=== PATIENT | female | born 1975 | race African-American/Black ===

== ENCOUNTER 2018-05-07 20:39 | Observation (INO) | payer OTHER, SELFPAY ==
[2018-05-07 20:41] VITALS: BP 179/100; PULSE 94; RESP 18; TEMP 36.7; O2SAT 94; BMI 39.0
--- NOTE | 2018-05-07 21:10 | RAD_ITS ---
STUDY: X-RAY CHEST REASON FOR EXAM: Female, 42 years old. Chest pain TECHNIQUE: PA and lateral views of the chest. COMPARISON: 01/28/2016 FINDINGS: The lungs are clear and expanded. There is no demonstrated pleural abnormality. Normal size heart. Normal mediastinum and amirah. Normal visualized pulmonary arteries. Normal visualized aortic arch and descending thoracic aorta. Normal visualized thoracic spine. Normal visualized ribs, clavicles, and shoulders. There is no demonstrated abnormality of the visualized soft tissue structures of the upper abdomen. RAD/Chest PA and Lateral IMPRESSION: Normal x-ray examination of the chest. Electronically Signed: Bruce Little DO at 21:48 EDT Tel , Service support ,
[2018-05-07 21:33] LABS: Absolute Neutrophil Count 2.2 X10^3/uL (2.0-7.7); Basophil# 0.02 X10^3/uL; Basophil% 0.4 % (0-1); Eosinophil# 0.13 X10^3/uL; Eosinophils% 2.7 % (0-5); Hematocrit 40.4 % (37-47); Hemoglobin 12.9 g/dl (12.0-15.0); Lymphocyte % 43.4 % (19-41); Mean Corp Hgb Conc 31.9 g/gl (32-36); Mean Corpuscular Volume 90.8 fL (81-99); Monocyte# 0.38 X10^3/uL; Monocyte% 7.9 % (0-10); Neutrophil # 2.21 X10^3/uL (2.7-7.7); Neutrophil % 45.6 % (47-70); POSITIVE COUNT NO; POSITIVE DIFFERENTIAL NO; POSITIVE MORPHOLOGY NO; Platelet Count 221 K/mm3 (150-450); Red Blood Count 4.45 M/mm3 (4.2-5.4); White Blood Count 4.8 K/mm3 (4.4-11.0)
[2018-05-07 21:51] LABS: Anion Gap 8 (5-15); BUN 17 mg/dL (7-18); BUN/Creat Ratio 18.1 RATIO (10-20); Calcium,Total 8.4 mg/dL (8.5-10.1); Chloride 110 mmol/L (98-107); Creatinine, Serum 0.94 mg/dL (0.55-1.02); EST Glomerular Filtration Rate 69 mL/min (>60); Est Glom Filt Rate - Afr Amer 83 mL/min (>60); Estimated Creatinine Clearance 66.64 ml/min; Glucose 164 mg/dL (74-106); Potassium 3.8 mmol/L (3.5-5.1); Sodium Level 142 mmol/L (136-145)
[2018-05-07 22:18] VITALS: BP 190/113; PULSE 76; RESP 17; O2SAT 98
--- NOTE | 2018-05-07 22:37 | ED.DCSUM_ITS ---
- ER Visit Summary Date of Service: 05/07/18 Chief Complaint: [Chest pain] History of Present Illness: The patient is a 42 F [who presents the emergency department with chest pain. It started this morning. It has been off and on all day. It is currently a 7 out of 10 pressure pain. Occasionally it is a sharp pain. She is not sure what brings it on. No shortness of breath nausea vomiting or dizziness. She has been taking her medications well. She has had a headache for the past 2 days. No fevers or chills. No lower extremity swelling. No DVT or PE risk factors. She does have a history of hypertension diabetes untreated hyperlipidemia and [place] at the age of 20 from cocaine use. She denies smoking alcohol or any current drug use] Physical Examination: [] Blood pressure 190/113 other vitals within acceptable limits WN WD NAD obese PERRL EOMI MMM NECK supple and nontender, no masses RRR out of 6 systolic murmur rub or gallop, no peripheral edema, symmetric radial pulses CTAB no respiratory distress mild tenderness to left chest ABDOMEN is soft and nontender, normal bowel sounds, no distension, no rebound or guarding SKIN is warm and dry no rashes Alert and Oriented x3, CN II-XII in tact, no motor or sensory deficits, gait normal No lymphadenopathy Test Results: [EKG is sinus at a rate of 72 with LVH and subsequent repolarization abnormality that includes T-wave inversions V3 V4 V5 V6 1 and AV well as well as the inferior leads there is no ST elevation she is a borderline prolonged QTC] not significantly changed from prior on January 29 2016 Emergency Department Course and Treatment: [Screening labs including troponin were unremarkable. Patient was given aspirin and nitroglycerin on arrival. Given the patient's history continued chest pain and uncontrolled hypertension I do think she requires admission for observation. Patient given 20 of labetalol and Nitropaste. She continued to have intermittent squeezing chest discomfort and occasional shock pain. At this time given her malignant high blood pressure chest pain and medical history she will be admitted to the hospital.] Treatment Plan: [] Disposition: Admit Impression: [[1. Malignant hypertension 2. Chest pain] ] This note was generated with [employer] dictation software. It may contain incorrect words, spelling, and punctuation that were not noted in review of the chart prior to signing ED Disposition - Plan for ED Patient: Chief Complaint: Chest Pain Referrals: Bebeto Charlton DO [Primary Care Provider] -
[2018-05-07] MEDS: Aspirin 81 MG TAB.CHEW 324 MG PO (23:24)
[2018-05-07 23:25] VITALS: BP 170/120; PULSE 84; RESP 20; O2SAT 98
[2018-05-08] VITALS (12 sets, daily range): BP systolic 110–223; BP diastolic 63–190; PULSE 68–94; RESP 16; TEMP 36.7–37.1; O2SAT 96–98; BMI 39.9
--- NOTE | 2018-05-08 00:14 | PCM.HP.STD ---
Problem List (1) History of [place] (myocardial infarction) Status: Chronic (2) Type II diabetes mellitus Status: Chronic (3) Obesity Status: Chronic (4) Chest pain Status: Acute Qualifiers: Chest pain type: unspecified Qualified Code(s): R07.9 - Chest pain, unspecified (5) Uncontrolled hypertension Status: Acute History of Present Illness Date of Admission: 05/08/18 Chief Complaint: chest pain The patient is a 42 year old female patient with a history of LA at age 19 due to cocaine abuse presents to the ER with chest pain and uncontrolled hypertension. She states she the pain began this am at 8:00. The pain was significant and was not provoked by activity. It does not radiate from the chest. She says she may have had a stress test two years ago. No nausea or vomiting. She will be admitted for further cardiac workup. She denies illicit drug abuse. Past Medical History Past Medical History (Chronic Problems): Chronic Problems History of [place] (myocardial infarction) (Chronic) Type II diabetes mellitus (Chronic) History of gestational diabetes mellitus (Chronic) Obesity (Chronic) Benign essential hypertension (Chronic) Asthma (Chronic) Allergies Penicillins Allergy (Verified 05/07/18 20:43) Hives Home Medications: Ambulatory Orders Medication Instructions Recorded Amlodipine [Norvasc] 10 mg PO DAILY #60 tablet 01/30/16 Carvedilol [Coreg (Beta Cathi)] 25 mg PO BID #120 tablet 01/30/16 Hydrochlorothiazide [Hctz] 25 mg PO DAILY #60 tablet 01/30/16 Lisinopril [Zestril] 40 mg PO DAILY #60 tablet 01/30/16 Glimepiride [Amaryl] 2 mg PO DAILY 05/07/18 Hydrocodone/Acetaminophen 1 tab PO Q6H PRN PRN 05/07/18 [Hydrocodone-Acetamin 7.5-325] Insulin Glargine,Hum.rec.anlog 26 unit SQ QHS 05/07/18 [Basaglar Kwikpen U-100] Tizanidine HCl [Zanaflex] 4 mg PO BID 05/07/18 Surgical History: - Smoking Status: Never smoker - *Family History Maternal History Items: Diabetes, Heart Disease, Hypertension, - Paternal History Items: - - unkown father side history Review of Systems Constitutional: Denies: Chills, Fever, Weight Change HEENT: Denies: Head Aches, Sinus Congestion, Sinus Drainage Cardiovascular: Reports: Chest Pain. Denies: Palpitations Respiratory: Denies: Cough, Shortness of breath at rest, Sputum production Gastrointestinal: Denies: Abdominal Pain, Nausea, Vomiting Genitourinary: Denies: Dysuria Musculoskeletal: Denies: Joint Pain, Joint Tenderness Skin: Denies: Rash, Wounds Neurological: Denies: Numbness, Tingling, Focal weakness Psychiatric: Denies: Anxiety, Depression, Homicidal Ideations, Suicidal Ideations Hematologic/ Lymphatic: Denies: Easy Bruising, Easy Bleeding VTE Information - Inpt Only VTE Present on Admission: No VTE Mechan Device Prophylaxis: None VTE Pharm Prophylaxis ordered?: Yes - Physical Exam General: Alert, Oriented x3, Cooperative HEENT: Atraumatic, Normocephalic Neck: Supple Lungs: Clear to auscultation, Normal air movement Cardiovascular: Regular rate, Normal S1, Normal S2, No murmurs Abdomen: Bowel Sounds Present, Soft, Non Tender, Obese Extremities: No edema, Capillary Refill Less than 3 Seconds Skin: No rashes Musculoskeletal: No Tenderness to Palpation of Joints or Extremities Neurological: Neuro grossly intact Psych/Mental Status: Normal Affect, Appropriate Vital Signs Temp Pulse Resp BP Pulse Ox 98.0 F 84 20 H 170/120 H 98 05/07/18 20:41 05/07/18 23:25 05/07/18 23:25 05/07/18 23:25 05/07/18 23:25 Oxygen Delivery Method Room Air Weight: 227 lb 11.8 oz Body Mass Index (BMI) 39.0 Finger Stick Blood Glucose 89 Laboratory Tests Past 24 Hrs 05/07/18 05/07/18 21:20 21:20 WBC 4.8 RBC 4.45 Hgb 12.9 Hct 40.4 MCV 90.8 MCH 29.0 MCHC 31.9 L RDW 15.0 H RDW Differential 50.0 H Plt Count 221 MPV 10.0 Immature Gran % (Auto) 0.000 Neut % (Auto) 45.6 L Lymph % (Auto) 43.4 H [place] % (Auto) 7.9 Eos % (Auto) 2.7 Baso % (Auto) 0.4 Absolute Neuts (auto) 2.2 Absolute Lymphs (auto) 2.10 Total Counted Not Reportable Sodium 142 Potassium 3.8 Chloride 110 H Carbon Dioxide 24.0 Anion Gap 8 BUN 17 Creatinine 0.94 Estim Creat Clear Calc 66.64 Est GFR (MDRD) Af Amer 83 Est GFR (MDRD) Non-Af 69 BUN/Creatinine Ratio 18.1 Glucose 164 H Calcium 8.4 L Troponin I < 0.015 Assessment/Plan All Active Problems Chest pain (Acute) Uncontrolled hypertension (Acute) Chronic Problems History of gestational diabetes mellitus (Chronic) Obesity (Chronic) Benign essential hypertension (Chronic) Asthma (Chronic) Plan - admit for observation to PCU - cycle cardiac markers - morphine, oxygen, nitro and aspirin per routine - nuclear exercise stress test in am - hydralzine 20mg iv q 6 hrs prn HTN - LMWH for DVT prophylaxis - continue routine home medications Code Visit OBSV E&M: 12026 Initial observation care L2
--- NOTE | 2018-05-08 00:20 | HP.PCM_ITS ---
Problem List (1) History of [place] (myocardial infarction) Status: Chronic (2) Type II diabetes mellitus Status: Chronic (3) Obesity Status: Chronic (4) Chest pain Status: Acute Qualifiers: Chest pain type: unspecified Qualified Code(s): R07.9 - Chest pain, unspecified (5) Uncontrolled hypertension Status: Acute History of Present Illness Date of Admission: 05/08/18 Chief Complaint: chest pain The patient is a 42 year old female patient with a history of TN at age 19 due to cocaine abuse presents to the ER with chest pain and uncontrolled hypertension. She states she the pain began this am at 8:00. The pain was significant and was not provoked by activity. It does not radiate from the chest. She says she may have had a stress test two years ago. No nausea or vomiting. She will be admitted for further cardiac workup. She denies illicit drug abuse. Past Medical History Past Medical History (Chronic Problems): Chronic Problems History of [place] (myocardial infarction) (Chronic) Type II diabetes mellitus (Chronic) History of gestational diabetes mellitus (Chronic) Obesity (Chronic) Benign essential hypertension (Chronic) Asthma (Chronic) Allergies Penicillins Allergy (Verified 05/07/18 20:43) Hives Home Medications: Ambulatory Orders Medication Instructions Recorded Amlodipine [Norvasc] 10 mg PO DAILY #60 tablet 01/30/16 Carvedilol [Coreg (Beta Cathi)] 25 mg PO BID #120 tablet 01/30/16 Hydrochlorothiazide [Hctz] 25 mg PO DAILY #60 tablet 01/30/16 Lisinopril [Zestril] 40 mg PO DAILY #60 tablet 01/30/16 Glimepiride [Amaryl] 2 mg PO DAILY 05/07/18 Hydrocodone/Acetaminophen 1 tab PO Q6H PRN PRN 05/07/18 [Hydrocodone-Acetamin 7.5-325] Insulin Glargine,Hum.rec.anlog 26 unit SQ QHS 05/07/18 [Basaglar Kwikpen U-100] Tizanidine HCl [Zanaflex] 4 mg PO BID 05/07/18 Surgical History: - Smoking Status: Never smoker - *Family History Maternal History Items: Diabetes, Heart Disease, Hypertension, - Paternal History Items: - - unkown father side history Review of Systems Constitutional: Denies: Chills, Fever, Weight Change HEENT: Denies: Head Aches, Sinus Congestion, Sinus Drainage Cardiovascular: Reports: Chest Pain. Denies: Palpitations Respiratory: Denies: Cough, Shortness of breath at rest, Sputum production Gastrointestinal: Denies: Abdominal Pain, Nausea, Vomiting Genitourinary: Denies: Dysuria Musculoskeletal: Denies: Joint Pain, Joint Tenderness Skin: Denies: Rash, Wounds Neurological: Denies: Numbness, Tingling, Focal weakness Psychiatric: Denies: Anxiety, Depression, Homicidal Ideations, Suicidal Ideations Hematologic/ Lymphatic: Denies: Easy Bruising, Easy Bleeding VTE Information - Inpt Only VTE Present on Admission: No VTE Mechan Device Prophylaxis: None VTE Pharm Prophylaxis ordered?: Yes - Physical Exam General: Alert, Oriented x3, Cooperative HEENT: Atraumatic, Normocephalic Neck: Supple Lungs: Clear to auscultation, Normal air movement Cardiovascular: Regular rate, Normal S1, Normal S2, No murmurs Abdomen: Bowel Sounds Present, Soft, Non Tender, Obese Extremities: No edema, Capillary Refill Less than 3 Seconds Skin: No rashes Musculoskeletal: No Tenderness to Palpation of Joints or Extremities Neurological: Neuro grossly intact Psych/Mental Status: Normal Affect, Appropriate Vital Signs Temp Pulse Resp BP Pulse Ox 98.0 F 84 20 H 170/120 H 98 05/07/18 20:41 05/07/18 23:25 05/07/18 23:25 05/07/18 23:25 05/07/18 23:25 Oxygen Delivery Method Room Air Weight: 227 lb 11.8 oz Body Mass Index (BMI) 39.0 Finger Stick Blood Glucose 89 Laboratory Tests Past 24 Hrs 05/07/18 05/07/18 21:20 21:20 WBC 4.8 RBC 4.45 Hgb 12.9 Hct 40.4 MCV 90.8 MCH 29.0 MCHC 31.9 L RDW 15.0 H RDW Differential 50.0 H Plt Count 221 MPV 10.0 Immature Gran % (Auto) 0.000 Neut % (Auto) 45.6 L Lymph % (Auto) 43.4 H [place] % (Auto) 7.9 Eos % (Auto) 2.7 Baso % (Auto) 0.4 Absolute Neuts (auto) 2.2 Absolute Lymphs (auto) 2.10 Total Counted Not Reportable Sodium 142 Potassium 3.8 Chloride 110 H Carbon Dioxide 24.0 Anion Gap 8 BUN 17 Creatinine 0.94 Estim Creat Clear Calc 66.64 Est GFR (MDRD) Af Amer 83 Est GFR (MDRD) Non-Af 69 BUN/Creatinine Ratio 18.1 Glucose 164 H Calcium 8.4 L Troponin I < 0.015 Assessment/Plan All Active Problems Chest pain (Acute) Uncontrolled hypertension (Acute) Chronic Problems History of gestational diabetes mellitus (Chronic) Obesity (Chronic) Benign essential hypertension (Chronic) Asthma (Chronic) Plan - admit for observation to PCU - cycle cardiac markers - morphine, oxygen, nitro and aspirin per routine - nuclear exercise stress test in am - hydralzine 20mg iv q 6 hrs prn HTN - LMWH for DVT prophylaxis - continue routine home medications Code Visit OBSV E&M: 72290 Initial observation care L2
--- NOTE | 2018-05-08 00:36 | NURSING ---
Called ED Charge Nurse Joel, asked him to draw patient's second trop that is due now, and then ok to send to floor.
[2018-05-08] MEDS: Nitroglycerin Oint 1 INCH PACKET TRANSDERM. (00:40)
[2018-05-08 01:31] LABS: Bedside Glucose 179 mg/dL (70-110)
[2018-05-08] MEDS: hydrALAZINE 20 MG/ML Vial IV (02:02)
[2018-05-08] MEDS: 0.9% NaCl Peripheral Flush Adult/Peds IV (02:02)
[2018-05-08 04:25] LABS: Absolute Lymphocyte Count 1.98 X10^3/ul (0.83-4.51); Absolute Neutrophil Count 1.8 X10^3/uL (2.0-7.7); Basophil# 0.04 X10^3/uL; Basophil% 0.9 % (0-1); Eosinophil# 0.15 X10^3/uL; Eosinophils% 3.4 % (0-5); Hematocrit 39.8 % (37-47); Hemoglobin 12.8 g/dl (12.0-15.0); Lymphocyte # 1.98 X10^3/ul (4.0); Lymphocyte % 45.5 % (19-41); Mean Corp Hgb Conc 32.2 g/gl (32-36); Mean Corpuscular Hgb 29.4 pg (27.0-32.0); Mean Corpuscular Volume 91.5 fL (81-99); Mean Platelet Vol. 10.1 fl (6.2-12.0); Monocyte# 0.34 X10^3/uL; Monocyte% 7.8 % (0-10); Neutrophil # 1.84 X10^3/uL (2.7-7.7); Neutrophil % 42.4 % (47-70); Platelet Count 224 K/mm3 (150-450); RBC Distribution Width SD 49.4 fl (35.1-43.9); Red Blood Count 4.35 M/mm3 (4.2-5.4); White Blood Count 4.4 K/mm3 (4.4-11.0)
[2018-05-08 04:33] LABS: POSITIVE COUNT NO; POSITIVE DIFFERENTIAL NO; POSITIVE MORPHOLOGY NO
[2018-05-08 04:40] LABS: Partial Thromboplast Time 27.5 Seconds (24.1-36.2); Prothrombin Time (Protime)PT. 13.1 SECONDS (11.7-14.9)
[2018-05-08 05:09] LABS: ALB/GLOB Ratio 0.9 RATIO (0.9-2.4); AST(SGOT) 21 U/L (15-37); Alanine Aminotransfer ALT/SGPT 29 U/L (13-56); Albumin, Serum 3.2 g/dL (3.2-5.0); Alkaline Phosphatase 85 U/L (45-117); Anion Gap 7 (5-15); BUN 17 mg/dL (7-18); BUN/Creat Ratio 24.7 RATIO (10-20); Calcium,Total 8.2 mg/dL (8.5-10.1); Chloride 109 mmol/L (98-107); Cholesterol 170 mg/dL (200); Creatinine, Serum 0.69 mg/dL (0.55-1.02); EST Glomerular Filtration Rate 99 mL/min (>60); Est Glom Filt Rate - Afr Amer 119 mL/min (>60); Estimated Creatinine Clearance 86.96 ml/min; Globulin 3.5 g/dL (2.2-4.2); Glucose 135 mg/dL (74-106); High Density Lipoprotein 39 mg/dL; Potassium 3.3 mmol/L (3.5-5.1); Protein, Total 6.7 g/dL (6.4-8.2); Sodium Level 142 mmol/L (136-145); Thyroid Stim Hormone (TSH) 1.52 uIU/mL (0.358-3.74); Triglycerides 252 mg/dL; Very Low Density Lipoprotein 50 mg/dL (5-40)
--- NOTE | 2018-05-08 06:18 | NURSING ---
Called Stress and informed of pt need for kriders and of potassium. Said it would be okay to tube down kriders to orthodontic lab technician and patient cleared to come.
[2018-05-08] MEDS: Lisinopril 40 MG Tablet PO (06:27)
[2018-05-08] MEDS: Aspirin E.C. 325 MG Tablet PO (06:27)
[2018-05-08 07:51] LABS: Bedside Glucose 109 mg/dL (70-110)
[2018-05-08 07:55] LABS: Amphetamine Urine VISTA NEGATIVE (<1000 ng/mL); Barbiturate Urine VISTA NEGATIVE (< 200 ng/mL); Benzodiazepine Urine VISTA NEGATIVE (< 200 ng/mL); Cocaine Urine VISTA NEGATIVE (< 300 ng/mL); Ecstacy Urine VISTA NEGATIVE (< 500 ng/mL); Methadone Urine VISTA NEGATIVE (< 300 ng/mL); PCP Urine VISTA NEGATIVE (< 25 ng/mL); THC Urine VISTA NEGATIVE (< 50 ng/mL); Vista UDS pH Range 8
[2018-05-08] MEDS: tiZANidine HCl 2 MG Tablet 4 MG PO (09:08)
[2018-05-08] MEDS: hydroCHLOROthiazide 25 MG Tablet PO (09:09)
[2018-05-08] MEDS: Glimepiride 2 MG Tablet PO (09:09)
[2018-05-08] MEDS: amLODIPine 10 MG Tablet PO (09:09)
[2018-05-08] MEDS: Carvedilol 25 MG Tablet PO (09:09)
--- NOTE | 2018-05-08 13:25 | DCINST_ITS ---
- Discharge Diagnoses Current Active Problems: Current Active and Chronic Problems History of [place] (myocardial infarction) (Chronic) You will use the following diet at home:: Calorie/Carbohydrate Controlled ( specify 1200, 1400, etc) - 1800 joleen., Cardiac Your food should be the consistency of: Regular Discharge Activity: Return to Normal Activity Weight Bearing Status: Full weight bearing Call your doctor if you observe: Fever of 101 or Higher, Shortness of breath, Dizziness, Fainting spells, Chest pain, Increased palpitations (irregular heartbeat), Uncontrolled pain Instructions: Controlling High Blood Pressure, Taking Your Blood Pressure Allergies/Adverse Reactions: Allergies Penicillins Allergy (Verified 05/07/18 20:43) Hives Medications to take at Discharge Amlodipine [Norvasc] 10 mg PO DAILY #60 tablet 01/30/16 Carvedilol [Coreg (Beta Cathi)] 25 mg PO BID #120 tablet 01/30/16 Hydrochlorothiazide [Hctz] 25 mg PO DAILY #60 tablet 01/30/16 Lisinopril [Zestril] 40 mg PO DAILY #60 tablet 01/30/16 Glimepiride [Amaryl] 2 mg PO DAILY 05/07/18 Hydrocodone/Acetaminophen [Hydrocodone-Acetamin 7.5-325] 1 tab PO TID 05/07/18 Insulin Glargine,Hum.rec.anlog [Basaglar Annaikpen U-100] 26 unit SQ QHS 05/07/18 Tizanidine HCl [Zanaflex] 4 mg PO BID 05/07/18 Gabapentin [Neurontin] 400 mg PO TID 05/08/18 Mirtazapine [Remeron] 15 mg PO QHS 05/08/18 Primary Care Physician: Bebeto Charlton DO [Primary Care Provider] - Please follow up with your Primary Care Physician in: 1 week.
--- NOTE | 2018-05-08 14:18 | STRESSREP ---
Stress Test Report Date: 05/08/2018 Procedure: Pharmacologic stress nuclear imaging study Indications: Chest pain Consent: Per the patient Procedure: The patient underwent pharmacologic (Regadenoson) evaluation with a peak heart rate of 99 beats per minute (55 predicted maximal heart rate) and a peak blood pressure of 172/90 mmHg. The baseline ECG demonstrated normal sinus rhythm with ST and T-wave abnormality. The peak pharmacologic ECG demonstrated continued ST and T-wave abnormality. There were no cardiac dysrhythmias pretest, during pharmacologic infusion, or recovery. There was no complaint of chest discomfort during pharmacologic infusion or recovery. The examination was discontinued secondary to completion of protocol. Impression: 1. Pharmacologic (Regadenoson) evaluation 2. Peak pharmacologic ECG with continued ST and T-wave abnormality. 3. There were no cardiac dysrhythmias pretest, during pharmacologic infusion, or recovery 4. Nuclear images pending Myocardial perfusion imaging study: Technique: The patient was injected with 14.7 millicuries of technetium 99m Cardiolite and subsequently rest SPECT Cardiolite nuclear imaging was obtained in the horizontal long, vertical long, and short axis views. The patient underwent pharmacologic (Regadenoson) evaluation with a peak heart rate of 99 beats per minute (55 % percent predicted maximal heart rate) and a peak blood pressure of 172/90 mmHg. The patient was injected with 44.4 millicuries of technetium 99m Cardiolite and subsequently stress SPECT Cardiolite nuclear imaging was obtained in the horizontal long, vertical long, and short axis views. A gated Cardiolite study at peak stress was obtained. Interpretation: Rest and stress SPECT Cardiolite nuclear imaging status post realignment, normalization, and attenuation correction demonstrate relative uniform tracer uptake and myocardial perfusion appearing within normal limits. There is end systolic thickening and brightening. The gated Cardiolite study demonstrates myocardial thickening and inward wall motion. The reported LVEF is 52 %. Impression: 1. Rest and stress SPECT Cardiolite nuclear imaging demonstrate relative uniform tracer uptake and myocardial perfusion appearing within normal limits. 2. The gated Cardiolite study reports an LVEF of 52 %. This note was generated with [employer] software. It may contain incorrect words, spelling, and punctuation that were not noted in checking the note before signing.
--- NOTE | 2018-05-08 14:55 | PCM.DC.SUM ---
Discharge Date and Diagnosis Date of Admission: 05/08/18 Date of Discharge: 05/08/18 - Primary Discharge Diagnosis #1 chest pain, ACS ruled out, negative nuclear stress test. #2 hypertensive urgency. - Secondary Discharge Diagnosis Chronic Problems History of [place] (myocardial infarction) (Chronic) Type II diabetes mellitus (Chronic) History of gestational diabetes mellitus (Chronic) Obesity (Chronic) Benign essential hypertension (Chronic) Asthma (Chronic) Hospital Course and Treatment Imaging Results: Clinical Impression(s) from Imaging Studies Chest X-Ray 05/07/18 21:10 IMPRESSION: Normal x-ray examination of the chest. Electronically Signed: Bruce DO [place] at 21:48 EDT Tel , Service support , Operations: None Procedures: EKG, Stress test Summary of Care Provided: Patient seen and examined on the day of discharge and appeared to be stable to be discharged home. She was admitted for chest pain and elevated blood pressure. EKG revealed no acute ischemic changes. Her troponin was negative ?3. This morning, she complained of headache and her blood pressure was slightly elevated but she did not get some of her antihypertensive medication because she is going for stress test.- Physical Exam General: Alert, Oriented x3, Cooperative, No apparent distress. HEENT: Atraumatic, PERRLA, EOMI. Neck: Supple, No JVD, Negative Carotid Bruits, Trachea Midline, Thyroid Normal. Lungs: Clear to auscultation, Normal air movement, No rhonchi, No wheeze, No rales. Cardiovascular: Regular rate, Regular Rhythm, Normal S1, Normal S2, PMI Normal. Abdomen: Bowel Sounds Present, Soft, Non Tender, Non-Distended, No Hepato-splenomegaly. Extremities: No clubbing, No cyanosis, No edema Skin: No rashes, No breakdown Neurological: Neuro grossly intact Hospital course: This is a 41 years old female patient admitted because of chest pain and headache, found to have elevated blood pressure consistent with hypertensive urgency. Her initial EKG revealed no acute ischemic changes. Troponin was negative ?3. Chest x-ray showed no acute findings. Routine blood work was unremarkable except for mild hypokalemia and her potassium was replaced and corrected. Her blood pressure was high, maximum was 199/112. She mentioned that her blood pressure usually under good control when she takes her medications. She did not take her medication this morning. She underwent nuclear stress test that was reported as negative without evidence of stress-induced myocardial ischemia. This morning, she received her regular antihypertensive medications that she takes at home and her blood pressure came down smoking and nicely. Blood pressure this morning after all medication given was 110/63. She has no more chest pain. ACS ruled out. Patient discharged home in a stable medical condition, discharged on her chronic home medications without any changes, highly recommended to keep a close eye on his blood pressure, recommend follow-up with PCP in 1 week. Discharge Activity: Return to Normal Activity Weight Bearing Status: Full weight bearing Call your doctor if you observe: Fever of 101 or Higher, Shortness of breath, Dizziness, Fainting spells, Chest pain, Increased palpitations (irregular heartbeat), Uncontrolled pain Home Medications: Medications to take at Discharge Amlodipine [Norvasc] 10 mg PO DAILY #60 tablet 01/30/16 Carvedilol [Coreg (Beta Cathi)] 25 mg PO BID #120 tablet 01/30/16 Hydrochlorothiazide [Hctz] 25 mg PO DAILY #60 tablet 01/30/16 Lisinopril [Zestril] 40 mg PO DAILY #60 tablet 01/30/16 Glimepiride [Amaryl] 2 mg PO DAILY 05/07/18 Hydrocodone/Acetaminophen [Hydrocodone-Acetamin 7.5-325] 1 tab PO TID 05/07/18 Insulin Glargine,Hum.rec.anlog [Basaglar Kwikpen U-100] 26 unit SQ QHS 05/07/18 Tizanidine HCl [Zanaflex] 4 mg PO BID 05/07/18 Gabapentin [Neurontin] 400 mg PO TID 05/08/18 Mirtazapine [Remeron] 15 mg PO QHS 05/08/18 Primary Care Physician: Bebeto Charlton DO [Primary Care Provider] - Please follow up with your Primary Care Physician in: 1 week. Patient Instructions: Controlling High Blood Pressure, Taking Your Blood Pressure Disposition: Home Minutes spent on discharge:: 25 Patient Condition:: Stable Medical Necessity - Tobacco Use Smoking Status: Never smoker Meaningful Use Info Meaningful Use Diagnoses (Choose all that apply): None applicable Code Visit OBSV E&M: 17455 Observation care discharge
--- NOTE | 2018-05-08 15:00 | DS.PCM_ITS ---
Discharge Date and Diagnosis Date of Admission: 05/08/18 Date of Discharge: 05/08/18 - Primary Discharge Diagnosis #1 chest pain, ACS ruled out, negative nuclear stress test. #2 hypertensive urgency. - Secondary Discharge Diagnosis Chronic Problems History of SD (myocardial infarction) (Chronic) Type II diabetes mellitus (Chronic) History of gestational diabetes mellitus (Chronic) Obesity (Chronic) Benign essential hypertension (Chronic) Asthma (Chronic) Hospital Course and Treatment Imaging Results: Clinical Impression(s) from Imaging Studies Chest X-Ray 05/07/18 21:10 IMPRESSION: Normal x-ray examination of the chest. Electronically Signed: Bruce DO Sidney at 21:48 EDT Tel , Service support , Operations: None Procedures: EKG, Stress test Summary of Care Provided: Patient seen and examined on the day of discharge and appeared to be stable to be discharged home. She was admitted for chest pain and elevated blood pressure. EKG revealed no acute ischemic changes. Her troponin was negative ? 3. This morning, she complained of headache and her blood pressure was slightly elevated but she did not get some of her antihypertensive medication because she is going for stress test.- Physical Exam General: Alert, Oriented x3, Cooperative, No apparent distress. HEENT: Atraumatic, PERRLA, EOMI. Neck: Supple, No JVD, Negative Carotid Bruits, Trachea Midline, Thyroid Normal. Lungs: Clear to auscultation, Normal air movement, No rhonchi, No wheeze, No rales. Cardiovascular: Regular rate, Regular Rhythm, Normal S1, Normal S2, PMI Normal. Abdomen: Bowel Sounds Present, Soft, Non Tender, Non-Distended, No Hepato- splenomegaly. Extremities: No clubbing, No cyanosis, No edema Skin: No rashes, No breakdown Neurological: Neuro grossly intact Hospital course: This is a 41 years old female patient admitted because of chest pain and headache, found to have elevated blood pressure consistent with hypertensive urgency. Her initial EKG revealed no acute ischemic changes. Troponin was negative ?3. Chest x-ray showed no acute findings. Routine blood work was unremarkable except for mild hypokalemia and her potassium was replaced and corrected. Her blood pressure was high, maximum was 199/112. She mentioned that her blood pressure usually under good control when she takes her medications. She did not take her medication this morning. She underwent nuclear stress test that was reported as negative without evidence of stress- induced myocardial ischemia. This morning, she received her regular antihypertensive medications that she takes at home and her blood pressure came down smoking and nicely. Blood pressure this morning after all medication given was 110/63. She has no more chest pain. ACS ruled out. Patient discharged home in a stable medical condition, discharged on her chronic home medications without any changes, highly recommended to keep a close eye on his blood pressure, recommend follow-up with PCP in 1 week. Discharge Activity: Return to Normal Activity Weight Bearing Status: Full weight bearing Call your doctor if you observe: Fever of 101 or Higher, Shortness of breath, Dizziness, Fainting spells, Chest pain, Increased palpitations (irregular heartbeat), Uncontrolled pain Home Medications: Medications to take at Discharge Amlodipine [Norvasc] 10 mg PO DAILY #60 tablet 01/30/16 Carvedilol [Coreg (Beta Cathi)] 25 mg PO BID #120 tablet 01/30/16 Hydrochlorothiazide [Hctz] 25 mg PO DAILY #60 tablet 01/30/16 Lisinopril [Zestril] 40 mg PO DAILY #60 tablet 01/30/16 Glimepiride [Amaryl] 2 mg PO DAILY 05/07/18 Hydrocodone/Acetaminophen [Hydrocodone-Acetamin 7.5-325] 1 tab PO TID 05/07/18 Insulin Glargine,Hum.rec.anlog [Basaglar Kwikpen U-100] 26 unit SQ QHS 05/07/18 Tizanidine HCl [Zanaflex] 4 mg PO BID 05/07/18 Gabapentin [Neurontin] 400 mg PO TID 05/08/18 Mirtazapine [Remeron] 15 mg PO QHS 05/08/18 Primary Care Physician: Bebeto Charlton DO [Primary Care Provider] - Please follow up with your Primary Care Physician in: 1 week. Patient Instructions: Controlling High Blood Pressure, Taking Your Blood Pressure Disposition: Home Minutes spent on discharge:: 25 Patient Condition:: Stable Medical Necessity - Tobacco Use Smoking Status: Never smoker Meaningful Use Info Meaningful Use Diagnoses (Choose all that apply): None applicable Code Visit OBSV E&M: 29106 Observation care discharge
== END 2018-05-08 13:24 | disposition home or self-care (01) ==
LOC: ED 22:40 → PCU 05-08 00:34
PROVIDERS: Admitting Provider Family Medicine; Emergency Provider Emergency Medicine; Family Provider Student in an Organized Health Care Education/Training Program; PCP Student in an Organized Health Care Education/Training Program; Visit Provider Hospitalist
DX: R07.89 Other chest pain (principal); I16.0 Hypertensive urgency; R51 Headache; I10 Essential (primary) hypertension; E78.5 Hyperlipidemia, unspecified; E11.9 Type 2 diabetes mellitus without complications; I25.2 Old myocardial infarction; E66.9 Obesity, unspecified; Z68.39 Body mass index [BMI] 39.0-39.9, adult; Z71.3 Dietary counseling and surveillance; J45.909 Unspecified asthma, uncomplicated; E87.6 Hypokalemia; Z79.899 Other long term (current) drug therapy; Z79.4 Long term (current) use of insulin
CPT/HCPCS: 36415; 71046; 78452; 80048; 80053; 80061; 80307; 82962; 84443; 84484; 85025; 85610; 85730; 93017; 96361; 96374; 96376; 99218; 99282; A9500; A4216; G0378; J2785

== ENCOUNTER 2018-09-16 17:58 | Emergency (ER) | payer MEDICAID, SELFPAY ==
[2018-09-16 17:58] VITALS: BP 194/119; PULSE 79; RESP 17; TEMP 36.8; O2SAT 97; BMI 37.1
[2018-09-16] MEDS: Azithromycin 250 MG Tablet 500 MG PO (18:29)
--- NOTE | 2018-09-16 18:30 | ED.DCSUM_ITS ---
- ER Visit Summary Date of Service: 09/16/18 Chief Complaint: Sore throat History of Present Illness: The patient is a 42 F with sore throat no fever she has a cough congestion and sinus pressure for about a week. She is also had loose stools, she is also complaining about vaginal bleeding but does not wish for me to address any of that she will follow-up with her [employer]. No chest pain or shortness of breath. Physical Examination: Not appear in acute distress. Moist mucous membranes, no obvious facial deformity. She has swollen nasal turbinates, postnasal drip without any signs of significant pharyngitis. She has sinus tenderness. She has normal TMs. No C-spine tenderness supple neck. Regular rate and rhythm without any obvious murmurs Clear lungs bilaterally speaking in full sentences without any obvious respiratory distress Abdomen soft and nontender no guarding or rebound Moves all extremities without any difficulty or pain. Skin does not show any obvious rashes or lesions, no trauma. Alert oriented ?3 with no gross focal deficit Emergency Department Course and Treatment: \ Patient has sinusitis, it has been about a week a little over, I will treat her with antibiotics. Discharge stable condition Impression: Sinusitis This note was generated with [employer] dictation software. It may contain incorrect words, spelling, and punctuation that were not noted in review of the chart prior to signing ED Disposition - Plan for ED Patient: Disposition: Home or Assisted Living Chief Complaint: General Illness Instructions: Acute Sinusitis Prescriptions: Azithromycin 250 mg PO DAILY #4 tab Referrals: Bebeto Charlton DO [Primary Care Provider] - 3-5 Days
== END 2018-09-16 18:46 | disposition home or self-care (01) ==
LOC: ED 18:40
PROVIDERS: Emergency Provider Emergency Medicine; Family Provider Student in an Organized Health Care Education/Training Program; PCP Student in an Organized Health Care Education/Training Program
DX: J01.90 Acute sinusitis, unspecified (principal); I10 Essential (primary) hypertension; E11.9 Type 2 diabetes mellitus without complications; Z79.4 Long term (current) use of insulin; Z79.899 Other long term (current) drug therapy
CPT/HCPCS: 99281

== ENCOUNTER 2018-12-06 17:51 | Emergency (ER) | payer MEDICAID, SELFPAY ==
[2018-12-06 17:52] VITALS: BP 168/117; PULSE 98; RESP 16; TEMP 36.8; O2SAT 99; BMI 34.7
--- NOTE | 2018-12-06 18:01 | CT_ITS ---
STUDY: CT BRAIN WITHOUT CONTRAST REASON FOR EXAM: Female, 42 years old. Right head pain following fall RADIATION DOSAGE (If Supplied By Facility): CTDIvol = ( 44.99 ) mGy, DLP = ( 779.24 ) mGycm TECHNIQUE: Transaxial CT imaging of the brain was performed without administration of intravenous contrast material. Individualized dose optimization techniques were used for this CT. COMPARISON: None. FINDINGS: Normal soft tissue structures. Normal calvarium. Normal size ventricles and extra-axial spaces for the patient's age. Normal white matter tracts of the cerebral hemispheres. Normal basal ganglia and thalami. Normal brainstem. Normal cerebellum. Partial empty sella deformity likely of no significance There is no intracranial hemorrhage. There are no findings of an acute ischemic infarction. Normal visualized paranasal sinuses. CT/Brain/Head without Contrast IMPRESSION: Partial empty sella deformity likely of no significance No evidence for acute bleed Electronically Signed: Lucien Reaves MD at 18:44 EST , Service support ,
--- NOTE | 2018-12-06 18:03 | ED.VISSUMM ---
- ER Visit Summary Date of Service: 12/06/18 Chief Complaint: Head injury History of Present Illness: The patient is a 42 F who presents after head injury. Patient fell while walking through her garage this morning. She fell back and hit her head. She had a mechanical fall. No syncope. She has had a headache throughout the day. Now she feels nauseous. She takes no blood thinning medications. She has a history of bilateral knee and hip arthritis. She is on daily oxycodone. Physical Examination: Vital signs reviewed. HEENT exam reveals no evidence of trauma. She has occipital tenderness to palpation. Neck is nontender. Heart is regular. Lungs are clear. Abdomen soft. GCS is 15. Her neurologic exam is normal. Test Results: CAT scan of the head reveals no acute findings. CT scan of the cervical spine reveals chronic changes but nothing acute Emergency Department Course and Treatment: Patient was medicated with Tylenol. Patient will be discharged use her home medications. She will follow-up with her PCP Treatment Plan: [] Disposition: Discharge Impression: Closed head injury This note was generated with [employer] dictation software. It may contain incorrect words, spelling, and punctuation that were not noted in review of the chart prior to signing ED Disposition - Plan for ED Patient: Chief Complaint: Head Injury Referrals: Bebeto Charlton DO [Primary Care Provider] -
[2018-12-06] MEDS: Ondansetron ODT 4 MG Tablet 8 MG PO (18:09)
[2018-12-06] MEDS: Acetaminophen 500 MG Tablet 1000 MG PO (18:09)
--- NOTE | 2018-12-06 18:23 | CT_ITS ---
STUDY: CT CERVICAL SPINE WITHOUT CONTRAST REASON FOR EXAM: Female, 42 years old. Pain RADIATION DOSAGE (If Supplied By Facility): CTDIvol = ( 30.95 ) mGy, DLP = ( 558.34 ) mGycm TECHNIQUE: High resolution transaxial imaging was performed without contrast material. Sagittal and coronal images were reconstructed. Individualized dose optimization techniques were used for this CT. COMPARISON: None FINDINGS: Normal craniovertebral junction. Normal anterior atlantoaxial articulation. Normal odontoid process. Decreased cervical lordosis cervical lordosis. Normal vertebral bodies and posterior osseous elements. There is prominent ossification of the posterior longitudinal ligament extending from the inferior aspect of the C2-3 disc space through the inferior aspect of C4 vertebral body creating moderate to severe central canal stenosis and cord compression. C4-5: Mild endplate spurring. Normal disc height and small left posterolateral calcific disc protrusion narrowing the spinal canal and mildly impinging upon the cord. Normal central canal and intervertebral neuroforamina. C5-6: Minor endplate spurring.. Normal disc height and morphology. Normal central canal and intervertebral neuroforamina. C6-7: Minor endplate spurring.. Normal disc height and morphology. Normal central canal and intervertebral neuroforamina. C7-T1: Normal endplates. Normal disc height and morphology. Normal central canal and intervertebral neuroforamina. Normal visualized soft tissue structures. CT/Spine Cervical without Contras IMPRESSION: No acute fracture or subluxation Moderate spondylosis Moderate to severe central canal stenosis extending from C2-3 through the inferior aspect of C4 secondary to prominent dense ossification of the posterior longitudinal ligament. Electronically Signed: Lucien Reaves MD at 18:50 EST , Service support ,
--- NOTE | 2018-12-06 18:56 | ED.DEP ---
ED Disposition - Plan for ED Patient: Disposition: Home or Assisted Living Chief Complaint: Head Injury Instructions: ED Head Injury Closed Referrals: Bebeto Charlton DO [Primary Care Provider] -
[2018-12-06 19:06] VITALS: PULSE 85; RESP 16; O2SAT 98
== END 2018-12-06 19:06 | disposition home or self-care (01) ==
PROVIDERS: Emergency Provider Emergency Medicine; Family Provider Student in an Organized Health Care Education/Training Program; PCP Student in an Organized Health Care Education/Training Program
DX: S09.90XA Unspecified injury of head, initial encounter (principal); W18.39XA Other fall on same level, initial encounter; Y93.01 Activity, walking, marching and hiking; Y92.008 Other place in unspecified non-institutional (private) residence as the place of occurrence of the external cause; I10 Essential (primary) hypertension; E11.9 Type 2 diabetes mellitus without complications; Z79.4 Long term (current) use of insulin; Z79.899 Other long term (current) drug therapy
CPT/HCPCS: 70450; 72125; 99283

== ENCOUNTER 2019-01-26 09:59 | Emergency (ER) | payer MEDICAID, SELFPAY ==
[2019-01-26 10:00] VITALS: BP 160/94; PULSE 87; RESP 14; TEMP 36.6; O2SAT 99; BMI 36.3
--- NOTE | 2019-01-26 10:23 | ED.DCSUM_ITS ---
- ER Visit Summary Date of Service: 01/26/19 Chief Complaint: Shortness of breath and UTI symptoms.] History of Present Illness: The patient is a 43 F [presents the emergency department with main complaint of foul odor to urine and urinary frequency. Patient states that her symptoms started 2 days ago. Patient has noted a mild discomfort to her low back. She denies any fevers although she is felt hot and she is had some chills and sweats. Patient believes her dyspnea is just related to the feeling hot and feeling chilled. She has not really had any cough. She denies any chest pain. She denies recent travel or surgery. Patient states that she was treated for urinary tract infection about a month and a half ago. She denies any significant dysuria although she has somewhat of a burning type sensation to her clitoris when she urinates.] Physical Examination: [HEENT-PERRLA, EOMI. Cranial nerves II through XII grossly intact. TMs clear. Mucous membranes moist. No adenopathy. Cardiovascular-regular rate and rhythm without murmur or ectopy Lungs-clear to auscultation, chest wall stable without crepitus or subcu emphysema Abdomen-normoactive bowel sounds, soft, nontender, no rebound or rigidity, no peritoneal signs. Extremities-intact ?4, normal range of motion, normal pulses, atraumatic] Test Results: [Urinalysis showed positive nitrites, 25 leukocyte Estrace, 10-25 WBCs, and +3 bacteria.] Emergency Department Course and Treatment: [Patient was given a dose of Bactrim in the emergency department.] Treatment Plan: Patient will have a urine culture sent and advised to follow-up with primary care physician 3-5 days. Patient given prescription for Bactrim and Pyridium. [] Disposition: [Discharged home in stable condition] Impression: [Urinary tract infection] This note was generated with [employer] dictation software. It may contain incorrect words, spelling, and punctuation that were not noted in review of the chart prior to signing ED Disposition - Plan for ED Patient: Referrals: Bebeto Charlton DO [Primary Care Provider] -
[2019-01-26 10:37] LABS: Mucous, Urine 0 SEEN /hpf (<or=2+); Red Blood Cells-Urine 0 SEEN /hpf (0-5)
[2019-01-26 10:44] LABS: Color, Urine Yellow (Yellow); Glucose, Dipstick Normal (Normal); Ketone-Dipstick Negative (Negative); Leukocyte Esterase-Dipstick 25 /ul (Negative); Nitrite-Dipstick Positive (Negative); Occult Blood-Urine 10 /ul (Negative); Protein-Dipstick 30 mg/dl (Negative); Specific Gravity, Urine 1.015 (1.002-1.030); Urine Bilirubin Dipstick Negative (Negative); Urine Clarity Sl. Cloudy (Clear); Urine Urobilinogen Normal (Normal)
[2019-01-26 10:50] LABS: Bacteria 3+ /hpf (None Seen); Squamous Epithelial Cells - UA 5-10 SEEN /hpf (5-10); White Blood Cells 10-25 SEEN /hpf (0-5)
--- NOTE | 2019-01-26 11:11 | ED.DEP ---
ED Disposition - Plan for ED Patient: Instructions: ED UTI Cystitis Female Prescriptions: Phenazopyridine HCl [Pyridium] 200 mg PO BID PRN PRN #10 tab PRN Reason: Pain Smz/Tmp Ds [Bactrim Ds] 1 tab PO BID #14 tab Referrals: Bebeto Charlton DO [Primary Care Provider] - 3-5 Days
[2019-01-26] MEDS: Smz/Tmp Ds Tablet 1 TABLET PO (11:24)
== END 2019-01-26 11:31 | disposition home or self-care (01) ==
LOC: ED 10:46
PROVIDERS: Emergency Provider Emergency Medicine; Family Provider Student in an Organized Health Care Education/Training Program; PCP Student in an Organized Health Care Education/Training Program
DX: N39.0 Urinary tract infection, site not specified (principal); I10 Essential (primary) hypertension; E11.9 Type 2 diabetes mellitus without complications; Z79.4 Long term (current) use of insulin; Z79.84 Long term (current) use of oral hypoglycemic drugs; Z79.899 Other long term (current) drug therapy
CPT/HCPCS: 81001; 87086; 87088; 87186; 99283

== ENCOUNTER 2019-03-26 10:49 | Emergency (ER) | payer MEDICAID, SELFPAY ==
[2019-03-26 10:49] VITALS: BP 141/78; PULSE 69; RESP 18; TEMP 36.6; O2SAT 97; BMI 36.8
--- NOTE | 2019-03-26 11:48 | ED.VISSUMM ---
- ER Visit Summary Date of Service: 03/26/19 Chief Complaint: Right lower back and flank pain. History of Present Illness: The patient is a 43 F history of diabetes, hypertension and chronic back pain under pain management for which she is on home pain medications. States 5:00 last night her back locked up. Worse with movement. She denies any dysuria. No fever. No abdominal pain. Denies any nausea, vomiting, diarrhea or constipation. She is had no hematuria. She had pain like this before with back problems. She denies any prior back surgery. Physical Examination: Middle-aged female no acute distress. Vital signs stable afebrile. Initial blood pressure is 141/78. H EENT exam unremarkable. Neck nontender no lymphadenopathy. Lungs with auscultation bilaterally. Heart regular rhythm no murmur. Abdomen is soft nontender. Normal bowel sounds no peritoneal signs. Patient is moving all 4 extremities. Neurovascular intact. She has normal touch sensation and motor strength in both lower extremities. 5 out of 5 dorsi plantar flexion. No cauda equina. No saddle anesthesia. Normal medial thigh sensation. She can raise either leg without any radiculopathy. Negative straight leg raise bilaterally. Back exam there is mild pain in her lumbar spine more on the paravertebral soft tissue musculature on the right. There is no ecchymosis or bruising. No redness or warmth. No signs of trauma. IT Is a diffuse area of reproducible tenderness. Consistent with musculoskeletal etiology. Neurologically she is awake alert with no focal motor deficits. Test Results: None Emergency Department Course and Treatment: Patient is already under pain management. She drove herself here. She told me point blank she did not waiting for pain she has all his medications at home she does wonder diagnosis. I explained to her I thought it was musculoskeletal back spasms. She is comfortable with that will be discharged home. She was offered IM injection of Toradol which she deferred. Treatment Plan: Pain meds at home. Follow-up with pain management. Muscle relaxants at home. Hot shower, warm bath and massage. Disposition: Discharge Impression: Acute back pain secondary to paravertebral muscle spasms History of diabetes and hypertension and chronic back pain This note was generated with [employer] dictation software. It may contain incorrect words, spelling, and punctuation that were not noted in review of the chart prior to signing ED Disposition - Plan for ED Patient: Referrals: Bebeto Charlton DO [Primary Care Provider] -
--- NOTE | 2019-03-26 11:51 | ED.DEP ---
ED Disposition - Plan for ED Patient: Disposition: Home or Assisted Living Instructions: ED Spasm Back No Trauma Referrals: Bebeto Charlton DO [Primary Care Provider] - As Needed Additional Instructions: Hot shower, warm bath and massage. Use your pain medications at home and muscle relaxants as prescribed. Up with your doctor and/or pain management physicians.
== END 2019-03-26 11:57 | disposition home or self-care (01) ==
PROVIDERS: Emergency Provider Emergency Medicine; Family Provider Student in an Organized Health Care Education/Training Program; PCP Student in an Organized Health Care Education/Training Program
DX: M62.830 Muscle spasm of back (principal); G89.29 Other chronic pain; I10 Essential (primary) hypertension; E11.9 Type 2 diabetes mellitus without complications; Z79.4 Long term (current) use of insulin; Z79.899 Other long term (current) drug therapy
CPT/HCPCS: 99282

== ENCOUNTER 2019-06-05 09:45 | Emergency (ER) | payer MEDICAID, SELFPAY ==
[2019-06-05 09:49] VITALS: BP 206/108; PULSE 77; RESP 18; TEMP 37.1; O2SAT 97; BMI 36.9
--- NOTE | 2019-06-05 10:22 | ED.DCSUM_ITS ---
History of Present Illness Chief Complaint: Lower Extremity Injury Informant: Patient Onset: Weeks - 4 Narrative: Patient here for evaluation of pain behind left posterior thigh starting 4 weeks ago after doing hamstring curls. Reported her told her to increase weight and less reps. [place] pain during the workout. 2 weeks ago started having pain posterior lower aspect of the insertion of the hamstrings. Pain worse with movement. Denies any direct falls. She does see pain management for osteoarthritis of both knees, she is on [place] 10 mg, tizanidine for muscle relaxer, Mobic for NSAIDs and also gabapentin. Is concerned just wanted evaluation to make sure things are okay. There is no paresthesias. Past Medical History - Allergies and Home Meds Allergies/Adverse Reactions: Allergies Penicillins Allergy (Verified 06/05/19 09:46) Hives Primary Care Physician: Bebeto Charlton DO [Primary Care Provider] - Surgical History: - Smoking Status: Never smoker - Family History Maternal Family History: Reports: Diabetes, Heart Disease, Hypertension, - Paternal Family History: Reports: - - unkown father side history Review of Systems General: Denies: Chills, Fever, Sweats Eyes: Denies: Visual changes - bilaterally, Diplopia ENT: Denies: Rhinorrhea, Sore throat Cardiovascular: Denies: Chest pain, Palpitations Respiratory: Denies: Dyspnea, Cough, Dyspnea on exertion Gastrointestinal: Denies: Abdominal pain, Nausea, Vomiting, Diarrhea, Melena, Hematochezia Genitourinary: Denies: Dysuria, Hematuria, Frequency Musculoskeletal: Reports: Myalgias. Denies: Back pain, Extremity Pain Skin: Denies: Rash, Wounds Neurological: Denies: Headache, Weakness, Numbness Physical Exam Vital Signs/Narrative: Vital Signs Temp Pulse Resp BP Pulse Ox 06/05/19 09:49 98.7 F 77 18 206/108 H 97 Inital Vital Signs reviewed: Yes General: Well nourished, Well developed, No Acute Distress Head: Normocephalic, Atraumatic Eyes: Perrl, EOMI ENT: Moist mucous membranes, No rhinorrhea Neck: Supple, Nontender Cardiovascular: Regular rate, Regular rhythm, No murmurs Respiratory: No distress, CTA bilaterally, Chest nontender Abdomen: Soft, Nontender, Nondistended, Normal bowel sounds Back: Nontender, Normal Inspection Extremities: No edema, - - Left lower extremity: Negative logroll. Tenderness at the hamstring insertion at the issue him along with lateral insertion proximal posterior tibia at the tendon. There is no defects. Knee extensors intact. No abscess noted. Skin: Normal color, No rash Neurological: Alert, Oriented x3, Cranial nerves II-XII grossly intact, Normal Strength, Normal Sensation Psychological: Normal affect, Normal Mood Diagnostic/Tx/Re-eval - Medical Decision Making Vital stable exam concerns for hamstring strain at both origin and insertion. There is no defects. Patient is on optimal medical therapy for treatment at this time. She sees pain management. She does have access to rec center and pools. Discuss slow rehab with water therapy. She will continue her home medications. Freddy wrap and ice provided to help with support. Patient reassured. Discussed can follow-up with her PCP for referral for physical therapy also if needed. All questions were answered. ED Disposition - Plan for ED Patient: Disposition: Home or Assisted Living Diagnosis: Left hamstring muscle strain Instructions: MUSCLE STRAIN, Extremity Referrals: Bebeto Charlton DO [Primary Care Provider] - 5-7 Days
== END 2019-06-05 10:41 | disposition home or self-care (01) ==
LOC: ED 10:27
PROVIDERS: Emergency Provider Emergency Medicine; Family Provider Student in an Organized Health Care Education/Training Program; PCP Student in an Organized Health Care Education/Training Program
DX: S76.312A Strain of muscle, fascia and tendon of the posterior muscle group at thigh level, left thigh, initial encounter (principal); X50.0XXA Overexertion from strenuous movement or load, initial encounter; Y93.B1 Activity, exercise machines primarily for muscle strengthening; Y92.9 Unspecified place or not applicable; M17.0 Bilateral primary osteoarthritis of knee
CPT/HCPCS: 99282

== ENCOUNTER 2019-08-01 11:00 | Outpatient (RCR) | payer MEDICAID, SELFPAY ==
--- NOTE | 2019-06-27 18:43 | HP.PTEVAL_ITS ---
Patient's Visit Information SUNIL ARAUJO is a 43 year old F referred to Physical Therapy by Lucien Luis with a diagnosis of LS spodyolisthesis. Date of Evaluation: 06/27/19 Physical Therapist: Nikita Lora, JOSE DANIEL, OCS, CSCS - Visit Plan Frequency: 3x /Week Duration: 4-6 Weeks Plan: 3x/week for 3-4 weeks for aquatic based: LB flexion and rotation stretches. HS adn quad stretches. core strength. postural and LE strength adn general ex. Pt already a member at the and willing to continue at [facility] if pool helpful. - Subjective Findings: Been having problems with R leg as it is painful fairly constantly th robbing and into big toe. A month ago started to hurt to sit when prior it was just hurting to stand a lot. Leg is 8/10 pain all over all the time. L leg not bad but has OA in knees and hips. LBP is 6/10 intermittently worse in one position too long. Has had years of leg pain and LBP, no previous treatment except pain management but insurance is on and off. No meds adn no injections. Now different pain management gives meds now and may have injections. Sleep is not great. Up since 3 oclcok due to pain and that is not uncommon. Has sleep apnea. 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 Usually worse as day goes on. Standing makes worse. Needs to rest at times seated. basic ADLs are OK but needs assist with shoes and socks as bending hurts especially R LE. Tries to workout for UE weights 3-5#. Watch TV is hobby and not comfortable, uses an incline chair - Pain LBP Pain Intensity (Out of 10): 5 Pain Intensity Range: 5, 9 R leg Pain Intensity (Out of 10): 8 Pain Intensity Range: 8, 10 - Objective Walks with R antalgia slowly, trasnfers I to chair slowly. Needed min assist to sit from supine today. LE AROM WFL, Slow to move hips and knees complaining of pain. Knees very stiff to 100 AROM flexion. HS adn quads max tight. Hip rotations 40 ext rot and 5 IR B. reflexes 1/3 patella and achilles B. Sensation in LE WNL to gross light touch B. LB Posture is hyperlordotic and very tight in posterior connective tissue, does not flex forward hardly at all with attempted flexion in lumbar spine. Ext is minimally painful R LB, SB are min limited adn painful to the right. - slump. - SLR. Balance is safe but slow. - Goals Goal 1:: Patient I in appropriate back management ex for HEP Goal Time Frame: 4-6 Weeks Goal 2:: Patient feel 75% better with leg pain 2/10 at worst and LBP 0-2/10 and manageable Goal Time Frame: 4-6 Weeks Goal 3:: Patient sleep at night without pain interruption Goal Time Frame: 4-6 Weeks Goal 4:: Patient work without increased pain in LB Goal Time Frame: 4-6 Weeks Goal 5:: Put shoes/socks on without assist. - Rehabilitation Potential Physical Therapy Diagnosis: LS spondylolisthesis Rehabilitation Potential: Questionable - Anticipated Interventions Patient/Client Instruction: Educate patient on: Condition, Plan of Care For the Purpose of:: To decrease pain, To increase ROM, To improve muscle performance and motor function, To increase tolerance to activity/condition/position Therapeutic Exercise to Include: Strength training, Postural training, Flexibilty training, Gait and locomotor training, In an aquatic setting, Passive ROM, Active ROM, Dynamic Lumbar Stabilization For the Purpose of:: To decrease pain, To increase ROM, To improve muscle performance and motor function, To improve ability to perform ADL's, To increase tolerance to activity/condition/position Thank you for the opportunity to evaluate your patient. For Medicare and Medicare HMO plans, please review the plan of care and approve it. It will need to be FAXED BACK to us at [phone] for Medicare purposes. For Medicare only, by signing this I certify the plan of care. Please let me know if there are questions or concerns regarding this plan of care. Physician Signature: Date:
--- NOTE | 2019-08-01 11:29 | HP.PTDCSUM_ITS ---
HP - PT D/C Summary It has been my pleasure to treat SUNIL ARAUJO under orders from Lucien Luis, for the diagnosis of LS spodyolisthesis for a total of 11 visit(s). Discharge Date: 08/01/19 Please see the following information for a summary of their discharge status. - Subjective Subjective: Better. Still feel some in back. stretching has really helped. Not waking up with bad stiffness very often anymore. Pain still there later in day but not as bad. R groin still hurts with stretching. This week pain has been in back and up to 5/10 in back and 05/22. Pain in LB this morning 05/22. Is working out with gently.Sleep is Ok for 3-4 hours of night and it is much better. Activities normal.Turner ee Dr. luis 09/14. May need injections. Will continue water ex at the [facility] adn stretching at home. - Pain LBP Pain Intensity (Out of 10): 7 R leg Pain Intensity (Out of 10): 4 - Overall Improvement % Improvement: 80 - Objective Objective/Function: Full aROM L/S with just slight anterior hip discomfort in extension. Walks with R trendelenberg slight but can correct on her own. steps with either foot adn one railing . OVERALL DOING WELL AND READY AND WILLING TO COTNINUE ON HER OWN IN THE [email or web address]. - Goals Goal 1:: Patient I in appropriate back management ex for HEP Goal Progress: Goal Met, stretches. Goal 2:: Patient feel 75% better with leg pain 2/10 at worst and LBP 0-2/10 and manageable Goal Progress: part met. Goal 3:: Patient sleep at night without pain interruption Goal Progress: Goal Met Goal 4:: Patient work without increased pain in LB Goal Progress: Goal Met Goal 5:: Put shoes/socks on without assist. Goal Progress: Goal Met, last week. - Plan Plan: d/c - D/C Information Discharge Comments: Pt doing better adn will continue in [facility] and f/u with doctor in September. If there are questions or concerns regarding this patient's physical therapy, please feel free to call me at [phone]. Thank you for the referral of this patient. Sincerely, Nikita Lora, DPT, OCS, CSCS
== END 2019-08-01 19:00 | disposition home or self-care (01) ==
LOC: PT 11:00
PROVIDERS: Family Provider Student in an Organized Health Care Education/Training Program; PCP Student in an Organized Health Care Education/Training Program; Visit Provider Orthopaedic Surgery Orthopaedic Surgery of the Spine
DX: M71.38 Other bursal cyst, other site (principal); M43.17 Spondylolisthesis, lumbosacral region
CPT/HCPCS: 97113; 97162; 97530

== ENCOUNTER 2019-09-27 11:58 | Emergency (ER) | payer MEDICAID, SELFPAY ==
[2019-09-27 11:59] VITALS: BP 211/102; PULSE 62; RESP 17; TEMP 36.3; O2SAT 99; BMI 38.7
[2019-09-27 12:16] VITALS: BP 181/113; PULSE 67; RESP 16; O2SAT 100
--- NOTE | 2019-09-27 12:51 | EKG12_ITS ---
Test Reason : CP Blood Pressure : / mmHG Vent. Rate : 063 BPM Atrial Rate : 063 BPM P-R Int : 164 ms QRS Dur : 086 ms QT Int : 432 ms P-R-T Axes : 046 020 175 degrees QTc Int : 442 ms Normal sinus rhythm with sinus arrhythmia Left ventricular hypertrophy with repolarization abnormality Abnormal ECG Confirmed by LEN CORTEZ, JACKIE ([id number]), publishing editor VICKY BOGGS ([id number] on 10/01/2019 11:11:35 AM Referred By: ASHLEY Confirmed By:JACKIE HARRINGTON MD
--- NOTE | 2019-09-27 12:53 | ED.VIS.GEN ---
History of Present Illness Chief Complaint: General Illness Informant: Patient Context: Gradual Onset Timing: Intermittent Narrative: Patient is a 43-year-old female with history of hypertension, hyperlipidemia, diabetes mellitus and coronary artery disease presenting for elevated blood pressure. Patient went to her primary care doctor for evaluation of 1 week of sore throat and developing left ear pain. While she was there she was diagnosed with an ear infection however she is also found to have an elevated blood pressure with a systolic of 235. Patient states they told her they would call in a prescription for her antibiotic until she went to the ER to be evaluated for her high blood pressure. Patient notes she has been having intermittent chest pains since last night. She describes as a fluttering and a pressure in her left anterior chest. She notes that last for couple seconds at a time and then resolve spontaneously. Patient states she gets about 3 an hour. She notes she has a history of chest pain and this feels like her prior episodes of chest pain. She denies any associated shortness of breath. She denies any cough. She denies any GI or symptoms. Past Medical History - Allergies and Home Meds Allergies/Adverse Reactions: Allergies metformin Allergy (Verified 09/27/19 12:16) Unknown Penicillins Allergy (Verified 09/27/19 11:59) Hives venlafaxine [From Effexor] Adverse Reaction (Verified 09/27/19 11:59) Upset Stomach Primary Care Physician: Bebeto Charlton DO [Primary Care Provider] - Past Medical History: - - Coronary artery disease, hypertension, hyperlipidemia, diabetes mellitus Surgical History: noncontributory, - Smoking Status: Never smoker - Family History Maternal Family History: Reports: Diabetes, Heart Disease, Hypertension, - Paternal Family History: Reports: - - unkown father side history Review of Systems General: Reports: Malaise. Denies: Chills, Fever, Sweats Eyes: Denies: Visual changes - bilaterally, Diplopia ENT: Reports: Left ear pain, Sore throat. Denies: Rhinorrhea Cardiovascular: Reports: Chest pain. Denies: Palpitations, Heart racing Respiratory: Denies: Dyspnea, Cough, Dyspnea on exertion Gastrointestinal: Denies: Abdominal pain, Nausea, Vomiting, Diarrhea, Melena, Hematochezia Genitourinary: Denies: Dysuria, Hematuria, Frequency Musculoskeletal: Denies: Back pain, Extremity Pain Skin: Denies: Rash, Wounds Neurological: Denies: Headache, Weakness, Numbness Physical Exam Vital Signs/Narrative: Vital Signs Temp Pulse Resp BP Pulse Ox 09/27/19 12:16 67 16 181/113 H 100 09/27/19 11:59 97.3 F L 62 17 211/102 H 99 Inital Vital Signs reviewed: Yes General: Well nourished, Well developed, No Acute Distress Head: Normocephalic, Atraumatic Eyes: Perrl, EOMI ENT: Moist mucous membranes, No rhinorrhea, - - Boggy nasal mucosa, injection of the bilateral tympanic membranes with mild bulging of the left tympanic membrane however there is no air-fluid level, normal bilateral light reflex. Mild erythema and injection of the pharynx with no edema or exudate present Neck: Supple, Nontender Cardiovascular: Regular rate, Regular rhythm, No murmurs Respiratory: No distress, CTA bilaterally, Chest nontender Abdomen: Soft, Nontender, Nondistended, Normal bowel sounds Back: Nontender, Normal Inspection. Negative for: CVA tenderness Extremities: Nontender, No edema Skin: Normal color, No rash Neurological: Alert, Oriented x3, Cranial nerves II-XII grossly intact, Normal Strength, Normal Sensation Psychological: Normal affect, Normal Mood Diagnostic/Tx/Re-eval Chest X-Ray - ED: 2 View, Read by ED Physician, Read by Radiologist, No Acute Disease Clinical Impression(s) from Imaging Studies Chest X-Ray 09/27/19 13:10 IMPRESSION: No acute abnormalities present. Electronically Signed: Panchito Mcginnis, at 13:41 EST , Service support , Laboratory Data 09/27/19 09/27/19 09/27/19 12:20 13:20 13:20 WBC 6.1 RBC 5.00 Hgb 14.9 Hct 46.6 MCV 93.2 MCH 29.8 MCHC 32.0 RDW Std Deviation 46.5 H RDW Coeff of Moe 13.6 Plt Count 205 MPV 10.3 Immature Gran % (Auto) 0.300 Neut % (Auto) 62.7 Lymph % (Auto) 28.5 Esmeralda % (Auto) 7.0 Eos % (Auto) 0.7 Baso % (Auto) 0.8 Absolute Neuts (auto) 3.9 Absolute Lymphs (auto) 1.75 Nucleated RBC % 0 Sodium 141 Potassium 4.1 Chloride 106 Carbon Dioxide 29.0 Anion Gap 6 BUN 15 Creatinine 0.78 Estim Creat Clear Calc 79.48 Est GFR (MDRD) Af Amer 103 Est GFR (MDRD) Non-Af 85 BUN/Creatinine Ratio 19.2 Glucose 80 Calcium 8.7 Troponin I 0.030 Urine Color Yellow Urine Clarity Sl. Cloudy Urine pH 7.0 Ur Specific [place] 1.010 Urine Protein Negative Urine Glucose (UA) 100 H Urine Ketones Negative Urine Occult Blood Negative Urine Nitrite Negative Urine Bilirubin Negative Urine Urobilinogen Normal Ur Leukocyte Esterase Negative Urine RBC 0 SEEN Urine WBC 0 SEEN Ur Squamous Epith Cells 0-5 SEEN Urine Bacteria 0 SEEN Urine Mucus 0 SEEN - Rhythm Strip Rhythm Strip: Sinus Rhythm Rate: 63 Ectopy: None - EKG Initial EKG Interpretation: Sinus Rhythm, - - Sinus rhythm at a rate of 63 NE interval 164 QRS 86 QT/QTc 432/442 Normal axis T wave inversions in lateral leads as well as lead to and V3/V4 Compared to prior EKG patient has no significant changes Prior: Unchanged - Medical Decision Making Patient is evaluated for elevated blood pressure. She is relatively asymptomatic from this. She does comment that she is intermittent chest pain since last night. Patient does have cardiac risk factors include history of CA. Patient does not have any dynamic EKG changes. Her troponin is in the normal range and also at the patient's baseline. Chest x-ray does not show any acute process. Her physical exam is consistent with an upper respiratory infection. Patient does have some pressure behind her ears, more notable on the left. Patient has normal creatinine. She does not have findings consistent with end organ damage from hypertension. Discussed with the patient's primary care doctor for further blood pressure medication as patient is already on multiple blood pressure meds. Patient be switched from carvedilol to metoprolol XL. Hopefully this will ensure better compliance. Patient is given a course of [id number] antibiotics for her ear infection as likely this is viral. She is agreeable with this. Patient is counseled on signs and symptoms requiring return to the emergency room. Patient verbalizes agreement and understand this plan. Patient discharged home in stable and improved condition. ED Disposition - Plan for ED Patient: Disposition: Home or Assisted Living Diagnosis: Uncontrolled hypertension, URI (upper respiratory infection), Chest pain Instructions: CHEST PAIN, Uncertain Cause, VIRAL SYNDROME (Adult) Prescriptions: Cefdinir [Omnicef [equiv]] 600 mg PO DAILY #7 cap Prescription Printed Metoprolol Succinate [Toprol Xl] 100 mg PO DAILY #14 tab.er.24h Prescription Printed Referrals: Bebeto Charlton DO [Primary Care Provider] - Additional Instructions: Tomorrow stop taking carvedilol and start taking the new prescription, metoprolol. Call Dr. Charlton to schedule follow-up in the next week . At this point I think your ear infection is viral. If you develop worsening symptoms such as fever or worsening pain you can start taking the antibiotic prescribed. If your symptoms improve without the antibiotic, throw away the prescription. Return to emergency room if you develop any worsening symptoms.
--- NOTE | 2019-09-27 13:10 | RAD_ITS ---
STUDY: X-RAY CHEST REASON FOR EXAM: Female, 43 years old. Chest pain. Hypertension. TECHNIQUE: PA and lateral views of the chest. COMPARISON: Comparison is made with prior study dated May 07, 2018. FINDINGS: EKG electrodes are seen. The lungs are clear and expanded. Scattered calcified granulomas. There is no demonstrated pleural abnormality. Normal size heart. Normal mediastinum and amirah. Normal visualized pulmonary arteries. Normal visualized aortic arch and descending thoracic aorta. There are diffuse degenerative changes of the visualized thoracic spine. There is degenerative osteoarthritis of the bilateral shoulders. There is no demonstrated abnormality of the visualized soft tissue structures of the upper abdomen. RAD/Chest PA and Lateral IMPRESSION: No acute abnormalities present. Electronically Signed: Panchito Mcginnis, at 13:41 EST , Service support ,
[2019-09-27 13:49] LABS: Absolute Lymphocyte Count 1.75 X10^3/uL (0.83-4.51); Absolute Neutrophil Count 3.9 X10^3/uL (2.0-7.7); Basophil# 0.05 X10^3/uL; Basophil% 0.8 % (0-1); Eosinophil# 0.04 X10^3/uL; Eosinophils% 0.7 % (0-5); Hematocrit 46.6 % (37-47); Hemoglobin 14.9 g/dL (12.0-15.0); Lymphocyte # 1.75 X10^3/ul (4.0); Lymphocyte % 28.5 % (19-41); Mean Corpuscular Hgb 29.8 pg (27.0-32.0); Mean Corpuscular Volume 93.2 fL (81-99); Mean Platelet Vol. 10.3 fl (6.2-12.0); Monocyte# 0.43 X10^3/uL; NRBC Flagged by Analyzer 0 % (0-5); Neutrophil # 3.85 X10^3/uL (2.7-7.7); Neutrophil % 62.7 % (47-70); Platelet Count 205 K/mm3 (150-450); RBC Distribution Width CV 13.6 % (11.6-14.6); RBC Distribution Width SD 46.5 fl (35.1-43.9); White Blood Count 6.1 K/mm3 (4.4-11.0)
[2019-09-27 13:51] LABS: Bacteria 0 SEEN /hpf (None Seen); Mucous, Urine 0 SEEN /hpf (<or=2+); Red Blood Cells-Urine 0 SEEN /hpf (0-5); White Blood Cells 0 SEEN /hpf (0-5)
[2019-09-27 13:52] LABS: Anion Gap 6 (5-15); BUN 15 mg/dL (7-18); BUN/Creat Ratio 19.2 RATIO (10-20); Calcium,Total 8.7 mg/dL (8.5-10.1); Chloride 106 mmol/L (98-107); Creatinine, Serum 0.78 mg/dL (0.55-1.02); EST Glomerular Filtration Rate 85 mL/min (>60); Est Glom Filt Rate - Afr Amer 103 mL/min (>60); Estimated Creatinine Clearance 79.48 ml/min; Glucose 80 mg/dL (74-106); Potassium 4.1 mmol/L (3.5-5.1); Sodium Level 141 mmol/L (136-145)
[2019-09-27 13:57] LABS: Color, Urine Yellow (Yellow); Glucose, Dipstick 100 mg/dl (Normal); Ketone-Dipstick Negative (Negative); Leukocyte Esterase-Dipstick Negative /ul (Negative); Nitrite-Dipstick Negative (Negative); Occult Blood-Urine Negative /ul (Negative); Protein-Dipstick Negative (Negative); Urine Bilirubin Dipstick Negative (Negative); Urine Clarity Sl. Cloudy (Clear); Urine Urobilinogen Normal (Normal)
[2019-09-27 14:00] VITALS: BP 201/113; PULSE 59; RESP 18; O2SAT 99
[2019-09-27 14:32] LABS: Squamous Epithelial Cells - UA 0-5 SEEN /hpf (5-10)
== END 2019-09-27 15:31 | disposition home or self-care (01) ==
PROVIDERS: Emergency Provider Emergency Medicine; Family Provider Student in an Organized Health Care Education/Training Program; PCP Student in an Organized Health Care Education/Training Program
DX: I10 Essential (primary) hypertension (principal); J06.9 Acute upper respiratory infection, unspecified; R07.9 Chest pain, unspecified; I25.10 Atherosclerotic heart disease of native coronary artery without angina pectoris; E78.5 Hyperlipidemia, unspecified; E11.9 Type 2 diabetes mellitus without complications; Z79.4 Long term (current) use of insulin; Z79.84 Long term (current) use of oral hypoglycemic drugs; Z79.899 Other long term (current) drug therapy
CPT/HCPCS: 71046; 80048; 81001; 84484; 85025; 93005; 99284; A4216

== ENCOUNTER 2019-10-04 16:01 | Observation (INO) | payer MEDICAID, SELFPAY ==
[2019-10-04] VITALS (10 sets, daily range): BP systolic 158–219; BP diastolic 98–132; PULSE 61–92; RESP 14–18; TEMP 36.7–37.1; O2SAT 96–100; BMI 37.2; BMI 37.0; BMI 37.1
--- NOTE | 2019-10-04 16:05 | EKG12_ITS ---
Test Reason : CP Blood Pressure : / mmHG Vent. Rate : 067 BPM Atrial Rate : 067 BPM P-R Int : 174 ms QRS Dur : 086 ms QT Int : 422 ms P-R-T Axes : 043 024 169 degrees QTc Int : 445 ms Normal sinus rhythm Left ventricular hypertrophy with repolarization abnormality Abnormal ECG Confirmed by LEN CORTEZ, JACKIE ([id number]), assistant editor CAESAR BECKFORD ([id number]) on 10/07/2019 9:46:10 AM Referred By: ELVER Confirmed By:JACKIE HARRINGTON MD
--- NOTE | 2019-10-04 16:17 | RAD_ITS ---
STUDY: X-RAY CHEST REASON FOR EXAM: Female, 43 years old. Chest pain TECHNIQUE: Single AP portable view of the chest. COMPARISON: None. FINDINGS: The lungs are clear and expanded. There is no demonstrated pleural abnormality. Normal size heart. Normal mediastinum and amirah. Stable mediastinal contours and visualized osseous structures. RAD/Chest 1 View (Portable) IMPRESSION: No acute process Electronically Signed: Jerry Sinclair MD at 16:35 EST , Service support ,
[2019-10-04] MEDS: Aspirin 81 MG TAB.CHEW 324 MG PO (16:23)
--- NOTE | 2019-10-04 16:24 | ED.DCSUM_ITS ---
- ER Visit Summary Date of Service: 10/04/19 Chief Complaint: Chest pain History of Present Illness: The patient is a 43 F presenting with chest pain and elevated blood pressure. Patient was seen in the ED one week ago and noted to have elevated blood pressure at that time. She was changed to metoprolol 100 mg once a day. She also takes hydrochlorothiazide and lisinopril. She states today she has been having left-sided chest tightness and pressure. This occasionally radiates to her left arm. She has associated shortness of breath. She has had nausea vomiting x1. She states she was having sharp pains when she was here last week which only lasted a couple of seconds. She states this pain is different and is more of a pressure sensation and is lasting longer. Physical Examination: Vitals are stable. Blood pressure 219/125. Patient is afebrile. Alert no acute distress. HEENT exam is unremarkable. Neck is supple. Lungs are clear and equal bilaterally. Heart is regular rate and rhythm. Abdomen is soft nontender nondistended. Extremities are unremarkable. Skin is warm and dry. No focal neurologic deficit. Remainder of exam is unremarkable. Emergency Department Course and Treatment: EKG is sinus rate of 67 with LVH, unchanged from previous. She was given aspirin, nitro. She was given Tylenol for headache. Chest x-ray shows no acute process. Repeat blood pressure 167/132. CBC, chemistries unremarkable other than BUN 24. Troponin 0.033. On reevaluation, patient is resting comfortably. Discussed with the hospitalist for observation. She was given her home blood pressure medications. Disposition: Observation Impression: Chest pain, hypertension This note was generated with [employer] dictation software. It may contain incorrect words, spelling, and punctuation that were not noted in review of the chart prior to signing ED Disposition - Plan for ED Patient: Disposition: Acute Care [facility]
[2019-10-04] MEDS: Nitroglycerin SL (ED/IMG/CATH) 0.4 MG TABLET SUBLINGUAL ×3 (16:34→16:47)
[2019-10-04] MEDS: Acetaminophen 500 MG Tablet 1000 MG PO (16:59)
[2019-10-04 17:38] LABS: Absolute Lymphocyte Count 1.96 X10^3/uL (0.83-4.51); Absolute Neutrophil Count 2.1 X10^3/uL (2.0-7.7); Basophil# 0.03 X10^3/uL; Basophil% 0.7 % (0-1); Eosinophil# 0.09 X10^3/uL; Hematocrit 43.7 % (37-47); Hemoglobin 14.2 g/dL (12.0-15.0); Lymphocyte # 1.96 X10^3/ul (4.0); Lymphocyte % 43.4 % (19-41); Mean Corp Hgb Conc 32.5 g/dL (32-36); Mean Corpuscular Hgb 29.8 pg (27.0-32.0); Mean Corpuscular Volume 91.8 fL (81-99); Monocyte# 0.31 X10^3/uL; Monocyte% 6.9 % (0-10); NRBC Flagged by Analyzer 0 % (0-5); Neutrophil # 2.12 X10^3/uL (2.7-7.7); Neutrophil % 46.8 % (47-70); Platelet Count 214 K/mm3 (150-450); RBC Distribution Width CV 13.7 % (11.6-14.6); RBC Distribution Width SD 46.4 fl (35.1-43.9); Red Blood Count 4.76 M/mm3 (4.2-5.4); White Blood Count 4.5 K/mm3 (4.4-11.0)
[2019-10-04 17:57] LABS: Anion Gap 6 (5-15); BUN 24 mg/dL (7-18); BUN/Creat Ratio 26.4 RATIO (10-20); Calcium,Total 8.6 mg/dL (8.5-10.1); Chloride 106 mmol/L (98-107); Creatinine, Serum 0.91 mg/dL (0.55-1.02); EST Glomerular Filtration Rate 71 mL/min (>60); Est Glom Filt Rate - Afr Amer 86 mL/min (>60); Estimated Creatinine Clearance 70.99 ml/min; Glucose 96 mg/dL (74-106); Potassium 4.9 mmol/L (3.5-5.1); Sodium Level 140 mmol/L (136-145)
[2019-10-04] MEDS: Metoprolol Tartrate 100 MG Tablet PO (18:34)
[2019-10-04] MEDS: Lisinopril 40 MG Tablet PO (18:34)
--- NOTE | 2019-10-04 19:05 | HP.PCM_ITS ---
Problem List (1) Hypertensive urgency Status: Acute (2) Chronic pain syndrome Status: Chronic (3) Hirsutism Status: Chronic (4) HLD (hyperlipidemia) Status: Chronic (5) Chest pain Status: Acute Qualifiers: (6) Asthma Status: Chronic (7) Benign essential hypertension Status: Chronic (8) History of GA (myocardial infarction) Status: Chronic (9) History of gestational diabetes mellitus Status: Chronic (10) Obesity Status: Chronic (11) Type II diabetes mellitus Status: Chronic History of Present Illness Date of Admission: 10/04/19 Chief Complaint: chest pain The patient is a 43 year old F with a past medical history of hypertension, diabetes mellitus type 2, obesity, chronic pain syndrome ( follows with Meggan Farrell), LVH by EKG and hirsutism who presented to the emergency department at [facility] on 10/04/2019 complaining of substernal chest tightening which had been present all day. She denied radiation of the pain and denied diaphoresis and nausea. Vital signs at presentation to the [facility] room were temperature 98 ?F, pulse rate 80, blood pressure one 219/125, respiratory rate 14 and she was 100% saturated on room air. The EKG showed changes secondary to LVH with no ST segment elevation. Chest x-ray showed no infiltrates, pleural effusions or pulmonary vascular congestion. CBC was unremarkable. BMP showed an elevated BUN at 24 with a creatinine of 0.91. Random blood sugar was 96. She is being admitted to a monitored bed on the progressive care unit for serial cardiac enzymes, blood pressure control and a pharmacologic nuclear stress test in the a.m. if the blood pressure is reasonable. Echocardiogram is also been ordered to evaluate for left ventricular hypertrophy. Past Medical History Past Medical History (Chronic Problems): Chronic Problems History of GA (myocardial infarction) (Chronic) Chronic pain syndrome (Chronic) Hirsutism (Chronic) HLD (hyperlipidemia) (Chronic) Type II diabetes mellitus (Chronic) History of gestational diabetes mellitus (Chronic) Obesity (Chronic) Benign essential hypertension (Chronic) Asthma (Chronic) Allergies metformin Allergy (Verified 10/04/19 16:04) Unknown Penicillins Allergy (Verified 10/04/19 16:04) Hives venlafaxine [From Effexor] Adverse Reaction (Verified 10/04/19 16:04) Upset Stomach Home Medications: Ambulatory Orders Medication Instructions Recorded Amlodipine [Norvasc] 10 mg PO DAILY #60 tablet 01/30/16 Lisinopril [Zestril] 40 mg PO DAILY #60 tablet 01/30/16 Glimepiride [Amaryl] 2 mg PO DAILY 05/07/18 Tizanidine HCl [Zanaflex] 4 mg PO BID 05/07/18 Gabapentin [Neurontin] 400 mg PO TID 05/08/18 Insulin Lispro [Humalog Kwikpen] 5 unit SQ DAILY 12/06/18 traZODone [Desyrel] 50 mg PO QHS 06/05/19 Albuterol Inhaler [Ventolin Hfa 2 puff INHALATION Q4H PRN PRN 09/27/19 (SP)] Cefdinir [Omnicef [equiv]] 600 mg PO DAILY #7 cap 09/27/19 Cetirizine HCl [All Day Allergy] 10 mg PO DAILY 09/27/19 Cholecalciferol (Vitamin D3) 50,000 unit PO QWEEK 09/27/19 [Vitamin D] Duloxetine HCl 20 mg PO DAILY 09/27/19 Exenatide [Byetta (BKC)] 1.2 ml SUBCUT BID 09/27/19 Fluticasone Propionate 2 spray NS DAILY 09/27/19 Glimepiride 1 mg PO QHS 09/27/19 Guaifenesin [Robitussin] 10 ml PO TID PRN PRN 09/27/19 Hydrochlorothiazide [Hctz] 50 mg PO DAILY 09/27/19 Insulin Glargine [Lantus (BKC)] 30 units SUBCUT QHS 09/27/19 Metoprolol Succinate [Toprol Xl] 100 mg PO DAILY #14 tab.er.24h 09/27/19 Norethindrone [Aygestin] 5 mg PO TID 09/27/19 Phentermine HCl 37.5 mg PO DAILY 09/27/19 Pravastatin [Pravachol] 40 mg PO DAILY 09/27/19 Sodium Chloride 0.65% [[place] Nasal 1 spray NASAL PRN PRN 09/27/19 [place]] Spironolactone 50 mg PO DAILY 09/27/19 Surgical History: noncontributory, - Psychiatric History: Depression [employer]PER[employer] History: No pertinent [employer]PER[employer] history Lives: With Family Smoking Status: Never smoker Tobacco Use: Non-smoker Alcohol: None Drugs: None - *Family History Maternal History Items: Diabetes, Heart Disease, Hypertension, - Paternal History Items: - - unkown father side history Review of Systems Constitutional: Denies: Chills, Fever, Weight Change HEENT: Denies: Head Aches, Sinus Congestion, Sinus Drainage Cardiovascular: Reports: Chest Pain. Denies: Edema, Light Headedness, Orthopnea, Palpitations, Paroxysmal Noc. Dyspnea, Syncope Respiratory: Reports: Shortness of breath upon exertion. Denies: Cough, Shortness of breath at rest, Sputum production Gastrointestinal: Denies: Abdominal Pain, Nausea, Vomiting Genitourinary: Denies: Dysuria Musculoskeletal: Denies: Joint Pain, Joint Tenderness Skin: Denies: Rash, Wounds Neurological: Denies: Numbness, Tingling, Focal weakness Psychiatric: Denies: Anxiety, Depression, Homicidal Ideations, Suicidal Ideations Hematologic/ Lymphatic: Denies: Easy Bruising, Easy Bleeding, Hx of blood clot VTE Information - Inpt Only VTE Present on Admission: No VTE Mechan Device Prophylaxis: Knee High TANNA Hose VTE Pharm Prophylaxis ordered?: Yes Patient Problems: Active and Suspected Problems Hypertensive urgency (Acute) - Physical Exam Vitals/I&O's: Vital Signs Temp Pulse Resp BP Pulse Ox 98.0 F 70 15 199/106 H 97 10/04/19 16:02 10/04/19 17:51 10/04/19 17:51 10/04/19 17:51 10/04/19 17:51 Oxygen Delivery Method Room Air Weight: 222 lb 14.197 oz Body Mass Index (BMI) 37.0 Finger Stick Blood Glucose 89 General: Alert, Oriented x3, Cooperative, No apparent distress, Well developed, Well nourished HEENT: Atraumatic, PERRLA, EOMI, Normocephalic Oral: No Gingival or Mucosal Lesions/ Ulcerations, Dry Mucosa Neck: Supple, No JVD, Negative Carotid Bruits, No Nodes, Trachea Midline Lungs: Clear to auscultation, Normal air movement Cardiovascular: Regular rate, Regular Rhythm, Normal S1, Normal S2, No murmurs, No Ectopic Activity, Murmur - 2/6 systolic ejection murmur heard at the second right intercostal space with no radiation., No rub noted, No Gallop Abdomen: Bowel Sounds Present, Soft, Non Tender Extremities: No edema, Capillary Refill Less than 3 Seconds Skin: No rashes, No breakdown, - - hirsutism of the face Musculoskeletal: No Tenderness to Palpation of Joints or Extremities, No Muscle Wasting Neurological: Cranial nerves II-XII grossly intact, Neuro grossly intact Psych/Mental Status: Normal Affect, Appropriate Laboratory Results 10/04/19 16:35: WBC 4.5, RBC 4.76, Hgb 14.2, Hct 43.7, MCV 91.8, MCH 29.8, MCHC 32.5, RDW Std Deviation 46.4 H, RDW Coeff of Moe 13.7, Plt Count 214, MPV 11.0, Immature Gran % (Auto) 0.200, Neut % (Auto) 46.8 L, Lymph % (Auto) 43.4 H, [place] % (Auto) 6.9, Eos % (Auto) 2.0, Baso % (Auto) 0.7, Absolute Neuts (auto) 2.1, Absolute Lymphs (auto) 1.96, Nucleated RBC % 0 10/04/19 16:35: Sodium 140, Potassium 4.9, Chloride 106, Carbon Dioxide 28.0, Anion Gap 6, BUN 24 H, Creatinine 0.91, Estim Creat Clear Calc 70.99, Est GFR (MDRD) Af Amer 86, Est GFR (MDRD) Non-Af 71, BUN/Creatinine Ratio 26.4 H, Glucose 96, Calcium 8.6, Troponin I 0.033 Current Medications Sodium Chloride () 250 mls @ 15 mls/hr IV .[id number] PRN PRN Reason: Saline Flush Sodium Chloride () 10 - 40 ml IV UD PRN PRN Reason: SALINE FLUSH Assessment/Plan All Active Problems Hypertensive urgency (Acute) Chest pain (Acute) Impressions 1. Hypertensive urgency with substernal chest pressure lasting for hours and a normal troponin. Current antihypertensives include lisinopril 40 mg daily, metoprolol XL 100 mg p.o. daily, hydrochlorothiazide 25 mg daily and Spirono lactone 50 mg daily. Patient states she is compliant with her medications. Pharmacologic nuclear stress test in April 2018 was negative for ischemia and the ejection fraction was 52%. 2. Chest pain - serial CE's and if negative pharmacologic nuclear stress test in the a.m. 3. LVH by EKG-has not had an echocardiogram at this institution in the past. Echocardiogram ordered for the a.m. 4. Diabetes mellitus type 2 - HGBA1C ordered. 5. obesity/chronic pain S./Hirsutism - chronic Decrease the Toprol-XL to 50 mg p.o. daily as beta-blockers are not especially effective in -Americans. Start Procardia XL 60 mg p.o. daily in the a.m. Continue lisinopril 40 mg daily, hydrochlorothiazide 25 mg daily. Decrease the Spironolactone to 25 mg daily because the K is 4.9 today. Code Visit Inpatient E&M: 86860 Init Hosp L3
--- NOTE | 2019-10-04 19:33 | EKG12_ITS ---
Test Reason : CP ADMISSION Blood Pressure : / mmHG Vent. Rate : 064 BPM Atrial Rate : 064 BPM P-R Int : 196 ms QRS Dur : 086 ms QT Int : 448 ms P-R-T Axes : 047 026 183 degrees QTc Int : 462 ms Normal sinus rhythm Left ventricular hypertrophy with repolarization abnormality Abnormal ECG When compared with ECG of 04-OCT-2019 16:11, MANUAL COMPARISON REQUIRED, DATA IS UNCONFIRMED Confirmed by SATISH DAVIS ([id number]), material expeditor VICKY BOGGS ([id number]) on 10/11/2019 11:53:41 AM Referred By: DR BARAHONA Confirmed By:SATISH DAVIS
[2019-10-04 20:51] LABS: Hemoglobin A1c 6.5 % (4.2-6.3)
[2019-10-04 22:21] LABS: Bedside Glucose 143 mg/dL (70-110)
[2019-10-04] MEDS: traZODone 50 MG Tablet PO (22:28)
[2019-10-04] MEDS: oxyCODONE 5 MG Tablet 15 MG PO (22:28)
[2019-10-04] MEDS: tiZANidine HCl 2 MG Tablet 4 MG PO (22:28)
[2019-10-04] MEDS: CLARIFY ORDER NOTE ×4 (22:31→22:54)
[2019-10-04] MEDS: Glimepiride 2 MG Tablet PO (22:32)
[2019-10-04] MEDS: NIFEdipine 60 MG Tablet PO (22:32)
[2019-10-04 23:06] LABS: Amphetamine Urine VISTA NEGATIVE (<1000 ng/mL); Barbiturate Urine VISTA NEGATIVE (< 200 ng/mL); Benzodiazepine Urine VISTA NEGATIVE (< 200 ng/mL); Cocaine Urine VISTA NEGATIVE (< 300 ng/mL); Ecstacy Urine VISTA NEGATIVE (< 500 ng/mL); Methadone Urine VISTA NEGATIVE (< 300 ng/mL); PCP Urine VISTA NEGATIVE (< 25 ng/mL); THC Urine VISTA NEGATIVE (< 50 ng/mL); Vista UDS pH Range 6
[2019-10-04] MEDS: CLARIFY ORDER 1 EACH NOTE (23:26)
[2019-10-05] VITALS (15 sets, daily range): BP systolic 110–158; BP diastolic 60–98; PULSE 61–92; RESP 13–18; TEMP 36.5–37.1; O2SAT 95–98
[2019-10-05] MEDS: 0.9% Saline Lock 10 ML Syringe IV ×2 (00:10→06:35)
[2019-10-05] MEDS: hydrALAZINE 20 MG/ML Vial IV (00:10)
[2019-10-05 00:50] LABS: Bedside Glucose 115 mg/dL (70-110)
[2019-10-05] MEDS: Lisinopril 40 MG Tablet PO (05:23)
[2019-10-05] MEDS: Aspirin E.C. 81 MG Tablet PO (05:23)
--- NOTE | 2019-10-05 05:55 | ECHOD_ITS ---
Reason For Study: HTN Procedure This was a 2D Doppler, Color Flow transthoracic echocardiogram. Exam performed portable in patient room. Left Ventricle Normal LV size. Severe eccentric left ventricular hypertrophy. Left ventricular systolic function is normal. The estimated ejection fraction is 75 %. Stage 2 diastolic dysfunction. No regional wall motion abnormalities noted. Right Ventricle Normal RV size. Normal systolic function. Atria Normal left atrium. Normal right atrium. Mitral Valve Mild focal mitral valve calcification of the posterior leaflet. Mild (1+) eccentric mitral valve insufficiency. Tricuspid Valve Normal tricuspid valve. Aortic Valve Trisinus/trileaflet aortic valve. Pulmonic Valve Normal pulmonic valve. Great Vessels Normal aortic root. The pulmonary artery is normal size. Normal inferior vena cava. Pericardium/Pleural No pericardial effusion. MMode/2D Measurements & Calculations LVIDd: 4.2 cm IVSd: 1.9 cm Ao root diam: 2.2 cm LVIDs: 2.1 cm LVPWd: 1.5 cm RVDd: 3.7 cm FS: 51.2 % LAV(MOD-bp): 59.5 ml LVAd ap4: 17.6 cm2 SV(MOD-sp4): 28.7 ml LAV(MOD-bp) Indexed: 28.8 ml/m2 EDV(MOD-sp4): 41.1 ml LAV(MOD-sp2): 64.1 ml EDV(sp4-el): 38.5 ml LAV(MOD-sp4): 49.1 ml LVAs ap4: 8.3 cm2 ESV(MOD-sp4): 12.4 ml ESV(sp4-el): 11.2 ml EF(MOD-sp4): 69.9 % EF(sp4-el): 70.9 % SV(sp4-el): 27.3 ml LA A4 area: 16.6 cm2 LA dimension(2D): 4.6 cm RA A4 area: 11.4 cm2 Doppler Measurements & Calculations MV E max jarad: 95.7 cm/sec Lat Peak E' Jarad: 3.7 cm/sec Med Peak E' Jarad: 4.3 cm/sec MV A max jarad: 79.6 cm/sec E/E' lat: 26.0 E/E' med: 22.1 MV E/A: 1.2 Ao V2 max: 229.6 cm/sec LV V1 max: 129.7 cm/sec PA V2 max: 99.7 cm/sec Ao max P.1 mmHg LV V1 max P.7 mmHg Ao V2 mean: 157.2 cm/sec LV V1 mean P.8 mmHg Ao mean P.3 mmHg LV V1 mean: 91.0 cm/sec Ao V2 VTI: 47.8 cm LV V1 VTI: 28.1 cm Interpretation Summary Normal LV size. Severe eccentric left ventricular hypertrophy. Left ventricular systolic function is normal. The estimated ejection fraction is 75 %. Stage 2 diastolic dysfunction. Ordering Physician: Yolande Wing Referring Physician: Bebeto Owens Performed By: Blank Britton, LUIS, RVT
--- NOTE | 2019-10-05 05:55 | EKG12_ITS ---
Test Reason : AM EKG Blood Pressure : / mmHG Vent. Rate : 066 BPM Atrial Rate : 066 BPM P-R Int : 194 ms QRS Dur : 090 ms QT Int : 456 ms P-R-T Axes : 052 028 186 degrees QTc Int : 478 ms Normal sinus rhythm with sinus arrhythmia Left ventricular hypertrophy with repolarization abnormality Abnormal ECG When compared with ECG of 04-OCT-2019 23:25, MANUAL COMPARISON REQUIRED, DATA IS UNCONFIRMED Confirmed by SATISH DAVIS ([id number]), order editor VICKY BOGGS ([id number]) on 10/11/2019 11:54:30 AM Referred By: AGNES Confirmed By:SATISH DAVIS
[2019-10-05 06:40] LABS: Bedside Glucose 84 mg/dL (70-110)
[2019-10-05 07:30] LABS: AST(SGOT) 18 U/L (15-37); Alanine Aminotransfer ALT/SGPT 26 U/L (13-56); Albumin, Serum 3.2 g/dL (3.2-5.0); Alkaline Phosphatase 82 U/L (45-117); Anion Gap 5 (5-15); BUN 18 mg/dL (7-18); BUN/Creat Ratio 23.3 RATIO (10-20); Bilirubin, Direct 0.05 mg/dL (0.00-0.30); Chloride 106 mmol/L (98-107); Creatinine, Serum 0.77 mg/dL (0.55-1.02); EST Glomerular Filtration Rate 86 mL/min (>60); Est Glom Filt Rate - Afr Amer 104 mL/min (>60); Globulin 3.2 g/dL (2.2-4.2); Glucose 84 mg/dL (74-106); Potassium 3.7 mmol/L (3.5-5.1); Protein, Total 6.4 g/dL (6.4-8.2); Sodium Level 138 mmol/L (136-145); Thyroid Stim Hormone (TSH) 1.67 uIU/mL (0.358-3.74)
[2019-10-05] MEDS: hydroCHLOROthiazide 25 MG Tablet 50 MG PO (10:11)
[2019-10-05] MEDS: DULoxetine Hcl 20 MG Capsule PO (10:12)
[2019-10-05] MEDS: Loratadine 10 MG Tablet PO (10:12)
[2019-10-05] MEDS: Cefdinir 300 MG Capsule 600 MG PO (10:15)
[2019-10-05] MEDS: NIFEdipine 60 MG Tablet PO (10:16)
[2019-10-05] MEDS: Metoprolol(XL)Succ 50 MG Tablet PO (10:18)
[2019-10-05] MEDS: Glimepiride 2 MG Tablet PO ×2 (10:18→17:43)
[2019-10-05] MEDS: Escitalopram Oxalate 10 MG Tablet PO (10:19)
[2019-10-05] MEDS: Spironolactone 50 MG Tablet PO (10:20)
[2019-10-05] MEDS: Spironolactone 25 MG Tablet PO (10:21)
--- NOTE | 2019-10-05 10:29 | STRESSREP ---
Stress Test Report Pharmacologic myocardial perfusion stress test. 43-year-old lady with a history of hypertensive urgency. Stress protocol: Resting EKG demonstrated normal sinus rhythm with a rate of 71 bpm T wave inversions noted in lead I to aVL and aVF and V4 to V5 6. Resting blood pressure 140/80 mmHg. 0.4 mg of regadenoson was infused per usual protocol followed by rapid intravenous and flush injection continuous EKG monitoring was performed. The maximum heart rate attained was 85 bpm which was 48% of maximum predicted heart rate the maximum workload was 1 metabolic equivalent. At rest the T wave inversions noted above were present and persisted throughout the infusion. There was mild worsening to approximately 1.[address] depression noted in V2 and 0.9 mm noted in lead V4, V5 and V6. The above are not diagnostic of ischemia. The resting blood pressure was 140/80 mmHg with a peak blood pressure 144/78 mmHg. Myocardial perfusion protocol. 15.0 mCi of technetium 99m sestamibi was injected at rest. 0.4 mg of regadenoson was infused per usual protocol peak infusion 45.0 mCi of technetium 99m sestamibi was injected stress images were obtained stress and rest images were reconstructed and compared in the short axis vertical and horizontal long axis. Gated images were also obtained Perfusion SPECT analysis: Review of the images demonstrate mildly reduced perfusion in the anterior wall on the stress images with improvement suggesting a mild amount of reversibility. The other cervantes appear to be well perfused. Gated SPECT analysis: The gated ejection fraction is noted to be 50% with mild anterior hypokinesis. Conclusion: Abnormal myocardial perfusion stress test with mild anterior ischemia noted. Low normal ejection fraction.
[2019-10-05] MEDS: oxyCODONE 5 MG Tablet 15 MG PO ×2 (10:30→22:41)
[2019-10-05] MEDS: Acetaminophen 325 MG Tablet 650 MG PO ×2 (10:30→16:25)
[2019-10-05 11:50] LABS: Bedside Glucose 103 mg/dL (70-110)
--- NOTE | 2019-10-05 13:08 | PN_ITS ---
<Virginia Blanc - Last Filed: 10/05/19 13:24> Patient Problems: Active and Suspected Problems Hypertensive urgency (Acute) Subjective: Patient seen and examined. He reports chest is tender to palpation especially on the left chest area. Denies other current symptoms. She reports she has been working out lately and feels her chest pain may be related to this. Discussed with patient that her stress test was abnormal. She reports anxiety regarding undergoing cardiac catheterization however she is agreeable to have cath if this is recommended by cardiology. - Physical Exam Vitals/I&O's: Vital Signs Temp Pulse Resp BP Pulse Ox 98.1 F 74 16 152/85 H 97 10/05/19 10:00 10/05/19 10:18 10/05/19 10:00 10/05/19 10:18 10/05/19 10:00 Oxygen Delivery Method Room Air Weight: 222 lb 14.197 oz Body Mass Index (BMI) 37.0 Finger Stick Blood Glucose 89 Intake and Output for Last 24 Hours 10/03/19 10/04/19 10/05/19 23:59 23:59 23:59 Intake Total 200 / 200 0 / 0 Balance 200 / 200 0 / 0 General: Alert, Oriented x3, Cooperative HEENT: Atraumatic, PERRLA, EOMI, Normocephalic Neck: Supple, No JVD, Negative Carotid Bruits Lungs: Clear to auscultation, Normal air movement Cardiovascular: Regular rate, Regular Rhythm, Normal S1, Normal S2, No murmurs Abdomen: Bowel Sounds Present, Soft, Non Tender, Non-Distended, Obese Extremities: No clubbing, No cyanosis, No edema, Capillary Refill Less than 3 Seconds Skin: No rashes, No breakdown Musculoskeletal: No Tenderness to Palpation of Joints or Extremities Neurological: Cranial nerves II-XII grossly intact, Neuro grossly intact Psych/Mental Status: Normal Affect, Appropriate Laboratory Results 10/04/19 16:35: WBC 4.5, RBC 4.76, Hgb 14.2, Hct 43.7, MCV 91.8, MCH 29.8, MCHC 32.5, RDW Std Deviation 46.4 H, RDW Coeff of Moe 13.7, Plt Count 214, MPV 11.0, Immature Gran % (Auto) 0.200, Neut % (Auto) 46.8 L, Lymph % (Auto) 43.4 H, [place] % (Auto) 6.9, Eos % (Auto) 2.0, Baso % (Auto) 0.7, Absolute Neuts (auto) 2.1, Absolute Lymphs (auto) 1.96, Nucleated RBC % 0 10/04/19 16:35: Sodium 140, Potassium 4.9, Chloride 106, Carbon Dioxide 28.0, Anion Gap 6, BUN 24 H, Creatinine 0.91, Estim Creat Clear Calc 70.99, Est GFR (MDRD) Af Amer 86, Est GFR (MDRD) Non-Af 71, BUN/Creatinine Ratio 26.4 H, Glucose 96, Calcium 8.6, Troponin I 0.033 10/04/19 16:35: Hemoglobin A1c 6.5 H 10/04/19 19:08: Troponin I < 0.015 10/04/19 19:08: Magnesium 2.0 10/04/19 21:40: POC Glucose 143 H 10/04/19 21:56: Troponin I 0.017 10/04/19 22:30: Urine Opiates Screen NEGATIVE, Urine Methadone Screen NEGATIVE, Ur Barbiturates Screen NEGATIVE, Ur Phencyclidine Scrn NEGATIVE, Ur Amphetamines Screen NEGATIVE, U Methamphetamin-MDMA NEGATIVE, U Benzodiazepines Scrn NEGATIVE, Urine Cocaine Screen NEGATIVE, U Cannabinoids Screen NEGATIVE, Ur Drug Screen Comment 10/05/19 00:41: POC Glucose 115 H 10/05/19 01:02: Troponin I 0.018 10/05/19 06:27: Sodium 138, Potassium 3.7, Chloride 106, Carbon Dioxide 27.0, Anion Gap 5, BUN 18, Creatinine 0.77, Estim Creat Clear Calc 83.90, Est GFR (MDRD) Af Amer 104, Est GFR (MDRD) Non-Af 86, BUN/Creatinine Ratio 23.3 H, Glucose 84, Calcium 8.0 L, Total Bilirubin 0.30, Direct Bilirubin 0.05, AST 18, ALT 26, Alkaline Phosphatase 82, Total Protein 6.4, Albumin 3.2, Globulin 3.2, TSH 1.67 10/05/19 06:34: POC Glucose 84 10/05/19 11:40: POC Glucose 103 Current Medications Acetaminophen (Tylenol) 650 mg PO Q6H PRN PRN PRN Reason: Pain Score 1-3/Temp > 100.7 F Last Admin: 10/05/19 10:30 Dose: 650 mg Documented by: Al Hydroxide/Mg Hydroxide (Mylanta Ii) 30 ml PO Q6H PRN PRN PRN Reason: Gastric Burning Albuterol Sulfate (Ventolin Aerosols) 2.5 mg INHALATION Q4H PRN PRN PRN Reason: SOB &/OR WHEEZING Aspirin (Ecotrin) 81 mg PO DAILY@0800 [facility] Last Admin: 10/05/19 05:23 Dose: 81 mg Documented by: Cefdinir (Omnicef [Equiv]) 600 mg PO DAILY [facility] Last Admin: 10/05/19 10:15 Dose: 600 mg Documented by: Dextrose (D50w Syringe) 0 gm IV X1 PRN; Protocol PRN Reason: Hypoglycemia Duloxetine HCl (Cymbalta) 20 mg PO DAILY [facility] Last Admin: 10/05/19 10:12 Dose: 20 mg Documented by: Enoxaparin Sodium (Lovenox) 40 mg SC DAILY@1000 AMBR[facility] Escitalopram Oxalate (Lexapro) 10 mg PO DAILY [facility] Last Admin: 10/05/19 10:19 Dose: 10 mg Documented by: Fluticasone Propionate (Flonase Nasal [place]) 2 spray NASAL DAILY [facility] Last Admin: 10/05/19 10:19 Dose: Not Given Documented by: Gabapentin (Neurontin) 400 mg PO TIDCM [facility] Last Admin: 10/05/19 10:11 Dose: 400 mg Documented by: Glimepiride (Amaryl) 2 mg PO BIDCM [facility] Last Admin: 10/05/19 10:18 Dose: 2 mg Documented by: Glucagon () 1 mg IM .X1 PRN PRN Reason: Hypoglycemia Hydralazine HCl (Apresoline Iv) 10 - 20 mg IV Q4H PRN PRN PRN Reason: sys>160 LEONARD> 90 Last Admin: 10/05/19 00:10 Dose: 10 mg Documented by: Hydrochlorothiazide (Hctz) 50 mg PO DAILY [facility] Last Admin: 10/05/19 10:11 Dose: 50 mg Documented by: Sodium Chloride () 250 mls @ 15 mls/hr IV .[id number] PRN PRN Reason: Saline Flush Insulin Glargine (Lantus (Bkc)) 30 units SC QHS [facility] Last Admin: 10/04/19 22:26 Dose: 30 u Documented by: Lisinopril (Zestril) 40 mg PO DAILY [facility] Last Admin: 10/05/19 05:23 Dose: 40 mg Documented by: Loratadine (Claritin) 10 mg PO DAILY [facility] Last Admin: 10/05/19 10:12 Dose: 10 mg Documented by: Magnesium Hydroxide (Milk Of Magnesia) 30 ml PO DAILY PRN PRN PRN Reason: Constipation Melatonin (Melatonin) 3 mg PO QHS PRN PRN PRN Reason: INSOMNIA Metoprolol Succinate (Toprol Xl (Beta Cathi)) 50 mg PO DAILY [facility] Last Admin: 10/05/19 10:18 Dose: 50 mg Documented by: Nifedipine (Procardia Xl) 60 mg PO DAILY [facility] Last Admin: 10/05/19 10:16 Dose: 60 mg Documented by: Nitroglycerin (Nitrostat) 0.4 mg SUBLINGUAL Q5M PRN PRN Reason: CHEST PAIN Ondansetron HCl (Zofran) 4 mg IV Q8H PRN PRN PRN Reason: NAUSEA/VOMITING Oxycodone HCl (Oxyir) 15 mg PO TID PRN PRN PRN Reason: Pain Score 4-10/10 Last Admin: 10/05/19 10:30 Dose: 15 mg Documented by: Sodium Chloride () 10 - 40 ml IV UD PRN PRN Reason: SALINE FLUSH Last Admin: 10/05/19 06:35 Dose: 10 ml Documented by: Spironolactone (Aldactone) 25 mg PO DAILY [facility] Last Admin: 10/05/19 10:21 Dose: 25 mg Documented by: Tizanidine HCl (Zanaflex) 4 mg PO QHS [facility] Last Admin: 10/04/19 22:28 Dose: 4 mg Documented by: Trazodone HCl (Desyrel) 50 mg PO QHS [facility] Last Admin: 10/04/19 22:28 Dose: 50 mg Documented by: Medical Necessity - Tobacco Use Smoking Status: Never smoker Tobacco Use: Non-smoker Assessment/Plan All Active Problems Hypertensive urgency (Acute) Chest pain (Acute) 1. Chest pain, abnormal stress test-troponin negative. EKG without ST-T changes. LVH noted on EKG. Stress test demonstrated mild anterior ischemia. EF 50% with mild anterior hypokinesis. Echocardiogram pending. Cardiology consult placed. Continue aspirin, beta-cathi. Check fasting lipid panel in a.m. 2. Hypertensive urgency, resistant hypertension-blood pressure currently improved. Home regimen includes HCTZ 50 mg daily, lisinopril 40 mg daily and metoprolol XL 100 mg daily, spironolactone 50 mg daily. Metoprolol decreased to 50 mg daily on admission and patient was started on Procardia XL 60 mg daily. Spironolactone decreased to 25 mg daily. PRN hydralazine for systolic blood pressure greater than 160. Patient had renal ultrasound in 2016 for evaluation of hypertension which showed no significant renal artery stenosis or abnormality. Echocardiogram January 2016 showed an EF of 65%. 3. Type 2 diabetes mellitus-hemoglobin A1c 6.5%. Oral regimen on hold. Continue home insulin regimen. Accu-Cheks ACHS with SSI. 4. Chronic pain syndrome- prn pain regimen. 5. Obesity-encouraged diet lifestyle modifications. 6. Recent left otitis media-continue previously prescribed course of cefdinir. 7. Depression-continue home Lexapro, trazodone regimen. DVT prophylaxis-Lovenox This patient was seen by FRANCE Layton under the supervision of Dr. Looney. <Roro Looney - Last Filed: 10/05/19 13:48> - Physical Exam Vitals/I&O's: Vital Signs Temp Pulse Resp BP Pulse Ox 98.1 F 74 16 152/85 H 97 10/05/19 10:00 10/05/19 10:18 10/05/19 10:00 10/05/19 10:18 10/05/19 10:00 Oxygen Delivery Method Room Air Weight: 222 lb 14.197 oz Body Mass Index (BMI) 37.0 Finger Stick Blood Glucose 89 Intake and Output for Last 24 Hours 10/03/19 10/04/19 10/05/19 23:59 23:59 23:59 Intake Total 200 / 200 0 / 0 Balance 200 / 200 0 / 0 Laboratory Results 10/04/19 16:35: WBC 4.5, RBC 4.76, Hgb 14.2, Hct 43.7, MCV 91.8, MCH 29.8, MCHC 32.5, RDW Std Deviation 46.4 H, RDW Coeff of Moe 13.7, Plt Count 214, MPV 11.0, Immature Gran % (Auto) 0.200, Neut % (Auto) 46.8 L, Lymph % (Auto) 43.4 H, [place] % (Auto) 6.9, Eos % (Auto) 2.0, Baso % (Auto) 0.7, Absolute Neuts (auto) 2.1, Absolute Lymphs (auto) 1.96, Nucleated RBC % 0 10/04/19 16:35: Sodium 140, Potassium 4.9, Chloride 106, Carbon Dioxide 28.0, Anion Gap 6, BUN 24 H, Creatinine 0.91, Estim Creat Clear Calc 70.99, Est GFR (MDRD) Af Amer 86, Est GFR (MDRD) Non-Af 71, BUN/Creatinine Ratio 26.4 H, Glucose 96, Calcium 8.6, Troponin I 0.033 10/04/19 16:35: Hemoglobin A1c 6.5 H 10/04/19 19:08: Troponin I < 0.015 10/04/19 19:08: Magnesium 2.0 10/04/19 21:40: POC Glucose 143 H 10/04/19 21:56: Troponin I 0.017 10/04/19 22:30: Urine Opiates Screen NEGATIVE, Urine Methadone Screen NEGATIVE, Ur Barbiturates Screen NEGATIVE, Ur Phencyclidine Scrn NEGATIVE, Ur Amphetamines Screen NEGATIVE, U Methamphetamin-MDMA NEGATIVE, U Benzodiazepines Scrn NEGATIVE, Urine Cocaine Screen NEGATIVE, U Cannabinoids Screen NEGATIVE, Ur Drug Screen Comment 10/05/19 00:41: POC Glucose 115 H 10/05/19 01:02: Troponin I 0.018 10/05/19 06:27: Sodium 138, Potassium 3.7, Chloride 106, Carbon Dioxide 27.0, Anion Gap 5, BUN 18, Creatinine 0.77, Estim Creat Clear Calc 83.90, Est GFR (MDRD) Af Amer 104, Est GFR (MDRD) Non-Af 86, BUN/Creatinine Ratio 23.3 H, Glucose 84, Calcium 8.0 L, Total Bilirubin 0.30, Direct Bilirubin 0.05, AST 18, ALT 26, Alkaline Phosphatase 82, Total Protein 6.4, Albumin 3.2, Globulin 3.2, TSH 1.67 10/05/19 06:34: POC Glucose 84 10/05/19 11:40: POC Glucose 103 Current Medications Acetaminophen (Tylenol) 650 mg PO Q6H PRN PRN PRN Reason: Pain Score 1-3/Temp > 100.7 F Last Admin: 10/05/19 10:30 Dose: 650 mg Documented by: Al Hydroxide/Mg Hydroxide (Mylanta Ii) 30 ml PO Q6H PRN PRN PRN Reason: Gastric Burning Albuterol Sulfate (Ventolin Aerosols) 2.5 mg INHALATION Q4H PRN PRN PRN Reason: SOB &/OR WHEEZING Aspirin (Ecotrin) 81 mg PO DAILY@0800 [facility] Last Admin: 10/05/19 05:23 Dose: 81 mg Documented by: Cefdinir (Omnicef [Equiv]) 600 mg PO DAILY [facility] Last Admin: 10/05/19 10:15 Dose: 600 mg Documented by: Dextrose (D50w Syringe) 0 gm IV X1 PRN; Protocol PRN Reason: Hypoglycemia Duloxetine HCl (Cymbalta) 20 mg PO DAILY [facility] Last Admin: 10/05/19 10:12 Dose: 20 mg Documented by: Enoxaparin Sodium (Lovenox) 40 mg SC DAILY@1000 [facility] Escitalopram Oxalate (Lexapro) 10 mg PO DAILY [facility] Last Admin: 10/05/19 10:19 Dose: 10 mg Documented by: Fluticasone Propionate (Flonase Nasal [place]) 2 spray NASAL DAILY [facility] Last Admin: 10/05/19 10:19 Dose: Not Given Documented by: Gabapentin (Neurontin) 400 mg PO TIDCM [facility] Last Admin: 10/05/19 13:16 Dose: Not Given Documented by: Glimepiride (Amaryl) 2 mg PO BIDCM [facility] Last Admin: 10/05/19 10:18 Dose: 2 mg Documented by: Glucagon () 1 mg IM .X1 PRN PRN Reason: Hypoglycemia Hydralazine HCl (Apresoline Iv) 10 - 20 mg IV Q4H PRN PRN PRN Reason: sys>160 LEONARD> 90 Last Admin: 10/05/19 00:10 Dose: 10 mg Documented by: Hydrochlorothiazide (Hctz) 50 mg PO DAILY [facility] Last Admin: 10/05/19 10:11 Dose: 50 mg Documented by: Sodium Chloride () 250 mls @ 15 mls/hr IV .[id number] PRN PRN Reason: Saline Flush Insulin Glargine (Lantus (Bkc)) 30 units SC QHS [facility] Last Admin: 10/04/19 22:26 Dose: 30 u Documented by: Lisinopril (Zestril) 40 mg PO DAILY [facility] Last Admin: 10/05/19 05:23 Dose: 40 mg Documented by: Loratadine (Claritin) 10 mg PO DAILY [facility] Last Admin: 10/05/19 10:12 Dose: 10 mg Documented by: Magnesium Hydroxide (Milk Of Magnesia) 30 ml PO DAILY PRN PRN PRN Reason: Constipation Melatonin (Melatonin) 3 mg PO QHS PRN PRN PRN Reason: INSOMNIA Metoprolol Succinate (Toprol Xl (Beta Cathi)) 50 mg PO DAILY [facility] Last Admin: 10/05/19 10:18 Dose: 50 mg Documented by: Nifedipine (Procardia Xl) 60 mg PO DAILY [facility] Last Admin: 10/05/19 10:16 Dose: 60 mg Documented by: Nitroglycerin (Nitrostat) 0.4 mg SUBLINGUAL Q5M PRN PRN Reason: CHEST PAIN Ondansetron HCl (Zofran) 4 mg IV Q8H PRN PRN PRN Reason: NAUSEA/VOMITING Oxycodone HCl (Oxyir) 15 mg PO TID PRN PRN PRN Reason: Pain Score 4-10/10 Last Admin: 10/05/19 10:30 Dose: 15 mg Documented by: Sodium Chloride () 10 - 40 ml IV UD PRN PRN Reason: SALINE FLUSH Last Admin: 10/05/19 06:35 Dose: 10 ml Documented by: Spironolactone (Aldactone) 25 mg PO DAILY [facility] Last Admin: 10/05/19 10:21 Dose: 25 mg Documented by: Tizanidine HCl (Zanaflex) 4 mg PO QHS [facility] Last Admin: 10/04/19 22:28 Dose: 4 mg Documented by: Trazodone HCl (Desyrel) 50 mg PO QHS [facility] Last Admin: 10/04/19 22:28 Dose: 50 mg Documented by: Assessment/Plan Patient seen by Virginia KLEINC under my supervision Patient is a 43-year-old female with past medical history as listed who was admitted through the ED on 10/04/2019 with a complaint of substernal chest tightening which had been present all day. She had no assisted nausea or vomiting or diaphoresis and lightheadedness. On admission in the ED, blood pressure was markedly elevated at 219/125. EKG showed chronic changes due to LVH but no acute ST changes and chest x-ray was negative. CBC and BMP were essentially unremarkable. She was admitted to be managed for hypertensive urgency. Troponins x3 were negative. Patient seen and examined today. Chest pain has resolved. She tells me that she has had a previous heart attack but at that time nothing was done because she was told that the heart attack had happened before she was seen and so nothing could be done about it. Review of systems otherwise negative. o/e: Vital Signs Height 5 ft 5 in Weight: 222 lb 14.197 oz Weight in Pounds 222.9 lbs Pulse Ox 97 Temperature 98.1 F Pulse Rate 74 Respiratory Rate 16 Blood Pressure [BP] 124/80 Blood Pressure 152/85 Blood Pressure Position [BP] Supine Blood Pressure Position Semi-Fowlers General: Alert, Oriented x3, Cooperative HEENT: Atraumatic, PERRLA, EOMI, Normocephalic Neck: Supple, No JVD, Negative Carotid Bruits Lungs: Clear to auscultation, Normal air movement Cardiovascular: Regular rate, Regular Rhythm, Normal S1, Normal S2, No murmurs Abdomen: Bowel Sounds Present, Soft, Non Tender, Non-Distended, Obese Extremities: No clubbing, No cyanosis, No edema, Capillary Refill Less than 3 Seconds Skin: No rashes, No breakdown Musculoskeletal: No Tenderness to Palpation of Joints or Extremities Neurological: Cranial nerves II-XII grossly intact, Neuro grossly intact Psych/Mental Status: Normal Affect, Appropriate Stress test done this morning showed abnormal myocardial perfusion stress test with mild anterior ischemia noted. Cardiology therefore consulted and she is to have a cardiac cath on Monday. Blood pressure is also now markedly improved. She is on metoprolol and nifedipine. 2D echo pending. Management as per FRANCE Layton's notes I have reviewed and endorsed. Code Visit OBSV E&M: 88922 Subsequent observation care L2
--- NOTE | 2019-10-05 14:11 | CON.PCM_ITS ---
Reason for Consult Date of Consultation: 10/05/19 Reason for Consultation: Chest discomfort History of Present Illness: The patient is a 43 year old F with a history of hypertension who presented to the emergency room with chest discomfort. She described this as a tightening sensation. She apparently had presented to the emergency room the week before and had her medications adjusted and presented with a similar episode. Her blood pressures when she arrived were over 166 systolic and 110 diastolic. She was treated and admitted to the telemetry unit. Cardiac enzymes were obtained which were noted to be normal and she was scheduled for and underwent a myocardial perfusion stress test which was noted to be mildly abnormal in the anterior distribution. She also was noted to have a markedly abnormal EKG with T wave inversions noted in lead I, aVL, V4 through V6. Left ventricular hypertrophy was suggested but ischemia cannot be completely excluded. On the basis of the above cardiology was asked to evaluate the patient. [] Past Medical History Allergies/Adverse Reactions: Allergies Penicillins Allergy (Verified 10/04/19 16:04) Hives metformin Adverse Reaction (Verified 10/04/19 19:32) Diarrhea venlafaxine [From Effexor] Adverse Reaction (Verified 10/04/19 16:04) Upset Stomach Home Medications: Ambulatory Orders Medication Instructions Recorded Tizanidine HCl [Zanaflex] 4 mg PO QHS 05/07/18 traZODone [Desyrel] 50 mg PO QHS 06/05/19 Albuterol Inhaler [Ventolin Hfa 2 puff INHALATION Q4H PRN PRN 09/27/19 (SP)] Duloxetine HCl 20 mg PO DAILY 09/27/19 Fluticasone Propionate 2 spray NS DAILY PRN 09/27/19 Guaifenesin [Robitussin] 10 ml PO TID PRN PRN 09/27/19 Hydrochlorothiazide [Hctz] 50 mg PO DAILY 09/27/19 Insulin Glargine [Lantus (BKC)] 30 units SUBCUT QHS 09/27/19 Spironolactone 50 mg PO DAILY 09/27/19 Cefdinir [Omnicef [equiv]] 600 mg PO DAILY 10/04/19 Cholecalciferol (Vitamin D3) 2,000 unit PO DAILY 10/04/19 [Vitamin D3] Diclofenac Epolamine [Flector] 1 patch TOPICAL DAILY PRN 10/04/19 Diclofenac Sodium [Diclofenac 100 mg PO DAILY 10/04/19 Sodium ER] Escitalopram Oxalate [Lexapro] 10 mg PO DAILY 10/04/19 Exenatide [Byetta (BKC)] 5 mcg SQ BIDCM 10/04/19 Glimepiride 2 mg PO BID 10/04/19 Lisinopril [Zestril] 40 mg PO DAILY 10/04/19 Loratadine 10 mg PO DAILY PRN PRN 10/04/19 Metoprolol Succinate [Toprol Xl] 100 mg PO DAILY 10/04/19 Multivitamin [Daily Multiple 1 ea PO DAILY 10/04/19 Vitamin] Oxycodone HCl 15 mg PO TID PRN 10/04/19 Past Medical History (Chronic Problems): Chronic Problems History of [place] (myocardial infarction) (Chronic) Chronic pain syndrome (Chronic) Hirsutism (Chronic) HLD (hyperlipidemia) (Chronic) Type II diabetes mellitus (Chronic) History of gestational diabetes mellitus (Chronic) Obesity (Chronic) Benign essential hypertension (Chronic) Asthma (Chronic) Surgical History: noncontributory, - Psychiatric History: Depression DITCH INSPECTOR History: No pertinent DITCH INSPECTOR history - *Family History Maternal History Items: Diabetes, Heart Disease, Hypertension, - Paternal History Items: - - unkown father side history Lives: With Family Smoking Status: Never smoker Tobacco Use: Non-smoker Alcohol: None Drugs: None Review of Systems - Review of Systems General: Denies: Fever, Night Sweats, Fatigue HEENT: Denies: Vision Change Cardiovascular: Reports: Chest Discomfort. Denies: Shortness of Breath, Orthopnea, PND, Peripheral Edema, Palpitations, Lightheadedness, Dizziness, Near Syncope, Syncope Respiratory: Denies: Cough, Sputum Production, Hemoptysis Gastrointestinal: Denies: Hematemesis, Hematochezia, Melena Genitourinary: Denies: Dysuria, Hematuria Skin: Denies: Rash Neurological: Denies: Dizziness Psychiatric: Denies: Anxiety Endocrine: Denies: Heat Intolerance Hematologic/ Lymphatic: Denies: Anemia Subjectve: Pleasant lady in no distress Objective: Vital Signs Temp Pulse Resp BP Pulse Ox 98.1 F 74 16 152/85 H 97 10/05/19 10:00 10/05/19 10:18 10/05/19 10:00 10/05/19 10:18 10/05/19 10:00 Oxygen Delivery Method Room Air Weight: 222 lb 14.197 oz Body Mass Index (BMI) 37.0 Finger Stick Blood Glucose 89 Intake and Output for Last 24 Hours 10/03/19 10/04/19 10/05/19 23:59 23:59 23:59 Intake Total 200 / 200 0 / 0 Balance 200 / 200 0 / 0 General: Awake, Alert, Oriented x 3 HEENT: PERRL, EOMI, Sclera Non Icteric Neck: Supple, Good ROM, No Lymph Node Enlargement Lungs: Clear to auscultation Cardiovascular: Regular Rhythm, Normal S1, Normal S2, No Murmurs, No Rubs, No Gallops Vascular: No Carotid Bruits, Normal Femoral Pulses, Normal Radial Pulses, Normal Dorsalis Pedal Pulse, Normal Posterior Tibial Pulses Abdomen: Bowel Sounds Present, Soft, Non Tender, No HSM, No Organomegaly Extremities: No Cyanosis, No Clubbing, No edema Musculoskeletal: No Erythema Skin: No Rashes Lymphatic: No Lymph Node Enlargement Neurological: No Focal Motor or Sensory Deficit Psych/Mental Status: Appropriate 10/04/19 16:35: WBC 4.5, RBC 4.76, Hgb 14.2, Hct 43.7, MCV 91.8, MCH 29.8, MCHC 32.5, Plt Count 214, MPV 11.0, Immature Gran % (Auto) 0.200, Neut % (Auto) 46.8 L, Lymph % (Auto) 43.4 H, Bandera % (Auto) 6.9, Eos % (Auto) 2.0, Baso % (Auto) 0.7, Absolute Neuts (auto) 2.1, Nucleated RBC % 0 10/04/19 16:35: Sodium 140, Potassium 4.9, Chloride 106, Carbon Dioxide 28.0, Anion Gap 6, BUN 24 H, Creatinine 0.91, Est GFR (MDRD) Af Amer 86, Est GFR (MDRD) Non-Af 71, BUN/Creatinine Ratio 26.4 H, Glucose 96, Calcium 8.6, Troponin I 0.033 10/04/19 16:35: Hemoglobin A1c 6.5 H 10/04/19 19:08: Troponin I < 0.015 10/04/19 19:08: Magnesium 2.0 10/04/19 21:56: Troponin I 0.017 10/05/19 01:02: Troponin I 0.018 10/05/19 06:27: Sodium 138, Potassium 3.7, Chloride 106, Carbon Dioxide 27.0, Anion Gap 5, BUN 18, Creatinine 0.77, Est GFR (MDRD) Af Amer 104, Est GFR (MDRD) Non-Af 86, BUN/Creatinine Ratio 23.3 H, Glucose 84, Calcium 8.0 L, Total Bilirubin 0.30, Direct Bilirubin 0.05 Rhythm: EKG: Normal sinus rhythm with left ventricular hypertrophy and T wave inversions noted in leads I, aVL, V4 through V6 ECHO: Preserved left ventricular systolic function with eccentric left ventricular hypertrophy. Stress Test: Mildly abnormal pharmacologic myocardial perfusion stress test with mid anterior ischemia Assessment/Plan 1. Chest discomfort * She does present with recurrent chest discomfort. There are some atypical features to the above. I suspect the above is likely secondary to uncontrolled hypertension and ventricular hypertrophy. However due to the abnormal stress test I would recommend that we obtain and perform a cardiac c atheterization. The risk benefits and alternatives have been explained to her she understands and agrees to proceed. Would recommend performing the above on Monday. * 2. Hypertension * Patient is noted to have severe hypertension which appears to be uncontrolled. Would like to optimize her blood pressure medication. * On her echocardiogram she appears to have eccentric hypertrophy which could be causing her abnormal EKG changes. * Would review her medications and optimize therapy * * Thank you for allowing me to participate in the care of your patient. Please don't hesitate to call if any issues arise
[2019-10-05] MEDS: Clopidogrel Bisulfate 300 MG Tablet PO (15:29)
[2019-10-05] MEDS: Enoxaparin 40 MG/0.4 ML Syringe SC (15:30)
[2019-10-05] MEDS: ALPRAZolam 0.5 MG Tablet PO (15:30)
[2019-10-05 16:26] LABS: Bedside Glucose 113 mg/dL (70-110)
[2019-10-05] MEDS: tiZANidine HCl 2 MG Tablet 4 MG PO (21:36)
[2019-10-05] MEDS: traZODone 50 MG Tablet PO (21:36)
[2019-10-05 21:46] LABS: Bedside Glucose 107 mg/dL (70-110)
[2019-10-06] VITALS (11 sets, daily range): BP systolic 119–160; BP diastolic 64–99; PULSE 55–85; RESP 12–18; TEMP 36.5–37; O2SAT 95–99
[2019-10-06 07:02] LABS: Cholesterol 232 mg/dL (200); High Density Lipoprotein 75 mg/dL; Triglycerides 146 mg/dL; Very Low Density Lipoprotein 29 mg/dL (5-40)
[2019-10-06] MEDS: Cefdinir 300 MG Capsule 600 MG PO (08:11)
[2019-10-06] MEDS: Aspirin E.C. 81 MG Tablet PO (08:11)
[2019-10-06] MEDS: Metoprolol(XL)Succ 50 MG Tablet PO (08:12)
[2019-10-06] MEDS: hydroCHLOROthiazide 25 MG Tablet PO (08:12)
[2019-10-06] MEDS: Clopidogrel Bisulfate 75 MG Tablet PO (08:13)
[2019-10-06] MEDS: Loratadine 10 MG Tablet PO (08:14)
[2019-10-06] MEDS: Glimepiride 2 MG Tablet PO ×2 (08:14→17:09)
[2019-10-06] MEDS: DULoxetine Hcl 20 MG Capsule PO (08:16)
[2019-10-06] MEDS: Lisinopril 40 MG Tablet PO (08:17)
[2019-10-06] MEDS: amLODIPine 10 MG Tablet PO (08:17)
[2019-10-06] MEDS: Escitalopram Oxalate 10 MG Tablet PO (08:18)
[2019-10-06] MEDS: Enoxaparin 40 MG/0.4 ML Syringe SC (08:18)
[2019-10-06] MEDS: oxyCODONE 5 MG Tablet 15 MG PO ×3 (08:20→21:46)
[2019-10-06 09:06] LABS: Bedside Glucose 101 mg/dL (70-110)
--- NOTE | 2019-10-06 09:28 | PN.CARD_ITS ---
Subjectve: Patient seen and evaluated. Appears to be doing much better this morning. Objective: Vital Signs Temp Pulse Resp BP Pulse Ox 97.7 F L 65 12 127/64 H 95 10/06/19 02:39 10/06/19 08:12 10/06/19 02:39 10/06/19 08:12 10/06/19 02:39 Oxygen Delivery Method Room Air Weight: 222 lb 14.197 oz Body Mass Index (BMI) 37.0 Finger Stick Blood Glucose 89 Intake and Output for Last 24 Hours 10/04/19 10/05/19 10/06/19 23:59 23:59 23:59 Intake Total 200 / 200 1187 / 1187 Balance 200 / 200 1187 / 1187 General: Awake, Alert, Oriented x 3 HEENT: PERRL, EOMI, Sclera Non Icteric Neck: Supple, Good ROM, No Lymph Node Enlargement Lungs: Clear to auscultation Cardiovascular: Regular Rhythm, Normal S1, Normal S2, No Murmurs, No Rubs, No Gallops Vascular: No Carotid Bruits, Normal Femoral Pulses, Normal Radial Pulses, Normal Dorsalis Pedal Pulse, Normal Posterior Tibial Pulses Abdomen: Bowel Sounds Present, Soft, Non Tender, No HSM, No Organomegaly Extremities: No Cyanosis, No Clubbing, No edema Musculoskeletal: No Erythema Skin: No Rashes Lymphatic: No Lymph Node Enlargement Neurological: No Focal Motor or Sensory Deficit Psych/Mental Status: Appropriate 10/06/19 06:10: Triglycerides 146, Cholesterol 232 H, LDL Cholesterol 128, VLDL Cholesterol 29, HDL Cholesterol 75 Rhythm: EKG: ECHO: Stress Test: Cardiac Cath: PCI: CT Surgery: Holter monitor: EPS: PPM: CXR: Chest CT Scan: Medical Necessity - Tobacco Use Smoking Status: Never smoker Tobacco Use: Non-smoker Assessment/Plan 1. Chest discomfort * She does present with recurrent chest discomfort. There are some atypical features to the above. I suspect the above is likely secondary to uncontrolled hypertension and ventricular hypertrophy. However due to the abnormal stress test I would recommend that we obtain and perform a cardiac catheterization. The risk benefits and alternatives have been explained to her she understands and agrees to proceed. Would recommend performing the above on Monday. * 2. Hypertension * Patient is noted to have severe hypertension which appears to be uncontrolled. Blood pressures appear to be better at this time. * On her echocardiogram she appears to have eccentric hypertrophy which could be causing her abnormal EKG changes. * Would review her medications and optimize therapy * * Thank you for allowing me to participate in the care of your patient. Please don't hesitate to call if any issues arise
--- NOTE | 2019-10-06 09:57 | CASEMGMT ---
DARIAN CM Note: Insurance review for InNEtwork facilities if transfer to tertiary care is recommended. [facility], [facility], [facility], [facility], [facility].
--- NOTE | 2019-10-06 11:16 | PCM.PROGNOTE ---
<Virginia Blanc - Last Filed: 10/06/19 11:21> Patient Problems: Active and Suspected Problems Hypertensive urgency (Acute) Subjective: Patient seen and examined. Denies chest pain, shortness of breath. Reports low back pain, requesting lidocaine patch. Plan for cath in a.m., patient agreeable. - Physical Exam Vitals/I&O's: Vital Signs Temp Pulse Resp BP Pulse Ox 98.6 F 65 16 127/64 H 99 10/06/19 08:00 10/06/19 08:12 10/06/19 08:00 10/06/19 08:12 10/06/19 08:00 Oxygen Delivery Method Room Air Weight: 222 lb 14.197 oz Body Mass Index (BMI) 37.0 Finger Stick Blood Glucose 89 Intake and Output for Last 24 Hours 10/04/19 10/05/19 10/06/19 23:59 23:59 23:59 Intake Total 200 / 200 1187 / 1187 Balance 200 / 200 1187 / 1187 General: Alert, Oriented x3, Cooperative HEENT: Atraumatic, PERRLA, EOMI, Normocephalic Neck: Supple, No JVD, Negative Carotid Bruits Lungs: Clear to auscultation, Normal air movement Cardiovascular: Regular rate, Regular Rhythm, Normal S1, Normal S2, No murmurs Abdomen: Bowel Sounds Present, Soft, Non Tender, Non-Distended, Obese Extremities: No clubbing, No cyanosis, No edema, Capillary Refill Less than 3 Seconds Skin: No rashes, No breakdown Musculoskeletal: No Tenderness to Palpation of Joints or Extremities Neurological: Cranial nerves II-XII grossly intact, Neuro grossly intact Psych/Mental Status: Normal Affect, Appropriate Laboratory Results 10/05/19 11:40: POC Glucose 103 10/05/19 16:20: POC Glucose 113 H 10/05/19 21:33: POC Glucose 107 10/06/19 06:10: Triglycerides 146, Cholesterol 232 H, LDL Cholesterol 128, VLDL Cholesterol 29, HDL Cholesterol 75 10/06/19 06:53: POC Glucose 101 Current Medications Acetaminophen (Tylenol) 650 mg PO Q6H PRN PRN PRN Reason: Pain Score 1-3/Temp > 100.7 F Last Admin: 10/05/19 16:25 Dose: 650 mg Documented by: Al Hydroxide/Mg Hydroxide (Mylanta Ii) 30 ml PO Q6H PRN PRN PRN Reason: Gastric Burning Albuterol Sulfate (Ventolin Aerosols) 2.5 mg INHALATION Q4H PRN PRN PRN Reason: SOB &/OR WHEEZING Alprazolam (Xanax) 0.5 mg PO BID PRN PRN PRN Reason: ANXIETY Last Admin: 10/05/19 15:30 Dose: 0.5 mg Documented by: Amlodipine Besylate (Norvasc) 10 mg PO DAILY [facility] Last Admin: 10/06/19 08:17 Dose: 10 mg Documented by: Aspirin (Ecotrin) 81 mg PO DAILY@0800 [facility] Last Admin: 10/06/19 08:11 Dose: 81 mg Documented by: Cefdinir (Omnicef [Equiv]) 600 mg PO DAILY [facility] Last Admin: 10/06/19 08:11 Dose: 600 mg Documented by: Clopidogrel Bisulfate (Plavix) 75 mg PO DAILY [facility] Last Admin: 10/06/19 08:13 Dose: 75 mg Documented by: Dextrose (D50w Syringe) 0 gm IV X1 PRN; Protocol PRN Reason: Hypoglycemia Duloxetine HCl (Cymbalta) 20 mg PO DAILY [facility] Last Admin: 10/06/19 08:16 Dose: 20 mg Documented by: Enoxaparin Sodium (Lovenox) 40 mg SC DAILY@1000 [facility] Last Admin: 10/06/19 08:18 Dose: 40 mg Documented by: Escitalopram Oxalate (Lexapro) 10 mg PO DAILY [facility] Last Admin: 10/06/19 08:18 Dose: 10 mg Documented by: Fluticasone Propionate (Flonase Nasal [place]) 2 spray NASAL DAILY [facility] Last Admin: 10/06/19 08:18 Dose: Not Given Documented by: Gabapentin (Neurontin) 400 mg PO TIDCM [facility] Last Admin: 10/06/19 08:12 Dose: Not Given Documented by: Glimepiride (Amaryl) 2 mg PO BIDCM [facility] Last Admin: 10/06/19 08:14 Dose: 2 mg Documented by: Glucagon () 1 mg IM .X1 PRN PRN Reason: Hypoglycemia Hydralazine HCl (Apresoline Iv) 10 - 20 mg IV Q4H PRN PRN PRN Reason: sys>160 LEONARD> 90 Last Admin: 10/05/19 00:10 Dose: 10 mg Documented by: Hydrochlorothiazide (Hctz) 25 mg PO DAILY [facility] Last Admin: 10/06/19 08:12 Dose: 25 mg Documented by: Sodium Chloride () 250 mls @ 15 mls/hr IV .[id number] PRN PRN Reason: Saline Flush Insulin Glargine (Lantus (Bkc)) 20 units SC QHS [facility] Last Admin: 10/05/19 22:40 Dose: 20 u Documented by: Lidocaine (Lidoderm Patch) 1 patch TOPICAL DAILY [facility]; Protocol Lisinopril (Zestril) 40 mg PO DAILY [facility] Last Admin: 10/06/19 08:17 Dose: 40 mg Documented by: Loratadine (Claritin) 10 mg PO DAILY [facility] Last Admin: 10/06/19 08:14 Dose: 10 mg Documented by: Magnesium Hydroxide (Milk Of Magnesia) 30 ml PO DAILY PRN PRN PRN Reason: Constipation Melatonin (Melatonin) 3 mg PO QHS PRN PRN PRN Reason: INSOMNIA Metoprolol Succinate (Toprol Xl (Beta Cathi)) 50 mg PO DAILY [facility] Last Admin: 10/06/19 08:12 Dose: 50 mg Documented by: Nitroglycerin (Nitrostat) 0.4 mg SUBLINGUAL Q5M PRN PRN Reason: CHEST PAIN Ondansetron HCl (Zofran) 4 mg IV Q8H PRN PRN PRN Reason: NAUSEA/VOMITING Oxycodone HCl (Oxyir) 15 mg PO TID PRN PRN PRN Reason: Pain Score 4-10/10 Last Admin: 10/06/19 08:20 Dose: 15 mg Documented by: Sodium Chloride () 10 - 40 ml IV UD PRN PRN Reason: SALINE FLUSH Last Admin: 10/05/19 06:35 Dose: 10 ml Documented by: Spironolactone (Aldactone) 25 mg PO DAILY [facility] Last Admin: 10/05/19 10:21 Dose: 25 mg Documented by: Tizanidine HCl (Zanaflex) 4 mg PO QHS [facility] Last Admin: 10/05/19 21:36 Dose: 4 mg Documented by: Trazodone HCl (Desyrel) 50 mg PO QHS [facility] Last Admin: 10/05/19 21:36 Dose: 50 mg Documented by: Medical Necessity - Tobacco Use Smoking Status: Never smoker Tobacco Use: Non-smoker Assessment/Plan All Active Problems Hypertensive urgency (Acute) Chest pain (Acute) 1. Chest pain, abnormal stress test-troponin negative. EKG without ST-T changes. LVH noted on EKG. Stress test demonstrated mild anterior ischemia. EF 50% with mild anterior hypokinesis. Echocardiogram demonstrated an EF of 75%, stage II diastolic dysfunction. Cardiology consult placed. Continue aspirin, beta-cathi. Add statin. 2. Hypertensive urgency, resistant hypertension-blood pressure currently improved. Home regimen includes HCTZ 50 mg daily, lisinopril 40 mg daily, metoprolol XL 100 mg daily, spironolactone 50 mg daily. Metoprolol decreased to 50 mg daily on admission and patient was started on amlodipine 10 mg daily. Spironolactone decreased to 25 mg daily. PRN hydralazine for systolic blood pressure greater than 160. Patient had renal ultrasound in 2017 for evaluation of hypertension which showed no significant renal artery stenosis or abnormality. Echo with EF 75% as noted above. 3. Type 2 diabetes mellitus-hemoglobin A1c 6.5%. Oral regimen on hold. Continue home insulin regimen. Accu-Cheks ACHS with SSI. 4. Chronic pain syndrome- PRN pain regimen. 5. Obesity-encouraged diet lifestyle modifications. 6. Recent left otitis media-continue previously prescribed course of cefdinir. 7. Depression-continue home Lexapro, trazodone regimen. DVT prophylaxis-Lovenox This patient was seen by FRANCE Layton under the supervision of Dr. Looney. <Roro Looney - Last Filed: 10/06/19 12:07> - Physical Exam Vitals/I&O's: Vital Signs Temp Pulse Resp BP Pulse Ox 98.6 F 65 16 127/64 H 99 10/06/19 08:00 10/06/19 08:12 10/06/19 08:00 10/06/19 08:12 10/06/19 08:00 Oxygen Delivery Method Room Air Weight: 222 lb 14.197 oz Body Mass Index (BMI) 37.0 Finger Stick Blood Glucose 89 Intake and Output for Last 24 Hours 10/04/19 10/05/19 10/06/19 23:59 23:59 23:59 Intake Total 200 / 200 1187 / 1187 Balance 200 / 200 1187 / 1187 Laboratory Results 10/05/19 16:20: POC Glucose 113 H 10/05/19 21:33: POC Glucose 107 10/06/19 06:10: Triglycerides 146, Cholesterol 232 H, LDL Cholesterol 128, VLDL Cholesterol 29, HDL Cholesterol 75 10/06/19 06:53: POC Glucose 101 10/06/19 11:29: POC Glucose 147 H Current Medications Acetaminophen (Tylenol) 650 mg PO Q6H PRN PRN PRN Reason: Pain Score 1-3/Temp > 100.7 F Last Admin: 10/05/19 16:25 Dose: 650 mg Documented by: Al Hydroxide/Mg Hydroxide (Mylanta Ii) 30 ml PO Q6H PRN PRN PRN Reason: Gastric Burning Albuterol Sulfate (Ventolin Aerosols) 2.5 mg INHALATION Q4H PRN PRN PRN Reason: SOB &/OR WHEEZING Alprazolam (Xanax) 0.5 mg PO BID PRN PRN PRN Reason: ANXIETY Last Admin: 10/05/19 15:30 Dose: 0.5 mg Documented by: Amlodipine Besylate (Norvasc) 10 mg PO DAILY [facility] Last Admin: 10/06/19 08:17 Dose: 10 mg Documented by: Aspirin (Ecotrin) 81 mg PO DAILY@0800 [facility] Last Admin: 10/06/19 08:11 Dose: 81 mg Documented by: Atorvastatin Calcium (Lipitor) 20 mg PO QHS [facility] Cefdinir (Omnicef [Equiv]) 600 mg PO DAILY [facility] Last Admin: 10/06/19 08:11 Dose: 600 mg Documented by: Clopidogrel Bisulfate (Plavix) 75 mg PO DAILY [facility] Last Admin: 10/06/19 08:13 Dose: 75 mg Documented by: Dextrose (D50w Syringe) 0 gm IV X1 PRN; Protocol PRN Reason: Hypoglycemia Duloxetine HCl (Cymbalta) 20 mg PO DAILY [facility] Last Admin: 10/06/19 08:16 Dose: 20 mg Documented by: Enoxaparin Sodium (Lovenox) 40 mg SC DAILY@1000 [facility] Last Admin: 10/06/19 08:18 Dose: 40 mg Documented by: Escitalopram Oxalate (Lexapro) 10 mg PO DAILY [facility] Last Admin: 10/06/19 08:18 Dose: 10 mg Documented by: Fluticasone Propionate (Flonase Nasal [place]) 2 spray NASAL DAILY [facility] Last Admin: 10/06/19 08:18 Dose: Not Given Documented by: Gabapentin (Neurontin) 400 mg PO TIDCM [facility] Last Admin: 10/06/19 08:12 Dose: Not Given Documented by: Glimepiride (Amaryl) 2 mg PO BIDCM [facility] Last Admin: 10/06/19 08:14 Dose: 2 mg Documented by: Glucagon () 1 mg IM .X1 PRN PRN Reason: Hypoglycemia Hydralazine HCl (Apresoline Iv) 10 - 20 mg IV Q4H PRN PRN PRN Reason: sys>160 LEONARD> 90 Last Admin: 10/05/19 00:10 Dose: 10 mg Documented by: Hydrochlorothiazide (Hctz) 25 mg PO DAILY [facility] Last Admin: 10/06/19 08:12 Dose: 25 mg Documented by: Sodium Chloride () 250 mls @ 15 mls/hr IV .[id number] PRN PRN Reason: Saline Flush Insulin Glargine (Lantus (Bkc)) 20 units SC QHS [facility] Last Admin: 10/05/19 22:40 Dose: 20 u Documented by: Lidocaine (Lidoderm Patch) 1 patch TOPICAL DAILY [facility]; Protocol Lisinopril (Zestril) 40 mg PO DAILY [facility] Last Admin: 10/06/19 08:17 Dose: 40 mg Documented by: Loratadine (Claritin) 10 mg PO DAILY [facility] Last Admin: 10/06/19 08:14 Dose: 10 mg Documented by: Magnesium Hydroxide (Milk Of Magnesia) 30 ml PO DAILY PRN PRN PRN Reason: Constipation Melatonin (Melatonin) 3 mg PO QHS PRN PRN PRN Reason: INSOMNIA Metoprolol Succinate (Toprol Xl (Beta Cathi)) 50 mg PO DAILY [facility] Last Admin: 10/06/19 08:12 Dose: 50 mg Documented by: Nitroglycerin (Nitrostat) 0.4 mg SUBLINGUAL Q5M PRN PRN Reason: CHEST PAIN Ondansetron HCl (Zofran) 4 mg IV Q8H PRN PRN PRN Reason: NAUSEA/VOMITING Oxycodone HCl (Oxyir) 15 mg PO TID PRN PRN PRN Reason: Pain Score 4-10/10 Last Admin: 10/06/19 08:20 Dose: 15 mg Documented by: Sodium Chloride () 10 - 40 ml IV UD PRN PRN Reason: SALINE FLUSH Last Admin: 10/05/19 06:35 Dose: 10 ml Documented by: Spironolactone (Aldactone) 25 mg PO DAILY [facility] Last Admin: 10/05/19 10:21 Dose: 25 mg Documented by: Tizanidine HCl (Zanaflex) 4 mg PO QHS [facility] Last Admin: 10/05/19 21:36 Dose: 4 mg Documented by: Trazodone HCl (Desyrel) 50 mg PO QHS [facility] Last Admin: 10/05/19 21:36 Dose: 50 mg Documented by: Assessment/Plan Patient seen by Virginia HOUGH under my supervision Patient seen and examined today. She has no complaints. Review of systems is otherwise negative. chest pain hasnt recurred since admission. She is due for cardiac cath on Monday o/e: Vital Signs Height 5 ft 5 in Weight: 222 lb 14.197 oz Weight in Pounds 222.9 lbs Pulse Ox 99 Temperature 98.6 F Pulse Rate 65 Respiratory Rate 16 Blood Pressure [BP] 124/80 Blood Pressure 127/64 Blood Pressure Position [BP] Supine Blood Pressure Position Semi-Fowlers General: Alert, Oriented x3, Cooperative HEENT: Atraumatic, PERRLA, EOMI, Normocephalic Neck: Supple, No JVD, Negative Carotid Bruits Lungs: Clear to auscultation, Normal air movement Cardiovascular: Regular rate, Regular Rhythm, Normal S1, Normal S2, No murmurs Abdomen: Bowel Sounds Present, Soft, Non Tender, Non-Distended, Obese Extremities: No clubbing, No cyanosis, No edema, Capillary Refill Less than 3 Seconds Skin: No rashes, No breakdown Musculoskeletal: No Tenderness to Palpation of Joints or Extremities Neurological: Cranial nerves II-XII grossly intact, Neuro grossly intact Psych/Mental Status: Normal Affect, Appropriate Stress test done showed abnormal myocardial perfusion stress test with mild anterior ischemia noted. 2D echo showed EF of 75%, with severe eccentric LV hypertrophy and normal LV systolic function and stage 2 diastolic dysfunction. No regional wall motion abnormalities. Cardiology on board. Continue metoprolol and nifedipine. For cardiac cath tomorrow. Management as per FRANCE Layton's notes I have reviewed and endorsed. Code Visit OBSV E&M: 49355 Subsequent observation care L2
[2019-10-06 11:36] LABS: Bedside Glucose 147 mg/dL (70-110)
[2019-10-06] MEDS: Lidocaine 5% Patch 1 PATCH TOPICAL (12:54)
[2019-10-06] MEDS: Spironolactone 25 MG Tablet PO (12:57)
[2019-10-06] MEDS: hydrALAZINE 20 MG/ML Vial IV (14:46)
[2019-10-06] MEDS: 0.9% Saline Lock 10 ML Syringe IV ×2 (14:46→21:49)
--- NOTE | 2019-10-06 15:05 | NURSING ---
1230-pt's here and home oxy bottle given to take home. witnessed by oralia smith rn
[2019-10-06 17:05] LABS: Bedside Glucose 129 mg/dL (70-110)
[2019-10-06] MEDS: Acetaminophen 325 MG Tablet 650 MG PO (17:09)
[2019-10-06] MEDS: tiZANidine HCl 2 MG Tablet 4 MG PO (21:46)
[2019-10-06] MEDS: ALPRAZolam 0.5 MG Tablet PO (21:46)
[2019-10-06] MEDS: traZODone 50 MG Tablet PO (21:46)
[2019-10-06] MEDS: Atorvastatin Calcium 20 MG Tablet PO (21:52)
[2019-10-06 22:00] LABS: Bedside Glucose 113 mg/dL (70-110)
[2019-10-07] VITALS (12 sets, daily range): BP systolic 113–150; BP diastolic 65–84; PULSE 62–84; RESP 16–19; TEMP 36.4–36.8; O2SAT 94–100
[2019-10-07 04:28] LABS: Internal QC Validated? YES +Cl - CLEAR BKGD; Pregnancy, Urine Negative Negative
--- NOTE | 2019-10-07 05:55 | EKG12_ITS ---
Test Reason : AM EKG Blood Pressure : / mmHG Vent. Rate : 054 BPM Atrial Rate : 054 BPM P-R Int : 182 ms QRS Dur : 088 ms QT Int : 498 ms P-R-T Axes : 055 041 177 degrees QTc Int : 472 ms Sinus bradycardia Left ventricular hypertrophy with repolarization abnormality Abnormal ECG When compared with ECG of 05-OCT-2019 05:59, MANUAL COMPARISON REQUIRED, DATA IS UNCONFIRMED Confirmed by SATISH DAVIS ([id number]), social media editor VICKY BOGGS ([id number]) on 10/11/2019 11:58:11 AM Referred By: JULIA Confirmed By:SATISH DAVIS
[2019-10-07] MEDS: 0.9% Saline Lock 10 ML Syringe IV ×2 (06:15→06:29)
[2019-10-07] MEDS: Lisinopril 40 MG Tablet PO (06:15)
[2019-10-07] MEDS: ALPRAZolam 0.5 MG Tablet PO (06:16)
[2019-10-07] MEDS: Aspirin E.C. 81 MG Tablet PO (06:16)
[2019-10-07] MEDS: Metoprolol(XL)Succ 50 MG Tablet PO (06:16)
[2019-10-07] MEDS: Clopidogrel Bisulfate 75 MG Tablet PO (06:16)
[2019-10-07] MEDS: amLODIPine 10 MG Tablet PO (06:16)
[2019-10-07] MEDS: Dextrose 50%-Water 25 GM/50 ML DISP.SYRIN IV (06:29)
[2019-10-07 07:00] LABS: Bedside Glucose 68 mg/dL (70-110)
[2019-10-07 07:01] LABS: Bedside Glucose 118 mg/dL (70-110)
--- NOTE | 2019-10-07 07:01 | NURSING ---
Report called to Kamron in [facility].
--- NOTE | 2019-10-07 07:53 | PN.CARD_ITS ---
Subjectve: Patient seen and evaluated. Appears to be stable. Underwent cardiac catheterization today Objective: Vital Signs Temp Pulse Resp BP Pulse Ox 97.6 F L 65 18 123/77 H 98 10/07/19 06:13 10/07/19 06:16 10/07/19 06:13 10/07/19 06:16 10/07/19 06:13 Oxygen Delivery Method Room Air Weight: 222 lb 14.197 oz Body Mass Index (BMI) 37.0 Finger Stick Blood Glucose 89 Intake and Output for Last 24 Hours 10/05/19 10/06/19 10/07/19 23:59 23:59 23:59 Intake Total 1187 / 1187 480 / 480 280 / 280 Balance 1187 / 1187 480 / 480 280 / 280 General: Awake, Alert, Oriented x 3 HEENT: PERRL, EOMI, Sclera Non Icteric Neck: Supple, Good ROM, No Lymph Node Enlargement Lungs: Clear to auscultation Cardiovascular: Regular Rhythm, Normal S1, Normal S2, No Murmurs, No Rubs, No Gallops Vascular: No Carotid Bruits, Normal Femoral Pulses, Normal Radial Pulses, Normal Dorsalis Pedal Pulse, Normal Posterior Tibial Pulses Abdomen: Bowel Sounds Present, Soft, Non Tender, No HSM, No Organomegaly Extremities: No Cyanosis, No Clubbing, No edema Musculoskeletal: No Erythema Skin: No Rashes Lymphatic: No Lymph Node Enlargement Neurological: No Focal Motor or Sensory Deficit Psych/Mental Status: Appropriate Rhythm: EKG: ECHO: Stress Test: Cardiac Cath: PCI: CT Surgery: Holter monitor: EPS: PPM: CXR: Chest CT Scan: Medical Necessity - Tobacco Use Smoking Status: Never smoker Tobacco Use: Non-smoker Assessment/Plan 1. Chest discomfort * She does present with recurrent chest discomfort. There are some atypical features to the above. * Patient underwent cardiac catheterization which demonstrated essentially no rmal coronary arteries. * Left ventricular hypertrophy with eccentric hypertrophy was noted * Based on the above angiographic findings I suspect that her chest discomfort is from diastolic dysfunction. 2. Hypertension * Patient is noted to have severe hypertension which appears to be uncontrolled. Blood pressures appear to be better at this time. * On her echocardiogram she appears to have eccentric hypertrophy which could be causing her abnormal EKG changes. * Her blood pressure appears to be better at this particular time * Stable to be discharged for outpatient follow-up * Thank you for allowing me to participate in the care of your patient. Please don't hesitate to call if any issues arise
--- NOTE | 2019-10-07 07:59 | CL.D_ITS ---
Patient Name: SUNIL ARAUJO Study Date: 10/07/2019 Performing: Louie Sanchez MD Ht: 65 inches 165 cm : 1975 Wt: 223 lbs 101 kg Age: 43 Gender: female BSA: 2.07 PROCEDURE(S) PERFORMED [id number]/COR/LV CLINICAL PROFILE AND INDICATIONS Heart Failure: None CONCLUSIONS Normal coronary arteries Normal LV size, wall motion,and systolic function RECOMMENDATIONS Medical therapy DESCRIPTION OF PROCEDURE The patient arrived to the procedure lab. The risks and benefits of the procedure as well as a full d escription of our services here and current unavailability of surgical backup were fully explained to the patient and/or their significant other prior to the catheterization. The Timeout was completed, verifying the correct patient and procedure. The patient's procedural site was prepped and draped in the usual fashion. Local anesthetic was given subcutaneously to right groin region with Lidocaine 2%. Using a modified Seldinger technique, arterial access was obtained via the right femoral artery, a 5 Fr sheath was inserted. Left Coronary Artery selective angiography was performed in multiple views u sing a 5 Fr. JL4 catheter. Right Coronary Artery selective angiography was then performed in multiple views using a 5 Fr. 3DRC (Theo) catheter. Left Ventriculography was performed in POWELL projection using a 5 Fr. Pigtail catheter. LV to AO pullback pressures were then recorded.Contrast was injected through the sheath and the Right Iliac and Femoral artery were assessed for possible franca sure device.The arterial sheath was pulled and a Mynx closure device was deployed for hemostasis CORONARY ANGIOGRAPHY DOMINANCE: Right Dominant LEFT HEART ASSESSMENT Left Ventricular Ejection Fraction: by LV Gram 65 % Normal LV wall motion Normal Left Ventricular systolic function Normal Left Ventricular systolic function Left Ventricular Hypertrophy LEFT MAIN: Angiographically normal LEFT ANTERIOR DESCENDING ARTERY: Angiographically normal CIRCUMFLEX ARTERY: Angiographically normal RIGHT CORONARY ARTERY: Angiographically normal COMPLICATIONS No Complications PROCEDURE MEDICATIONS Versed 1 mg IV Fentanyl 50 mcg IV Versed 1 mg IV Oxygen: 2 L/min via nasal cannula SUMMARY OF HEMODYNAMIC DATA Time AIR REST ECG 07:19:46 AO 115/79 (91) SA 07:38:37 LV 107/3, 12 07:44:04 LV 112/3, 11 07:44:10 LV 123/-1, 11 07:44:58 LVp 126/3, 13 07:45:03 AO 113/65 (83) 07:45:08 Signed By Louie Sanchez MD On 10/07/2019 07:58:45 Louie Sanchez MD
--- NOTE | 2019-10-07 09:53 | DCINST_ITS ---
- Discharge Diagnoses Current Active Problems: Current Active and Chronic Problems (Last Updated 10/07/19 @ 08:33 by Lety Yoder) HLD (hyperlipidemia) (Chronic) You will use the following diet at home:: Calorie/Carbohydrate Controlled (specify 1200, 1400, etc), Cardiac Discharge Activity: Return to Normal Activity Call your doctor if you observe: Shortness of breath, Dizziness, Fainting spells, Chest pain Allergies/Adverse Reactions: Allergies Penicillins Allergy (Verified 10/04/19 16:04) Hives metformin Adverse Reaction (Verified 10/04/19 19:32) Diarrhea venlafaxine [From Effexor] Adverse Reaction (Verified 10/04/19 16:04) Upset Stomach Medications to take at Discharge Tizanidine HCl [Zanaflex] 4 mg PO QHS 05/07/18 traZODone [Desyrel] 50 mg PO QHS 06/05/19 Albuterol Inhaler [Ventolin Hfa] 2 puff INHALATION Q4H PRN PRN 09/27/19 Duloxetine HCl 20 mg PO DAILY 09/27/19 Fluticasone Propionate 2 spray NS DAILY PRN 09/27/19 Guaifenesin [Robitussin] 10 ml PO TID PRN PRN 09/27/19 Insulin Glargine [Lantus SoloStar Pen] 30 units SUBCUT QHS 09/27/19 Cefdinir [Omnicef [equiv]] 600 mg PO DAILY 10/04/19 Cholecalciferol (Vitamin D3) [Vitamin D3] 2,000 unit PO DAILY 10/04/19 Diclofenac Epolamine [Flector] 1 patch TOPICAL DAILY PRN 10/04/19 Diclofenac Sodium [Diclofenac Sodium ER] 100 mg PO DAILY 10/04/19 Escitalopram Oxalate [Lexapro] 10 mg PO DAILY 10/04/19 Exenatide [Byetta (BKC)] 5 mcg SQ BIDCM 10/04/19 Glimepiride 2 mg PO BID 10/04/19 Lisinopril [Zestril] 40 mg PO DAILY 10/04/19 Loratadine 10 mg PO DAILY PRN PRN 10/04/19 Multivitamin [Daily Multiple Vitamin] 1 ea PO DAILY 10/04/19 Oxycodone HCl 15 mg PO TID PRN 11/22/19 Amlodipine [Norvasc] 10 mg PO DAILY #30 tab 10/07/19 Hydrochlorothiazide [Hctz] 25 mg PO DAILY #30 tab 10/07/19 Metoprolol(XL)Succ [Toprol Xl (Beta Cathi)] 50 mg PO DAILY #30 tab 10/07/19 Spironolactone [Aldactone] 25 mg PO DAILY #30 tab 10/07/19 The following prescriptions were given: Spironolactone [Aldactone] 25 mg PO DAILY #30 tab Transmission Status: Pending to [facility]30 Hydrochlorothiazide [Hctz] 25 mg PO DAILY #30 tab Transmission Status: Pending to [facility]30 Amlodipine [Norvasc] 10 mg PO DAILY #30 tab Transmission Status: Pending to [facility]30 Metoprolol(XL)Succ [Toprol Xl (Beta Cathi)] 50 mg PO DAILY #30 tab Transmission Status: Pending to [facility]30 Primary Care Physician: Bebeto Charlton DO [Primary Care Provider] - Please follow up with your Primary Care Physician in: 1 Week Test Results: Test results from this visit will be discussed in further detail at your follow- up appointment, if applicable. Please Follow Up With: Louie Sanchez MD When: 1-2 Weeks, may see CHIEF COMMERCIAL OFFICER/PA Proposed Discharge Date: 10/07/19
[2019-10-07] MEDS: Glimepiride 2 MG Tablet PO (09:56)
--- NOTE | 2019-10-07 09:56 | DS.PCM_ITS ---
<Virginia Blanc - Last Filed: 10/07/19 10:06> Discharge Date and Diagnosis Date of Admission: 10/04/19 Date of Discharge: 10/07/19 - Primary Discharge Diagnosis 1. Chest pain, abnormal stress test-normal coronary arteries. ACS ruled out. 2. Hypertensive urgency, resistant hypertension 3. Type 2 diabetes mellitus 4. Chronic pain syndrome 5. Obesity 6. Recent left otitis media 7. Depression - Secondary Discharge Diagnosis Chronic Problems (Last Updated 10/07/19 @ 08:33 by Lety Yoder) Benign essential hypertension (Chronic) HLD (hyperlipidemia) (Chronic) Type II diabetes mellitus (Chronic) Obesity (Chronic) Hospital Course and Treatment Imaging Results: Diagnostic Data Chest X-Ray 10/04/19 16:17 IMPRESSION: No acute process Electronically Signed: Jerry Sinclair MD at 16:35 EST , Service support , Dr. Sanchez- Cardiology Operations: None Procedures: 2-D Echocardiogram, Cardiac catheterization, Stress test Summary of Care Provided: The patient is a 43 year old F admitted 10/04/2019 due to chest pain. 1. Chest pain, abnormal stress test-troponin negative. EKG without ST-T changes. LVH noted on EKG. Stress test demonstrated mild anterior ischemia. EF 50% with mild anterior hypokinesis. Echocardiogram demonstrated an EF of 75%, stage II diastolic dysfunction. Cardiology consult placed. Patient underwent cardiac catheterization which showed normal coronary arteries. Fol low-up with primary care physician in 1 week. Continue aggressive blood pressure management. Follow-up with cardiology in 1 to 2 weeks. 2. Hypertensive urgency, resistant hypertension-blood pressure well controlled during admission. Discharge blood pressure regimen includes amlodipine 10 mg daily, lisinopril 40 mg daily, HCTZ 25 mg daily, metoprolol XL 50 mg daily, spironolactone 25 mg daily. Patient had renal ultrasound in 2017 for evaluation of hypertension which showed no significant renal artery stenosis or abnormality. Echo with EF 75% as noted above. 3. Type 2 diabetes mellitus-hemoglobin A1c 6.5%. Continue home oral and insulin regimen. 4. Chronic pain syndrome-continue home regimen. 5. Obesity-encouraged diet lifestyle modifications. 6. Recent left otitis media-continue previously prescribed course of cefdinir. 7. Depression-continue home Lexapro, trazodone regimen. 8. Hyperlipidemia-initiated on atorvastatin 10 mg p.o. nightly. General: Alert, Oriented x3, Cooperative HEENT: Atraumatic, PERRLA, EOMI, Normocephalic Neck: Supple, No JVD, Negative Carotid Bruits Lungs: Clear to auscultation, Normal air movement Cardiovascular: Regular rate, Regular Rhythm, Normal S1, Normal S2, No murmurs Abdomen: Bowel Sounds Present, Soft, Non Tender, Non-Distended, Obese Extremities: No clubbing, No cyanosis, No edema, Capillary Refill Less than 3 Seconds Skin: No rashes, No breakdown Musculoskeletal: No Tenderness to Palpation of Joints or Extremities Neurological: Cranial nerves II-XII grossly intact, Neuro grossly intact Psych/Mental Status: Normal Affect, Appropriate Patient seen and examined prior to discharge. Physical assessment as noted above. Patient is stable for discharge with follow up recommendations as noted above. This patient was seen by FRANCE Layton under the supervision of Dr. Gale. - Physical Exam Vitals/I&O's: Vital Signs Temp Pulse Resp BP Pulse Ox 97.7 F L 65 17 130/75 H 100 10/07/19 09:20 10/07/19 09:20 10/07/19 09:20 10/07/19 09:20 10/07/19 09:20 Oxygen Delivery Method Room Air Weight: 222 lb 14.197 oz Body Mass Index (BMI) 37.0 Finger Stick Blood Glucose 89 Intake and Output for Last 24 Hours 10/05/19 10/06/19 10/07/19 23:59 23:59 23:59 Intake Total 1187 / 1187 480 / 480 280 / 280 Balance 1187 / 1187 480 / 480 280 / 280 Laboratory Results 10/06/19 11:29: POC Glucose 147 H 10/06/19 16:54: POC Glucose 129 H 10/06/19 21:38: POC Glucose 113 H 10/07/19 03:55: Urine Test Negative 10/07/19 06:23: POC Glucose 68 L 10/07/19 06:56: POC Glucose 118 H Current Medications Acetaminophen (Tylenol) 650 mg PO Q6H PRN PRN PRN Reason: Pain Score 1-3/Temp > 100.7 F Last Admin: 10/06/19 17:09 Dose: 650 mg Documented by: Al Hydroxide/Mg Hydroxide (Mylanta Ii) 30 ml PO Q6H PRN PRN PRN Reason: Gastric Burning Albuterol Sulfate (Ventolin Aerosols) 2.5 mg INHALATION Q4H PRN PRN PRN Reason: SOB &/OR WHEEZING Alprazolam (Xanax) 0.5 mg PO BID PRN PRN PRN Reason: ANXIETY Last Admin: 10/07/19 06:16 Dose: 0.5 mg Documented by: Amlodipine Besylate (Norvasc) 10 mg PO DAILY [facility] Last Admin: 10/07/19 06:16 Dose: 10 mg Documented by: Aspirin (Ecotrin) 81 mg PO DAILY@0800 [facility] Last Admin: 10/07/19 06:16 Dose: 81 mg Documented by: Atorvastatin Calcium (Lipitor) 20 mg PO QHS [facility] Last Admin: 10/06/19 21:52 Dose: 20 mg Documented by: Cefdinir (Omnicef [Equiv]) 600 mg PO DAILY [facility] Last Admin: 10/06/19 08:11 Dose: 600 mg Documented by: Clopidogrel Bisulfate (Plavix) 75 mg PO DAILY [facility] Last Admin: 10/07/19 06:16 Dose: 75 mg Documented by: Dextrose (D50w Syringe) 0 gm IV X1 PRN; Protocol PRN Reason: Hypoglycemia Last Admin: 10/07/19 06:29 Dose: 12.5 gm Documented by: Duloxetine HCl (Cymbalta) 20 mg PO DAILY [facility] Last Admin: 10/06/19 08:16 Dose: 20 mg Documented by: Enoxaparin Sodium (Lovenox) 40 mg SC DAILY@1000 [facility] Last Admin: 10/06/19 08:18 Dose: 40 mg Documented by: Escitalopram Oxalate (Lexapro) 10 mg PO DAILY [facility] Last Admin: 10/06/19 08:18 Dose: 10 mg Documented by: Fluticasone Propionate (Flonase Nasal [place]) 2 spray NASAL DAILY [facility] Last Admin: 10/06/19 08:18 Dose: Not Given Documented by: Glimepiride (Amaryl) 2 mg PO BIDCM [facility] Last Admin: 10/06/19 17:09 Dose: 2 mg Documented by: Glucagon () 1 mg IM .X1 PRN PRN Reason: Hypoglycemia Heparin Sodium (Beef Lung) (Heparin 500 Unit/5 Ml (100/Ml)) 500 unit IV UD PRN PRN Reason: HEPARIN FLUSH Hydralazine HCl (Apresoline Iv) 10 - 20 mg IV Q4H PRN PRN PRN Reason: sys>160 LEONARD> 90 Last Admin: 10/06/19 14:46 Dose: 10 mg Documented by: Hydrochlorothiazide (Hctz) 25 mg PO DAILY [facility] Last Admin: 10/06/19 08:12 Dose: 25 mg Documented by: Sodium Chloride () 250 mls @ 15 mls/hr IV .[id number] PRN PRN Reason: Saline Flush Insulin Glargine (Lantus (Bkc)) 20 units SC QHS [facility] Last Admin: 10/06/19 21:47 Dose: 20 u Documented by: Labetalol HCl (Trandate) 5 mg IV X1 PRN PRN Reason: SBP > 160 prior to sheath pull Stop: 10/09/19 07:52 Lidocaine (Lidoderm Patch) 1 patch TOPICAL DAILY [facility]; Protocol Last Admin: 10/06/19 12:54 Dose: 1 patch Documented by: Lisinopril (Zestril) 40 mg PO DAILY [facility] Last Admin: 10/07/19 06:15 Dose: 40 mg Documented by: Loratadine (Claritin) 10 mg PO DAILY [facility] Last Admin: 10/06/19 08:14 Dose: 10 mg Documented by: Magnesium Hydroxide (Milk Of Magnesia) 30 ml PO DAILY PRN PRN PRN Reason: Constipation Melatonin (Melatonin) 3 mg PO QHS PRN PRN PRN Reason: INSOMNIA Metoprolol Succinate (Toprol Xl (Beta Cathi)) 50 mg PO DAILY [facility] Last Admin: 10/07/19 06:16 Dose: 50 mg Documented by: Nitroglycerin (Nitrostat) 0.4 mg SUBLINGUAL Q5M PRN PRN Reason: CHEST PAIN Ondansetron HCl (Zofran) 4 mg IV Q8H PRN PRN PRN Reason: NAUSEA/VOMITING Oxycodone HCl (Oxyir) 15 mg PO TID PRN PRN PRN Reason: Pain Score 4-10/10 Last Admin: 10/06/19 21:46 Dose: 15 mg Documented by: Sodium Chloride () 10 - 40 ml IV UD PRN PRN Reason: SALINE FLUSH Last Admin: 10/07/19 06:29 Dose: 10 ml Documented by: Spironolactone (Aldactone) 25 mg PO DAILY [facility] Last Admin: 10/06/19 12:57 Dose: 25 mg Documented by: Tizanidine HCl (Zanaflex) 4 mg PO QHS [facility] Last Admin: 10/06/19 21:46 Dose: 4 mg Documented by: Trazodone HCl (Desyrel) 50 mg PO QHS [facility] Last Admin: 10/06/19 21:46 Dose: 50 mg Documented by: Discharge Diet: Low fat/ Low Cholesterol, 2000 mg Sodium Diet, Carb Control Diet Discharge Activity: Return to Normal Activity Call your doctor if you observe: Shortness of breath, Dizziness, Fainting spells, Chest pain Home Medications: Medications to take at Discharge Tizanidine HCl [Zanaflex] 4 mg PO QHS 05/07/18 traZODone [Desyrel] 50 mg PO QHS 06/05/19 Albuterol Inhaler [Ventolin Hfa] 2 puff INHALATION Q4H PRN PRN 09/27/19 Duloxetine HCl 20 mg PO DAILY 09/27/19 Fluticasone Propionate 2 spray NS DAILY PRN 09/27/19 Guaifenesin [Robitussin] 10 ml PO TID PRN PRN 09/27/19 Insulin Glargine [Lantus SoloStar Pen] 30 units SUBCUT QHS 09/27/19 Cefdinir [Omnicef [equiv]] 600 mg PO DAILY 10/04/19 Cholecalciferol (Vitamin D3) [Vitamin D3] 2,000 unit PO DAILY 10/04/19 Diclofenac Epolamine [Flector] 1 patch TOPICAL DAILY PRN 10/04/19 Diclofenac Sodium [Diclofenac Sodium ER] 100 mg PO DAILY 10/04/19 Escitalopram Oxalate [Lexapro] 10 mg PO DAILY 10/04/19 Exenatide [Byetta ([facility])] 5 mcg SQ BIDCM 10/04/19 Glimepiride 2 mg PO BID 10/04/19 Lisinopril [Zestril] 40 mg PO DAILY 10/04/19 Loratadine 10 mg PO DAILY PRN PRN 10/04/19 Multivitamin [Daily Multiple Vitamin] 1 ea PO DAILY 10/04/19 Oxycodone HCl 15 mg PO TID PRN 10/04/19 Amlodipine [Norvasc] 10 mg PO DAILY #30 tab 10/07/19 Atorvastatin Calcium 10 mg PO QHS #30 tab 10/07/19 Hydrochlorothiazide [Hctz] 25 mg PO DAILY #30 tab 10/07/19 Metoprolol(XL)Succ [Toprol Xl (Beta Cathi)] 50 mg PO DAILY #30 tab 10/07/19 Spironolactone [Aldactone] 25 mg PO DAILY #30 tab 10/07/19 Following Prescrptions Were Given to Patient: Spironolactone [Aldactone] 25 mg PO DAILY #30 tab Transmission Status: Received by [facility] #30 Atorvastatin Calcium 10 mg PO QHS #30 tab Transmission Status: Received by [facility] #30 Hydrochlorothiazide [Hctz] 25 mg PO DAILY #30 tab Transmission Status: Received by [facility]30 Amlodipine [Norvasc] 10 mg PO DAILY #30 tab Transmission Status: Received by [facility]30 Metoprolol(XL)Succ [Toprol Xl (Beta Cathi)] 50 mg PO DAILY #30 tab Transmission Status: Received by [facility]30 Primary Care Physician: Bebeto Charlton DO [Primary Care Provider] - Please follow up with your Primary Care Physician in: 1 Week Please Follow Up With: Louie Sanchez MD When: 1-2 Weeks, may see INSTRUCTOR ADJUNCT SURGICAL TECHNICIAN/PA Disposition: Home Minutes spent on discharge:: 35 Patient Condition:: Stable Medical Necessity - Tobacco Use Smoking Status: Never smoker Tobacco Use: Non-smoker Meaningful Use Info Meaningful Use Diagnoses (Choose all that apply): None applicable <Shalom Gale F - Last Filed: 10/07/19 13:18> Discharge Date and Diagnosis - Secondary Discharge Diagnosis Chronic Problems (Last Updated 10/07/19 @ 08:33 by Lety Yoder) Benign essential hypertension (Chronic) HLD (hyperlipidemia) (Chronic) Type II diabetes mellitus (Chronic) Obesity (Chronic) Hospital Course and Treatment Summary of Care Provided: The patient is a 43 year old F [] - Physical Exam Vitals/I&O's: Vital Signs Temp Pulse Resp BP Pulse Ox 97.9 F 84 19 H 150/70 H 94 10/07/19 10:50 10/07/19 10:50 10/07/19 10:50 10/07/19 10:50 10/07/19 10:50 Oxygen Delivery Method Room Air Weight: 222 lb 14.197 oz Body Mass Index (BMI) 37.0 Finger Stick Blood Glucose 89 Intake and Output for Last 24 Hours 10/05/19 10/06/19 10/07/19 23:59 23:59 23:59 Intake Total 1187 / 1187 480 / 480 930 / 930 Balance 1187 / 1187 480 / 480 930 / 930 Laboratory Results 10/06/19 16:54: POC Glucose 129 H 10/06/19 21:38: POC Glucose 113 H 10/07/19 03:55: Urine Test Negative 10/07/19 06:23: POC Glucose 68 L 10/07/19 06:56: POC Glucose 118 H Code Visit Addendum: Dr. Gale I personally examined the patient and reviewed the chart. I agree with the above. 43-year-old female with history of hypertension, DM 2, obesity, chronic pain syndrome presented with substernal chest tightening pressure on the day of admission. She was found to have systolic blood pressures in the 200s and she was started on aggressive blood pressure management, and she had an echo with a normal EF and she had a stress test that showed mild anterior ischemia so she had a cardiac catheterization on the day of discharge which was normal, and was therefore stable for discharge. On discharge her blood pressures were fairly controlled between 130s and 150 systolic, she was discharged on multiple blood pressure medications. She will need outpatient follow-up with her primary care doctor for further evaluation of her hypertension. OBSV E&M: [id number] Observation care discharge
[2019-10-07] MEDS: hydroCHLOROthiazide 25 MG Tablet PO (09:57)
[2019-10-07] MEDS: Loratadine 10 MG Tablet PO (09:58)
[2019-10-07] MEDS: DULoxetine Hcl 20 MG Capsule PO (09:58)
[2019-10-07] MEDS: Escitalopram Oxalate 10 MG Tablet PO (09:59)
[2019-10-07] MEDS: Cefdinir 300 MG Capsule 600 MG PO (09:59)
[2019-10-07] MEDS: Spironolactone 25 MG Tablet PO (10:04)
[2019-10-07] MEDS: oxyCODONE 5 MG Tablet 15 MG PO (10:08)
--- NOTE | 2019-10-07 10:40 | PHA.DC.MC ---
Pharmacy Service has performed discharge medication reconciliation and counseling for this patient. 1. AMLODIPINE 10MG PO DAILY 2. ATORVASTATIN 10MG PO QHS 3. HYDROCHLOROTHIAZIDE 25MG PO DAILY 4. SPIRONOLACTONE 25MG PO DAILY The patient's discharge medication list was reviewed for discrepancies and discrepancies were resolved. Home Medications Tizanidine HCl [Zanaflex] 4 mg PO QHS 05/07/18 traZODone [Desyrel] 50 mg PO QHS 06/05/19 Albuterol Inhaler [Ventolin Hfa] 2 puff INHALATION Q4H PRN PRN 09/27/19 Duloxetine HCl 20 mg PO DAILY 09/27/19 Fluticasone Propionate 2 spray NS DAILY PRN 09/27/19 Guaifenesin [Robitussin] 10 ml PO TID PRN PRN 09/27/19 Insulin Glargine [Lantus SoloStar Pen] 30 units SUBCUT QHS 09/27/19 Cefdinir [Omnicef [equiv]] 600 mg PO DAILY 10/04/19 Cholecalciferol (Vitamin D3) [Vitamin D3] 2,000 unit PO DAILY 10/04/19 Diclofenac Epolamine [Flector] 1 patch TOPICAL DAILY PRN 10/04/19 Diclofenac Sodium [Diclofenac Sodium ER] 100 mg PO DAILY 10/04/19 Escitalopram Oxalate [Lexapro] 10 mg PO DAILY 10/04/19 Exenatide [Byetta (BKC)] 5 mcg SQ BIDCM 10/04/19 Glimepiride 2 mg PO BID 10/04/19 Lisinopril [Zestril] 40 mg PO DAILY 10/04/19 Loratadine 10 mg PO DAILY PRN PRN 10/04/19 Multivitamin [Daily Multiple Vitamin] 1 ea PO DAILY 10/04/19 Oxycodone HCl 15 mg PO TID PRN 10/04/19 Amlodipine [Norvasc] 10 mg PO DAILY #30 tab 10/07/19 Atorvastatin Calcium 10 mg PO QHS #30 tab 10/07/19 Hydrochlorothiazide [Hctz] 25 mg PO DAILY #30 tab 10/07/19 Metoprolol(XL)Succ [Toprol Xl (Beta Cathi)] 50 mg PO DAILY #30 tab 10/07/19 Spironolactone [Aldactone] 25 mg PO DAILY #30 tab 10/07/19 The patient was counseled on the following discharge medications and changes in medications for homegoing were reviewed. The Reason for Use, instructions for use, and potential side effects were reviewed for all new medications. The patient's questions regarding all of their medications were answered. The patient was able to verbally demonstrate an understanding of their discharge medications.
--- NOTE | 2019-10-07 11:17 | NURSING ---
Pt ambulated in [place] with this RN post heart cath recovery. Post heart cath site is c/d/i without s/s of bleeding, bruising, or hematoma. Ava FARMER
== END 2019-10-07 07:52 | disposition home or self-care (01) ==
LOC: ED 16:22 → PCU 19:54
PROVIDERS: Internal Medicine Cardiovascular Disease; Nurse Practitioner Family; Student in an Organized Health Care Education/Training Program; Admitting Provider Internal Medicine; Emergency Provider Emergency Medicine; Family Provider Student in an Organized Health Care Education/Training Program; PCP Student in an Organized Health Care Education/Training Program; Visit Provider Family Medicine
DX: R07.89 Other chest pain (principal); I16.0 Hypertensive urgency; R06.02 Shortness of breath; R11.2 Nausea with vomiting, unspecified; I10 Essential (primary) hypertension; E78.5 Hyperlipidemia, unspecified; G89.4 Chronic pain syndrome; J45.909 Unspecified asthma, uncomplicated; R94.39 Abnormal result of other cardiovascular function study; I25.2 Old myocardial infarction; E11.9 Type 2 diabetes mellitus without complications; L68.0 Hirsutism; F32.9 Major depressive disorder, single episode, unspecified; H66.92 Otitis media, unspecified, left ear; R94.31 Abnormal electrocardiogram [ECG] [EKG]; E66.9 Obesity, unspecified; Z79.899 Other long term (current) drug therapy; Z79.4 Long term (current) use of insulin; Z68.37 Body mass index [BMI] 37.0-37.9, adult; Z71.3 Dietary counseling and surveillance
CPT/HCPCS: 36415; 71045; 78452; 80048; 80061; 80076; 80307; 81025; 82962; 83036; 83735; 84443; 84484; 85025; 93005; 93017; 93306; 93458; 96372; 96374; 96375; 96376; 97802; 99152; 99218; 99285; A9500; C1760; A4216; C1769; G0378; J2785; Q9967

== ENCOUNTER 2020-01-15 08:37 | Emergency (ER) | payer MEDICAID, SELFPAY ==
[2019-11-07 12:18] VITALS: BMI 35.9
[2020-01-15 08:39] VITALS: BP 161/103; PULSE 73; RESP 17; TEMP 36.7; O2SAT 99; BMI 35.7
--- NOTE | 2020-01-15 08:57 | CT_ITS ---
STUDY: CT ABDOMEN AND PELVIS WITH CONTRAST REASON FOR EXAM: Female, 44 years old. DISTENTION AND PAIN X THIS AM RADIATION DOSAGE (If Supplied By Facility): CTDIvol = ( 16.73 ) mGy, DLP = ( 1610.92 ) mGycm TECHNIQUE: Transaxial images were obtained from the dome of the diaphragm to the symphysis pubis with oral contrast. Oral and amp; IV Gastrografin and amp; 100mL Isovue-300 was administered. Sagittal and coronal images were reconstructed. Individualized dose optimization techniques were used for this CT. COMPARISON: Comparison is made with prior examination dated June 05, 2011. FINDINGS: The visualized lung bases are unremarkable. The visualized portions of the heart are within normal limits. Normal liver. Normal gallbladder and extrahepatic biliary system. Normal spleen. Normal pancreas. Normal bilateral adrenal glands. Normal right kidney. Normal left kidney. There is a small hiatal hernia. Normal small intestine. Normal colon. The appendix is visualized and appears normal. Normal abdominal aorta. Normal inferior vena cava. There is borderline retroperitoneal lymphadenopathy with enlarged nodes no greater than 10mm in the short axis diameter. Normal urinary bladder. There is a small fat-containing hernia along the right paramedian anterior abdominal wall. This contains fat. The neck of the hernia measures 1.5 cm. Stable grade 2 anterolisthesis of L5 and L5 on S1 with marked degree of disc space narrowing and spondylosis. There is spondylolysis of the pars interarticularis of the L5 vertebrae. CT/Abdomen/Pelvis WITH Contrast IMPRESSION: Small right paramedian anterior abdominal wall hernia containing fat. The neck measures 1.5 cm. Electronically Signed: Panchito Mcginnis, at 10:55 EST , Service support ,
--- NOTE | 2020-01-15 09:02 | ED.DCSUM_ITS ---
- ER Visit Summary Date of Service: 01/15/20 Chief Complaint: Abdominal pain History of Present Illness: The patient is a 44 F who presents with abdominal pain that began this morning. Patient states pain began soon after she woke up today. Patient states the pain is diffuse across her abdomen. Patient states it feels like there is something sharp in the midline of her abdomen. Patient states the pain is worse with walking and with a car ride. Patient states the pain is better when she remains still. Patient admits to an episode of nausea and vomiting. Patient denies any diarrhea, melena, or hematochezia. Patient denies any dysuria or hematuria. Patient states the pain does radiate into her back. Physical Examination: Vital signs are stable. Patient is afebrile. Patient is in no acute distress. Oral mucosa is pink and moist. Neck is supple. Trachea is midline. There is no JVD noted. Heart was regular rate and rhythm. Lungs are clear and equal bilaterally. Abdomen is soft. Bowel sounds are normal. There is mild diffuse tenderness. There is no rebound or guarding noted. Skin is warm dry. Cranial nerves II through XII are intact. There are no focal motor or sensory deficits noted. Extremities are intact. There is no calf tenderness or edema. Test Results: CBC was normal. Comprehensive metabolic profile was essentially within normal limits. Urinalysis showed 250 of occult blood with 25-50 red blood cells. Serum hCG was negative. CT scan of the abdomen pelvis was obtained. There is a small right paramedian ventral hernia containing fat. There is no other acute abnormality. Emergency Department Course and Treatment: Patient was given morphine and Zofran here. Patient was advised of her results. Patient was instructed to follow-up with her primary care physician in 5 to 7 days. Patient was instructed to take Tylenol or ibuprofen as needed for pain. Patient understood and was agreeable with the plan. All questions were answered. Disposition: Discharge home Impression: 1. Abdominal pain 2. Ventral hernia This note was generated with [employer] dictation software. It may contain incorrect words, spelling, and punctuation that were not noted in review of the chart prior to signing ED Disposition - Plan for ED Patient: Disposition: Home or Assisted Living Diagnosis: Ventral hernia, Abdominal pain Instructions: HERNIA (Inguinal, Ventral, Umbilical) Referrals: Bebeto Charlton DO [Primary Care Provider] - 3-5 Days
[2020-01-15 09:19] LABS: Absolute Lymphocyte Count 1.18 X10^3/uL (0.83-4.51); Basophil# 0.05 X10^3/uL; Basophil% 1.1 % (0-1); Eosinophil# 0.09 X10^3/uL; Eosinophils% 1.9 % (0-5); Hematocrit 44.3 % (37-47); Hemoglobin 14.2 g/dL (12.0-15.0); Lymphocyte # 1.18 X10^3/ul (4.0); Lymphocyte % 25.3 % (19-41); Mean Corp Hgb Conc 32.1 g/dL (32-36); Mean Corpuscular Volume 93.7 fL (81-99); Mean Platelet Vol. 10.1 fl (6.2-12.0); Monocyte# 0.39 X10^3/uL; Monocyte% 8.4 % (0-10); NRBC Flagged by Analyzer 0 % (0-5); Neutrophil # 2.95 X10^3/uL (2.7-7.7); Neutrophil % 63.1 % (47-70); Platelet Count 245 K/mm3 (150-450); RBC Distribution Width CV 13.7 % (11.6-14.6); RBC Distribution Width SD 47.6 fl (35.1-43.9); Red Blood Count 4.73 M/mm3 (4.2-5.4); White Blood Count 4.7 K/mm3 (4.4-11.0)
[2020-01-15] MEDS: Ondansetron 4 MG/2 ML Vial IV (09:22)
[2020-01-15] MEDS: 0.9% Normal Saline 1,000 ML 1000 ML IV (09:22)
[2020-01-15] MEDS: Morphine 4 MG/ML Syringe IV (09:22)
[2020-01-15 09:37] LABS: Mucous, Urine 0 SEEN /hpf (<or=2+); White Blood Cells 0 SEEN /hpf (0-5)
[2020-01-15 09:39] LABS: Internal QC Validated? YES +Cl - CLEAR BKGD; Pregnancy, Serum, hCG Quali. NEGATIVE Negative
[2020-01-15 09:46] LABS: ALB/GLOB Ratio 0.9 RATIO (0.9-2.4); AST(SGOT) 18 U/L (15-37); Alanine Aminotransfer ALT/SGPT 24 U/L (13-56); Albumin, Serum 3.6 g/dL (3.2-5.0); Alkaline Phosphatase 108 U/L (45-117); Anion Gap 3 (5-15); BUN 33 mg/dL (7-18); BUN/Creat Ratio 28.2 RATIO (10-20); Calcium,Total 9.1 mg/dL (8.5-10.1); Chloride 108 mmol/L (98-107); Creatinine, Serum 1.17 mg/dL (0.55-1.02); EST Glomerular Filtration Rate 53 mL/min (>60); Est Glom Filt Rate - Afr Amer 64 mL/min (>60); Estimated Creatinine Clearance 54.64 ml/min; Globulin 3.8 g/dL (2.2-4.2); Glucose 127 mg/dL (74-106); Lipase 84 U/L (73-393); Potassium 4.5 mmol/L (3.5-5.1); Protein, Total 7.4 g/dL (6.4-8.2); Sodium Level 140 mmol/L (136-145)
[2020-01-15 10:18] LABS: Color, Urine Yellow (Yellow); Glucose, Dipstick Normal (Normal); Ketone-Dipstick Negative (Negative); Leukocyte Esterase-Dipstick Negative /ul (Negative); Nitrite-Dipstick Negative (Negative); Occult Blood-Urine 250 /ul (Negative); Protein-Dipstick 15 mg/dl (Negative); Urine Bilirubin Dipstick Negative (Negative); Urine Clarity Sl. Cloudy (Clear); Urine Urobilinogen Normal (Normal)
[2020-01-15 10:25] LABS: Bacteria 1+ /hpf (None Seen); Red Blood Cells-Urine 25-50 SEEN /hpf (0-5); Squamous Epithelial Cells - UA 0-5 SEEN /hpf (5-10)
[2020-01-15 11:12] VITALS: BP 172/86; PULSE 56; RESP 16; O2SAT 97
[2020-01-15 11:45] VITALS: BP 175/96; PULSE 70; RESP 18; O2SAT 99
[2020-01-15 12:23] VITALS: RESP 18
== END 2020-01-15 12:23 | disposition home or self-care (01) ==
PROVIDERS: Emergency Provider Emergency Medicine; PCP Student in an Organized Health Care Education/Training Program
DX: K43.9 Ventral hernia without obstruction or gangrene (principal); E66.9 Obesity, unspecified; I10 Essential (primary) hypertension; J45.909 Unspecified asthma, uncomplicated; E11.9 Type 2 diabetes mellitus without complications; Z79.4 Long term (current) use of insulin
CPT/HCPCS: 74177; 80053; 81001; 83690; 84703; 85025; 96361; 96374; 96375; 99283; J7030; Q9967; A4216; J2405

== ENCOUNTER 2020-04-26 11:01 | Emergency (ER) | payer MEDICAID, SELFPAY ==
[2020-04-26 11:06] VITALS: BP 200/116; PULSE 73; RESP 16; TEMP 36.3; BMI 35.9
--- NOTE | 2020-04-26 11:26 | CT_ITS ---
STUDY: CT BRAIN WITHOUT CONTRAST REASON FOR EXAM: Female, 44 years old. BLURRED VISION, NEAR SYNCOPAL EPISODE RADIATION DOSAGE (If Supplied By Facility): CTDIvol = ( 44.99 ) mGy, DLP = ( 745.49 ) mGycm TECHNIQUE: Transaxial CT imaging of the brain was performed without administration of intravenous contrast material. Individualized dose optimization techniques were used for this CT. COMPARISON: December 06, 2018 FINDINGS: Normal soft tissue structures. Normal calvarium. Normal size ventricles and extra-axial spaces for the patient''s age. Normal white matter tracts of the cerebral hemispheres. Normal basal ganglia and thalami. Normal brainstem. Normal cerebellum. There is no intracranial hemorrhage. There are no findings of an acute ischemic infarction. Normal visualized paranasal sinuses. CT/Brain/Head without Contrast IMPRESSION: Normal unenhanced CT scan of the brain. Electronically Signed: Jose Nelson DO at 12:05 EDT Tel [phone], Service support ,
--- NOTE | 2020-04-26 11:28 | ED.DCSUM_ITS ---
History of Present Illness <Wanda Morgan - Last Filed: 04/26/20 12:28> Informant: Patient Onset: Days - 2 days ago Context: Sudden Onset Timing: Lasts - 30 seconds Quality: Headache and flashes of light in vision Location: head Current Severity: Mild Maximum Severity: Moderate Worsened by: Nothing Relieved by: Nothing Associated Symptoms: Nothing Narrative: 44-year-old female history of hypertension hyperlipidemia and type 2 diabetes mellitus presents to the emergency department after she had an episode that occurred 2 days ago where she was standing up out of bed to go get into the shower and get ready for work she had a sharp buzzing and burning pain in her forehead and she saw some flashes of light in both eyes and this last about 30 seconds and resolved and she has not had any symptoms since that time. She is not on blood thinners. She denies numbness tingling weakness or difficulties with speech or ambulation. No loss of vision. No chest pain or shortness of breath. No nausea or vomiting. No symptoms of bleeding. No fevers. No exposures to coronavirus. No upper respiratory symptoms. Prior similar symptoms: No Recent Illness/Hospitalization: No <Percy Rogers - Last Filed: 04/26/20 12:34> Chief Complaint: Headache Past Medical History - Family History Maternal Family History: Family History (Last Reviewed 11/07/19 @ 14:[address] Louie Sanchez MD) Mother Heart disease Hypertension Diabetes Paternal Family History: Family History (Last Reviewed 11/07/19 @ 14:[address] Louie Sanchez MD) Mother Heart disease Hypertension Diabetes <Wanda Morgan - Last Filed: 04/26/20 12:28> Prior records reviewed: Yes Past Medical History: - - Congestive heart failure, hypertension, hyperlipidemia, chronic pain, type 2 diabetes mellitus, asthma Surgical History: - - Normal cardiac catheterization Lives: With Family Smoking Status: Never smoker Alcohol: Occasional Drugs: None - Family History Maternal Family History: Family History (Last Reviewed 11/07/19 @ 14:[address] Louie Sanchez MD) Mother Heart disease Hypertension Diabetes Family History: Reports: Diabetes, Heart Disease, Hypertension, - Paternal Family History: Family History (Last Reviewed 11/07/19 @ 14:[address] Louie Sanchez MD) Mother Heart disease Hypertension Diabetes Family History: Reports: - - unkown father side history <Percy Rogers - Last Filed: 04/26/20 12:34> - Allergies and Home Meds Allergies/Adverse Reactions: Allergies Penicillins Allergy (Verified 04/26/20 11:09) Hives metformin Adverse Reaction (Verified 04/26/20 11:09) Diarrhea venlafaxine [From Effexor] Adverse Reaction (Verified 04/26/20 11:09) Upset Stomach Primary Care Physician: Bebeto Charlton DO [Primary Care Provider] - Review of Systems All systems negative except as indicated General: Denies: Chills, Fever, Sweats Eyes: Reports: Visual changes - bilaterally. Denies: Blurred vision - left, Blurred vision - right, Blurred Vision - bilaterally, Diplopia ENT: Denies: Bilateral ear pain, Rhinorrhea, Sore throat Cardiovascular: Denies: Chest pain, Palpitations Respiratory: Denies: Dyspnea, Cough, Dyspnea on exertion Gastrointestinal: Denies: Abdominal pain, Nausea, Vomiting, Diarrhea, Melena, Hematochezia Genitourinary: Denies: Dysuria, Hematuria, Frequency Musculoskeletal: Denies: Back pain, Extremity Pain Skin: Denies: Rash, Wounds Neurological: Reports: Headache. Denies: Weakness, Parasthesia, Numbness <Percy Rogers - Last Filed: 04/26/20 12:34> Physical Exam Vital Signs/Narrative: Vital Signs Temp Pulse Resp BP Pulse Ox 04/26/20 11:43 63 16 163/98 H 98 04/26/20 11:06 97.3 F L 73 16 200/116 H <Wanda Morgan - Last Filed: 04/26/20 12:28> Vital Signs/Narrative: Vital Signs Temp Pulse Resp BP 04/26/20 11:06 97.3 F L 73 16 200/116 H Inital Vital Signs reviewed: Yes General: Well nourished, Well developed, No Acute Distress Head: Normocephalic, Atraumatic Eyes: Perrl, EOMI ENT: Moist mucous membranes, No rhinorrhea Neck: Supple, Nontender Cardiovascular: Regular rate, Regular rhythm, No murmurs Respiratory: No distress, CTA bilaterally, Chest nontender Abdomen: Soft, Nontender, Nondistended, Normal bowel sounds Back: Nontender, Normal Inspection Extremities: Nontender, No edema Skin: Normal color, No rash Neurological: Alert, Oriented x3, Cranial nerves II-XII grossly intact, Normal Strength, Normal Sensation, Normal Gait, - - Normal [id number] and [id number]. Visual blanco intact and normal Psychological: Normal affect, Normal Mood <Percy Rogers - Last Filed: 04/26/20 12:34> Diagnostic/Tx/Re-eval - Medical Decision Making Patient was seen with Percy agree with history and physical as above Basic complains of a vibration or funny sensation involving her forehead x2 episodes a few days ago she also reports her blood pressures been elevated, she has no protracted headache no thunderclap, no fever no cough no runny nose no exposures to coronavirus no numbness weakness paresthesias she knows her blood pressures are running high and she indicates he has medications for blood pressure there may be inadvertent noncompliance indicates her blood pressure machine may be broken she is otherwise been doing fine at home none of this has affected her ability to do her daily activities or live a normal life, no history of stroke AR PE DVT 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 disorder brain hemorrhage or aneurysm No symptoms now He points to her forehead her forehead and head exam unremarkable HEENT exam unremarkable neck supple lungs clear heart tones normal abdomen soft neurologic exam normal NIH 0 her blood pressure at triage was about 200/110 without therapy it is come down to about 175/80, she indicates she just took her blood pressure meds just prior to arrival to the emergency department we have explained the differential to her she does not wish to have an ED evaluation she believes it is related her blood pressure she took her meds she thinks it will come down she does agree to obtain head CT we will observe her as long as her blood pressure continues to trend down she and understands to follow-up with her outpatient providers, I explained to the concept that hypertension was called a silent killer because noncompliance can lead to sudden or serious complications she voiced understanding and will follow-up in follow all of the instructions medication regimen her physicians have prescribed for her, see chart for full details <Wanda Morgan - Last Filed: 04/26/20 12:28> - Medical Decision Making Repeat exam the patient's blood pressure is 140/94. She has no headache at this time repeat neurological exam was nonfocal. Patient is comfortable with discharge she does not require further work-up or treatment <Percy Rogers - Last Filed: 04/26/20 12:34> ED Disposition <Wanda Morgan - Last Filed: 04/26/20 12:28> <Percy Rogers - Last Filed: 04/26/20 12:34> - Plan for ED Patient: Disposition: Home or Assisted Living Diagnosis: Benign essential hypertension, Headache Instructions: ED Headache Unspecified, ED Hypertension Established Referrals: Bebeto Charlton DO [Primary Care Provider] -
[2020-04-26 11:43] VITALS: BP 163/98; PULSE 63; RESP 16; O2SAT 98
[2020-04-26 12:40] VITALS: BP 145/87; PULSE 61; RESP 16; TEMP 36.6
== END 2020-04-26 12:41 | disposition home or self-care (01) ==
PROVIDERS: Emergency Provider Physician Assistant Medical; PCP Student in an Organized Health Care Education/Training Program
DX: I11.0 Hypertensive heart disease with heart failure (principal); I50.9 Heart failure, unspecified; R51 Headache; E11.9 Type 2 diabetes mellitus without complications; E78.5 Hyperlipidemia, unspecified; J45.909 Unspecified asthma, uncomplicated; Z79.4 Long term (current) use of insulin; Z79.899 Other long term (current) drug therapy; Z82.49 Family history of ischemic heart disease and other diseases of the circulatory system
CPT/HCPCS: 70450; 99282

== ENCOUNTER → 2020-05-12 09:05 | Outpatient (CLI) | payer MEDICAID, SELFPAY ==
[2020-05-07 09:57] VITALS: BMI 36.2
== END ==
PROVIDERS: PCP Student in an Organized Health Care Education/Training Program; Referring Provider Physician Assistant Medical; Visit Provider Physician Assistant Medical
DX: I10 Essential (primary) hypertension (principal)
CPT/HCPCS: 93788

== ENCOUNTER → 2020-05-28 12:26 | Outpatient (CLI) | payer MEDICAID, SELFPAY ==
[2020-05-07 09:57] VITALS: BMI 36.2
[2020-05-28 14:17] LABS: Anion Gap 4 (5-15); BUN 27 mg/dL (7-18); BUN/Creat Ratio 25.5 RATIO (10-20); Calcium,Total 8.9 mg/dL (8.5-10.1); Chloride 110 mmol/L (98-107); Creatinine, Serum 1.06 mg/dL (0.55-1.02); EST Glomerular Filtration Rate 60 mL/min (>60); Est Glom Filt Rate - Afr Amer 72 mL/min (>60); Glucose 153 mg/dL (74-106); Sodium Level 141 mmol/L (136-145)
== END ==
PROVIDERS: PCP Student in an Organized Health Care Education/Training Program; Referring Provider Physician Assistant Medical; Visit Provider Physician Assistant Medical
DX: I10 Essential (primary) hypertension (principal)
CPT/HCPCS: 36415; 80048

== ENCOUNTER 2020-06-05 12:19 | Emergency (ER) | payer MEDICAID, SELFPAY ==
[2020-05-07 09:57] VITALS: BMI 36.2
[2020-06-05 12:20] VITALS: BP 159/90; PULSE 61; RESP 15; TEMP 36.8; O2SAT 96; BMI 36.8
--- NOTE | 2020-06-05 12:40 | ED.DCSUM_ITS ---
History of Present Illness Chief Complaint: Sore Throat Informant: Patient Narrative: 44-year-old female with medical history of hypertension, hyperlipidemia, diabetes presents with concern for sore throat and rhinorrhea. States that it began approximately 2 days ago. Daughter has had similar symptoms. Denies any fever, chills, cough, nausea, vomiting, abdominal pain, urinary symptoms. Past Medical History - Allergies and Home Meds Allergies/Adverse Reactions: Allergies Penicillins Allergy (Verified 06/05/20 12:22) Hives metformin Adverse Reaction (Verified 06/05/20 12:22) Diarrhea venlafaxine [From Effexor] Adverse Reaction (Verified 06/05/20 12:22) Upset Stomach Primary Care Physician: Bebeto Charlton DO [Primary Care Provider] - Past Medical History: - - HTN, HLD, and DM Surgical History: - - Normal cardiac catheterization Lives: With Family Smoking Status: Never smoker Alcohol: None Drugs: None - Family History Maternal Family History: Family History (Last Reviewed 11/07/19 @ 14:[address] Louie Sanchez MD) Mother Heart disease Hypertension Diabetes Family History: Reports: Diabetes, Heart Disease, Hypertension, - Paternal Family History: Family History (Last Reviewed 11/07/19 @ 14:[address] Louie Sanchez MD) Mother Heart disease Hypertension Diabetes Family History: Reports: - - unkown father side history Review of Systems General: Denies: Chills, Fever, Sweats Eyes: Denies: Visual changes - bilaterally, Diplopia ENT: Reports: Rhinorrhea, Sore throat Cardiovascular: Denies: Chest pain, Palpitations Respiratory: Denies: Dyspnea, Cough, Dyspnea on exertion Gastrointestinal: Denies: Abdominal pain, Nausea, Vomiting, Diarrhea, Melena, Hematochezia Genitourinary: Denies: Dysuria, Hematuria, Frequency Musculoskeletal: Denies: Back pain, Extremity Pain Skin: Denies: Rash, Wounds Neurological: Denies: Headache, Weakness, Numbness Physical Exam Vital Signs/Narrative: Vital Signs Temp Pulse Resp BP Pulse Ox 06/05/20 12:20 98.2 F 61 15 159/90 H 96 Inital Vital Signs reviewed: Yes General: Well nourished, Well developed, No Acute Distress Head: Normocephalic, Atraumatic Eyes: Perrl, EOMI ENT: Moist mucous membranes, No rhinorrhea Neck: Supple, Nontender Cardiovascular: Regular rate, Regular rhythm, No murmurs Respiratory: No distress, CTA bilaterally, Chest nontender Abdomen: Soft, Nontender, Nondistended, Normal bowel sounds Back: Nontender, Normal Inspection Extremities: Nontender, No edema Skin: Normal color, No rash Neurological: Alert, Oriented x3, Cranial nerves II-XII grossly intact, Normal Strength, Normal Sensation Psychological: Normal affect, Normal Mood Diagnostic/Tx/Re-eval - Medical Decision Making Patient appears well nontoxic. Vital signs within normal limits. Daughter positive for rapid strep. Patient will be given azithromycin given her allergy to penicillin and asked to follow-up with her primary care. Asked to return for new or worsening symptoms. Discharged home in stable condition. Impression: 1. Streptococcal pharyngitis ED Disposition - Plan for ED Patient: Disposition: Home or Assisted Living Instructions: ED Pharyngitis Strep Confirmed Prescriptions: Azithromycin [Zithromax] 500 mg PO DAILY #5 tab Transmission Status: Pending to [facility] Referrals: Bebeto Charlton DO [Primary Care Provider] -
== END 2020-06-05 14:38 | disposition home or self-care (01) ==
PROVIDERS: Emergency Provider Emergency Medicine; PCP Student in an Organized Health Care Education/Training Program
DX: J02.0 Streptococcal pharyngitis (principal); I10 Essential (primary) hypertension; E78.5 Hyperlipidemia, unspecified; E11.9 Type 2 diabetes mellitus without complications; Z79.4 Long term (current) use of insulin; Z79.899 Other long term (current) drug therapy
CPT/HCPCS: 99282

== ENCOUNTER 2020-11-16 10:30 | Outpatient (RCR) | payer MEDICAID, SELFPAY ==
[2020-08-11 13:05] VITALS: BMI 35.7
--- NOTE | 2020-09-14 12:51 | HP.PTEVAL ---
Patient's Visit Information SUNIL ARAUJO is a 44 year old F referred to Physical Therapy by Dr. Renny Frank DO with a diagnosis of Right THR. Date of Evaluation: 09/14/20 Physical Therapist: Mae Hermosillo DPT - Visit Plan Frequency: 2-3x /Week Duration: 4 Weeks Plan: Right Posterior THR 09/10/2020. Functaional mobility - Subjective Right THR 09/10/[address] Frank at [place]- stayed a few days then went home. Does have help at home- and kids at home. Lives in a double story home- is in the living room currently then is going to try the 15 steps to get to her bedroom. Bathroom is on same floor as living room. Pain is located in the feet with tingling- in the anterior thigh and up into the hip joing. Bone on bone in the left so thats bothering her too. Worst: 05/22 Agg: movement Eases: resting in her reclyner Best: 03/22 Is not current using ice but she plans to try it soon. Posterior approach- no bending, lifting, twisting. Fully I prior to surgery- not able to put her own shoes/socks due to pain in her knees/hips. 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 PMHx: HTN, DM, OA, heart murmor, irregular heart beat Meds: since servomechanism designer- addition of Asprin - Objective Posture: FH, RS, increased kyphosis- can correct but does not maintain. Gait: antalgic- decreased stance on the right LE- FWW- slow rafita and fatigues quickly. HR/TR: able with increased discomfort and UE A. SLS: weight shift but unabel to SLS- reports pain. Observation: incision still under bandage- no ss of infection or increased redness- no seepage through bandage. Palpation: tender along lateral aspect of the thigh and into the posterior thigh and gluts. ROM: ankle: WNL Knee: 0-50 degrees, Hip: flexion: 60 degrees, abd: 20 degrees, extn: neutral IR/ER: not tested. Strength: core: fair, SLR: mod A, quad set is visible but weak, Ankle: 5/5, Knee: 4-/5 with pain, Hip: Add/Abd: 4/5. Pain and fear today limiting function - Goals Goal 1:: Patient will be I with HEP and progression Goal Time Frame: 4-6 Weeks Goal 2:: Patient will ambualte >300 feet with a normalized gait pattern with LRD Goal Time Frame: 4-6 Weeks Goal 3:: Patient will asc/desc 8 stairs recip with 1 HR Goal Time Frame: 4-6 Weeks Goal 4:: Patient will report 0/10 pain for 1 week Goal Time Frame: 4-6 Weeks - Rehabilitation Potential Physical Therapy Diagnosis: Patient presents with hypmobility- she has decreased ROM,strength, flex and muscular endurance s/p Right TKR- leading to abnormal gait and unable to perform ADL's. Rehabilitation Potential: Good - Anticipated Interventions Patient/Client Instruction: Educate patient on: Benefits of Fitness Program Therapeutic Exercise to Include: Strength training, Endurance training, Balance training, Body mechanics, Postural training, Flexibilty training, Gait and locomotor training, Neuromotor development, Passive ROM, Active ROM, Dynamic Lumbar Stabilization, Scapular Strength/Stabilization For the Purpose of:: To improve muscle performance and motor function Functional Training to Include: Gait training TENS: Yes Cryotherapy (ice pack, ice massage): Yes Thermo therapy (hot pack): Yes Ultrasound (thermal/non thermal): No For the Purpose of:: To decrease pain Thank you for the opportunity to evaluate your patient. For Medicare and Medicare HMO plans, please review the plan of care and approve it. It will need to be FAXED BACK to us at [phone] for Medicare purposes. For Medicare only, by signing this I certify the plan of care. Please let me know if there are questions or concerns regarding this plan of care. Physician Signature: Date:
--- NOTE | 2020-10-14 10:43 | HP.PTREVAL ---
Dr. Renny Frank, DO, It has been my pleasure to treat SUNIL ARAUJO over the last 8 visits for Right THR. Please see the progress note below for an update on the physical therapy plan of care! Subjective: Feels like she is doing OK. doing all her basic ADLs for the last three weeks adn doing steps. Lives in slit level and doing steps OK but still not sleeping down in bedroom much. Was not as comfortable on back as in chair. Sleeping well . Back to doctor next week. Using walker all the time. Feels like balance is good and activities are good but feels like needs to use walker. Knees are also bone on bone. Did not need walker prior to hip surgery. Has cane at home that she sometimes needed. pain in hip is never over 3 adn feels like ti is much better. Home activities requiring standing are still limited. Tyrone brings her the laundry as she cannot carry objects using walker. Knees may be limiting her also as they are painful. Needs frequent breaks when washing dishes. Still needs help with socks. Incision is posterior. 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 Not sure how long she will be off. Doing some sitting band exercises at home and supine exercises. No home standing ex yet. Objective/Function: ROM knees limited especially L in extension to -4 and flexion to around 90. Hip aROM r to 5 ext aadn 90 flexion and 20 abduction although has difficult time relaxing R hip. Felexibility WFL R hip. R hip looks to be the best joint in the LE amongst hips and knees. Strength is still poor in abduction B hips at 3 to 3+ and ext 3/5 and flexion 4- R and knee flexion and ext 4- B. Walks with short steps adn B trendelenberg gait without walker. Does well with step length and diminishing trendelenberg with walker. Trasnfers I with UE. Steps require two UE on rails and reciprocal, R hip looks strongest. Overall doing well adn improving but needs more hip strength, pain in other hip and knees may be a limiting factor with WB strength. Goals still appropriate over next 4 weeks with questionable prognosis. Plan Plan: 2x/wek for 4 weeks for. 1. standing strength of hips and gait training without walker to otlerance of other LE joints. Progress to standing home ex program. Consider water if other joints don't tolerate strengthening. Goals Goal 1:: Patient will be I with HEP and progression Goal Time Frame: 4-6 Weeks Goal Progress: seated only. Goal 2:: Patient will ambualte >300 feet with a normalized gait pattern with LRD Goal Time Frame: 4-6 Weeks Goal Progress: trendelenberg. Goal 3:: Patient will asc/desc 8 stairs recip with 1 HR Goal Time Frame: 4-6 Weeks Goal Progress: 2 rails needed. Goal 4:: Patient will report 0/10 pain for 1 week Goal Time Frame: 4-6 Weeks Goal Progress: R hip met. Anticipated Interventions Patient/Client Instruction: Educate patient on: Benefits of Fitness Program Therapeutic Exercise to Include: Strength training, Endurance training, Balance training, Body mechanics, Postural training, Flexibilty training, Gait and locomotor training, Neuromotor development, Passive ROM, Active ROM, Dynamic Lumbar Stabilization, Scapular Strength/Stabilization For the Purpose of:: To improve muscle performance and motor function Functional Training to Include: Gait training TENS: Yes Cryotherapy (ice pack, ice massage): Yes Thermo therapy (hot pack): Yes Ultrasound (thermal/non thermal): No For the Purpose of:: To decrease pain Please do not hesitate to contact me at [phone] by phone or if you have questions or concerns regarding this new plan of care! Sincerely, Nikita Lora, DPT, OCS, CSCS
--- NOTE | 2020-11-16 10:47 | HP.PTDCSUM ---
It has been my pleasure to treat SUNIL ARAUJO referred by Dr. Renny Frank DO, with the diagnosis of Right THR for a total of 14 visit(s). Discharge Date: Please see the following information for a summary of their discharge status. Subjective: Goes back to the MD on Monday- she is going back to work hopefully. She feels that her hip is 100% its her knees that really slow her down. Right Hip Pain Intensity (Out of 10): 0 Right Knee Pain Intensity (Out of 10): 4 Left Knee Pain Intensity (Out of 10): 8 % Improvement: 100 Objective/Function: Posture: FH, RS- can correct with verbal cues. Gait: antalgic- did not use AD today- significant decreased step length- encourage cane use. HR/TR: able reports pain in the left knee. SLS: 3 seconds. Stairs: asc/desc reciprocal with slight use of UE. ROM: WFL. Strength: Hip: 4+/5 Goal 1:: Patient will be I with HEP and progression Goal Progress: Goal Met Goal 2:: Patient will ambualte >300 feet with a normalized gait pattern with LRD Goal Progress: trendelenberg. Goal 3:: Patient will asc/desc 8 stairs recip with 1 HR Goal Progress: 2 rails needed. Goal 4:: Patient will report 0/10 pain for 1 week Goal Progress: R hip met. Plan: Discharge to [facility] If there are questions or concerns regarding this patient's physical therapy, please feel free to call me at [phone]. Thank you for the referral of this patient. Sincerely, Mae Hermosillo DPT
== END 2020-11-16 19:00 | disposition home or self-care (01) ==
LOC: PT 10:30
PROVIDERS: PCP Student in an Organized Health Care Education/Training Program; Referring Provider Orthopaedic Surgery Hand Surgery; Visit Provider Orthopaedic Surgery Hand Surgery
DX: M81.0 Age-related osteoporosis without current pathological fracture (principal)
CPT/HCPCS: 97110; 97162; 97164; 97530

== ENCOUNTER 2020-12-22 16:22 | Emergency (ER) | payer MEDICAID, SELFPAY ==
[2020-08-11 13:05] VITALS: BMI 35.7
[2020-12-22 16:23] VITALS: BP 127/90; PULSE 104; RESP 16; TEMP 36.4; O2SAT 97; BMI 35.4
--- NOTE | 2020-12-22 17:06 | ED.DCSUM_ITS ---
History of Present Illness Chief Complaint: Nausea/Vomiting Informant: Patient Onset: Weeks - 2 to 3 weeks Context: Sudden Onset Timing: Continuous Quality: Nausea started 2 weeks ago vomited this past Location: GI Current Severity: Mild Maximum Severity: Moderate Worsened by: Nothing Relieved by: Nothing Associated Symptoms: Thirst, dry mouth Narrative: Patient is a 45-year-old woman with history of type 2 diabetes and hypertension who was seen by her PCP Monday of last week. Covid test was negative. She was informed that her electrolyte panel indicated she is dehydrated. She states she has increased her p.o. liquid intake. She reports chills without fever. She denies headache. She denies visual, ocular auditory symptoms. She denies rhinorrhea, congestion postnasal drainage. She denies sore throat. She denies chest discomfort. She did report shortness of breath. She had shortness of breath for 2 weeks. There is no history of VTE. She denies leg pain, swelling discoloration. She denies hematemesis, melena or hematochezia. She believes she has urinated less. She has not checked her blood sugar recently. She has not noted a rash. She states she does not feel well. Prior similar symptoms: No Recent Illness/Hospitalization: Yes - Past Medical History (1) History of diabetes mellitus Status: Acute (2) Benign essential hypertension Status: Chronic (3) HLD (hyperlipidemia) Status: Chronic Past Medical History - Allergies and Home Meds Allergies/Adverse Reactions: Allergies Penicillins Allergy (Verified 12/22/20 16:23) Hives metformin Adverse Reaction (Verified 12/22/20 16:23) Diarrhea venlafaxine [From Effexor] Adverse Reaction (Verified 12/22/20 16:23) Upset Stomach Primary Care Physician: Bebeto Charlton DO [Primary Care Provider] - Prior records reviewed: Yes Surgical History: - - Normal cardiac catheterization Lives: With Family Smoking Status: Never smoker - Family History Maternal Family History: Family History (Last Reviewed 08/11/20 @ 13:52 by Elicia RING, PA) Mother Heart disease Hypertension Diabetes Family History: Reports: Diabetes, Heart Disease, Hypertension, - Paternal Family History: Family History (Last Reviewed 08/11/20 @ 13:52 by Elicia RING, PA) Mother Heart disease Hypertension Diabetes Family History: Reports: - - unkown father side history Review of Systems General: Reports: Chills, Malaise. Denies: Fever, Subjective, Sweats, Weight loss, - Eyes: Denies: Visual changes - bilaterally, Blurred Vision - bilaterally, Diplopia ENT: Denies: Rhinorrhea, Sore throat Cardiovascular: Denies: Chest pain, Palpitations Respiratory: Denies: Dyspnea, Cough, Sputum, Dyspnea on exertion Gastrointestinal: Reports: Abdominal pain, Nausea, Vomiting. Denies: Diarrhea, Melena, Hematochezia Genitourinary: Denies: Dysuria, Hematuria, Frequency Musculoskeletal: Denies: Myalgias, Arthralgias, Neck pain, Back pain, Swelling, Extremity Pain Skin: Denies: Rash, Wounds Neurological: Reports: Weakness. Denies: Headache, Parasthesia Endocrine: Denies: Polyuria, Polydipsia Hematologic: Denies: Easy bruising, Easy bleeding Physical Exam Vital Signs/Narrative: Vital Signs Temp Pulse Resp BP Pulse Ox 12/22/20 16:23 97.5 F L 104 H 16 127/90 H 97 Inital Vital Signs reviewed: Yes General: Well nourished, Well developed, Obese, No Acute Distress Head: Normocephalic, Atraumatic Eyes: Perrl, EOMI ENT: No rhinorrhea, TM's clear, Dry mucous membranes Neck: Supple, Nontender Cardiovascular: Regular rhythm, No murmurs, Normal S1, Normal S2, Tachycardia Respiratory: No distress, CTA bilaterally, Chest nontender Abdomen: Soft, Nontender, Nondistended, Normal bowel sounds, No masses Back: Nontender, Normal Inspection. Negative for: CVA tenderness Extremities: Nontender, No edema Skin: Normal color, No rash, No Trauma. Negative for: Cyanosis, Diaphoresis, Jaundice Neurological: Alert, Oriented x3, Cranial nerves II-XII grossly intact, Normal Strength, Normal Sensation Psychological: Normal affect, Normal Mood Diagnostic/Tx/Re-eval Laboratory Results 12/22/20 12/22/20 12/22/20 17:17 17:17 17:17 WBC 4.9 RBC 5.57 H Hgb 15.4 H Hct 47.8 H MCV 85.8 MCH 27.6 MCHC 32.2 RDW Std Deviation 46.5 H RDW Coeff of Moe 14.7 H Plt Count 283 MPV 10.3 Immature Gran % (Auto) 0.200 Neut % (Auto) 54.7 Lymph % (Auto) 35.2 [place] % (Auto) 8.7 Eos % (Auto) 0.6 Baso % (Auto) 0.6 Absolute Neuts (auto) 2.7 Absolute Lymphs (auto) 1.74 Nucleated RBC % 0 Sodium 137 Potassium 4.1 Chloride 105 Carbon Dioxide 27.0 Anion Gap 5 BUN 30 H Creatinine 1.36 H Estim Creat Clear Calc 46.51 Est GFR (MDRD) Af Amer 54 L Est GFR (MDRD) Non-Af 45 L BUN/Creatinine Ratio 22.1 H Glucose 133 H Calcium 9.4 Total Bilirubin 0.30 AST 28 ALT 27 Alkaline Phosphatase 138 H Total Protein 8.4 H Albumin 4.2 Globulin 4.2 Albumin/Globulin Ratio 1.0 Urine Color Yellow Urine Clarity Sl. Cloudy Urine pH 5.0 Ur Specific [place] 1.030 Urine Protein 30 H Urine Glucose (UA) Normal Urine Ketones 50 H Urine Occult Blood Negative Urine Nitrite Negative Urine Bilirubin Negative Urine Urobilinogen 1 H Ur Leukocyte Esterase 25 H Urine RBC 0 SEEN Urine WBC 0-5 SEEN Ur Squamous Epith Cells 0-5 SEEN Calcium Oxalate Crystal RARE Urine Bacteria RARE Urine Mucus 0 SEEN Creatinine is slightly elevated from baseline. Urine is remarkable for stiff gravity of 1.030 and mild proteinuria and ketones. This is consistent with dehydration. Patient has passed p.o. challenge. Her nausea resolved with Zofran. Plan is discharge to home with prescription for Zofran and repeat blood work in 3 to 5 days. - Medical Decision Making With history of vomiting poor p.o. intake diabetes with abnormal labs last week we will repeat basic metabolic panel to assess electrolytes and renal function. She received a fluid bolus and Zofran for her nausea. ED Disposition - Plan for ED Patient: Disposition: Home or Assisted Living Diagnosis: Nausea and vomiting, Severe dehydration, Acute renal insufficiency, Proteinuria, Ketosis Instructions: ED Vomiting (Adult), ED Renal Insufficiency Prescriptions: Ondansetron [Zofran Odt] 4 mg PO Q8H PRN PRN #10 tab PRN Reason: Nausea Transmission Status: Pending to [facility] Referrals: Bebeto Charlton DO [Primary Care Provider] - 3-5 Days Additional Instructions: 1. Your creatinine is elevated from baseline and is consistent with significant dehydration. You will need to make an appointment to see Dr. Charlton your doctor in 3 to 5 days for repeat blood work. Continue to drink fluids. If you have recurrence of vomiting even after taking Zofran return to the emergency department.
[2020-12-22] MEDS: 0.9% Normal Saline 1,000 ML 1000 ML IV (17:16)
[2020-12-22] MEDS: Ondansetron 4 MG/2 ML Vial IV (17:16)
[2020-12-22 17:25] LABS: Mucous, Urine 0 SEEN /hpf (<or=2+); Red Blood Cells-Urine 0 SEEN /hpf (0-5)
[2020-12-22 17:29] LABS: Color, Urine Yellow (Yellow); Glucose, Dipstick Normal (Normal); Ketone-Dipstick 50 mg/dl (Negative); Leukocyte Esterase-Dipstick 25 /ul (Negative); Nitrite-Dipstick Negative (Negative); Occult Blood-Urine Negative /ul (Negative); Protein-Dipstick 30 mg/dl (Negative); Urine Bilirubin Dipstick Negative (Negative); Urine Clarity Sl. Cloudy (Clear); Urine Urobilinogen 1 mg/dl (Normal)
[2020-12-22 17:36] LABS: Absolute Lymphocyte Count 1.74 X10^3/uL (0.83-4.51); Absolute Neutrophil Count 2.7 X10^3/uL (2.0-7.7); Basophil# 0.03 X10^3/uL; Basophil% 0.6 % (0-1); Eosinophil# 0.03 X10^3/uL; Eosinophils% 0.6 % (0-5); Hematocrit 47.8 % (37-47); Hemoglobin 15.4 g/dL (12.0-15.0); Lymphocyte # 1.74 X10^3/ul (4.0); Lymphocyte % 35.2 % (19-41); Mean Corp Hgb Conc 32.2 g/dL (32-36); Mean Corpuscular Hgb 27.6 pg (27.0-32.0); Mean Corpuscular Volume 85.8 fL (81-99); Mean Platelet Vol. 10.3 fl (6.2-12.0); Monocyte# 0.43 X10^3/uL; Monocyte% 8.7 % (0-10); NRBC Flagged by Analyzer 0 % (0-5); Neutrophil % 54.7 % (47-70); Platelet Count 283 K/mm3 (150-450); RBC Distribution Width CV 14.7 % (11.6-14.6); RBC Distribution Width SD 46.5 fl (35.1-43.9); Red Blood Count 5.57 M/mm3 (4.2-5.4); White Blood Count 4.9 K/mm3 (4.4-11.0)
[2020-12-22 17:40] LABS: Calcium Oxalate Crystals Ur RARE /hpf (<or=2+); Squamous Epithelial Cells - UA 0-5 SEEN /hpf (5-10); White Blood Cells 0-5 SEEN /hpf (0-5)
[2020-12-22 17:41] LABS: Bacteria RARE /hpf (None Seen)
[2020-12-22 17:56] LABS: AST(SGOT) 28 U/L (15-37); Alanine Aminotransfer ALT/SGPT 27 U/L (13-56); Albumin, Serum 4.2 g/dL (3.2-5.0); Alkaline Phosphatase 138 U/L (45-117); Anion Gap 5 (5-15); BUN 30 mg/dL (7-18); BUN/Creat Ratio 22.1 RATIO (10-20); Calcium,Total 9.4 mg/dL (8.5-10.1); Chloride 105 mmol/L (98-107); Creatinine, Serum 1.36 mg/dL (0.55-1.02); EST Glomerular Filtration Rate 45 mL/min (>60); Est Glom Filt Rate - Afr Amer 54 mL/min (>60); Estimated Creatinine Clearance 46.51 ml/min; Globulin 4.2 g/dL (2.2-4.2); Glucose 133 mg/dL (74-106); Potassium 4.1 mmol/L (3.5-5.1); Protein, Total 8.4 g/dL (6.4-8.2); Sodium Level 137 mmol/L (136-145)
[2020-12-22 18:42] VITALS: BP 130/72; PULSE 90; RESP 20; O2SAT 100
== END 2020-12-22 18:42 | disposition home or self-care (01) ==
PROVIDERS: Emergency Provider Emergency Medicine; PCP Student in an Organized Health Care Education/Training Program
DX: E86.0 Dehydration (principal); R11.2 Nausea with vomiting, unspecified; N28.9 Disorder of kidney and ureter, unspecified; E11.10 Type 2 diabetes mellitus with ketoacidosis without coma; I10 Essential (primary) hypertension; E78.5 Hyperlipidemia, unspecified; E66.9 Obesity, unspecified; Z68.35 Body mass index [BMI] 35.0-35.9, adult; Z79.4 Long term (current) use of insulin; Z79.899 Other long term (current) drug therapy
CPT/HCPCS: 80053; 81001; 85025; 96361; 96374; 99283; J7030; A4216; J2405

== ENCOUNTER 2021-01-14 08:39 | Observation (INO) | payer MEDICAID, SELFPAY ==
[2021-01-14] VITALS (14 sets, daily range): BP systolic 121–145; BP diastolic 71–95; PULSE 73–104; RESP 13–18; TEMP 36.6–36.8; O2SAT 97–100; BMI 36.8; BMI 37.2
--- NOTE | 2021-01-14 08:49 | EKG12_ITS ---
Test Reason : CP Blood Pressure : / mmHG Vent. Rate : 075 BPM Atrial Rate : 075 BPM P-R Int : 180 ms QRS Dur : 096 ms QT Int : 408 ms P-R-T Axes : 033 026 171 degrees QTc Int : 455 ms Normal sinus rhythm with sinus arrhythmia Left ventricular hypertrophy with repolarization abnormality Abnormal ECG Confirmed by MUNA CORTEZ, LULA ([id number]), graphics editor ALATF SIMPSON ([id number]) on 01/18/2021 2:40:02 PM Referred By: JESSIAC Confirmed By:LULA TORO MD
--- NOTE | 2021-01-14 08:50 | ED.DCSUM_ITS ---
History of Present Illness Chief Complaint: Shortness of Breath Informant: Patient Onset: Weeks - 2 weeks Context: Sudden Onset Timing: Intermittent Quality: Dyspnea on exertion Location: Respiratory Current Severity: Mild Maximum Severity: Severe Worsened by: Activity Relieved by: Rest Associated Symptoms: Chest pressure Narrative: Patient is a 45-year-old heavyset woman with history of hypertension, hyperlipidemia and diabetes who reports she had a non-STEMI 20 years ago. She had a cardiac cath approximately 16 months ago that was normal. She presents because of dyspnea with activity over the past 2 to 3 weeks. She also reports chest tightness with the exertional dyspnea. She denies nausea with the dyspnea and denies diaphoresis. There is no radiation of the pain. Patient states she became quite winded walking up the incline from the parking lot and developed chest discomfort. She denies fever, chills night sweats. She denies rhinorrhea, congestion, postnasal drainage or sore throat. She denies exposure to Covid to her knowledge. She denies cough. She denies GI symptoms. She denies urologic symptoms. She states her blood pressure was low at home. She was informed by Dr. Wolfe not to be concerned unless it was less than 90. She reports her systolic was 107. She denies black or maroon-colored stool. She denies history of peptic ulcer disease. She denies leg pain, swelling discoloration. She denies history of VTE. Prior similar symptoms: No Recent Illness/Hospitalization: No - Past Medical History (1) History of diabetes mellitus Status: Acute (2) Benign essential hypertension Status: Chronic (3) HLD (hyperlipidemia) Status: Chronic Past Medical History - Allergies and Home Meds Allergies/Adverse Reactions: Allergies Penicillins Allergy (Verified 01/14/21 08:43) Hives metformin Adverse Reaction (Verified 01/14/21 08:43) Diarrhea venlafaxine [From Effexor] Adverse Reaction (Verified 01/14/21 08:43) Upset Stomach Primary Care Physician: Bebeto Charlton DO [Primary Care Provider] - Prior records reviewed: Yes Surgical History: - - Normal cardiac catheterization Lives: Alone Smoking Status: Never smoker Alcohol: None Drugs: None - Family History Maternal Family History: Family History (Last Reviewed 08/11/20 @ 13:52 by Elicia RING, PA) Mother Heart disease Hypertension Diabetes Family History: Reports: Diabetes, Heart Disease, Hypertension, - Paternal Family History: Family History (Last Reviewed 08/11/20 @ 13:52 by Elicia Wynn PA, PA) Mother Heart disease Hypertension Diabetes Family History: Reports: - - unkown father side history Review of Systems General: Denies: Chills, Fever, Malaise, Sweats Eyes: Denies: Visual changes - bilaterally ENT: Denies: Rhinorrhea, Sore throat Cardiovascular: Reports: Chest pain. Denies: Palpitations, Heart racing Respiratory: Reports: Dyspnea, Dyspnea on exertion, Orthopnea - Two-pillow orthopnea past 1 to 2 weeks. Denies: Cough, Paroxysmal nocturnal dyspnea Gastrointestinal: Denies: Abdominal pain, Nausea, Vomiting, Diarrhea, Melena, Hematochezia Genitourinary: Denies: Dysuria, Hematuria, Frequency Musculoskeletal: Denies: Myalgias, Arthralgias, Neck pain, Back pain, Swelling, Extremity Pain Skin: Denies: Rash, Wounds Neurological: Denies: Headache, Weakness, Numbness Endocrine: Denies: Polyuria, Polydipsia Hematologic: Denies: Easy bruising, Easy bleeding Allergy: Denies: Uticaria Physical Exam Vital Signs/Narrative: Vital Signs Temp Pulse Resp BP Pulse Ox 01/14/21 08:40 97.9 F 83 18 142/85 H 99 Inital Vital Signs reviewed: Yes General: Well nourished, Well developed, Acute Distress Head: Normocephalic, Atraumatic Eyes: Perrl, EOMI. Negative for: Pale conjunctiva, Scleral icterus ENT: Moist mucous membranes, No rhinorrhea Neck: Supple, Nontender, No lymphadenopathy, No JVD Cardiovascular: Regular rate, Regular rhythm, No murmurs, Normal S1, Normal S2 Respiratory: No distress, CTA bilaterally, Chest nontender Abdomen: Soft, Nontender, Nondistended, Normal bowel sounds, No masses Rectal: Deferred Back: Nontender, Normal Inspection Extremities: Nontender, No edema, - - There is no asymmetry, swelling, discoloration, leg vein distention, palpable cords or tenderness along the distribution of the deep venous system. Skin: Normal color, No rash, No Trauma. Negative for: Cyanosis, Diaphoresis, Jaundice Neurological: Alert, Oriented x3, Cranial nerves II-XII grossly intact, Normal Strength, Normal Sensation, Normal Gait Psychological: Normal affect, Normal Mood Diagnostic/Tx/Re-eval Chest X-Ray - ED: 1 View - Single view portable chest x-ray. Unchanged from prior., Read by ED Physician, Normal, Heart, Lungs, Mediastinum, No Acute Disease, - Impressions Chest X-Ray 01/14/21 09:20 IMPRESSION: No acute abnormality is seen. Electronically Signed: Panchito Mcginnis MD at 9:36 EST , Service support , 01/14/21 09:20 Chest 1 View (Portable) [RAD] Stat Laboratory Results 01/14/21 01/14/21 09:05 09:05 WBC 3.6 L RBC 4.98 Hgb 13.8 Hct 43.4 MCV 87.1 MCH 27.7 MCHC 31.8 L RDW Std Deviation 47.4 H RDW Coeff of Moe 14.9 H Plt Count 268 MPV 9.6 Immature Gran % (Auto) 0.300 Neut % (Auto) 47.3 Lymph % (Auto) 40.7 [place] % (Auto) 7.8 Eos % (Auto) 2.5 Baso % (Auto) 1.4 H Absolute Neuts (auto) 1.7 L Absolute Lymphs (auto) 1.46 Nucleated RBC % 0 Sodium 137 Potassium 3.8 Chloride 104 Carbon Dioxide 26.0 Anion Gap 7 BUN 28 H Creatinine 0.98 Estim Creat Clear Calc 61.94 Est GFR (MDRD) Af Amer 79 Est GFR (MDRD) Non-Af 65 BUN/Creatinine Ratio 28.6 H Glucose 130 H Calcium 9.3 Troponin I < 0.015 Work-up is unremarkable. Interpretation by radiologist was noted. Patient's heart score is 4. She had total relief of her chest pressure after second nitroglycerin. Dr. Wolfe was paged. I was informed Dr. Reji Leonard is on- call for the group. Hospitalist was also paged. - EKG Initial EKG Interpretation: Sinus Rhythm - This rhythm with a ventricular rate of 75. There is evidence of left ventricular hypertrophy with repolarization and EKG is unchanged from October 07, 2019. SD interval 280 ms. QS duration 96 ms. QT duration 408 ms. [place] is normal. Prior: Unchanged - October 07, 2019 - Medical Decision Making Cardiac work-up was initiated. This may also represent noncardiac etiology since she had a normal cath September 2009 teen. Since she is experiencing chest pressure aspirin and nitro was ordered as well as appropriate blood work to rule out anemia, renal disease and chest x-ray to evaluate for pulmonary disease. Patient is PERC negative. EKG is unchanged from October 07, 2019. Awaiting callback from security system installer. Plan is PCU observation. - Critical Care Time Critical care time (excluding procedures): 30-74 minutes - Total time 31 minutes which included obtaining history, physical exam, review of prior records and cath report, documentation, interpretation of laboratory results, risk ratification for admission, discussion with security system installer and hospitalist, Discussing w/Patient &/or Family/Tree Warden, Discussing w/Consultants, Arranging Admission or Transfer ED Disposition - Plan for ED Patient: Disposition: Acute Care Hospital [facility] Diagnosis: Exertional chest pain, Dyspnea on exertion, History of diabetes mellitus, Benign essential hypertension, HLD (hyperlipidemia) Referrals: Bebeto Charlton DO [Primary Care Provider] -
[2021-01-14] MEDS: Aspirin 81 MG TAB.CHEW 324 MG PO (08:58)
[2021-01-14] MEDS: Nitroglycerin SL (ED/IMG/CATH) 0.4 MG TABLET SUBLINGUAL ×2 (09:01→09:14)
[2021-01-14 09:18] LABS: Absolute Lymphocyte Count 1.46 X10^3/uL (0.83-4.51); Absolute Neutrophil Count 1.7 X10^3/uL (2.0-7.7); Basophil# 0.05 X10^3/uL; Basophil% 1.4 % (0-1); Eosinophil# 0.09 X10^3/uL; Eosinophils% 2.5 % (0-5); Hematocrit 43.4 % (37-47); Hemoglobin 13.8 g/dL (12.0-15.0); Lymphocyte # 1.46 X10^3/ul (4.0); Lymphocyte % 40.7 % (19-41); Mean Corp Hgb Conc 31.8 g/dL (32-36); Mean Corpuscular Hgb 27.7 pg (27.0-32.0); Mean Corpuscular Volume 87.1 fL (81-99); Mean Platelet Vol. 9.6 fl (6.2-12.0); Monocyte# 0.28 X10^3/uL; Monocyte% 7.8 % (0-10); NRBC Flagged by Analyzer 0 % (0-5); Neutrophil % 47.3 % (47-70); Platelet Count 268 K/mm3 (150-450); RBC Distribution Width CV 14.9 % (11.6-14.6); RBC Distribution Width SD 47.4 fl (35.1-43.9); Red Blood Count 4.98 M/mm3 (4.2-5.4); White Blood Count 3.6 K/mm3 (4.4-11.0)
--- NOTE | 2021-01-14 09:20 | RAD_ITS ---
STUDY: X-RAY CHEST REASON FOR EXAM: Female, 45 years old. Chest pain TECHNIQUE: Single AP portable view of the chest. COMPARISON: Comparison is made with prior study dated 10/04/2019. FINDINGS: EKG electrodes are seen. The lungs are clear and expanded. There is no demonstrated pleural abnormality. Normal size heart. Normal mediastinum and amirah. Normal visualized pulmonary arteries. Normal visualized aortic arch and descending thoracic aorta. There are diffuse degenerative changes of the visualized thoracic spine. Normal visualized ribs, clavicles, and shoulders. There is no demonstrated abnormality of the visualized soft tissue structures of the upper abdomen. RAD/Chest 1 View (Portable) IMPRESSION: No acute abnormality is seen. Electronically Signed: Panchito Mcginnis MD at 9:36 EST , Service support ,
[2021-01-14 09:35] LABS: Anion Gap 7 (5-15); BUN 28 mg/dL (7-18); BUN/Creat Ratio 28.6 RATIO (10-20); Calcium,Total 9.3 mg/dL (8.5-10.1); Chloride 104 mmol/L (98-107); Creatinine, Serum 0.98 mg/dL (0.55-1.02); EST Glomerular Filtration Rate 65 mL/min (>60); Est Glom Filt Rate - Afr Amer 79 mL/min (>60); Estimated Creatinine Clearance 61.94 ml/min; Glucose 130 mg/dL (74-106); Potassium 3.8 mmol/L (3.5-5.1); Sodium Level 137 mmol/L (136-145)
--- NOTE | 2021-01-14 16:05 | EKG12_ITS ---
Test Reason : PRE OP Blood Pressure : / mmHG Vent. Rate : 074 BPM Atrial Rate : 074 BPM P-R Int : 214 ms QRS Dur : 090 ms QT Int : 428 ms P-R-T Axes : 037 029 180 degrees QTc Int : 475 ms Sinus rhythm with 1st degree A-V block Left ventricular hypertrophy with repolarization abnormality Abnormal ECG When compared with ECG of 14-JAN-2021 10:42, MANUAL COMPARISON REQUIRED, DATA IS UNCONFIRMED Confirmed by LEN CORTEZ, JACKIE ([id number]), makeup editor ALTAF SIMPSON ([id number]) on 01/19/2021 12:36:15 PM Referred By: ROSEANNA Confirmed By:JACKIE HARRINGTON MD
--- NOTE | 2021-01-14 19:02 | PCM.HP.STD ---
History of Present Illness Date of Admission: 01/14/21 Chief Complaint: Chest pressure The patient is a 45 year old F with a PMH as below who presents to the hospital with chest pressure. She has been dealing with shortness of breath and intermittent chest tightness/chest pressure for several years now. She had a cardiac cath done in September 2019 which was completely negative with normal coronaries. Since then she has been following up as an outpatient for this shortness of breath as well as fatigue and GI upset with nausea and vomiting. The nausea and vomiting is being worked up as an outpatient with what sounds like right upper quadrant ultrasound and splenic ultrasound. Initially were going to try to get a stress echo today and if normal be able to discharge her however she has severe osteoarthritis with [id number] in her knee and she was unable to exercise and given her severe eccentric left ventricular hypertrophy, she is not a candidate for dobutamine stress therefore she will plan for nuclear stress in the morning. Troponins x3 are unremarkable and her EKG is nonischemic. Past Medical History Past Medical History (Chronic Problems): Chronic Problems (Last Reviewed 08/11/20 @ 13:52 by Elicia RING, PA) Benign essential hypertension (Chronic) HLD (hyperlipidemia) (Chronic) Medical History: Medical History (Last Reviewed 08/11/20 @ 13:52 by Elicia RING, PA) Benign essential hypertension (Chronic) I10 HLD (hyperlipidemia) (Chronic) E78.5 Asthma J45.909 Chronic pain syndrome G89.4 Hirsutism L68.0 Obesity E66.9 Type II diabetes mellitus E11.9 History of gestational diabetes mellitus (Resolved) Z86.32 History of non-ST elevation myocardial infarction (NSTEMI) Onset Date: 1999 I25.2 Hypertensive urgency I16.0 Allergies Penicillins Allergy (Verified 01/14/21 08:43) Hives metformin Adverse Reaction (Verified 01/14/21 08:43) Diarrhea venlafaxine [From Effexor] Adverse Reaction (Verified 01/14/21 08:43) Upset Stomach Home Medications: Ambulatory Orders Medication Instructions Recorded Tizanidine HCl [Zanaflex] 4 mg PO QHS 05/07/18 Albuterol Inhaler [Ventolin Hfa] 2 puff INHALATION Q4H PRN PRN 09/27/19 Fluticasone Propionate 2 spray NS DAILY PRN 09/27/19 Cholecalciferol (Vitamin D3) 2,000 unit PO DAILY 10/04/19 [Vitamin D3] Glimepiride 2 mg PO BID 10/04/19 Multivitamin [Daily Multiple 1 ea PO DAILY 10/04/19 Vitamin] Hydrochlorothiazide [Hctz] 25 mg PO DAILY #30 tab 10/07/19 busPIRone [Buspar] 10 mg PO TID 01/15/20 spironolactone 50 mg tablet 50 mg PO DAILY #90 tab 05/07/20 lisinopril 40 mg tablet 40 mg PO DAILY #30 tab 11/17/20 hydralazine 50 mg tablet 50 mg PO BID #60 tab 11/26/20 Cetirizine HCl [All Day Allergy] 10 mg PO DAILY 12/22/20 Duloxetine HCl 30 mg PO DAILY 12/22/20 Insulin Lispro [Humalog] 5 unit SC DAILY 12/22/20 Liraglutide [Victoza 2-Pravin] 1.2 ml SQ DAILY 12/22/20 Ondansetron [Zofran Odt] 4 mg PO Q8H PRN PRN #10 tab 12/22/20 Pravastatin [Pravachol] 40 mg PO DAILY 12/22/20 Trazodone HCl 50 mg PO QHS 12/22/20 metoprolol tartrate 100 mg tablet 100 mg PO BID #180 tab 12/30/20 Oxycodone HCl 15 mg PO TID PRN 01/14/21 Surgical History: Surgical History (Last Reviewed 08/11/20 @ 13:52 by Elicia RING, PA) History of left heart catheterization Onset Date: 10/07/19 Z98.890 Surgical History: - - Normal cardiac catheterization Psychiatric History: Depression 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 Denies: Chills, Fever, Weight Change HEENT: Denies: Head Aches, Sinus Congestion, Sinus Drainage Cardiovascular: Reports: Chest Pressure, Chest Tightness. Denies: Chest Pain, Palpitations Respiratory: Denies: Cough, Shortness of breath at rest, Sputum production Gastrointestinal: Reports: Nausea, Vomiting. Denies: Abdominal Pain Genitourinary: Denies: Dysuria Musculoskeletal: Denies: Joint Pain, Joint Tenderness Skin: Denies: Rash, Wounds Neurological: Denies: Numbness, Tingling, Focal weakness Psychiatric: Denies: Anxiety, Depression Hematologic/ Lymphatic: Denies: Easy Bruising, Easy Bleeding VTE Information - Inpt Only VTE Present on Admission: No Patient Problems: Active and Suspected Problems (Last Reviewed 08/11/20 @ 13:52 by Elicia RING, PA) History of diabetes mellitus (Acute) Exertional chest pain (Acute) Dyspnea on exertion (Acute) - Physical Exam Vitals/I&O's: Vital Signs Temp Pulse Resp BP Pulse Ox 98.2 F 91 18 145/92 H 99 01/14/21 16:30 01/14/21 16:30 01/14/21 16:30 01/14/21 16:30 01/14/21 16:30 Oxygen Delivery Method Room Air Weight: 223 lb 11.2 oz Body Mass Index (BMI) 37.2 Finger Stick Blood Glucose 89 Intake and Output for Last 24 Hours 01/12/21 01/13/21 01/14/21 23:59 23:59 23:59 Intake Total 480 / 480 Output Total Balance 479 / 479 General: Alert, Oriented x3, Cooperative, No apparent distress HEENT: Atraumatic, PERRLA, EOMI, Normocephalic Oral: Moist Mucosa Neck: Supple, No JVD Lungs: Clear to auscultation, Normal air movement, No rhonchi, No wheeze, No rales Cardiovascular: Regular rate, Regular Rhythm, Normal S1, Normal S2, Murmur Abdomen: Soft, Non Tender, Non-Distended, No Hepato-splenomegaly Extremities: No edema, Capillary Refill Less than 3 Seconds Skin: No rashes, No breakdown Neurological: Neuro grossly intact, Sensory exam intact to light touch and pain Psych/Mental Status: Normal Affect, Appropriate Laboratory Results 01/14/21 09:05: WBC 3.6 L, RBC 4.98, Hgb 13.8, Hct 43.4, MCV 87.1, MCH 27.7, MCHC 31.8 L, RDW Std Deviation 47.4 H, RDW Coeff of Moe 14.9 H, Plt Count 268, MPV 9.6, Immature Gran % (Auto) 0.300, Neut % (Auto) 47.3, Lymph % (Auto) 40.7, Barry % (Auto) 7.8, Eos % (Auto) 2.5, Baso % (Auto) 1.4 H, Absolute Neuts (auto) 1.7 L, Absolute Lymphs (auto) 1.46, Nucleated RBC % 0 01/14/21 09:05: Sodium 137, Potassium 3.8, Chloride 104, Carbon Dioxide 26.0, Anion Gap 7, BUN 28 H, Creatinine 0.98, Estim Creat Clear Calc 61.94, Est GFR (MDRD) Af Amer 79, Est GFR (MDRD) Non-Af 65, BUN/Creatinine Ratio 28.6 H, Glucose 130 H, Calcium 9.3, Troponin I < 0.015 01/14/21 13:10: Troponin I < 0.015 01/14/21 15:20: Troponin I < 0.015 Current Medications Acetaminophen (Acetaminophen 325 Mg Tablet) 650 mg PO Q6H PRN PRN PRN Reason: Pain Score 1-10/Temp > 100.7 F Albuterol Sulfate (Albuterol 2.5 Mg/3 Ml Vial.Neb.) 2.5 mg INHALATION Q4H PRN PRN PRN Reason: SOB &/OR WHEEZING Buspirone HCl (Buspirone 5 Mg Tablet) 10 mg PO TID REPLACED BY [facility] Dextrose (Dextrose 50%-Water 25 Gm/50 Ml Disp.Syrin) 0 gm IV X1 PRN; Protocol PRN Reason: Hypoglycemia Duloxetine HCl (Duloxetine Hcl 30 Mg Capsule) 30 mg PO DAILY REPLACED BY [facility] Glucagon (Glucagon 1 Mg/Ml Syringe) 1 mg IM .X1 PRN PRN Reason: Hypoglycemia Hydralazine HCl (Hydralazine 50 Mg Tablet) 50 mg PO BID REPLACED BY [facility] Hydrochlorothiazide (Hydrochlorothiazide 25 Mg Tablet) 25 mg PO DAILY REPLACED BY [facility] Insulin Human Lispro (Insulin Lispro 100 Unit/Ml Insuln.Pen) [facility]ulin Human Lispro (Insulin Lispro 100 Unit/Ml Insuln.Pen) 0 unit SC ACHS AMBROSIO; Protocol Lisinopril (Lisinopril 40 Mg Tablet) 40 mg PO DAILY REPLACED BY [facility] Melatonin (Melatonin 3 Mg Tablet) 3 mg PO QHS PRN PRN PRN Reason: INSOMNIA Metoprolol Tartrate (Metoprolol Tartrate 100 Mg Tablet) 100 mg PO BID REPLACED BY [facility] Nitroglycerin (Nitroglycerin (Inpatient Use) 0.4 Mg Tab.Subl) 0.4 mg SUBLINGUAL Q5M PRN PRN Reason: CARDIAC/CHEST PAIN Non-Formulary Medication (Oxycodone Hcl) 15 mg PO TID REPLACED BY [facility] Ondansetron HCl (Ondansetron 4 Mg/2 Ml Vial) 4 mg IV Q8H PRN PRN PRN Reason: NAUSEA/VOMITING Ondansetron HCl (Ondansetron Odt 4 Mg Tablet) 4 mg PO Q8H PRN PRN PRN Reason: NAUSEA Pravastatin Sodium (Pravastatin 40 Mg Tablet) 40 mg PO QHS REPLACED BY [facility] Spironolactone (Spironolactone 50 Mg Tablet) 50 mg PO DAILY AMBROSIO Trazodone HCl (Trazodone 50 Mg Tablet) 50 mg PO QHS REPLACED BY [facility] Assessment/Plan All Active Problems (Last Reviewed 08/11/20 @ 13:52 by Elicia Wynn PA, PA) History of diabetes mellitus (Acute) Exertional chest pain (Acute) Dyspnea on exertion (Acute) Chest pain (Resolved) History of gestational diabetes mellitus (Resolved) 1. Chest pressure/tightness/HTN/HLD -Troponins x3 were negative -Unable to perform exercise stress test therefore we will plan for nuclear stress test in the morning -EKG is nonischemic -Continue with all of her home blood pressure medications -Continue with pravastatin 2. Morbid obesity/DM 2 -Will place her on a standing scale insulin -Accu-Cheks AC at bedtime 3. Asthma -Stable -Continue with her inhalers 4. Anxiety/depression -Stable -Continue with BuSpar, Cymbalta, trazodone 5. Chronic pain/osteoarthritis -She status post right hip replacement and does need bilateral knee replacements -Continue with her home oxycodone DVT: Ambulation OBSV E&M: [id number] Initial observation care L2
[2021-01-14] MEDS: busPIRone 5 MG Tablet 10 MG PO (21:33)
[2021-01-14] MEDS: Metoprolol Tartrate 100 MG Tablet PO (21:33)
[2021-01-14] MEDS: Pravastatin 40 MG Tablet PO (21:33)
[2021-01-14] MEDS: traZODone 50 MG Tablet PO (21:33)
[2021-01-14] MEDS: hydrALAZINE 50 MG Tablet PO (21:34)
[2021-01-14 21:50] LABS: Bedside Glucose 132 mg/dL (70-110)
[2021-01-15] VITALS (7 sets, daily range): BP systolic 111–153; BP diastolic 66–95; PULSE 82–89; RESP 18; TEMP 36.6–37; O2SAT 96–98
--- NOTE | 2021-01-15 05:00 | EKG12_ITS ---
Test Reason : CP Blood Pressure : / mmHG Vent. Rate : 068 BPM Atrial Rate : 068 BPM P-R Int : 164 ms QRS Dur : 088 ms QT Int : 452 ms P-R-T Axes : 052 036 159 degrees QTc Int : 480 ms AGE AND GENDER SPECIFIC ECG ANALYSIS Normal sinus rhythm with sinus arrhythmia Left ventricular hypertrophy with repolarization abnormality ST elevation consider inferior injury or acute infarct Prolonged QT Confirmed by LEN CORTEZ, JACKIE ([id number]), primer expeditor and drier ALTAF SIMPSON ([id number]) on 01/19/2021 12:36:42 PM Referred By: ROSEANNA Confirmed By:JACKIE HARRINGTON MD
[2021-01-15 06:04] LABS: Absolute Lymphocyte Count 1.69 X10^3/uL (0.83-4.51); Absolute Neutrophil Count 2.1 X10^3/uL (2.0-7.7); Basophil# 0.05 X10^3/uL; Basophil% 1.1 % (0-1); Eosinophil# 0.09 X10^3/uL; Eosinophils% 2.1 % (0-5); Hematocrit 42.3 % (37-47); Hemoglobin 13.3 g/dL (12.0-15.0); Lymphocyte # 1.69 X10^3/ul (4.0); Lymphocyte % 38.7 % (19-41); Mean Corp Hgb Conc 31.4 g/dL (32-36); Mean Corpuscular Hgb 27.5 pg (27.0-32.0); Mean Corpuscular Volume 87.4 fL (81-99); Mean Platelet Vol. 9.7 fl (6.2-12.0); Monocyte# 0.41 X10^3/uL; Monocyte% 9.4 % (0-10); NRBC Flagged by Analyzer 0 % (0-5); Neutrophil # 2.12 X10^3/uL (2.7-7.7); Neutrophil % 48.5 % (47-70); Platelet Count 253 K/mm3 (150-450); RBC Distribution Width SD 47.8 fl (35.1-43.9); Red Blood Count 4.84 M/mm3 (4.2-5.4); White Blood Count 4.4 K/mm3 (4.4-11.0)
[2021-01-15] MEDS: busPIRone 5 MG Tablet 10 MG PO ×2 (06:17→15:08)
[2021-01-15] MEDS: hydrALAZINE 50 MG Tablet PO (06:17)
[2021-01-15] MEDS: Lisinopril 40 MG Tablet PO (06:18)
[2021-01-15 06:25] LABS: Bedside Glucose 158 mg/dL (70-110)
[2021-01-15 06:27] LABS: Anion Gap 6 (5-15); BUN 20 mg/dL (7-18); BUN/Creat Ratio 21.6 RATIO (10-20); Chloride 105 mmol/L (98-107); Cholesterol 183 mg/dL (200); Creatinine, Serum 0.92 mg/dL (0.55-1.02); EST Glomerular Filtration Rate 70 mL/min (>60); Est Glom Filt Rate - Afr Amer 84 mL/min (>60); Estimated Creatinine Clearance 68.75 ml/min; Glucose 149 mg/dL (74-106); High Density Lipoprotein 61 mg/dL; Potassium 4.1 mmol/L (3.5-5.1); Sodium Level 138 mmol/L (136-145); Triglycerides 136 mg/dL; Very Low Density Lipoprotein 27 mg/dL (5-40)
[2021-01-15] MEDS: hydroCHLOROthiazide 25 MG Tablet PO (08:45)
[2021-01-15] MEDS: Metoprolol Tartrate 100 MG Tablet PO (08:45)
[2021-01-15] MEDS: DULoxetine Hcl 30 MG Capsule PO (08:45)
[2021-01-15] MEDS: Spironolactone 50 MG Tablet PO (08:45)
[2021-01-15 09:06] LABS: Bedside Glucose 163 mg/dL (70-110)
[2021-01-15 11:20] LABS: Bedside Glucose 120 mg/dL (70-110)
--- NOTE | 2021-01-15 12:08 | STRESSREP ---
Stress Test Report Pharmacologic myocardial perfusion stress test. 45-year-old lady with a history of recently documented normal coronary arteries, chest pain, hypertension. Stress protocol: Resting EKG demonstrates normal sinus rhythm with a rate of 75 bpm. Diffuse T wave inversions are noted across the precordium. Resting blood pressure is 1 and 30/90 2 mmHg. 0.4 mg of regadenoson was infused per usual protocol followed by rapid intravenous saline flush injection continuous EKG monitoring was performed. The maximum heart rate attained was 111 bpm which was 63% of max impacted heart rate the maximum workload was 1 metabolic equivalent. At rest there were no ST or T wave changes noted to suggest abnormal flow reserve at peak infusion nonspecific ST-T wave changes were noted. The diffuse T wave inversions did persist. Myocardial perfusion protocol. 14.1 mCi of technetium 99m sestamibi was injected at rest. 0.4 mg of regadenoson was infused per usual protocol. At peak infusion 44.3 mCi of technetium 99m sestamibi was injected. Stress images were obtained stress and rest images were reconstructed and compared in the short axis vertical long horizontal long axis. Gated images were also obtained Perfusion SPECT analysis: Review of the images demonstrate normal uptake of tracer noted in all areas of the myocardium the resting images similarly demonstrate normal uptake of tracer in all areas of the myocardium. No areas of reversibility are noted suggest ischemia no previous infarct is noted. Gated SPECT analysis: The gated ejection fraction is 34%. Conclusion: Normal pharmacologic myocardial perfusion stress test. Mild to moderate cardiomyopathy present.
[2021-01-15] MEDS: DiphenhydrAMINE 12.5 MG/5 ML UDC PO (12:20)
--- NOTE | 2021-01-15 12:51 | ECHOCS_ITS ---
Version 2 Reason For Study: CARDIOMYOPATHY Procedure This was a 2D Doppler, Color Flow transthoracic echocardiogram. The study was technically difficult. Due to body habitus. Contrast injection was performed. Left Ventricle Normal LV size. Severe concentric left ventricular hypertrophy. Left ventricular systolic function is normal. The estimated ejection fraction is 70 %. No regional wall motion abnormalities noted. Right Ventricle Normal RV size. Normal systolic function. Atria The left atrium is mildly enlarged. The right atrium is mildly enlarged. Mitral Valve There is mild mitral annular calcification. Tricuspid Valve Normal tricuspid valve. Aortic Valve The aortic valve is not well visualized. Great Vessels Normal aortic root. The pulmonary artery is normal size. Normal inferior vena cava. Pericardium/Pleural No pericardial effusion. Medication Diluted definity 2.0ml given slow IV push to enhance endocardial definition. MMode/2D Measurements & Calculations LVIDd: 3.7 cm IVSd: 1.6 cm LVOT diam: 1.9 cm LVIDs: 2.7 cm LVPWd: 1.6 cm LVOT area: 2.8 cm2 RVDd: 3.5 cm FS: 25.9 % Ao root diam: 2.5 cm LAV(MOD-bp): 44.9 ml LA A4 area: 14.9 cm2 LAV(MOD-bp) Indexed: 21.7 ml/m2 LAV(MOD-sp2): 45.4 ml LAV(MOD-sp4): 45.3 ml LA dimension(2D): 3.1 cm RA A4 area: 10.2 cm2 Doppler Measurements & Calculations MV E max jarad: 83.7 cm/sec Lat Peak E' Jaard: 7.2 cm/sec Med Peak E' Jarad: 5.6 cm/sec MV A max jarad: 95.1 cm/sec E/E' lat: 11.6 E/E' med: 15.1 MV E/A: 0.88 Ao V2 max: 212.9 cm/sec LV V1 max: 131.9 cm/sec SV(LVOT): 68.8 ml Ao max P.1 mmHg LV V1 max P.0 mmHg Ao V2 mean: 138.2 cm/sec LV V1 mean P.0 mmHg Ao mean P.8 mmHg LV V1 mean: 96.8 cm/sec Ao V2 VTI: 31.7 cm LV V1 VTI: 24.2 cm ASHLEY(I,D): 2.2 cm2 ASHLEY(V,D): 1.8 cm2 PA V2 max: 83.4 cm/sec Interpretation Summary Normal LV size. Severe concentric left ventricular hypertrophy. Left ventricular systolic function is normal. The estimated ejection fraction is 70 %. Contrast injection was performed. Compared to prior study, there is no significant change. Ordering Physician: Shalom Gale Referring Physician: Bebeto Charlton Performed By: Alicia Day, LUIS, RVT
--- NOTE | 2021-01-15 16:22 | DCINST_ITS ---
- Discharge Diagnoses Current Active Problems: Current Active and Chronic Problems (Last Reviewed 08/11/20 @ 13:52 by Elicia RING, PA) History of diabetes mellitus (Acute) Exertional chest pain (Acute) Dyspnea on exertion (Acute) Benign essential hypertension (Chronic) HLD (hyperlipidemia) (Chronic) You will use the following diet at home:: Calorie/Carbohydrate Controlled (specify 1200, 1400, etc), Cardiac Your food should be the consistency of: Regular Your liquids should be the consistency of: Regular/Thin Discharge Activity: Return to Normal Activity Call your doctor if you observe: Fever of 101 or Higher, Shortness of breath, Dizziness, Fainting spells, Swelling in the ankles, Chest pain, Increased palpitations (irregular heartbeat) Allergies/Adverse Reactions: Allergies Penicillins Allergy (Verified 01/14/21 08:43) Hives metformin Adverse Reaction (Verified 01/14/21 08:43) Diarrhea venlafaxine [From Effexor] Adverse Reaction (Verified 01/14/21 08:43) Upset Stomach Medications to take at Discharge Tizanidine HCl [Zanaflex] 4 mg PO QHS 05/07/18 Albuterol Inhaler [Ventolin Hfa] 2 puff INHALATION Q4H PRN PRN 09/27/19 Fluticasone Propionate 2 spray NS DAILY PRN 09/27/19 Cholecalciferol (Vitamin D3) [Vitamin D3] 2,000 unit PO DAILY 10/04/19 Glimepiride 2 mg PO BID 10/04/19 Multivitamin [Daily Multiple Vitamin] 1 ea PO DAILY 10/04/19 Hydrochlorothiazide [Hctz] 25 mg PO DAILY #30 tab 10/07/19 busPIRone [Buspar] 10 mg PO TID 01/15/20 spironolactone 50 mg tablet 50 mg PO DAILY #90 tab 05/07/20 lisinopril 40 mg tablet 40 mg PO DAILY #30 tab 11/17/20 hydralazine 50 mg tablet 50 mg PO BID #60 tab 11/26/20 Cetirizine HCl [All Day Allergy] 10 mg PO DAILY 12/22/20 Duloxetine HCl 30 mg PO DAILY 12/22/20 Insulin Lispro [Humalog] 5 unit SC DAILY 12/22/20 Liraglutide [Victoza 2-Pravin] 1.2 ml SQ DAILY 12/22/20 Ondansetron [Zofran Odt] 4 mg PO Q8H PRN PRN #10 tab 12/22/20 Pravastatin [Pravachol] 40 mg PO DAILY 12/22/20 Trazodone HCl 50 mg PO QHS 12/22/20 metoprolol tartrate 100 mg tablet 100 mg PO BID #180 tab 12/30/20 Oxycodone HCl 15 mg PO TID PRN 01/14/21 Primary Care Physician: Bebeto Charlton DO [Primary Care Provider] - Please follow up with your Primary Care Physician in: 3-5 days Test Results: Test results from this visit will be discussed in further detail at your follow- up appointment, if applicable. Please Follow Up With: Cardiology When: 4-6 weeks
--- NOTE | 2021-01-15 16:25 | PCM.DC.SUM ---
Discharge Date and Diagnosis - Problem List Patient Problems: Active and Suspected Problems (Last Reviewed 08/11/20 @ 13:52 by Elicia RING PA) History of diabetes mellitus (Acute) Exertional chest pain (Acute) Dyspnea on exertion (Acute) Date of Admission: 01/14/21 Date of Discharge: 01/15/21 - Primary Discharge Diagnosis Acute Problems: Active Problems (Last Reviewed 08/11/20 @ 13:52 by Elicia RING PA) History of diabetes mellitus (Acute) Exertional chest pain (Acute) Dyspnea on exertion (Acute) - Secondary Discharge Diagnosis Chronic Problems: Chronic Problems (Last Reviewed 08/11/20 @ 13:52 by Elicia RING, PA) Benign essential hypertension (Chronic) HLD (hyperlipidemia) (Chronic) Hospital Course and Treatment Imaging Results: Stress Test Report Pharmacologic myocardial perfusion stress test. 45-year-old lady with a history of recently documented normal coronary arteries, chest pain, hypertension. Stress protocol: Resting EKG demonstrates normal sinus rhythm with a rate of 75 bpm. Diffuse T wave inversions are noted across the precordium. Resting blood pressure is 1 and 30/90 2 mmHg. 0.4 mg of regadenoson was infused per usual protocol followed by rapid intravenous saline flush injection continuous EKG monitoring was performed. The maximum heart rate attained was 111 bpm which was 63% of max impacted heart rate the maximum workload was 1 metabolic equivalent. At rest there were no ST or T wave changes noted to suggest abnormal flow reserve at peak infusion nonspecific ST-T wave changes were noted. The diffuse T wave inversions did persist. Myocardial perfusion protocol. 14.1 mCi of technetium 99m sestamibi was injected at rest. 0.4 mg of regadenoson was infused per usual protocol. At peak infusion 44.3 mCi of technetium 99m sestamibi was injected. Stress images were obtained stress and rest images were reconstructed and compared in the short axis vertical long horizontal long axis. Gated images were also obtained Perfusion SPECT analysis: Review of the images demonstrate normal uptake of tracer noted in all areas of the myocardium the resting images similarly demonstrate normal uptake of tracer in all areas of the myocardium. No areas of reversibility are noted suggest ischemia no previous infarct is noted. Gated SPECT analysis: The gated ejection fraction is 34%. Conclusion: Normal pharmacologic myocardial perfusion stress test. Mild to moderate cardiomyopathy present. Echo: Interpretation Summary Normal LV size. Severe concentric left ventricular hypertrophy. Left ventricular systolic function is normal. The estimated ejection fraction is 70 %. Contrast injection was performed. Compared to prior study, there is no significant change. Operations: None Procedures: 2-D Echocardiogram, Nuclear stress test Summary of Care Provided: Per HPI: The patient is a 45 year old F with a PMH as below who presents to the hospital with chest pressure. She has been dealing with shortness of breath and intermittent chest tightness/chest pressure for several years now. She had a cardiac cath done in September 2019 which was completely negative with normal coronaries. Since then she has been following up as an outpatient for this shortness of breath as well as fatigue and GI upset with nausea and vomiting. The nausea and vomiting is being worked up as an outpatient with what sounds like right upper quadrant ultrasound and splenic ultrasound. Initially were going to try to get a stress echo today and if normal be able to discharge her however she has severe osteoarthritis with [id number] in her knee and she was unable to exercise and given her severe eccentric left ventricular hypertrophy, she is not a candidate for dobutamine stress therefore she will plan for nuclear stress in the morning. Troponins x3 are unremarkable and her EKG is nonischemic. Hospital Course: 1. Chest pressure/tightness/HTN/HLD/hypertrophic [id number]old female with an extensive cardiac history with severe hypertension and hypertrophic cardiomyopathy presents to the hospital with chest pressure and tightness has been going on for several years however it became worse fairly recently and she gets short of breath fairly quickly. 3 troponins were negative, her EKG was unremarkable. She was unable to do an exercise stress echo therefore she was kept overnight for a nuclear stress test which was unremarkable except for a EF of 34%, unfortunately stress test did not have the most accurate EF therefore she had an echo today which demonstrated an EF of 70% and her echo remained unchanged from her prior echo. Discussed the plan for discharge today and she expressed understanding of the risks and benefits of going home and would like to go home today. 2. Morbid obesity, type 2 diabetes, asthma, anxiety, depression, chronic pain, osteoarthritis her chronic medical conditions which complicate her care. Her home medications were continued where appropriate. Patient Problems: Active and Suspected Problems (Last Reviewed 08/11/20 @ 13:52 by Elicia RING, PA) History of diabetes mellitus (Acute) Exertional chest pain (Acute) Dyspnea on exertion (Acute) - Physical Exam Vitals/I&O's: Vital Signs Temp Pulse Resp BP Pulse Ox 98.0 F 89 18 135/89 H 98 01/15/21 14:40 01/15/21 14:40 01/15/21 14:40 01/15/21 14:40 01/15/21 14:40 Oxygen Delivery Method Room Air Weight: 223 lb 11.2 oz Body Mass Index (BMI) 37.2 Finger Stick Blood Glucose 89 Intake and Output for Last 24 Hours 01/13/21 01/14/21 01/15/21 23:59 23:59 23:59 Intake Total 960 / 960 765 / 765 Output Total Balance 959 / 959 765 / 765 General: Alert, Oriented x3, Cooperative, No apparent distress HEENT: Atraumatic, PERRLA, EOMI, Normocephalic Oral: Moist Mucosa Neck: Supple, No JVD Lungs: Clear to auscultation, Normal air movement, No rhonchi, No wheeze, No rales Cardiovascular: Regular rate, Regular Rhythm, Normal S1, Normal S2, Murmur Abdomen: Soft, Non Tender, Non-Distended, No Hepato-splenomegaly Extremities: No edema, Capillary Refill Less than 3 Seconds Skin: No rashes, No breakdown Neurological: Neuro grossly intact, Sensory exam intact to light touch and pain Psych/Mental Status: Normal Affect, Appropriate Laboratory Results 01/14/21 21:30: POC Glucose 132 H 01/15/21 05:44: WBC 4.4, RBC 4.84, Hgb 13.3, Hct 42.3, MCV 87.4, MCH 27.5, MCHC 31.4 L, RDW Std Deviation 47.8 H, RDW Coeff of Moe 15.0 H, Plt Count 253, MPV 9.7, Immature Gran % (Auto) 0.200, Neut % (Auto) 48.5, Lymph % (Auto) 38.7, Hale % (Auto) 9.4, Eos % (Auto) 2.1, Baso % (Auto) 1.1 H, Absolute Neuts (auto) 2.1, Absolute Lymphs (auto) 1.69, Nucleated RBC % 0 01/15/21 05:44: Sodium 138, Potassium 4.1, Chloride 105, Carbon Dioxide 27.0, Anion Gap 6, BUN 20 H, Creatinine 0.92, Estim Creat Clear Calc 68.75, Est GFR (MDRD) Af Amer 84, Est GFR (MDRD) Non-Af 70, BUN/Creatinine Ratio 21.6 H, Glucose 149 H, Calcium 9.0, Triglycerides 136, Cholesterol 183, LDL Cholesterol 95, VLDL Cholesterol 27, HDL Cholesterol 61 01/15/21 06:14: POC Glucose 158 H 01/15/21 08:55: POC Glucose 163 H 01/15/21 11:16: POC Glucose 120 H Current Medications Acetaminophen (Acetaminophen 325 Mg Tablet) 650 mg PO Q6H PRN PRN PRN Reason: Pain Score 1-10/Temp > 100.7 F Albuterol Sulfate (Albuterol 2.5 Mg/3 Ml Vial.Neb.) 2.5 mg INHALATION Q4H PRN PRN PRN Reason: SOB &/OR WHEEZING Buspirone HCl (Buspirone 5 Mg Tablet) 10 mg PO TID [facility] Last Admin: 01/15/21 15:08 Dose: 10 mg Documented by: Dextrose (Dextrose 50%-Water 25 Gm/50 Ml Disp.Syrin) 0 gm IV X1 PRN; Protocol PRN Reason: Hypoglycemia Duloxetine HCl (Duloxetine Hcl 30 Mg Capsule) 30 mg PO DAILY [facility] Last Admin: 01/15/21 08:45 Dose: 30 mg Documented by: Glucagon (Glucagon 1 Mg/Ml Syringe) 1 mg IM .X1 PRN PRN Reason: Hypoglycemia Hydralazine HCl (Hydralazine 50 Mg Tablet) 50 mg PO BID [facility] Last Admin: 01/15/21 06:17 Dose: 50 mg Documented by: Hydrochlorothiazide (Hydrochlorothiazide 25 Mg Tablet) 25 mg PO DAILY [facility] Last Admin: 01/15/21 08:45 Dose: 25 mg Documented by: Insulin Human Lispro (Insulin Lispro 100 Unit/Ml Insuln.Pen) [facility] Last Admin: 01/15/21 09:13 Dose: Not Given Documented by: Insulin Human Lispro (Insulin Lispro 100 Unit/Ml Insuln.Pen) 0 unit SC ACHS [facility]; Protocol Last Admin: 01/15/21 11:38 Dose: Not Given Documented by: Lisinopril (Lisinopril 40 Mg Tablet) 40 mg PO DAILY [facility] Last Admin: 01/15/21 06:18 Dose: 40 mg Documented by: Melatonin (Melatonin 3 Mg Tablet) 3 mg PO QHS PRN PRN PRN Reason: INSOMNIA Metoprolol Tartrate (Metoprolol Tartrate 100 Mg Tablet) 100 mg PO BID [facility] Last Admin: 01/15/21 08:45 Dose: 100 mg Documented by: Nitroglycerin (Nitroglycerin (Inpatient Use) 0.4 Mg Tab.Subl) 0.4 mg SUBLINGUAL Q5M PRN PRN Reason: CARDIAC/CHEST PAIN Ondansetron HCl (Ondansetron 4 Mg/2 Ml Vial) 4 mg IV Q8H PRN PRN PRN Reason: NAUSEA/VOMITING Ondansetron HCl (Ondansetron Odt 4 Mg Tablet) 4 mg PO Q8H PRN PRN PRN Reason: NAUSEA Oxycodone HCl (Oxycodone Cr 15 Mg Tablet) 15 mg PO TID PRN PRN Reason: PAIN 1-10 Pravastatin Sodium (Pravastatin 40 Mg Tablet) 40 mg PO QHS [facility] Last Admin: 01/14/21 21:33 Dose: 40 mg Documented by: Spironolactone (Spironolactone 50 Mg Tablet) [facility] Last Admin: 01/15/21 08:45 Dose: 50 mg Documented by: Trazodone HCl (Trazodone 50 Mg Tablet) 50 mg PO QHS [facility] Last Admin: 01/14/21 21:33 Dose: 50 mg Documented by: Discharge Activity: Return to Normal Activity Call your doctor if you observe: Fever of 101 or Higher, Shortness of breath, Dizziness, Fainting spells, Swelling in the ankles, Chest pain, Increased palpitations (irregular heartbeat) Home Medications: Medications to take at Discharge Tizanidine HCl [Zanaflex] 4 mg PO QHS 05/07/18 Albuterol Inhaler [Ventolin Hfa] 2 puff INHALATION Q4H PRN PRN 09/27/19 Fluticasone Propionate 2 spray NS DAILY PRN 09/27/19 Cholecalciferol (Vitamin D3) [Vitamin D3] 2,000 unit PO DAILY 10/04/19 Glimepiride 2 mg PO BID 10/04/19 Multivitamin [Daily Multiple Vitamin] 1 ea PO DAILY 10/04/19 Hydrochlorothiazide [Hctz] 25 mg PO DAILY #30 tab 10/07/19 busPIRone [Buspar] 10 mg PO TID 01/15/20 spironolactone 50 mg tablet 50 mg PO DAILY #90 tab 05/07/20 lisinopril 40 mg tablet 40 mg PO DAILY #30 tab 11/17/20 hydralazine 50 mg tablet 50 mg PO BID #60 tab 11/26/20 Cetirizine HCl [All Day Allergy] 10 mg PO DAILY 12/22/20 Duloxetine HCl 30 mg PO DAILY 12/22/20 Insulin Lispro [Humalog] 5 unit SC DAILY 12/22/20 Liraglutide [Victoza 2-Pravin] 1.2 ml SQ DAILY 12/22/20 Ondansetron [Zofran Odt] 4 mg PO Q8H PRN PRN #10 tab 12/22/20 Pravastatin [Pravachol] 40 mg PO DAILY 12/22/20 Trazodone HCl 50 mg PO QHS 12/22/20 metoprolol tartrate 100 mg tablet 100 mg PO BID #180 tab 12/30/20 Oxycodone HCl 15 mg PO TID PRN 01/14/21 Primary Care Physician: Bebeto Charlton DO [Primary Care Provider] - Please follow up with your Primary Care Physician in: 3-5 days Please Follow Up With: Cardiology When: 4-6 weeks Disposition: Home Minutes spent on discharge:: 35 Patient Condition:: Stable Medical Necessity - Tobacco Use Smoking Status: Never smoker Tobacco Use: Secondhand Meaningful Use Info Meaningful Use Diagnoses (Choose all that apply): None applicable OBSV E&M: 07535 Observation care discharge
== END 2021-01-15 16:22 | disposition home or self-care (01) ==
LOC: ED 09:40 → PCU 10:02
PROVIDERS: Admitting Provider Family Medicine; Emergency Provider Emergency Medicine; PCP Student in an Organized Health Care Education/Training Program; Visit Provider Family Medicine
DX: R07.89 Other chest pain (principal); R06.09 Other forms of dyspnea; E11.9 Type 2 diabetes mellitus without complications; I10 Essential (primary) hypertension; E78.5 Hyperlipidemia, unspecified; I25.2 Old myocardial infarction; R11.2 Nausea with vomiting, unspecified; M19.90 Unspecified osteoarthritis, unspecified site; G89.4 Chronic pain syndrome; E66.01 Morbid (severe) obesity due to excess calories; J45.909 Unspecified asthma, uncomplicated; Z79.899 Other long term (current) drug therapy; Z79.4 Long term (current) use of insulin; Z68.37 Body mass index [BMI] 37.0-37.9, adult; F32.9 Major depressive disorder, single episode, unspecified; F41.9 Anxiety disorder, unspecified
CPT/HCPCS: 36415; 71045; 78452; 80048; 80061; 82962; 84484; 85025; 93005; 93017; 93306; 99218; 99285; A9500; Q9957; A4216; C8929; G0378; J2785

== ENCOUNTER 2021-01-17 14:19 | Emergency (ER) | payer MEDICAID, SELFPAY ==
[2021-01-14 10:31] VITALS: BMI 37.2
[2021-01-17 14:20] VITALS: BP 100/70; PULSE 75; RESP 18; TEMP 35.3; O2SAT 94; BMI 36.6
--- NOTE | 2021-01-17 14:42 | ED.VIS.GEN ---
History of Present Illness Chief Complaint: Sore Throat Informant: Patient Onset: Today Current Severity: Mild Maximum Severity: Mild Narrative: Patient presents with sore throat that started earlier today. She also had some mild left ear pain. She denies fever. She states has not felt well in general over the past 8 weeks. Her doctor has been running some tests. - Past Medical History (1) Asthma Status: Chronic (2) History of diabetes mellitus Status: Chronic (3) Benign essential hypertension Status: Chronic (4) HLD (hyperlipidemia) Status: Chronic Past Medical History - Allergies and Home Meds Allergies/Adverse Reactions: Allergies Penicillins Allergy (Verified 01/17/21 14:20) Hives metformin Adverse Reaction (Verified 01/17/21 14:20) Diarrhea venlafaxine [From Effexor] Adverse Reaction (Verified 01/17/21 14:20) Upset Stomach Primary Care Physician: Bebeto Charlton DO [Primary Care Provider] - Prior records reviewed: Yes Surgical History: - - Normal cardiac catheterization Lives: With Family Smoking Status: Never smoker - Family History Maternal Family History: Family History (Last Reviewed 08/11/20 @ 13:52 by Elicia RING, PA) Mother Heart disease Hypertension Diabetes Family History: Reports: Diabetes, Heart Disease, Hypertension, - Paternal Family History: Family History (Last Reviewed 08/11/20 @ 13:52 by Elicia RING, PA) Mother Heart disease Hypertension Diabetes Family History: Reports: - - unkown father side history Review of Systems General: Reports: Chills. Denies: Fever Eyes: Denies: Visual changes - bilaterally ENT: Reports: Left ear pain, Sore throat Cardiovascular: Denies: Chest pain Respiratory: Denies: Dyspnea, Cough Gastrointestinal: Denies: Abdominal pain, Nausea, Vomiting Genitourinary: Denies: Dysuria Musculoskeletal: Denies: Swelling, Extremity Pain Skin: Denies: Rash Neurological: Denies: Headache Hematologic: Denies: Easy bruising, Easy bleeding Allergy: Denies: Uticaria Physical Exam Vital Signs/Narrative: Vital Signs Temp Pulse Resp BP Pulse Ox 01/17/21 14:20 95.6 F L 75 18 100/70 94 Inital Vital Signs reviewed: Yes General: Well nourished, Well developed Head: Normocephalic Eyes: Perrl, EOMI ENT: Moist mucous membranes, - - Left TM clear. Right TM clear, but cerumen is noted in the external canal. Posterior pharynx examination reveals 2+ tonsils with mild erythema. Uvula midline. Neck: Supple Cardiovascular: Regular rate, Regular rhythm Respiratory: No distress, CTA bilaterally Abdomen: Soft, Nontender, Normal bowel sounds Back: Nontender Extremities: Nontender Skin: Normal color, No rash Neurological: Alert, Oriented x3, Normal Strength, Normal Sensation Psychological: Normal affect Diagnostic/Tx/Re-eval 01/17/21 14:50 Mucosa - Nose SARS-CoV-2 Antigen (Rapid) - Final 01/17/21 14:40 Mucosa - Throat Group A Streptococcus Rapid Screen - Preliminary - Medical Decision Making Covid and rapid strep tests are obtained and negative. Test results discussed with patient at bedside. I did advise her that I believe her symptoms are likely a viral URI. Supportive care is discussed. Patient is comfortable with this plan. ED Disposition - Plan for ED Patient: Disposition: Home or Assisted Living Diagnosis: Viral URI Instructions: ED URI, Viral, No Abx (Adult) Referrals: Bebeto Charlton, [Primary Care Provider] - 1 Week if not improving
[2021-01-17 16:03] VITALS: BP 112/62; PULSE 62; RESP 16; O2SAT 98
== END 2021-01-17 16:04 | disposition home or self-care (01) ==
PROVIDERS: Emergency Provider Emergency Medicine; PCP Student in an Organized Health Care Education/Training Program
DX: J06.9 Acute upper respiratory infection, unspecified (principal); I10 Essential (primary) hypertension; E11.9 Type 2 diabetes mellitus without complications; E78.5 Hyperlipidemia, unspecified; J45.909 Unspecified asthma, uncomplicated; Z79.4 Long term (current) use of insulin; Z79.899 Other long term (current) drug therapy
CPT/HCPCS: 87426; 87880; 99283

== ENCOUNTER 2021-01-28 16:37 | Emergency (ER) | payer MEDICAID, SELFPAY ==
[2021-01-28 16:38] VITALS: BP 130/80; PULSE 72; RESP 16; TEMP 35.8; O2SAT 99; BMI 36.6
[2021-01-28 16:45] VITALS: PULSE 76; RESP 17; O2SAT 97
--- NOTE | 2021-01-28 17:09 | EKG12_ITS ---
Test Reason : Blood Pressure : / mmHG Vent. Rate : 061 BPM Atrial Rate : 061 BPM P-R Int : 180 ms QRS Dur : 084 ms QT Int : 414 ms P-R-T Axes : 044 056 184 degrees QTc Int : 416 ms Normal sinus rhythm Left ventricular hypertrophy with repolarization abnormality Abnormal ECG Confirmed by LEN CORTEZ, JACKIE ([id number]), editorial writer ALTAF SIMPSON ([id number]) on 02/01/2021 10:32:09 AM Referred By: INGA Confirmed By:JACKIE HARRINGTON MD
--- NOTE | 2021-01-28 17:09 | ED.VISSUMM ---
- ER Visit Summary Date of Service: 01/28/21 Chief Complaint: Generalized weakness History of Present Illness: The patient is a 45 F 3 of insulin-dependent diabetes, hypertension, high cholesterol, obesity patient states she had an [place] at age 20 but never had a cardiac catheterization at that time. States she had a recent cardiac catheterization and did not have any significant blockage. She is also had a right hip replacement. Said today she just felt weak all over. Said she felt like she was falling but she was not actually falling nor did she fall. She denies any nausea vomiting diarrhea or fever. Denies any dysuria or melena. Denies any headache, chest pain or shortness of breath. No abdominal pain. States when this occurred her blood pressure was 82/60 but now is back to normal. Physical Examination: Well-appearing middle-aged female vital signs stable and afebrile. Current blood pressure 130/80. Patient does not look septic or toxic. She is resting comfortably in bed. HEENT exam unremarkable. Pupils round reactive light extra muscles are intact. Moist with membranes. No facial droop. Normal speech. Neck nontender no lymphadenopathy. Lungs clear to auscultation bilaterally. Heart regular rhythm rate about 70 no murmur. Abdomen soft nontender normal bowel sounds no peritoneal signs. Obese. Patient moving all 4 extremities. Neurovascular intact. 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 Dorsi plantarflexion intact. Fingertip to nose within normal limits. Neurologic exam normal NIH score of 0. Normal motor strength bilaterally. Normal speech. Test Results: EKG normal sinus rhythm rate of 61 diffusely inverted T waves but seen on prior EKG from 01/15/2021. No change. White count of 4 hemoglobin 13. No bands. Chemistries unremarkable gap of 4. BUN 28 creatinine 1.32 markable. Orthostatic vital signs negative. Enrike exam patient is doing well at 7:41 PM. We went over her test results. She will be discharged home. Emergency Department Course and Treatment: Middle-aged diabetic felt generally weak. Her exam is unremarkable. We will check screening labs and an EKG. Treatment Plan: Plenty of fluids and rest. Follow-up with your primary care physician. Return if worse. Disposition: Discharge Impression: Acute generalized weakness History of diabetes, hypertension high cholesterol This note was generated with [employer] dictation software. It may contain incorrect words, spelling, and punctuation that were not noted in review of the chart prior to signing ED Disposition - Plan for ED Patient: Referrals: Bebeto Charlton DO [Primary Care Provider] -
[2021-01-28 17:39] LABS: Absolute Lymphocyte Count 1.86 X10^3/uL (0.83-4.51); Absolute Neutrophil Count 2.2 X10^3/uL (2.0-7.7); Basophil# 0.04 X10^3/uL; Basophil% 0.9 % (0-1); Eosinophil# 0.13 X10^3/uL; Eosinophils% 2.9 % (0-5); Hemoglobin 13.7 g/dL (12.0-15.0); Lymphocyte # 1.86 X10^3/ul (4.0); Lymphocyte % 40.9 % (19-41); Mean Corp Hgb Conc 31.1 g/dL (32-36); Mean Corpuscular Hgb 27.2 pg (27.0-32.0); Mean Corpuscular Volume 87.5 fL (81-99); Mean Platelet Vol. 10.1 fl (6.2-12.0); Monocyte# 0.35 X10^3/uL; Monocyte% 7.7 % (0-10); NRBC Flagged by Analyzer 0 % (0-5); Neutrophil # 2.16 X10^3/uL (2.7-7.7); Neutrophil % 47.4 % (47-70); Platelet Count 241 K/mm3 (150-450); RBC Distribution Width CV 15.2 % (11.6-14.6); RBC Distribution Width SD 49.1 fl (35.1-43.9); Red Blood Count 5.03 M/mm3 (4.2-5.4); White Blood Count 4.6 K/mm3 (4.4-11.0)
[2021-01-28 17:44] VITALS: BP 107/66; BP 145/104; BP 152/102; PULSE 62; PULSE 68; PULSE 73
[2021-01-28 18:01] LABS: ALB/GLOB Ratio 0.9 RATIO (0.9-2.4); AST(SGOT) 20 U/L (15-37); Alanine Aminotransfer ALT/SGPT 27 U/L (13-56); Albumin, Serum 3.8 g/dL (3.2-5.0); Alkaline Phosphatase 118 U/L (45-117); Anion Gap 4 (5-15); BUN 28 mg/dL (7-18); BUN/Creat Ratio 21.2 RATIO (10-20); Chloride 104 mmol/L (98-107); Creatinine, Serum 1.32 mg/dL (0.55-1.02); EST Glomerular Filtration Rate 46 mL/min (>60); Est Glom Filt Rate - Afr Amer 56 mL/min (>60); Estimated Creatinine Clearance 47.92 ml/min; Globulin 4.1 g/dL (2.2-4.2); Glucose 150 mg/dL (74-106); Potassium 4.2 mmol/L (3.5-5.1); Protein, Total 7.9 g/dL (6.4-8.2); Sodium Level 137 mmol/L (136-145)
[2021-01-28 18:28] VITALS: BP 129/84; PULSE 75; RESP 16; O2SAT 99
[2021-01-28 19:04] VITALS: BP 124/85; PULSE 77; RESP 14; O2SAT 99
--- NOTE | 2021-01-28 19:45 | ED.DEP ---
ED Disposition - Plan for ED Patient: Disposition: Home or Assisted Living Instructions: ED Weakness (Uncertain Cause) Referrals: Bebeto Charlton DO [Primary Care Provider] - 3-5 Days if not improving Additional Instructions: Plenty of fluids and rest. Your labs today were unremarkable. Follow-up with your doctor if not improving. Return if feeling worse.
[2021-01-28 19:57] VITALS: BP 122/72; PULSE 79; RESP 18; O2SAT 97
== END 2021-01-28 19:58 | disposition home or self-care (01) ==
PROVIDERS: Emergency Provider Emergency Medicine; PCP Student in an Organized Health Care Education/Training Program
DX: R53.1 Weakness (principal); E66.9 Obesity, unspecified
CPT/HCPCS: 80053; 85025; 93005; 99285; A4216

== ENCOUNTER 2021-03-05 18:09 | Emergency (ER) | payer MEDICAID, SELFPAY ==
[2021-02-04 15:59] VITALS: BMI 35.9
[2021-03-05 18:10] VITALS: BP 158/84; PULSE 112; RESP 17; TEMP 36.6; BMI 36.1
--- NOTE | 2021-03-05 18:38 | ED.DCSUM_ITS ---
History of Present Illness Chief Complaint: Flank Pain Informant: Patient Narrative: 45-year-old female presents with right flank pain and concern for kidney stones. She tells me that she recently saw her doctor had some blood and urine work performed. The urine showed evidence of microscopic hematuria and calcium oxalate crystals. She presents here today concerned that she may be passing a stone. She notes pain in the midline of her lumbar back and in the right flank. She states that she has generalized arthralgias for multiple reasons. She denies any known kidney issues. No fevers. No dysuria. - Past Medical History (1) Asthma Status: Chronic (2) Benign essential hypertension Status: Chronic (3) HLD (hyperlipidemia) Status: Chronic (4) History of diabetes mellitus Status: Chronic Past Medical History - Allergies and Home Meds Allergies/Adverse Reactions: Allergies Penicillins Allergy (Verified 03/05/21 18:10) Hives metformin Adverse Reaction (Verified 03/05/21 18:10) Diarrhea venlafaxine [From Effexor] Adverse Reaction (Verified 03/05/21 18:10) Upset Stomach Primary Care Physician: Bebeto Charlton DO [Primary Care Provider] - Surgical History: - - Normal cardiac catheterization Lives: With Family Smoking Status: Never smoker Drugs: None - Family History Maternal Family History: Family History (Last Reviewed 02/04/21 @ 16:[address] Louie Sanchez MD) Mother Heart disease Hypertension Diabetes Family History: Reports: Diabetes, Heart Disease, Hypertension, - Paternal Family History: Family History (Last Reviewed 02/04/21 @ 16:[address] Louie Sanchez MD) Mother Heart disease Hypertension Diabetes Family History: Reports: - - unkown father side history Review of Systems General: Denies: Chills, Fever, Sweats Eyes: Denies: Visual changes - bilaterally, Diplopia ENT: Denies: Rhinorrhea, Sore throat Cardiovascular: Denies: Chest pain, Palpitations Respiratory: Denies: Dyspnea, Cough, Dyspnea on exertion Gastrointestinal: Denies: Abdominal pain, Nausea, Vomiting, Diarrhea, Melena, Hematochezia Genitourinary: Denies: Dysuria, Hematuria, Frequency Musculoskeletal: Reports: Arthralgias, Back pain. Denies: Extremity Pain Skin: Denies: Rash, Wounds Neurological: Denies: Headache, Weakness, Numbness Physical Exam Vital Signs/Narrative: Vital Signs Temp Pulse Resp BP 03/05/21 18:10 97.8 F 112 H 17 158/84 H Inital Vital Signs reviewed: Yes General: Well nourished, Well developed, No Acute Distress Head: Normocephalic, Atraumatic Eyes: Perrl, EOMI ENT: Moist mucous membranes, No rhinorrhea Neck: Supple, Nontender Cardiovascular: Regular rate, Regular rhythm, No murmurs Respiratory: No distress, CTA bilaterally, Chest nontender Abdomen: Soft, Nontender, Nondistended, Normal bowel sounds Back: - - Tender to palpation of the lumbar paraspinal musculature and right flank Extremities: Nontender, No edema Skin: Normal color, No rash Neurological: Alert, Oriented x3, Cranial nerves II-XII grossly intact, Normal Strength, Normal Sensation Psychological: Normal affect, Normal Mood Diagnostic/Tx/Re-eval Clinical Impression(s) from Imaging Studies Abdomen/Pelvis CT 03/05/21 20:05 IMPRESSION: Punctate nonobstructing stone seen in the right mid kidney. No hydronephrosis. Grade 2 anterolisthesis L5 on S1. Small fat-containing supraumbilical hernia. Electronically Signed: Noah Goel MD at 20:29 EDT Tel , Service support , Laboratory Last Values Urine Color Yellow (Yellow) 03/05/21 18:43 Urine Clarity Clear (Clear) 03/05/21 18:43 Urine pH 5.0 (5.0 - 8.0) 03/05/21 18:43 Ur Specific [place] 1.025 (1.002-1.030) 03/05/21 18:43 Urine Protein 15 mg/dl (Negative) H 03/05/21 18:43 Urine Glucose (UA) Normal mg/dl (Normal) 03/05/21 18:43 Urine Ketones 5 mg/dl (Negative) H 03/05/21 18:43 Urine Occult Blood Negative /ul (Negative) 03/05/21 18:43 Urine Nitrite Negative (Negative) 03/05/21 18:43 Urine Bilirubin Negative mg/dL (Negative) 03/05/21 18:43 Urine Urobilinogen Normal mg/dl (Normal) 03/05/21 18:43 Ur Leukocyte Esterase 25 /ul (Negative) H 03/05/21 18:43 Urine RBC 0 SEEN /hpf (0-5) 03/05/21 18:43 Urine WBC 0-5 SEEN /hpf (0-5) 03/05/21 18:43 Ur Squamous Epith Cells 0-5 SEEN /hpf (5-10) 03/05/21 18:43 Urine Bacteria RARE /hpf (None Seen) 03/05/21 18:43 Hyaline Casts 0-5 SEEN /lpf (0-5) 03/05/21 18:43 Urine Mucus 1+ /hpf (<or=2+) 03/05/21 18:43 Urine Test Negative Negative 03/05/21 18:43 - Medical Decision Making Patient has a nonobstructing punctate renal stone on the right side. I do not believe this is the cause for the patient's pain. I believe her pain is musculoskeletal in nature. Urinalysis shows no obvious infection. Patient to follow-up with her doctor as needed return if worsening or concerns ED Disposition - Plan for ED Patient: Disposition: Home or Assisted Living Diagnosis: Back pain, Renal calculus, right Instructions: ED RENAL STONE Undescended No Symp Referrals: Bebeto Charlton DO [Primary Care Provider] - Keep Ted appointment
[2021-03-05 19:06] LABS: Red Blood Cells-Urine 0 SEEN /hpf (0-5)
[2021-03-05 19:34] LABS: Color, Urine Yellow (Yellow); Glucose, Dipstick Normal (Normal); Ketone-Dipstick 5 mg/dl (Negative); Leukocyte Esterase-Dipstick 25 /ul (Negative); Nitrite-Dipstick Negative (Negative); Occult Blood-Urine Negative /ul (Negative); Protein-Dipstick 15 mg/dl (Negative); Specific Gravity, Urine 1.025 (1.002-1.030); Urine Bilirubin Dipstick Negative (Negative); Urine Clarity Clear (Clear); Urine Urobilinogen Normal (Normal)
[2021-03-05 19:49] LABS: Bacteria RARE /hpf (None Seen); Hyaline Cast 0-5 SEEN /lpf (0-5); Mucous, Urine 1+ /hpf (<or=2+); Squamous Epithelial Cells - UA 0-5 SEEN /hpf (5-10)
[2021-03-05 19:50] LABS: Internal QC Validated? YES +Cl - CLEAR BKGD; Pregnancy, Urine Negative Negative; White Blood Cells 0-5 SEEN /hpf (0-5)
--- NOTE | 2021-03-05 20:05 | CT_ITS ---
INDICATION: Kidney Stone EXAMINATION: CT Abdomen And Pelvis W/O Contrast Injection TECHNIQUE: Helically acquired images were obtained of the abdomen and pelvis without the use of IV contrast. A radiation dose optimization technique was used for this scan. Oral contrast: None. COMPARISON: 01/15/2020 FINDINGS: Evaluation of the solid organs and vascular structures is limited without intravenous contrast. Visualized lung bases: Unremarkable Liver: Unremarkable Gallbladder: Unremarkable Spleen: Unremarkable Pancreas: Unremarkable Adrenal Glands: Unremarkable Kidneys: Punctate nonobstructing stone seen in the right midpole. Vasculature: Mild scattered aortoiliac atherosclerotic calcifications. GI Tract: Scattered diverticula throughout the colon without evidence of inflammation. Lymphadenopathy: None Peritoneum: No ascites. Bladder: Unremarkable Reproductive organs: Unremarkable Bones/Soft tissues: Small fat-containing supraumbilical hernia. Diffuse degenerative changes of the spine. Grade 2 anterolisthesis L5 on S1. There is spondylolysis of the pars interarticularis of the L5 vertebrae. CT/Abdomen/Pelvis without Cont IMPRESSION: Punctate nonobstructing stone seen in the right mid kidney. No hydronephrosis. Grade 2 anterolisthesis L5 on S1. Small fat-containing supraumbilical hernia. Electronically Signed: Noah Goel MD at 20:29 EDT Tel , Service support ,
[2021-03-05 20:36] VITALS: BP 142/91; PULSE 77; RESP 14; O2SAT 99
== END 2021-03-05 20:54 | disposition home or self-care (01) ==
PROVIDERS: Emergency Provider Emergency Medicine; PCP Student in an Organized Health Care Education/Training Program
DX: M43.16 Spondylolisthesis, lumbar region (principal); N20.0 Calculus of kidney; I10 Essential (primary) hypertension; E11.9 Type 2 diabetes mellitus without complications; E78.5 Hyperlipidemia, unspecified; J45.909 Unspecified asthma, uncomplicated; Z79.4 Long term (current) use of insulin; Z79.82 Long term (current) use of aspirin; Z79.899 Other long term (current) drug therapy
CPT/HCPCS: 74176; 81001; 81025; 99284; A4216

== ENCOUNTER 2021-05-27 12:00 | Outpatient (RCR) | payer MEDICAID, SELFPAY ==
--- NOTE | 2021-05-15 13:02 | HP.PTEVAL ---
Patient's Visit Information SUNIL ARAUJO is a 45 year old F referred to Physical Therapy by Dr. Lucien Luis DO with a diagnosis of L PETERSON. Date of Evaluation: 05/11/21 Physical Therapist: Chris Reyes DPT - Visit Plan Frequency: 3x /Week Duration: 6 Weeks Plan: Start with L hip strengthening progressing resistances as tolerated. Progress gait techniques and functional mobility. Progress away from AD as tolerated. - Subjective Pt. is here today for her initial evaluation with L PETERSON. Pt. had her R hip replaced last year. DOS: 04/14/21. Pt. arrives today with FWW without much issues. Pt. reports having trouble getting into PT due to facility communication. Pt. is walking around the house well, occasional use of cane. Pt. denies chest pains, no fever, JUAREZ, blurred vision or calf pain. Pt. reports sleep ok, in bed recently. Pt. reports having some L sided LBP as well. Pt. had her R hip replaced late last year. Pt. reports having some increased difficulty after this one. She is also having difficulty with B knee arthritis which she reports she needs B knee replaced as well. She is walking with FWW and wants to get away from it, but is haivng increased pain with trials. Pt. is sleeping okay, but has difficulty lifting her L LE. 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 - Pain L hip Pain Intensity (Out of 10): 4 Pain Intensity Range: 2, 9 Comment: occasional zapping pain at L hip - Objective POSTURE: Pt. has slight flexed posture with L hip in abducted posture. Pt. is able to correct with VC/TCing. PALPATION: Pt. has good healing incision (posterior lateral) without issues. Pt. reports no pain along the IT band or anterior hip. NEURO: normal sensation in BLEs. Pt. has normal DTR of BLEs. ROM: L hip: PROM flexion 78deg, abd 30deg, ext 10deg. Did not test ER/IR motions. MMT: LLE: ankle 5/5 throughout; knee- ext 4/5, flexion 4/5; hip- flexion 3/5, abd 3/5, ext 3/5. Core strength- poor. GAIT: Pt. ambulates with FWW with flexed posture. Pt. has increased L hip abducted posture worsens in stance phase. Pt. has increased Trendelenburg like posture with walking without AD (a few steps). STAIRS: Pt is able to negotiate with step to pattern with 2 HR to complete. - Goals Goal 1:: LTG: Pt. to be I with HEP for BLEs. Goal Time Frame: 4-6 Weeks Goal 2:: STG: Pt. to sleep throughout the night without increase in symptoms. Goal Time Frame: 2 Weeks Goal 3:: STG: Pt. to ambulate with FWW with good posture for unlimited distances with 0-2/10 pain in L hip Goal Time Frame: 2-4 Weeks Goal 4:: LTG: Pt. to ambulate with out AD with normal gait pattern without increase in symptoms for unlimited distances. Goal Time Frame: 4-6 Weeks Goal 5:: LTG: Pt. to negotiate 1 flight of steps with 1 HR with reciprocal pattern with out increase in L hip pain. Goal Time Frame: 4-6 Weeks Goal 6:: LTG: Pt. to have at least 4+/5 strength throughout LLE musculature allowing for increased stability with all functional mobility. Goal Time Frame: 4-6 Weeks - Rehabilitation Potential Physical Therapy Diagnosis: Pt. has signs and symptoms consistent with L PETERSON. DOS: 04/14/21. Pt. has marked L hip weakness, decreased ROM and difficulty walking. She would benefit from PT to address the above limitations progressing back to all work activities without limitations. Rehabilitation Potential: Excellent - Anticipated Interventions Patient/Client Instruction: Educate patient on: Condition, Plan of Care, Risk Factors, Benefits of Fitness Program For the Purpose of:: To foster healthy habits, To improve decision making, To facilitate caregiver knowledge, To improve self management, To prevent re-injury, To improve ability to perform tasks related to life management, To improve tolerance to ADL's Therapeutic Exercise to Include: Strength training, Power training, Balance training, Body mechanics, Postural training, Flexibilty training, Gait and locomotor training, Passive ROM, Active ROM For the Purpose of:: To decrease pain, To decrease swelling/inflammation, To increase ROM, To improve nutrient delivery to tissue, To increase oxygenation perfusion, To improve muscle performance and motor function, To improve gait and locomotor functions, To improve health of tissue, To decrease soft tissue restriction, To increase flexibility/ROM, To improve endurance Cryotherapy (ice pack, ice massage): Yes For the Purpose of:: To decrease pain, To decrease swelling/inflammation, To increase ROM Thank you for the opportunity to evaluate your patient. For Medicare and Medicare HMO plans, please review the plan of care and approve it. It will need to be FAXED BACK to us at [phone] for Medicare purposes. For Medicare only, by signing this I certify the plan of care. Please let me know if there are questions or concerns regarding this plan of care. Physician Signature: Date:
--- NOTE | 2021-10-26 16:18 | HP.PT.NRP ---
SUNIL ARAUJO was seen in my office for initial evaluation on 05/11/21. The following Plan of Care was established for this patient: Initial Frequency: 3x /Week Initial Duration: 6 Weeks Patient/Client Instruction: Educate patient on: Condition, Plan of Care, Risk Factors, Benefits of Fitness Program For the Purpose of:: To foster healthy habits, To improve decision making, To facilitate caregiver knowledge, To improve self management, To prevent re-injury, To improve ability to perform tasks related to life management, To improve tolerance to ADL's Therapeutic Exercise to Include: Strength training, Power training, Balance training, Body mechanics, Postural training, Flexibilty training, Gait and locomotor training, Passive ROM, Active ROM For the Purpose of:: To decrease pain, To decrease swelling/inflammation, To increase ROM, To improve nutrient delivery to tissue, To increase oxygenation perfusion, To improve muscle performance and motor function, To improve gait and locomotor functions, To improve health of tissue, To decrease soft tissue restriction, To increase flexibility/ROM, To improve endurance Cryotherapy (ice pack, ice massage): Yes For the Purpose of:: To decrease pain, To decrease swelling/inflammation, To increase ROM This patient was last seen in our office 05/27/21. Pertinent comments regarding their Physical therapy will appear below: Pt. was seen in PT for her L TKA. Pt. was seen for 4 visits, but did not attend further visits. Pt. has not been seen in several months and will be DC from PT at this point in time. At this point I will be discontinuing this patient from physical therapy. I would be happy to see this patient again in the future if found appropriate by the physician. Thank you! Chris Reyes, TORITOT Balance/Gait/Functional tests - Balance/Special Test Scores Lower Extremity Functional Score: 24
== END 2021-05-27 19:00 | disposition home or self-care (01) ==
LOC: PT 12:00
PROVIDERS: PCP Student in an Organized Health Care Education/Training Program; Referring Provider Orthopaedic Surgery Orthopaedic Surgery of the Spine; Visit Provider Orthopaedic Surgery Orthopaedic Surgery of the Spine
DX: Z47.1 Aftercare following joint replacement surgery (principal); M16.12 Unilateral primary osteoarthritis, left hip; Z96.642 Presence of left artificial hip joint
CPT/HCPCS: 97110; 97161

== ENCOUNTER 2021-11-24 16:28 | Emergency (ER) | payer MEDICAID, SELFPAY ==
[2021-11-24 16:28] VITALS: BP 195/109; PULSE 86; RESP 18; TEMP 36; O2SAT 100; BMI 36.1
--- NOTE | 2021-11-24 16:47 | EDS_ITS ---
HPI History of Present Illness Chief Complaint: Lower Extremity Injury Informant: patient Narrative Narrative: Patient presents with exacerbation of left knee pain. She is on pain management for the arthritis. She knows that her knees are [id number]. Her knees will flareup at different times. She states the left ones been bothering her more for about a week and a half or 2 weeks. She has not had any fevers chills. No recent infections. No skin or dental infections. No antibiotic use. The knee is much better if she rest it hurts a little bit more if she puts weight on it. She has seen her pain management doctor was concerned about possible blood clot and referred her in. Patient has never had a DVT or PE. She has no dyspnea either. The swelling is in the knee itself. She states there is an area in the back that hurts and then the front right side is sore. She has rather focal about where this is bothering her. [facility] Medical History (Updated 11/24/21 @ 19:[address] Tino Mas MD) Asthma Benign essential hypertension Chronic pain syndrome Hirsutism History of gestational diabetes mellitus History of non-ST elevation myocardial infarction (NSTEMI) (1999) HLD (hyperlipidemia) Hypertensive urgency Obesity Type II diabetes mellitus Home Medications tizanidine 4 mg PO QHS 05/07/18 [History Last Taken 10/03/19] albuterol sulfate 2 puff INHALATION Q4H PRN PRN 09/27/19 [History Last Taken Unknown] fluticasone propionate 2 spray NS DAILY PRN 09/27/19 [History Last Taken Unknown] cholecalciferol (vitamin D3) 2,000 unit PO DAILY 10/04/19 [History Last Taken 10/04/19] glimepiride 2 mg PO BID 10/04/19 [History Last Taken 10/04/19 09:00] buspirone 10 mg PO TID 01/15/20 [History Last Taken Unknown] spironolactone 50 mg tablet 50 mg PO DAILY #90 tab 05/07/20 [Rx Last Taken Unknown] Liraglutide [Victoza 2-Pravin] 1.2 ml SQ DAILY 12/22/20 [History Last Taken Unknown] cetirizine 10 mg PO DAILY 12/22/20 [History Last Taken Unknown] duloxetine 30 mg PO DAILY 12/22/20 [History Last Taken Unknown] insulin lispro 5 unit SC DAILY 12/22/20 [History Last Taken Unknown] pravastatin 40 mg PO DAILY 12/22/20 [History Last Taken Unknown] trazodone 50 mg PO QHS 12/22/20 [History Last Taken Unknown] oxycodone 15 mg PO TID PRN 01/14/21 [History Last Taken Unknown] metoprolol tartrate 50 mg tablet 50 mg PO BID #180 tablet 02/04/21 [Rx Last Taken Unknown] hydrochlorothiazide 12.5 mg PO DAILY 03/05/21 [History Last Taken Unknown] hydralazine 50 mg tablet 50 mg PO BID #60 tab 04/29/21 [Rx Last Taken Unknown] dulaglutide 0.75 mg/0.5 mL subcutaneous pen injector 0.75 mg SUBCUT QWEEK 08/10/21 [History Last Taken Unknown] nitrofurantoin monohydrate/macrocrystals 100 mg capsule 100 mg PO BID 08/10/21 [History Last Taken Unknown] vit-iron 18 mg-folate 800 mcg packet-omega3 290mg-dha capsule 1 ea PO DAILY 08/10/21 [History Last Taken Unknown] aspirin 81 mg tablet,delayed release See Rx Instructions .ROUTE .COMPLEX #30 tab 11/08/21 [Rx Last Taken Unknown] lisinopril 40 mg tablet 40 mg PO DAILY #90 tab 11/09/21 [Rx Last Taken Unknown] amlodipine 10 mg tablet 10 mg PO DAILY #90 tab 11/10/21 [Rx Last Taken Unknown] Allergy/AdvReac Type Severity Reaction Status Date / Time Penicillins Allergy Hives Verified 11/24/21 16:30 metformin AdvReac Diarrhea Verified 11/24/21 16:30 venlafaxine [From Effexor] AdvReac Upset Verified 11/24/21 16:30 Stomach Family History Mother Heart disease Hypertension Diabetes Surgical History History of left heart catheterization (10/07/19) Social History Smoking Status: Never smoker ROS ROS ED Constitutional Constitutional ED: Denies chills or fever(s) ENT ENT ED: Denies rhinorrhea Respiratory/Chest Respiratory/Chest: Denies cough or dyspnea Gastrointestinal Gastrointestinal: Denies nausea or vomiting Genitourinary Genitourinary ED: Denies dysuria Musculoskeletal Musculoskeletal: Reports arthralgias; Denies back pain, myalgias or neck pain Integumentary Denies abscess, Abrasions or rash Endocrine Endocrinology: Denies polydipsia or polyuria Hematologic/Lymphatic Hematologic/Lymphatic: Reports other Details: Patient takes baby aspirin but no other anticoagulation. ; Denies easy bleeding or easy bruising Allergic/Immunologic Allergic/Immunologic ED: Denies mouth swelling or urticaria EXAM Physical Exam Const Vital Signs: 11/24/21 16:28 Temperature 96.8 F L Temperature Source Temporal Pulse Rate 86 Respiratory Rate 18 Blood Pressure 195/109 H Blood Pressure Mean 137 Pulse Ox 100 Oxygen Delivery Method Room Air Positive well nourished and well developed General Appearance ED: well developed and NAD HEENT Reports moist mucous membranes Resp normal respiratory effort Cardio regular rate GI non-tender Palpation: soft Back/Spine no CVA tenderness Extremity Extremity Narrative: Both knees have some effusion. The left is larger than the right. It is not red. It is not warm or hot. When the patient relaxes I can move her knee passively without any pain. It is more painful if she bears weight. She points to the anterior medial tibia as the main area of pain and then she describes a tendon in the back that is sore. This seems to also be more on the medial side. There is some fullness in the back of the knee but I do not feel cord. There is no tenderness above or below the knee. No distended veins. Distal pulses are also intact and normal. Neuro oriented x3 and no sensory deficits noted Sensorium / Orientation: alert Motor Exam: strength 5/5 throughout Psych mental status grossly normal Skin no wounds Lesions: no lesions Rashes: no rashes Trauma: Negative for abrasion, laceration or puncture MDM MDM MDM Narrative Medical decision making narrative: X-rays show significant arthritis. This was known. Patient already has hip replacements. She is pending knee replacements. Ultrasound was negative for Doppler. Patient's not having fevers chills recent infections. She has no fever here. The knee has swelling but is not red or warm. I do not think this requires arthrocentesis. Patient is comfortable going home. Her biggest concern was that there was not a blood clot. She is already on pain management. Radiography Diagnostic Testing: Clinical Impression(s) from Imaging Studies Venous Duplex 11/24/21 16:52 IMPRESSION: Normal venous Doppler ultrasound of the left lower extremity. Electronically Signed: Jerry Sinclair MD at 18:13 EST , Service support , Knee X-Ray 11/24/21 17:05 IMPRESSION: Degenerative arthrosis. Electronically Signed: Jerry Sinclair MD at 18:04 EST , Service support , Discharge Plan Triage Chief Complaint: Lower Extremity Injury ED Provider: Tino Mas Dx/Rx/DC Orders Clinical Impression: Knee pain, left, Arthritis of knee, left Instructions: ED Osteoarthritis Prescriptions: No Action spironolactone 50 mg tablet 50 mg PO DAILY Qty: 90 RF: 3 metoprolol tartrate 50 mg tablet 50 mg PO BID Qty: 180 RF: 3 Trulicity 0.75 mg/0.5 mL pen injector 0.75 mg subcut QWEEK RF: 0 nitrofurantoin monohyd/m-cryst [Macrobid] 100 mg capsule 100 mg PO BID RF: 0 [id number] 18 mg iron-800 mcg-290 mg combo pack, capsule and packet 1 ea PO DAILY RF: 0 tizanidine 4 MG capsule 4 mg PO QHS RF: 0 albuterol sulfate 1 INHALER inhaler 2 puff INHALATION Q4H PRN PRN (Reason: Sob &/Or Wheezing) RF: 0 fluticasone propionate 9.9 ML spray,suspension 2 spray NS DAILY PRN (Reason: Allergies) RF: 0 glimepiride 2 MG tablet 2 mg PO BID RF: 0 cholecalciferol (vitamin D3) 2,000 UNIT tablet 2,000 unit PO DAILY RF: 0 buspirone 5 MG tablet 10 mg PO TID RF: 0 trazodone 50 MG tablet 50 mg PO QHS RF: 0 pravastatin 40 MG tablet 40 mg PO DAILY RF: 0 insulin lispro 100 UNIT/ML cartridge 5 unit SC DAILY RF: 0 duloxetine 30 MG capsule,delayed release(DR/EC) 30 mg PO DAILY RF: 0 cetirizine 10 MG capsule 10 mg PO DAILY RF: 0 Liraglutide [Victoza 2-Pravin] 0.6 MG/0.1 ML Ml 1.2 ml SQ DAILY RF: 0 oxycodone 15 MG tablet 15 mg PO TID PRN (Reason: Pain/Inflammation) RF: 0 hydrochlorothiazide 25 MG tablet 12.5 mg PO DAILY RF: 0 hydralazine 50 mg tablet 50 mg PO BID Qty: 60 RF: 11 aspirin 81 mg tablet,delayed release (DR/EC) See Rx Instructions .ROUTE .COMPLEX Qty: 30 RF: 12 lisinopril 40 mg tablet 40 mg PO DAILY Qty: 90 RF: 5 amlodipine 10 mg tablet 10 mg PO DAILY Qty: 90 RF: 3 Primary Care Provider: Bebeto Charlton Referrals: Bebeto Charlton DO [Primary Care Provider] - 3-5 Days Disposition Disposition: Home, Self Care
--- NOTE | 2021-11-24 16:52 | US_ITS ---
STUDY: VENOUS DOPPLER ULTRASOUND - LEFT LOWER EXTREMITY REASON FOR EXAM: Female, 45 years old. LT KNEE PAIN AND SWELLING TECHNIQUE: Ultrasound evaluation of the deep vein system to include mcallister-scale imaging and compression was performed. Mcallister-scale imaging and Doppler sonographic evaluation, including duplex spectral analysis and qualitative color flow sonography, was performed. COMPARISON: None. FINDINGS: Common Femoral Vein: Normal compression, spontaneity and augmentation. Normal color Doppler. Common Femoral Vein/Greater Saphenous Junction: Normal compression, spontaneity and augmentation. Normal color Doppler. Femoral Proximal: Normal compression, spontaneity and augmentation. Normal color Doppler. Femoral Middle: Normal compression, spontaneity and augmentation. Normal color Doppler. Femoral Distal: Normal compression, spontaneity and augmentation. Normal color Doppler. Popliteal Vein: Normal compression, spontaneity and augmentation. Normal color Doppler. Posterior Tibial Vein: Normal compression, spontaneity and augmentation. Normal color Doppler. Peroneal Vein: Normal compression, spontaneity and augmentation. Normal color Doppler. Small left knee Rodriguez''s cyst noted measuring 2.7 cm. The right common femoral vein was evaluated and is normal. US/Venous Duplex Imag/Limited/Uni IMPRESSION: Normal venous Doppler ultrasound of the left lower extremity. Electronically Signed: Jerry Sinclair MD at 18:13 EST , Service support ,
--- NOTE | 2021-11-24 17:05 | RAD_ITS ---
STUDY: X-RAY - LEFT KNEE REASON FOR EXAM: Female, 45 years old. left knee pain x 1 week, known arthritis, increasing pain, difficulty walking and bearing weight TECHNIQUE: 4 view(s) of the knee. COMPARISON: None. FINDINGS: Several loose bodies are present in the anterior and posterior aspect of the knee joint. Normal proximal tibiofibular articulation. There is no demonstrated fracture. There is severe degenerative arthrosis of the medial femorotibial compartment with severe joint space narrowing. There is mild degenerative arthrosis of the lateral femorotibial compartment. There is severe degenerative arthrosis of the patellofemoral articulation. There is a soft tissue prominence in the suprapatellar region suggesting a small volume joint effusion. The soft tissue structures are unremarkable. RAD/Knee 4 or More Views IMPRESSION: Degenerative arthrosis. Electronically Signed: Jerry Sinclair MD at 18:04 EST , Service support ,
[2021-11-24 19:12] VITALS: BP 134/84; PULSE 88; RESP 14; O2SAT 98
== END 2021-11-24 19:13 | disposition home or self-care (01) ==
PROVIDERS: Emergency Provider Emergency Medicine; PCP Student in an Organized Health Care Education/Training Program; Visit Provider Emergency Medicine
DX: M17.12 Unilateral primary osteoarthritis, left knee (principal); E11.9 Type 2 diabetes mellitus without complications; Z79.4 Long term (current) use of insulin; M79.89 Other specified soft tissue disorders; I10 Essential (primary) hypertension; I25.2 Old myocardial infarction; E78.5 Hyperlipidemia, unspecified; J45.909 Unspecified asthma, uncomplicated; E66.9 Obesity, unspecified; Z68.36 Body mass index [BMI] 36.0-36.9, adult; Z79.82 Long term (current) use of aspirin; Z79.84 Long term (current) use of oral hypoglycemic drugs; Z79.899 Other long term (current) drug therapy
CPT/HCPCS: 73564; 93971; 99282

== ENCOUNTER 2022-02-13 12:29 | Observation (INO) | payer MEDICAID, SELFPAY ==
[2022-02-13] VITALS (10 sets, daily range): BP systolic 103–170; BP diastolic 69–98; PULSE 58–97; RESP 14–18; TEMP 36–37.1; O2SAT 96–100; BMI 33.9; BMI 33.3
--- NOTE | 2022-02-13 12:41 | CT_ITS ---
STUDY: CT ABDOMEN AND PELVIS WITH CONTRAST REASON FOR EXAM: Female, 46 years old. abdominal pain, rectal bleeding -- IV PO Contrast Technologist Notes 1 week post gastric bypass surgery adn cholecystectomy, rectal bleeding, diabetes, hypertension, prior x 3. RADIATION DOSAGE (If Supplied By Facility): CTDIvol = ( 19.63 ) mGy, DLP = ( 1134.01 ) mGycm TECHNIQUE: Transaxial images were obtained from the dome of the diaphragm to the symphysis pubis with oral contrast. Oral and amp; IV Gastrografin and amp; 100mL Isovue-300 was administered. Sagittal and coronal images were reconstructed. Individualized dose optimization techniques were used for this CT. COMPARISON: CT of abdomen and pelvis dated MARCH 05, 2021 and January 15, 2020. FINDINGS: The visualized lung bases are unremarkable. The visualized portions of the heart are within normal limits. Normal liver. There are surgical clips in the gallbladder fossa consistent with a prior cholecystectomy. Normal spleen. Normal pancreas. Normal bilateral adrenal glands. Normal right kidney. Normal left kidney. Interval appearance of gastric bypass related Yeni-en-Y changes since the MARCH 05, 2021 CT exam of the abdomen and pelvis. Rule limb of the stomach and proximal duodenum are mildly fluid-filled and distended. Unremarkable excluded stomach. Minimal gaseous distention or focal patulous loop of proximal small bowel where the anastomotic sutures are present. Otherwise normal remaining small bowel loops. No extravasation of oral contrast out of the bowel lumen, no free air or free fluid or obstruction. Trace amount of ascites seen in the pelvic cul-de-sac is presumed to be physiologic. No high density hemorrhage is seen within the colonic bowel loops. A few descending colonic diverticula are present. Nuclear medicine RBC scan can be obtained if there is persistent concern for GI bleeding. Unremarkable remaining colonic loops. The appendix is visualized and appears normal. Normal abdominal aorta. Normal inferior vena cava. Normal retroperitoneum. Normal urinary bladder. Unremarkable uterus and adnexa. Old surgical scar of the anterior abdominal wall. Small fat-containing right of midline ventral hernia. There are diffuse degenerative changes of the visualized lumbar spine. Bilateral hip prostheses. CT/Abdomen/Pelvis WITH Contrast IMPRESSION: 1. Interval appearance of gastric bypass related Yeni-en-Y changes since the MARCH 05, 2021 CT exam of the abdomen and pelvis. Rule limb of the stomach and proximal duodenum are mildly fluid-filled and distended. Unremarkable excluded stomach. 2. Minimal gaseous distention or focal patulous loop of proximal small bowel where the anastomotic sutures are present. Otherwise normal remaining small bowel loops. 3. No extravasation of oral contrast out of the bowel lumen, no free air or free fluid or obstruction. 4. Trace amount of ascites seen in the pelvic cul-de-sac is presumed to be physiologic. 5. No high density hemorrhage is seen within the colonic bowel loops. A few descending colonic diverticula are present. Nuclear medicine RBC scan can be obtained if there is persistent concern for GI bleeding. Unremarkable remaining colonic loops. Electronically Signed: Jerry Sinclair MD at 15:49 EDT ,
--- NOTE | 2022-02-13 12:42 | ED.VIS.GI ---
HPI HPI - GI History of Present Illness Chief Complaint: GI Bleed Detail of Chief Complaint: Rectal bleeding that started today Informant: patient Narrative Narrative: Patient presents the emergency department chief complaint of rectal bleeding that started today. Patient states that she had gone up the steps to go to the bathroom and was feeling lightheaded and dizzy and got some tunnel vision. Patient sat on the toilet and started to have a bowel movement and initially there was some blood mixed in with the stool. Patient got sweaty and felt like she was going to pass out. Patient secondarily had 2 more bowel movements that were just bright red blood. Patient tells me she had a gastric bypass at the [facility] on February 04. Patient describes some mild lower abdominal discomfort. Patient is on Lovenox. Prior similar symptoms: No PFSH PFSH Medical History (Updated 02/13/22 @ 20:[address] Eulogio Munoz, DO) Asthma Benign essential hypertension Chronic pain syndrome Hirsutism History of gestational diabetes mellitus History of non-ST elevation myocardial infarction (NSTEMI) (1999) HLD (hyperlipidemia) Hypertensive urgency Obesity Type II diabetes mellitus Home Medications tizanidine 4 mg PO QHS 05/07/18 [History Last Taken 10/03/19] albuterol sulfate 2 puff INHALATION Q4H PRN PRN 09/27/19 [History Last Taken Unknown] fluticasone propionate 2 spray NS DAILY PRN 09/27/19 [History Last Taken Unknown] cholecalciferol (vitamin D3) 2,000 unit PO DAILY 10/04/19 [History Last Taken 10/04/19] glimepiride 2 mg PO BID 10/04/19 [History Last Taken 10/04/19 09:00] buspirone 10 mg PO TID 01/15/20 [History Last Taken Unknown] spironolactone 50 mg tablet 50 mg PO DAILY #90 tab 05/07/20 [Rx Last Taken Unknown] Liraglutide [Victoza 2-Pravin] 1.2 ml SQ DAILY 12/22/20 [History Last Taken Unknown] cetirizine 10 mg PO DAILY 12/22/20 [History Last Taken Unknown] duloxetine 30 mg PO DAILY 12/22/20 [History Last Taken Unknown] insulin lispro 5 unit SC DAILY 12/22/20 [History Last Taken Unknown] pravastatin 40 mg PO DAILY 12/22/20 [History Last Taken Unknown] trazodone 50 mg PO QHS 12/22/20 [History Last Taken Unknown] oxycodone 15 mg PO TID PRN 01/14/21 [History Last Taken Unknown] dulaglutide 0.75 mg/0.5 mL subcutaneous pen injector 0.75 mg SUBCUT QWEEK 08/10/21 [History Last Taken Unknown] nitrofurantoin monohydrate/macrocrystals 100 mg capsule 100 mg PO BID 08/10/21 [History Last Taken Unknown] vit-iron 18 mg-folate 800 mcg packet-omega3 290mg-dha capsule 1 ea PO DAILY 08/10/21 [History Last Taken Unknown] aspirin 81 mg tablet,delayed release See Rx Instructions .ROUTE .COMPLEX #30 tab 11/08/21 [Rx Last Taken Unknown] lisinopril 40 mg tablet 40 mg PO DAILY #90 tab 11/09/21 [Rx Last Taken Unknown] amlodipine 10 mg tablet 10 mg PO DAILY #90 tab 11/10/21 [Rx Last Taken Unknown] hydralazine 50 mg tablet 50 mg PO BID #180 tab 01/05/22 [Rx Last Taken Unknown] hydrochlorothiazide 25 mg tablet 12.5 mg PO DAILY #45 tab 01/07/22 [Rx Last Taken Unknown] metoprolol tartrate 50 mg tablet 50 mg PO BID #180 tablet 01/07/22 [Rx Last Taken Unknown] Allergy/AdvReac Type Severity Reaction Status Date / Time Penicillins Allergy Hives Verified 11/24/21 16:30 metformin AdvReac Diarrhea Verified 11/24/21 16:30 venlafaxine [From Effexor] AdvReac Upset Verified 11/24/21 16:30 Stomach Family History Mother Heart disease Hypertension Diabetes Surgical History History of left heart catheterization (10/07/19) Social History Smoking Status: Never smoker ROS ROS ED Constitutional Constitutional ED: Reports systems reviewed and no addt'l complaints, except as documented; Denies body ache(s), change in weight or chills Eyes Eyes: Denies acute decrease in peripheral vision, change in vision, double vision or loss of vision ENT ENT ED: Reports none; Denies ear pain, lip swelling, loss taste/smell, neck pain, otalgia or sore throat Cardiovascular Cardiovascular: Reports none; Denies abdominal pain, chest pain with activity, leg edema, lightheadedness, palpitations, rapid heart rate or syncope Respiratory/Chest Respiratory/Chest: Reports none; Denies change in mental status, dry cough, dyspnea, hemoptysis, shortness of breath at rest or shortness of breath with exertion Gastrointestinal Gastrointestinal: Reports none, abdominal pain and other Details: Bright red blood per rectum ; Denies change in stool character, diarrhea, hematemesis, hematochezia, melena, rectal bleeding or vomiting Genitourinary Genitourinary ED: Reports none; Denies abdominal discomfort, anuria, dysuria, genital pain or polyuria Musculoskeletal Musculoskeletal: Reports none; Denies arthralgias, back pain, difficulty walking, extremity pain, muscle weakness or myalgias Integumentary Reports none; Denies abscess or rash Neurologic Neurologic: Reports none; Denies abnormal gait, confusion, focal weakness, frequent falls, headache(s), loss of vision, numbness, paresthesias, radicular pain, vertigo or weakness Psychiatric Psychiatric: Reports systems reviewed and no addt'l complaints, except as documented and none; Denies behavioral changes, confusion, difficulty concentrating, hallucinations, suicidal ideation, tactile hallucinations or visual hallucinations Endocrine Endocrinology: Denies none, cold intolerance, excessive sweating, fatigue or heat intolerance Hematologic/Lymphatic Hematologic/Lymphatic: Reports none; Denies anemia, easy bleeding or easy bruising Allergic/Immunologic Allergic/Immunologic ED: Denies as per HPI, none, lip swelling, mouth swelling, throat swelling, tongue swelling or hives EXAM Physical Exam Const Vital Signs: 02/13/22 12:30 02/13/22 12:32 02/13/22 16:15 Temperature 96.8 F L 96.8 F L Temperature Source Oral Oral Pulse Rate 67 67 Pulse Rate [Lying] 59 L Pulse Rate [Sitting (for 1 minute prior to obtaining)] 58 L Pulse Rate [Standing (for 1 minute prior to obtaining)] 97 Respiratory Rate 16 16 Blood Pressure 103/69 103/69 Blood Pressure [Lying] 133/81 H Blood Pressure [Sitting (for 1 minute prior to obtaining)] 143/79 H Blood Pressure [Standing (for 1 minute prior to obtaining)] 135/89 H Blood Pressure Mean 80 80 Blood Pressure Mean [Lying] 98 Blood Pressure Mean [Sitting (for 1 minute prior to obtaining)] 100 Blood Pressure Mean [Standing (for 1 minute prior to obtaining)] 104 Pulse Ox 100 100 Oxygen Delivery Method Room Air Room Air 02/13/22 16:21 02/13/22 17:57 Temperature 96.8 F L 98.2 F Temperature Source Oral Oral Pulse Rate 67 67 Pulse Rate [Lying] Pulse Rate [Sitting (for 1 minute prior to obtaining)] Pulse Rate [Standing (for 1 minute prior to obtaining)] Respiratory Rate 16 14 Blood Pressure 103/69 152/76 H Blood Pressure [Lying] Blood Pressure [Sitting (for 1 minute prior to obtaining)] Blood Pressure [Standing (for 1 minute prior to obtaining)] Blood Pressure Mean 80 101 Blood Pressure Mean [Lying] Blood Pressure Mean [Sitting (for 1 minute prior to obtaining)] Blood Pressure Mean [Standing (for 1 minute prior to obtaining)] Pulse Ox 100 96 Oxygen Delivery Method Room Air Room Air Positive well nourished and well developed General Appearance ED: well developed and NAD HEENT Reports TM's clear and moist mucous membranes normocephalic and atraumatic; Negative for trauma or tenderness Tympanic Membrane ED: Yes TM's clear Eyes PERRL and EOMs intact bilaterally General Eye ED: Negative for pale conjunctiva or scleral icterus Neck no lymphadenopathy, supple and no JVD General: Negative for tenderness Chest Wall inspection of chest normal and palpation of chest normal Chest: Negative for tenderness Resp normal respiratory effort and clear to auscultation bilaterally Effort and Inspection: Negative for respiratory distress or pain with movement Auscultation: Negative for rhonchi, wheezes or diminished lung sounds Cardio regular rate, regular rhythm, S1 normal heart sound, S2 normal heart sound and no murmurs Peripheral Pulses: pulses 2+ throughout GI normal to inspection, nondistended, normoactive bowel sounds, soft to palpation, non-tender, non-distended and no masses GI Narrative: Patient has mild tenderness to the left lower quadrant. There is no rebound, rigidity, or peritoneal signs. The incision sites on the abdomen look good without evidence of infection. Rectal exam was performed and patient had some mucousy stool with bright red blood noted. No hemorrhoids noted. No fissures noted. Back/Spine no CVA tenderness and no thoracic nor lumbar tenderness Extremity normal to inspection General Extremety ED: Negative for edema General Extremity: Negative for edema Neuro oriented x3, CN's II-XII intact bilaterally, no sensory deficits noted and gait normal Sensorium / Orientation: awake, alert, oriented to person, oriented to place and oriented to time Motor Exam: strength 5/5 throughout and strength abnormal Psych mental status grossly normal Skin no rashes or lesions noted and no wounds MDM MDM MDM Narrative Medical decision making narrative: IV line established on arrival. Orthostatic vital signs did not cause any dizziness but her heart rate did jump from the 50s lying to 90 standing. She has been in the emergency department 8 hours now and still no bed available at the clinic as of yet. I discussed case with hospitalist as well as general surgeon on-call here and hospitalist will admit patient until bed becomes available at [facility]. The surgeon at [facility] asked that I repeat a H&H 8 hours later if she still at our facility. The results of that H&H are pending. While in the department she had one more bloody stool that was small and had some clots in it. After discussing CT results with our general surgeon here he felt she may have an upper GI bleed being that the stomach was slightly distended and it should be collapsed and not fluid-filled. I did give patient Protonix IV x1. Prior to admission the H&H did return patient dropped from 11.2 hemoglobin to 9.2. Lab Data Attestation: I reviewed the patient's lab results. Labs: Laboratory Results - last 24 hr 02/13/22 02/13/22 02/13/22 12:51 12:51 12:51 WBC 4.8 RBC 3.86 L Hgb 11.2 L Hct 33.9 L MCV 87.8 MCH 29.0 MCHC 33.0 RDW Std Deviation 46.4 H RDW Coeff of Moe 14.5 Plt Count 291 MPV 9.4 Immature Gran % (Auto) 0.200 Neut % (Auto) 60.2 Lymph % (Auto) 29.9 [place] % (Auto) 6.0 Eos % (Auto) 2.9 Baso % (Auto) 0.8 Absolute Neuts (auto) 2.9 Absolute Lymphs (auto) 1.44 Nucleated RBC % 0 Sodium 140 Potassium 3.6 Chloride 107 Carbon Dioxide 25.0 Anion Gap 8 BUN 11 Creatinine 0.96 Estim Creat Clear Calc 65.19 Est GFR (MDRD) Af Amer 80 Est GFR (MDRD) Non-Af 66 BUN/Creatinine Ratio 11.5 Glucose 160 H Lactic Acid Calcium 8.7 Blood Type A POSITIVE Antibody Screen NEGATIVE 02/13/22 02/13/22 12:51 20:50 WBC RBC Hgb 9.2 L Hct 27.9 L MCV MCH MCHC RDW Std Deviation RDW Coeff of Moe Plt Count MPV Immature Gran % (Auto) Neut % (Auto) Lymph % (Auto) [place] % (Auto) Eos % (Auto) Baso % (Auto) Absolute Neuts (auto) Absolute Lymphs (auto) Nucleated RBC % Sodium Potassium Chloride Carbon Dioxide Anion Gap BUN Creatinine Estim Creat Clear Calc Est GFR (MDRD) Af Amer Est GFR (MDRD) Non-Af BUN/Creatinine Ratio Glucose Lactic Acid 1.7 Calcium Blood Type Antibody Screen Radiography Diagnostic Testing: Clinical Impression(s) from Imaging Studies Abdomen/Pelvis CT 02/13/22 12:41 IMPRESSION: 1. Interval appearance of gastric bypass related Yeni-en-Y changes since the MARCH 05, 2021 CT exam of the abdomen and pelvis. Rule limb of the stomach and proximal duodenum are mildly fluid-filled and distended. Unremarkable excluded stomach. 2. Minimal gaseous distention or focal patulous loop of proximal small bowel where the anastomotic sutures are present. Otherwise normal remaining small bowel loops. 3. No extravasation of oral contrast out of the bowel lumen, no free air or free fluid or obstruction. 4. Trace amount of ascites seen in the pelvic cul-de-sac is presumed to be physiologic. 5. No high density hemorrhage is seen within the colonic bowel loops. A few descending colonic diverticula are present. Nuclear medicine RBC scan can be obtained if there is persistent concern for GI bleeding. Unremarkable remaining colonic loops. Electronically Signed: Jerry Sinclair MD at 15:49 EDT , Discharge Plan Dx/Rx/DC Orders Clinical Impression: Acute GI bleeding, Anemia, Post-op bleeding Disposition Disposition: Acute Care [facility]
[2022-02-13 13:00] LABS: Absolute Lymphocyte Count 1.44 X10^3/uL (0.83-4.51); Absolute Neutrophil Count 2.9 X10^3/uL (2.0-7.7); Basophil# 0.04 X10^3/uL; Basophil% 0.8 % (0-1); Eosinophil# 0.14 X10^3/uL; Eosinophils% 2.9 % (0-5); Hematocrit 33.9 % (37-47); Hemoglobin 11.2 g/dL (12.0-15.0); Lymphocyte # 1.44 X10^3/ul (0.83-4.51); Lymphocyte % 29.9 % (19-41); Mean Corpuscular Volume 87.8 fL (81-99); Mean Platelet Vol. 9.4 fl (6.2-12.0); Monocyte# 0.29 X10^3/uL; NRBC Flagged by Analyzer 0 % (0-5); Neutrophil % 60.2 % (47-70); Platelet Count 291 K/mm3 (150-450); RBC Distribution Width CV 14.5 % (11.6-14.6); RBC Distribution Width SD 46.4 fl (35.1-43.9); Red Blood Count 3.86 M/mm3 (4.2-5.4); White Blood Count 4.8 K/mm3 (4.4-11.0)
[2022-02-13 13:12] LABS: Anion Gap 8 (5-15); BUN 11 mg/dL (7-18); BUN/Creat Ratio 11.5 RATIO (10-20); Calcium,Total 8.7 mg/dL (8.5-10.1); Chloride 107 mmol/L (98-107); Creatinine, Serum 0.96 mg/dL (0.55-1.02); EST Glomerular Filtration Rate 66 mL/min (>60); Est Glom Filt Rate - Afr Amer 80 mL/min (>60); Estimated Creatinine Clearance 65.19 ml/min; Glucose 160 mg/dL (74-106); Potassium 3.6 mmol/L (3.5-5.1); Sodium Level 140 mmol/L (136-145)
[2022-02-13 13:20] LABS: Lactic Acid 1.7 mmol/L (0.4-1.9)
[2022-02-13] MEDS: 0.9% Normal Saline 1,000 ML 125 ML IV (13:23)
[2022-02-13 20:56] LABS: Hematocrit 27.9 % (37-47); Hemoglobin 9.2 g/dL (12.0-15.0)
--- NOTE | 2022-02-13 21:06 | HP.PCM.HOS_ITS ---
HPI - General General Date of Admission: 02/13/22 HPI Narrative SUNIL ARAUJO, is a 46 F with a significant history of a laparoscopic gastric bypass surgery on February 04, 2022; hypertension; and diabetes mellitus who presents to the emergency department with multiple episodes of bright red blood stool per rectum. Patient had 3 episodes of bright red blood stool per rectum while at home. Associated with her symptoms is presyncope; diaphoresis and change in vision. At the emergency department she also had blood clots per rectum. Emergency department doctor reports blood on rectal examination. Patient was accepted to [facility] however because patient has stayed at the hospital for more than 6 hours and there is not a bed yet at [facility] a decision was made to accept patient to the hospital. Emergent department doctor discussed the case with general surgery at [facility] who recommended serial H&H's. With no immediate bed at [facility] emergent department doctor discussed the case with general surgery on-call, Dr. Ag at [facility] who felt that based upon CT scan findings upper GI bleed could not be ruled out. [facility] Medical History Asthma Benign essential hypertension Chronic pain syndrome Hirsutism History of gestational diabetes mellitus History of non-ST elevation myocardial infarction (NSTEMI) (1999) HLD (hyperlipidemia) Hypertensive urgency Obesity Type II diabetes mellitus Home Medications tizanidine 4 mg PO QHS 05/07/18 [History Last Taken 10/03/19] albuterol sulfate 2 puff INHALATION Q4H PRN PRN 09/27/19 [History Last Taken Unk nown] fluticasone propionate 2 spray NS DAILY PRN 09/27/19 [History Last Taken Unknown] cholecalciferol (vitamin D3) 2,000 unit PO DAILY 10/04/19 [History Last Taken 10/04/19] glimepiride 2 mg PO BID 10/04/19 [History Last Taken 10/04/19 09:00] buspirone 10 mg PO TID 01/15/20 [History Last Taken Unknown] spironolactone 50 mg tablet 50 mg PO DAILY #90 tab 05/07/20 [Rx Last Taken Unknown] Liraglutide [Victoza 2-Pravin] 1.2 ml SQ DAILY 12/22/20 [History Last Taken Unknown] cetirizine 10 mg PO DAILY 12/22/20 [History Last Taken Unknown] duloxetine 30 mg PO DAILY 12/22/20 [History Last Taken Unknown] insulin lispro 5 unit SC DAILY 12/22/20 [History Last Taken Unknown] pravastatin 40 mg PO DAILY 12/22/20 [History Last Taken Unknown] trazodone 50 mg PO QHS 12/22/20 [History Last Taken Unknown] oxycodone 15 mg PO TID PRN 01/14/21 [History Last Taken Unknown] dulaglutide 0.75 mg/0.5 mL subcutaneous pen injector 0.75 mg SUBCUT QWEEK 08/10/21 [History Last Taken Unknown] nitrofurantoin monohydrate/macrocrystals 100 mg capsule 100 mg PO BID 08/10/21 [History Last Taken Unknown] vit-iron 18 mg-folate 800 mcg packet-omega3 290mg-dha capsule 1 ea PO DAILY 08/10/21 [History Last Taken Unknown] aspirin 81 mg tablet,delayed release See Rx Instructions .ROUTE .COMPLEX #30 tab 11/08/21 [Rx Last Taken Unknown] lisinopril 40 mg tablet 40 mg PO DAILY #90 tab 11/09/21 [Rx Last Taken Unknown] amlodipine 10 mg tablet 10 mg PO DAILY #90 tab 11/10/21 [Rx Last Taken Unknown] hydralazine 50 mg tablet 50 mg PO BID #180 tab 01/05/22 [Rx Last Taken Unknown] hydrochlorothiazide 25 mg tablet 12.5 mg PO DAILY #45 tab 01/07/22 [Rx Last Taken Unknown] metoprolol tartrate 50 mg tablet 50 mg PO BID #180 tablet 01/07/22 [Rx Last Taken Unknown] Allergy/AdvReac Type Severity Reaction Status Date / Time Penicillins Allergy Hives Verified 11/24/21 16:30 metformin AdvReac Diarrhea Verified 11/24/21 16:30 venlafaxine [From Effexor] AdvReac Upset Verified 11/24/21 16:30 Stomach Family History Mother Heart disease Hypertension Diabetes Surgical History H/O gastric bypass History of left heart catheterization (10/07/19) Social History (Updated 02/13/22 @ 21:[address] Joselito Williamson MD) Smoking Status: Never smoker second hand exposure: Yes substance use type: former substance user and crack/cocaine ROS ROS Narrative Constitutional: Denies fever, anorexia Eyes: Denies blurry vision, change in eye color, change in vision, discharge from eye(s), double vision, erythema, eye pain, loss of vision or other HEENT: Denies abnormal hearing, dysphagia, ear pain, epistaxis, headache(s), hearing loss, nasal congestion, nasal discharge, post nasal drip, sinus pressure, sore throat or other Cardiovascular: Denies chest pain or palpitations. Denies dyspnea on exertion, orthopnea and paroxysmal nocturnal dyspnea Respiratory/Chest: Denies cough, excessive phlegm production, shortness of breath with exertion and wheezing Gastrointestinal: Reports abdominal pain. Reports hematochezia. Denies nausea or vomiting. Denies hematemesis. Genitourinary: Denies burning urination, difficulty urinating, dysuria, hematuria, nocturia, urinary frequency, urinary hesitancy, urinary incontinence, urinary urgency or other Musculoskeletal: Denies arthralgias, back pain, joint pain, joint stiffness, joint swelling, myalgias, neck pain or other Neurologic: Reports lightheadedness. Denies abnormal gait, abnormal speech, confusion, disequilibrium, focal weakness, headache(s), numbness, paresthesias, seizure-like activity, seizures, tingling, tremor(s) or other Psychiatric: Denies anxiety, depression, homicidal ideation, suicidal ideation or other Endocrinology: Denies change in body appearance, cold intolerance, excessive sweating, heat intolerance, polydipsia, polyuria or other Hematologic/Lymphatic: Denies anemia, easy bleeding, easy bruising, lymphadenopathy or other Integumentary: Denies rashes Allergic/Immunologic: Denies rhinitis, hives, eczema, or other Vital Signs Vital Signs Vital Signs: 02/13/22 12:30 02/13/22 12:32 02/13/22 16:15 Temperature 96.8 F L 96.8 F L Temperature Source Oral Oral Pulse Rate 67 67 Pulse Rate [Lying] 59 L Pulse Rate [Sitting (for 1 minute prior to obtaining)] 58 L Pulse Rate [Standing (for 1 minute prior to obtaining)] 97 Respiratory Rate 16 16 Blood Pressure 103/69 103/69 Blood Pressure [Lying] 133/81 H Blood Pressure [Sitting (for 1 minute prior to obtaining)] 143/79 H Blood Pressure [Standing (for 1 minute prior to obtaining)] 135/89 H Blood Pressure Mean 80 80 Blood Pressure Mean [Lying] 98 Blood Pressure Mean [Sitting (for 1 minute prior to obtaining)] 100 Blood Pressure Mean [Standing (for 1 minute prior to obtaining)] 104 Pulse Ox 100 100 Oxygen Delivery Method Room Air Room Air 02/13/22 16:21 02/13/22 17:57 Temperature 96.8 F L 98.2 F Temperature Source Oral Oral Pulse Rate 67 67 Pulse Rate [Lying] Pulse Rate [Sitting (for 1 minute prior to obtaining)] Pulse Rate [Standing (for 1 minute prior to obtaining)] Respiratory Rate 16 14 Blood Pressure 103/69 152/76 H Blood Pressure [Lying] Blood Pressure [Sitting (for 1 minute prior to obtaining)] Blood Pressure [Standing (for 1 minute prior to obtaining)] Blood Pressure Mean 80 101 Blood Pressure Mean [Lying] Blood Pressure Mean [Sitting (for 1 minute prior to obtaining)] Blood Pressure Mean [Standing (for 1 minute prior to obtaining)] Pulse Ox 100 96 Oxygen Delivery Method Room Air Room Air Weight Weight: 92.4 kg Body Mass Index (BMI) 33.9 Physical Exam Narrative Physical exam: General: Well-nourished, well-developed. Head: Normocephalic, atraumatic, no tenderness Eyes: Vision is grossly intact. EOMI ENT, no trauma, moist mucous membranes, no rhinorrhea Neck: Nontender, full range of motion, no spinal tenderness, deformities, step- off CVS: Regular rate and rhythm. Murmur present (patient's states that murmur is chronic). No gallop or rub. Respiratory : clear to auscultation bilaterally, chest wall nontender, no wheezing Abdomen: Soft, nontender, nondistended, normal bowel sounds, no masses : Deferred Back: Nontender, no CVA tenderness, no midline spinal tenderness, deformities, step-offs Extremities: Nontender full range of motion, no trauma Skin: Normal color, no trauma, abrasions Neuro: Alert, oriented, cranial nerves II through XII grossly intact. Psychiatry: Normal mood. Normal affect. Not depressed. Not anxious. Results Lab / Micro Data Result Diagrams: 02/13/22 20:50 02/13/22 12:51 Labs: Laboratory Results - last 24 hr 02/13/22 12:51: Blood Type A POSITIVE, Antibody Screen NEGATIVE 02/13/22 12:51: WBC 4.8, RBC 3.86 L, Hgb 11.2 L, Hct 33.9 L, MCV 87.8, MCH 29.0, MCHC 33.0, RDW Std Deviation 46.4 H, RDW Coeff of Moe 14.5, Plt Count 291, MPV 9.4, Immature Gran % (Auto) 0.200, Neut % (Auto) 60.2, Lymph % (Auto) 29.9, [place] % (Auto) 6.0, Eos % (Auto) 2.9, Baso % (Auto) 0.8, Absolute Neuts (auto) 2.9, Absolute Lymphs (auto) 1.44, Nucleated RBC % 0 02/13/22 12:51: Sodium 140, Potassium 3.6, Chloride 107, Carbon Dioxide 25.0, Anion Gap 8, BUN 11, Creatinine 0.96, Estim Creat Clear Calc 65.19, Est GFR (MDRD) Af Amer 80, Est GFR (MDRD) Non-Af 66, BUN/Creatinine Ratio 11.5, Glucose 160 H, Calcium 8.7 02/13/22 12:51: Lactic Acid 1.7 02/13/22 20:50: Hgb 9.2 L, Hct 27.9 L Micro: Microbiology 02/13/22 16:20 Nasal Secretion SARS-CoV-2 Antigen (Rapid) - Final Radiology Impression Abdomen/Pelvis CT 02/13/22 12:41 IMPRESSION: 1. Interval appearance of gastric bypass related Yeni-en-Y changes since the MARCH 05, 2021 CT exam of the abdomen and pelvis. Rule limb of the stomach and proximal duodenum are mildly fluid-filled and distended. Unremarkable excluded stomach. 2. Minimal gaseous distention or focal patulous loop of proximal small bowel where the anastomotic sutures are present. Otherwise normal remaining small bowel loops. 3. No extravasation of oral contrast out of the bowel lumen, no free air or free fluid or obstruction. 4. Trace amount of ascites seen in the pelvic cul-de-sac is presumed to be physiologic. 5. No high density hemorrhage is seen within the colonic bowel loops. A few descending colonic diverticula are present. Nuclear medicine RBC scan can be obtained if there is persistent concern for GI bleeding. Unremarkable remaining colonic loops. Electronically Signed: Jerry Sinclair MD at 15:49 EDT Reading Location ID and State: [facility] / [place] , Service support , Assessment & Plan Assessment/Plan (1) Acute GI bleeding: PLAN: Acute GI bleed Uncertain whether upper or lower GI bleed. Abdomen/pelvis CT was visualized and independently interpreted and agree with interpretation Of note patient was on Lovenox prophylaxis after recent gastric bypass surgery. She reported that on the day of presentation she did not take the Lovenox. Hold Lovenox for now. Initial hemoglobin. His hemoglobin after about 8 hours dropped to 9.2 which is significant. Type and screen ordered at emergency department. Will order 2 units of blood on hold.Trend H&H. Will transfuse if hemoglobin is less than 8 since patient is still bleeding. Review of labs show that in 2020 patient's hemoglobin was around 13.5. Review of [facility] electronic record showed that patient hemoglobin on 02/06/2022 was 14.1. BUN on presentation is 11. Review of previous records showed higher BUN. Cannot rule out lower GI bleed since BUN is not elevated. Protonix IV ordered emergency department and continued. Will observe patient on progressive care unit on telemetry evaluate for bed at [facility]. N.p.o. with meds and sips after midnight. Patient is allowed ice before midnight as patient is requesting for ice. Normal saline infusion ordered. Hypertension Patient has a history of hypertension and on home blood pressure medications. On presentation her blood pressure was elevated and not within goal. With GI bleed we will hold off p.o. blood pressure medications. Hydralazine as needed ordered. Diabetes mellitus Patient with hyperglycemia on presentation Hold home regiment. Accu-Chek every 6 hours with low correction scale insulin ordered. Of note patient is n.p.o. DVT prophylaxis SCDs ordered. Charges/Coding Visit Charges OBSV E&M: 67416 Initial observation care L3
[2022-02-13] MEDS: hydrALAZINE 20 MG/ML Vial 5 MG IV (22:21)
[2022-02-13] MEDS: 0.9% Normal Saline 1,000 ML 100 ML IV (22:21)
[2022-02-13] MEDS: 0.9% Saline Lock 10 ML Syringe IV (22:22)
[2022-02-13 23:11] LABS: Bedside Glucose 88 mg/dL (74-106)
[2022-02-14] VITALS (12 sets, daily range): BP systolic 118–152; BP diastolic 69–91; PULSE 57–94; RESP 12–20; TEMP 36.6–37; O2SAT 94–100
[2022-02-14 04:01] LABS: Bedside Glucose 92 mg/dL (74-106)
[2022-02-14 04:47] LABS: Hematocrit 27.4 % (37-47)
[2022-02-14 05:09] LABS: Anion Gap 9 (5-15); BUN 10 mg/dL (7-18); BUN/Creat Ratio 14.4 RATIO (10-20); Chloride 107 mmol/L (98-107); EST Glomerular Filtration Rate 96 mL/min (>60); Est Glom Filt Rate - Afr Amer 116 mL/min (>60); Glucose 80 mg/dL (74-106); Potassium 3.5 mmol/L (3.5-5.1); Sodium Level 138 mmol/L (136-145)
[2022-02-14] MEDS: 0.9% Normal Saline 1,000 ML 100 ML IV (06:52)
--- NOTE | 2022-02-14 07:52 | PCM.PN.HOSP ---
Subjective Subjective Follow-up for acute GI bleed. H&P reviewed. Discussed with the admitting hospitalist. Patient stated she had large bright red rectal bleeding, multiple episodes 3-4 times at home associated with blood clots. She denies previous history of GI bleed. She showed me the picture of blood in the toilet bowl. She had gastric bypass surgery on January 2015 [facility]. Objective Data Objective Data Vital Signs: Vital Signs Temp Pulse Resp BP Pulse Ox 98.6 F 70 20 H 139/81 H 98 02/14/22 03:55 02/14/22 07:19 02/14/22 03:55 02/14/22 03:55 02/14/22 03:55 Oxygen Delivery Method Room Air Weight: 200 lb 9.93 oz Body Mass Index (BMI) 33.3 Intake & Output: Intake and Output for Last 24 Hours 02/12/22 02/13/22 02/14/22 23:59 23:59 23:59 Intake Total 1110 / 1110 851.67 / 851.67 Balance 1110 / 1110 851.67 / 851.67 Lab / Micro Data Result Diagrams: 02/14/22 09:59 02/14/22 04:04 Labs: Laboratory Results - last 24 hr 02/13/22 12:51: Blood Type A POSITIVE, Antibody Screen NEGATIVE 02/13/22 12:51: WBC 4.8, RBC 3.86 L, Hgb 11.2 L, Hct 33.9 L, MCV 87.8, MCH 29.0, MCHC 33.0, RDW Std Deviation 46.4 H, RDW Coeff of Moe 14.5, Plt Count 291, MPV 9.4, Immature Gran % (Auto) 0.200, Neut % (Auto) 60.2, Lymph % (Auto) 29.9, [place] % (Auto) 6.0, Eos % (Auto) 2.9, Baso % (Auto) 0.8, Absolute Neuts (auto) 2.9, Absolute Lymphs (auto) 1.44, Nucleated RBC % 0 02/13/22 12:51: Sodium 140, Potassium 3.6, Chloride 107, Carbon Dioxide 25.0, Anion Gap 8, BUN 11, Creatinine 0.96, Estim Creat Clear Calc 65.19, Est GFR (MDRD) Af Amer 80, Est GFR (MDRD) Non-Af 66, BUN/Creatinine Ratio 11.5, Glucose 160 H, Calcium 8.7 02/13/22 12:51: Lactic Acid 1.7 02/13/22 12:51: Crossmatch See Detail 02/13/22 20:50: Hgb 9.2 L, Hct 27.9 L 02/13/22 23:01: POC Glucose 88 02/14/22 03:54: POC Glucose 92 02/14/22 04:04: Sodium 138, Potassium 3.5, Chloride 107, Carbon Dioxide 22.0, Anion Gap 9, BUN 10, Creatinine 0.70, Estim Creat Clear Calc 89.40, Est GFR (MDRD) Af Amer 116, Est GFR (MDRD) Non-Af 96, BUN/Creatinine Ratio 14.4, Glucose 80, Calcium 8.0 L 02/14/22 04:04: Hgb 9.0 L, Hct 27.4 L Micro: Microbiology 02/13/22 16:20 Nasal Secretion SARS-CoV-2 Antigen (Rapid) - Final Radiography Diagnostic Testing: Radiology Impression Abdomen/Pelvis CT 02/13/22 12:41 IMPRESSION: 1. Interval appearance of gastric bypass related Yeni-en-Y changes since the MARCH 05, 2021 CT exam of the abdomen and pelvis. Rule limb of the stomach and proximal duodenum are mildly fluid-filled and distended. Unremarkable excluded stomach. 2. Minimal gaseous distention or focal patulous loop of proximal small bowel where the anastomotic sutures are present. Otherwise normal remaining small bowel loops. 3. No extravasation of oral contrast out of the bowel lumen, no free air or free fluid or obstruction. 4. Trace amount of ascites seen in the pelvic cul-de-sac is presumed to be physiologic. 5. No high density hemorrhage is seen within the colonic bowel loops. A few descending colonic diverticula are present. Nuclear medicine RBC scan can be obtained if there is persistent concern for GI bleeding. Unremarkable remaining colonic loops. Electronically Signed: Jerry Sinclair MD at 15:49 EDT Reading Location ID and State: [facility] / [place] , Service support , Physical Exam Narrative Patient also had mild upper abdominal discomfort but no significant or serious pain. Has resolved General: Alert, Oriented x3, Cooperative HEENT: Atraumatic, PERRLA, EOMI, Normocephalic Oral: No Gingival or Mucosal Lesions/ Ulcerations Neck: Supple, No JVD, Negative Carotid Bruits Lungs: Air entry diminished in bilateral lung bases. No crepitation/rhonchi Cardiovascular: Regular rate, Regular Rhythm, Normal S1, Normal S2, No murmurs Abdomen: Bowel Sounds Present, Soft, Non Tender, Non-Distended : No renal angle tenderness. No suprapubic tenderness. Extremities: No edema, Capillary Refill Less than 3 Seconds Skin: No rashes, No breakdown Musculoskeletal: No Tenderness to Palpation of Joints or Extremities Neurological: Cranial nerves II-XII grossly intact, DTR 2+/4 and Symmetrical, Neuro grossly intact Psych/Mental Status: Normal Affect, Appropriate Assessment & Plan Assessment/Plan (1) Acute GI bleeding: PLAN: 1. Acute GI bleed most likely upper GI bleed from anastomotic sites of recent gastric bypass surgery in February 04: Patient is being admitted in PCU. I talked to surgeon Dr. Lane and liquefaction and regasification helper Dr. Meyers. Surgeon said we do not have a long scope to reach to the anastomotic sites especially biliopancreatic limb and Yeni limb. [employer] Technical Architect not available but he expressed the same concern. CT and abdomen was individually reviewed and showed the interval appearance of gastric bypass anatomy changes since the previous CT scan of March 05, 2021. Yeni limb of the stomach and proximal duodenum are mildly fluid-filled and distended. Serial H&H shows decrease of hemoglobin 11.2-9.2. Patient is started on clear liquid diet. We will discussed with liquefaction and regasification helper further when he is in town tomorrow. 2. Hypertension: Blood pressure is high. Patient started on clear liquid diet and home medications regimen. Discussed with nursing staff 3. Diabetes mellitus type II: Hyperglycemic on presentation. Oral hypoglycemic agents on hold. Accu-Chek insulin coverage with sliding scale. DVT prophylaxis SCDs ordered. Clinical Impression(s) from Imaging Studies Abdomen/Pelvis CT 02/13/22 12:41 IMPRESSION: 1. Interval appearance of gastric bypass related Yeni-en-Y changes since the MARCH 05, 2021 CT exam of the abdomen and pelvis. Rule limb of the stomach and proximal duodenum are mildly fluid-filled and distended. Unremarkable excluded stomach. 2. Minimal gaseous distention or focal patulous loop of proximal small bowel where the anastomotic sutures are present. Otherwise normal remaining small bowel loops. 3. No extravasation of oral contrast out of the bowel lumen, no free air or free fluid or obstruction. 4. Trace amount of ascites seen in the pelvic cul-de-sac is presumed to be physiologic. 5. No high density hemorrhage is seen within the colonic bowel loops. A few descending colonic diverticula are present. Nuclear medicine RBC scan can be obtained if there is persistent concern for GI bleeding. Unremarkable remaining colonic loops. Charges/Coding Visit Charges Inpatient E&M: 55935 Subs Hosp L2
[2022-02-14 10:07] LABS: Hematocrit 29.1 % (37-47); Hemoglobin 9.6 g/dL (12.0-15.0)
[2022-02-14] MEDS: amLODIPine 10 MG Tablet PO (10:58)
[2022-02-14] MEDS: Lisinopril 20 MG Tablet PO (10:58)
[2022-02-14] MEDS: Metoprolol Tartrate 50 MG Tablet PO ×2 (10:58→21:01)
[2022-02-14] MEDS: Loratadine 10 MG Tablet PO (10:58)
[2022-02-14] MEDS: DULoxetine Hcl 30 MG Capsule PO (11:50)
--- NOTE | 2022-02-14 11:50 | CASEMGMT ---
DARIAN BAKER assessment: Face to Face with patient for initial transition planning/care coordination assessment. DARIAN BAKER introduced self and role at [facility], pt voices understanding and consents to assessment. Pt is lying in bed in no distress on room air. Pt is A/Ox4 and answers all questions appropriately. Care providers, pharmacy, and demographics verified. Presentation: Pt had gastric bypass a week ago. c/o feeling weak/lightheaded when walking up steps, some blood in BM Admitting dx: GI bleed, anemia PCP: Zoltan Specialists: NICOLETTE bariatric surgeon Preferred Pharmacy: [facility] Insurance: [employer] Prescription Benefit: [employer] Living Will/HPOA: Pt states does not have LW/HPOA and declines AD info. LNOK: Jessica Hayes, ; Luz Herrera, mother Living Arrangements: Pt lives with in split level home and states no concerns at home. Pt is independent with ADL's. Transportation: Pt drives self and states no transportation concerns. DME/HHC: Pt has no current DME or need for further DME. Pt states no hx of HHC or SNF. Pt states no concerns with going home at time of discharge. 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 Pt states does not smoke cigarettes but is exposed to 2nd hand smoke and states does not drink ETOH. Pt voices no further concerns/needs. CM to follow for any further discharge planning/needs. Advised pt to ask for CM if any further questions/concerns/needs arise, voices understanding. Pt Goal: Home Plan[place] DARIAN BAKER
[2022-02-14 13:16] LABS: Bedside Glucose 77 mg/dL (74-106)
[2022-02-14 16:37] LABS: Hematocrit 27.6 % (37-47); Hemoglobin 9.2 g/dL (12.0-15.0)
[2022-02-14 18:26] LABS: Bedside Glucose 113 mg/dL (74-106)
[2022-02-14] MEDS: 0.9% Saline Lock 10 ML Syringe IV (21:00)
[2022-02-14 23:10] LABS: Bedside Glucose 91 mg/dL (74-106)
[2022-02-14 23:56] LABS: Bedside Glucose 98 mg/dL (74-106)
[2022-02-15] VITALS (12 sets, daily range): BP systolic 134–150; BP diastolic 78–84; PULSE 50–88; RESP 12–18; TEMP 36.6–36.9; O2SAT 97–98
[2022-02-15 06:21] LABS: Absolute Lymphocyte Count 1.37 X10^3/uL (0.83-4.51); Absolute Neutrophil Count 1.4 X10^3/uL (2.0-7.7); Basophil# 0.03 X10^3/uL; Basophil% 0.9 % (0-1); Eosinophil# 0.18 X10^3/uL; Eosinophils% 5.5 % (0-5); Hematocrit 28.7 % (37-47); Hemoglobin 9.4 g/dL (12.0-15.0); Lymphocyte # 1.37 X10^3/ul (0.83-4.51); Lymphocyte % 41.9 % (19-41); Mean Corp Hgb Conc 32.8 g/dL (32-36); Mean Corpuscular Hgb 28.6 pg (27.0-32.0); Mean Corpuscular Volume 87.2 fL (81-99); Mean Platelet Vol. 9.7 fl (6.2-12.0); Monocyte# 0.31 X10^3/uL; Monocyte% 9.5 % (0-10); NRBC Flagged by Analyzer 0 % (0-5); Neutrophil # 1.37 X10^3/uL (2.7-7.7); Neutrophil % 41.9 % (47-70); Platelet Count 282 K/mm3 (150-450); RBC Distribution Width CV 14.6 % (11.6-14.6); RBC Distribution Width SD 46.3 fl (35.1-43.9); Red Blood Count 3.29 M/mm3 (4.2-5.4); White Blood Count 3.3 K/mm3 (4.4-11.0)
[2022-02-15 06:21] LABS: Bedside Glucose 104 mg/dL (74-106)
[2022-02-15 06:53] LABS: Anion Gap 4 (5-15); BUN 6 mg/dL (7-18); BUN/Creat Ratio 8.3 RATIO (10-20); Calcium,Total 8.2 mg/dL (8.5-10.1); Chloride 110 mmol/L (98-107); Creatinine, Serum 0.72 mg/dL (0.55-1.02); EST Glomerular Filtration Rate 92 mL/min (>60); Est Glom Filt Rate - Afr Amer 112 mL/min (>60); Estimated Creatinine Clearance 86.92 ml/min; Glucose 99 mg/dL (74-106); Magnesium 1.8 mg/dL (1.6-2.6); Potassium 3.6 mmol/L (3.5-5.1); Sodium Level 140 mmol/L (136-145)
--- NOTE | 2022-02-15 07:43 | PCM.PN.HOSP ---
Subjective Subjective Follow-up for acute GI bleed most likely due to recent gastric bypass surgery Patient bowel movement is clear. Yesterday she had 2 bowel movements intermixed with blood after that her bowel movement is mostly clear. Diet advanced to full liquid. Objective Data Objective Data Vital Signs: Vital Signs Temp Pulse Resp BP Pulse Ox 98.0 F 50 L 16 134/78 H 98 02/15/22 06:10 02/15/22 07:28 02/15/22 06:10 02/15/22 06:10 02/15/22 06:10 Oxygen Delivery Method Room Air Weight: 200 lb 9.93 oz Body Mass Index (BMI) 33.3 Intake & Output: Intake and Output for Last 24 Hours 02/13/22 02/14/22 02/15/22 23:59 23:59 23:59 Intake Total 1110 / 1110 3746.67 / 3746.67 Balance 1110 / 1110 3746.67 / 3746.67 Lab / Micro Data Result Diagrams: 02/15/22 05:52 02/15/22 05:52 Labs: Laboratory Results - last 24 hr 02/14/22 09:59: Hgb 9.6 L, Hct 29.1 L 02/14/22 13:11: POC Glucose 77 02/14/22 16:20: Hgb 9.2 L, Hct 27.6 L 02/14/22 17:55: POC Glucose 113 H 02/14/22 20:58: POC Glucose 91 02/14/22 23:52: POC Glucose 98 02/15/22 05:52: WBC 3.3 L, RBC 3.29 L, Hgb 9.4 L, Hct 28.7 L, MCV 87.2, MCH 28.6, MCHC 32.8, RDW Std Deviation 46.3 H, RDW Coeff of Moe 14.6, Plt Count 282, MPV 9.7, Immature Gran % (Auto) 0.300, Neut % (Auto) 41.9 L, Lymph % (Auto) 41.9 H, [place] % (Auto) 9.5, Eos % (Auto) 5.5 H, Baso % (Auto) 0.9, Absolute Neuts (auto) 1.4 L, Absolute Lymphs (auto) 1.37, Nucleated RBC % 0 02/15/22 05:52: Sodium 140, Potassium 3.6, Chloride 110 H, Carbon Dioxide 26.0, Anion Gap 4 L, BUN 6 L, Creatinine 0.72, Estim Creat Clear Calc 86.92, Est GFR (MDRD) Af Amer 112, Est GFR (MDRD) Non-Af 92, BUN/Creatinine Ratio 8.3 L, Glucose 99, Calcium 8.2 L, Magnesium 1.8 02/15/22 06:08: POC Glucose 104 Micro: Microbiology 02/13/22 16:20 Nasal Secretion SARS-CoV-2 Antigen (Rapid) - Final Physical Exam Narrative Heart rate in normal range. Blood pressure slightly elevated General: Alert, Oriented x3, Cooperative HEENT: Atraumatic, PERRLA, EOMI, Normocephalic Oral: No Gingival or Mucosal Lesions/ Ulcerations Neck: Supple, No JVD, Negative Carotid Bruits Lungs: Air entry diminished in bilateral lung bases. No crepitation/rhonchi Cardiovascular: Regular rate, Regular Rhythm, Normal S1, Normal S2, No murmurs Abdomen: Bowel Sounds Present, Soft, Non Tender, Non-Distended : No renal angle tenderness. No suprapubic tenderness. Extremities: No edema, Capillary Refill Less than 3 Seconds Skin: No rashes, No breakdown Musculoskeletal: No Tenderness to Palpation of Joints or Extremities Neurological: Cranial nerves II-XII grossly intact, DTR 2+/4 and Symmetrical, Neuro grossly intact Psych/Mental Status: Normal Affect, Appropriate Assessment & Plan Assessment/Plan (1) Acute GI bleeding: PLAN: 1. Acute GI bleed most likely upper GI bleed from anastomotic sites of recent gastric bypass surgery in February 04: Patient is being admitted in PCU. I talked to surgeon Dr. Lane and central office operator supervisor Dr. Meyers. Surgeon said we do not have a long scope to reach to the anastomotic sites especially biliopancreatic limb and Yeni limb. Guidance Counselor not available but he expressed the same concern. CT and abdomen was individually reviewed and showed the interval appearance of gastric bypass anatomy changes since the previous CT scan of March 05, 2021. Yeni limb of the stomach and proximal duodenum are mildly fluid-filled and distended. Serial H&H shows decrease of hemoglobin 11.2-9.2. Patient is started on clear liquid diet. 02/15: Hemoglobin remained above 9 g. Most recent 9.4. From history it seems her GI bleed is spontaneously controlled. Diet advanced to soft diet. Discussed with the central office operator supervisor Dr. Meyers. He will be coming in the evening and schedule EGD tomorrow a.m. N.p.o. past midnight. Continue PPI Protonix 40 mg IV every 12 hourly 2. Hypertension: Blood pressure is high. Patient started on clear liquid diet and home medications regimen. /5: Lisinopril dose increased to 30 mg daily. Avoid hypotension. Discussed with nursing staff 3. Diabetes mellitus type II: Hyperglycemic on presentation. Oral hypoglycemic agents on hold. Accu-Chek insulin coverage with sliding scale. DVT prophylaxis SCDs ordered. Clinical Impression(s) from Imaging Studies Abdomen/Pelvis CT 02/13/22 12:41 IMPRESSION: 1. Interval appearance of gastric bypass related Yeni-en-Y changes since the MARCH 05, 2021 CT exam of the abdomen and pelvis. Rule limb of the stomach and proximal duodenum are mildly fluid-filled and distended. Unremarkable excluded stomach. 2. Minimal gaseous distention or focal patulous loop of proximal small bowel where the anastomotic sutures are present. Otherwise normal remaining small bowel loops. 3. No extravasation of oral contrast out of the bowel lumen, no free air or free fluid or obstruction. 4. Trace amount of ascites seen in the pelvic cul-de-sac is presumed to be physiologic. 5. No high density hemorrhage is seen within the colonic bowel loops. A few descending colonic diverticula are present. Nuclear medicine RBC scan can be obtained if there is persistent concern for GI bleeding. Unremarkable remaining colonic loops. Charges/Coding Visit Charges Inpatient E&M: 55489 Subs Hosp L2
[2022-02-15] MEDS: Ensure Clear 120 ML Liquid PO ×3 (10:03→18:37)
[2022-02-15] MEDS: Loratadine 10 MG Tablet PO (10:03)
[2022-02-15] MEDS: Metoprolol Tartrate 50 MG Tablet PO ×2 (10:03→21:19)
[2022-02-15] MEDS: DULoxetine Hcl 30 MG Capsule PO (10:03)
[2022-02-15] MEDS: amLODIPine 10 MG Tablet PO (10:03)
[2022-02-15] MEDS: Lisinopril 20 MG Tablet PO (10:03)
[2022-02-15 14:26] LABS: Bedside Glucose 87 mg/dL (74-106)
[2022-02-15] MEDS: Potassium Chloride Oral Tablet 20 MEQ 40 MEQ PO (14:27)
[2022-02-15 17:51] LABS: Bedside Glucose 117 mg/dL (74-106)
[2022-02-15] MEDS: Insulin Glargine-YFGN 100 UNIT/ML Pen 10 UNIT SC (21:17)
[2022-02-15 21:30] LABS: Bedside Glucose 120 mg/dL (74-106)
[2022-02-16 02:35] VITALS: BP 129/83; PULSE 52; RESP 16; TEMP 36.6; O2SAT 99
[2022-02-16 03:15] VITALS: PULSE 48
[2022-02-16 05:41] LABS: Absolute Lymphocyte Count 1.71 X10^3/uL (0.83-4.51); Absolute Neutrophil Count 1.5 X10^3/uL (2.0-7.7); Basophil# 0.03 X10^3/uL; Basophil% 0.8 % (0-1); Eosinophils% 5.2 % (0-5); Hemoglobin 9.5 g/dL (12.0-15.0); Lymphocyte # 1.71 X10^3/ul (0.83-4.51); Lymphocyte % 44.9 % (19-41); Mean Corp Hgb Conc 32.8 g/dL (32-36); Mean Corpuscular Hgb 28.6 pg (27.0-32.0); Mean Corpuscular Volume 87.3 fL (81-99); Mean Platelet Vol. 9.7 fl (6.2-12.0); Monocyte# 0.35 X10^3/uL; Monocyte% 9.2 % (0-10); NRBC Flagged by Analyzer 0 % (0-5); Neutrophil # 1.51 X10^3/uL (2.7-7.7); Neutrophil % 39.6 % (47-70); Platelet Count 293 K/mm3 (150-450); RBC Distribution Width CV 14.6 % (11.6-14.6); RBC Distribution Width SD 46.4 fl (35.1-43.9); Red Blood Count 3.32 M/mm3 (4.2-5.4); White Blood Count 3.8 K/mm3 (4.4-11.0)
[2022-02-16 06:21] LABS: Anion Gap 5 (5-15); BUN 7 mg/dL (7-18); BUN/Creat Ratio 8.7 RATIO (10-20); Calcium,Total 8.3 mg/dL (8.5-10.1); Chloride 110 mmol/L (98-107); Creatinine, Serum 0.81 mg/dL (0.55-1.02); EST Glomerular Filtration Rate 81 mL/min (>60); Est Glom Filt Rate - Afr Amer 98 mL/min (>60); Estimated Creatinine Clearance 77.26 ml/min; Glucose 103 mg/dL (74-106); Magnesium 1.9 mg/dL (1.6-2.6); Potassium 3.7 mmol/L (3.5-5.1); Sodium Level 140 mmol/L (136-145)
[2022-02-16 06:24] LABS: Phosphorus 3.3 mg/dL (2.5-4.9)
[2022-02-16 06:25] LABS: Bedside Glucose 104 mg/dL (74-106)
--- NOTE | 2022-02-16 07:05 | DCINST_ITS ---
Discharge Instructions Diet Discharge Diet: Soft diet ( As advised by [facility] mergers and acquisitions attorney) Activity Discharge Activity: Return to Normal Activity and May Not Drive Dressing / Incision Call your doctor if you observe: Fever of 101 or Higher, Coldness, Increased Pain, Numbness or Tingling, Change in Color, Inability to urinate, Inability to have a bowel movement, Shortness of breath, Dizziness, Fainting spells, Swelling in the ankles, Chest pain, Prolonged hiccupping, Increased palpitations (irregular heartbeat), Calf discomfort and Uncontrolled pain Follow Up Care Test Results: Test results from this visit will be discussed in further detail at your follow-up appointment, if applicable. Discharge Plan Admission Admit Date/Time: 02/13/22 20:55 Primary Reason for Your Visit: Upper GI bleed after recent gastric bypass surgery Attending Provider: Earl Olvera Primary Care Provider: Bebeto Charlton Instructions Additional Instructions / Restrictions: Follow-up [facility] bariatric surgeon Dr. Leanne Devine in 1 to 2 weeks to schedule outpatient EGD Discharge Orders/Prescriptions Prescriptions: New pantoprazole [Protonix] 40 mg tablet,delayed release (DR/EC) 40 mg PO BID Qty: 60 RF: 0 Continued insulin lispro 100 UNIT/ML cartridge 4 unit SC ACHS RF: 0 duloxetine 30 MG capsule,delayed release(DR/EC) 30 mg PO DAILY RF: 0 cetirizine 10 MG capsule 10 mg PO DAILY RF: 0 oxycodone 15 MG tablet 15 mg PO TID PRN (Reason: Pain/Inflammation) RF: 0 ondansetron HCl 4 mg Tablet 4 mg PO Q8H PRN (Reason: Nausea) RF: 0 acetaminophen 500 mg Tablet 1,000 mg PO Q6H PRN (Reason: Pain) RF: 0 amlodipine 10 mg tablet 10 mg PO DAILY RF: 0 metoprolol tartrate 50 mg tablet 50 mg PO BID RF: 0 Lantus Solostar U-100 Insulin 100 unit/mL (3 mL) Insulin Pen 10 unit SUBCUT QPM RF: 0 Trulicity 0.75 mg/0.5 mL Pen Injector 0.75 mg SUBCUT QWEEK RF: 0 lisinopril 40 mg tablet 40 mg PO DAILY Qty: 90 RF: 5 Discontinued omeprazole 20 mg Capsule,Delayed Release(Dr/Ec) 20 mg PO DAILY RF: 0 Referrals / Follow Up: Bebeto Charlton DO [Primary Care Provider] - Within 2 Weeks Disposition Disposition (needs filled in before D/C Order can be placed): Home, Self Care
[2022-02-16 07:38] VITALS: PULSE 54
[2022-02-16 08:09] VITALS: BP 110/74; PULSE 71; RESP 16; TEMP 36.8; O2SAT 98
[2022-02-16 08:26] VITALS: BMI 33.2
[2022-02-16 08:26] LABS: Bedside Glucose 101 mg/dL (74-106)
[2022-02-16 08:35] VITALS: BP 110/74; PULSE 71
[2022-02-16] MEDS: Metoprolol Tartrate 50 MG Tablet PO (08:35)
[2022-02-16] MEDS: amLODIPine 10 MG Tablet PO (08:35)
[2022-02-16] MEDS: Loratadine 10 MG Tablet PO (08:35)
[2022-02-16] MEDS: DULoxetine Hcl 30 MG Capsule PO (08:36)
--- NOTE | 2022-02-16 10:17 | DS.PCM_ITS ---
Providers Date of Admission: 02/13/22 Date of Discharge: 02/16/22 Primary Care Physician: Dr. Bebeto Charlton, Consultations 02/15/22 07:42 Consult: Gastroenterology Routine Consulting Provider: [facility] Reason for Consult: Upper GI Bleed with recent Gastric bye pass 02/04 EMERGENT Consult: No MD Notified: Yes Date Notified: 02/15/22 Time Notified: 07:42 Method of Notification: Verbal Reason For Visit: BRPR Diagnosis Discharge Diagnosis (1) Acute GI bleeding: Status: Acute Code(s): K92.2 - Gastrointestinal hemorrhage, unspecified Medications at Discharge Home Medications cetirizine 10 mg PO DAILY 12/22/20 duloxetine 30 mg PO DAILY 12/22/20 insulin lispro 4 unit SC ACHS 12/22/20 oxycodone 15 mg PO TID PRN 01/14/21 acetaminophen 1,000 mg PO Q6H PRN 02/13/22 amlodipine 10 mg PO DAILY 02/13/22 metoprolol tartrate 50 mg PO BID 02/13/22 ondansetron HCl 4 mg PO Q8H PRN 02/13/22 Lantus Solostar U-100 Insulin 10 unit SUBCUT QPM 02/14/22 Trulicity 0.75 mg SUBCUT QWEEK 02/14/22 ascorbic acid (vitamin C) 500 mg PO BID #60 tab 02/16/22 ferrous sulfate 325 mg PO QODAY #30 tab 02/16/22 lisinopril 40 mg PO DAILY #90 tab 02/16/22 pantoprazole [Protonix] 40 mg PO BID #60 tab 02/16/22 Hospital Course Summary of Care Provided Hospital Course: This 46-year-old female with recent history of laparoscopic gastric bypass surgery in February 02, 2022, hypertension diabetes mellitus type 2 was admitted with multiple episodes of bright red rectal bleed. Patient also had near syncope symptoms dizziness blurry vision and diaphoresis therefore admitted in PCU. 1. Acute GI bleed most likely upper GI bleed from anastomotic sites of recent gastric bypass surgery in February 04 with mild acute blood loss anemia due to GI bleed: Patient is being admitted in PCU. I talked to surgeon Dr. Lane and computed tomography technologist Dr. Meyers. Surgeon said we do not have a long scope to reach to the anastomotic sites especially biliopancreatic limb and Yeni limb. Technical Support Manager not available but he expressed the same concern. CT and abdomen was individually reviewed and showed the interval appearance of gastric bypass anatomy changes since the previous CT scan of March 05, 2021. Yeni limb of the stomach and proximal duodenum are mildly fluid-filled and distended. Serial H&H shows decrease of hemoglobin 11.2-9.5. Her hemoglobin is stayed stable between 9 to 10 g throughout the hospital course. Patient is started on clear liquid diet and advance to soft diet. Please follow diet recommendation by [facility] licensing analyst after gastric bypass surgery. Diet advanced to soft diet. Discussed with the computed tomography technologist Dr. Meyers. Patient's clinic clinic surgeon Dr. Twin Devine called yesterday evening and advised outpatient follow-up and to schedule EGD as there is a long waiting list for transfer to [facility]. Patient agreed. She did not had any further GI bleed more than 24 hours. IV PPI changed to oral and discharged on Protonix 40 mg twice daily, vitamin C and ferrous sulfate 325 mg every other day. Prescriptions given. 2. Hypertension: Blood pressure is high. Patient started on clear liquid diet and home medications regimen. Blood pressure control. On lisinopril 40 mg daily 3. Diabetes mellitus type II: Hyperglycemic on presentation. Oral hypoglycemic agents on hold. Accu-Chek insulin coverage with sliding scale. Blood sugar controlled DVT prophylaxis SCDs ordered. Discharge medication reconciliation done. Discharge follow-up instructions completed. Discharge process discussed with the patient and all questions were answered to patient's satisfaction. Discharged home Total time spent, exact 35 minutes on discharge meds reconciliation, examination, coordination of care with nurses and ancillary staff, review of imaging and blood test and discussion with the patient on follow-up instructions. Physical Exam Narrative Seen and examined today Heart rate in normal range. Blood pressure normal. Patient did not had any GI bleed for more than 24 hours. Stool is clear. She did not had bowel movement today. General: Alert, Oriented x3, Cooperative HEENT: Atraumatic, PERRLA, EOMI, Normocephalic Oral: No Gingival or Mucosal Lesions/ Ulcerations Neck: Supple, No JVD, Negative Carotid Bruits Lungs: Air entry diminished in bilateral lung bases. No crepitation/rhonchi Cardiovascular: Regular rate, Regular Rhythm, Normal S1, Normal S2, No murmurs Abdomen: Bowel Sounds Present, Soft, Non Tender, Non-Distended : No renal angle tenderness. No suprapubic tenderness. Extremities: No edema, Capillary Refill Less than 3 Seconds Skin: No rashes, No breakdown Musculoskeletal: No Tenderness to Palpation of Joints or Extremities Neurological: Cranial nerves II-XII grossly intact, DTR 2+/4 and Symmetrical, Neuro grossly intact Psych/Mental Status: Normal Affect, Appropriate Weight / BMI Weight Weight: 200 lb 9.93 oz Body Mass Index (BMI) 33.3 ABG / Lab / Microbiology Data Result Diagrams: 02/16/22 04:48 02/16/22 04:48 Laboratory: Laboratory Results - last 24 hr 02/15/22 14:22: POC Glucose 87 02/15/22 17:44: POC Glucose 117 H 02/15/22 21:16: POC Glucose 120 H 02/16/22 04:48: WBC 3.8 L, RBC 3.32 L, Hgb 9.5 L, Hct 29.0 L, MCV 87.3, MCH 28.6, MCHC 32.8, RDW Std Deviation 46.4 H, RDW Coeff of Moe 14.6, Plt Count 293, MPV 9.7, Immature Gran % (Auto) 0.300, Neut % (Auto) 39.6 L, Lymph % (Auto) 44.9 H, [place] % (Auto) 9.2, Eos % (Auto) 5.2 H, Baso % (Auto) 0.8, Absolute Neuts (auto) 1.5 L, Absolute Lymphs (auto) 1.71, Nucleated RBC % 0 02/16/22 04:48: Sodium 140, Potassium 3.7, Chloride 110 H, Carbon Dioxide 25.0, Anion Gap 5, BUN 7, Creatinine 0.81, Estim Creat Clear Calc 77.26, Est GFR (MDRD) Af Amer 98, Est GFR (MDRD) Non-Af 81, BUN/Creatinine Ratio 8.7 L, Glucose 103, Calcium 8.3 L, Magnesium 1.9 02/16/22 04:48: Phosphorus 3.3 02/16/22 06:03: POC Glucose 104 Microbiology: Microbiology 02/13/22 16:20 Nasal Secretion SARS-CoV-2 Antigen (Rapid) - Final Meaningful Use Info Meaningful Use Diagnoses (Choose all that apply): None applicable Discharge Plan Admission Admit Date/Time: 02/13/22 20:55 Primary Reason for Your Visit: Upper GI bleed after recent gastric bypass surgery Attending Provider: Earl Olvera Primary Care Provider: Bebeto Charlton Instructions Additional Instructions / Restrictions: Follow-up [facility] bariatric surgeon Dr. Leanne Devine in 1 to 2 weeks to schedule outpatient EGD Discharge Orders/Prescriptions Prescriptions: New pantoprazole [Protonix] 40 mg tablet,delayed release (DR/EC) 40 mg PO BID Qty: 60 RF: 0 ferrous sulfate 325 mg (65 mg iron) tablet 325 mg PO QODAY Qty: 30 RF: 0 ascorbic acid (vitamin C) 500 mg tablet 500 mg PO BID Qty: 60 RF: 0 Continued insulin lispro 100 UNIT/ML cartridge 4 unit SC ACHS RF: 0 duloxetine 30 MG capsule,delayed release(DR/EC) 30 mg PO DAILY RF: 0 cetirizine 10 MG capsule 10 mg PO DAILY RF: 0 oxycodone 15 MG tablet 15 mg PO TID PRN (Reason: Pain/Inflammation) RF: 0 ondansetron HCl 4 mg Tablet 4 mg PO Q8H PRN (Reason: Nausea) RF: 0 acetaminophen 500 mg Tablet 1,000 mg PO Q6H PRN (Reason: Pain) RF: 0 amlodipine 10 mg tablet 10 mg PO DAILY RF: 0 metoprolol tartrate 50 mg tablet 50 mg PO BID RF: 0 Lantus Solostar U-100 Insulin 100 unit/mL (3 mL) Insulin Pen 10 unit SUBCUT QPM RF: 0 Trulicity 0.75 mg/0.5 mL Pen Injector 0.75 mg SUBCUT QWEEK RF: 0 lisinopril 40 mg tablet 40 mg PO DAILY Qty: 90 RF: 5 Discontinued omeprazole 20 mg Capsule,Delayed Release(Dr/Ec) 20 mg PO DAILY RF: 0 Referrals / Follow Up: Bebeto Charlton DO [Primary Care Provider] - Within 2 Weeks Disposition Disposition (needs filled in before D/C Order can be placed): Home, Self Care Charges/Coding Visit Charges Inpatient E&M: 35412 Disch Hosp
[2022-02-16] MEDS: Insulin Lispro 100 UNIT/ML INSULN.PEN SC (11:41)
[2022-02-16 11:46] LABS: Bedside Glucose 187 mg/dL (74-106)
[2022-02-16 13:21] VITALS: BP 120/78; PULSE 56; RESP 16; TEMP 36.7; O2SAT 96
== END 2022-02-16 13:54 | disposition home or self-care (01) | DRG 810 ==
LOC: ED 20:58 → PCU 02-14 07:08
PROVIDERS: Admitting Provider Hospitalist; Emergency Provider Emergency Medicine; PCP Student in an Organized Health Care Education/Training Program; Visit Provider Internal Medicine
DX: K91.840 Postprocedural hemorrhage of a digestive system organ or structure following a digestive system procedure (principal); E11.65 Type 2 diabetes mellitus with hyperglycemia; Z79.4 Long term (current) use of insulin; D62 Acute posthemorrhagic anemia; E78.5 Hyperlipidemia, unspecified; I10 Essential (primary) hypertension; I25.2 Old myocardial infarction; Z98.84 Bariatric surgery status; Z79.82 Long term (current) use of aspirin; Z79.84 Long term (current) use of oral hypoglycemic drugs; Z79.899 Other long term (current) drug therapy
CPT/HCPCS: 36415; 74177; 80048; 82962; 83605; 83735; 84100; 85014; 85018; 85025; 86850; 86900; 86901; 86920; 86922; 87811; 96365; 96366; 96375; 99218; 99285; J7030; Q9967; A4216; G0378

== ENCOUNTER → 2022-03-03 | Outpatient (CLI) | payer MEDICAID, SELFPAY ==
--- NOTE | 2022-03-03 17:02 | CT_ITS ---
STUDY: CT MAXILLOFACIAL SINUSES REASON FOR EXAM: Female, 46 years old. SINUSITIS RADIATION DOSAGE (If Supplied By Facility): CTDIvol = ( 28.14 ) mGy, DLP = ( 654.73 ) mGycm TECHNIQUE: The patient was scanned in a multi detector CT scanner. High resolution axial imaging was performed without the administration of intravenous contrast material. Sagittal and coronal images were reconstructed. Individualized dose optimization techniques were used for this CT. COMPARISON: Cranial CT of 04/26/2020.. FINDINGS: FRONTAL SINUSES: Normal aeration, without mucosal inflammatory disease. ETHMOIDAL SINUSES: Normal aeration, without mucosal inflammatory disease. There is an asymmetrically prominent anterior left ethmoidal air cell/ethmoidal bulla causing narrowing of the left ethmoidal infundibulum. Right ethmoidal infundibulum is narrowed by a laterally deviated uncinate process. MAXILLARY SINUSES: Normal aeration, without mucosal inflammatory disease. SPHENOIDAL SINUSES: Normal aeration, without mucosal inflammatory disease. Nasal septum deviates to the right. A left william bullosa is noted. Inferior turbinates are mildly hypertrophied. There is minimal paradoxical curvature of the middle turbinates anteriorly. Left-sided septal spur is present inferiorly, contacting the inferior turbinate. Degenerative narrowing of the C3/4 and C4/5 disc spaces with marginal osteophytes. Severe flattening of the ventral aspect of the thecal sac from C2/3 through the inferior aspect of C4 due to extensive ossification of the posterior longitudinal ligament, flattening the thecal sac and cervical cord, and narrowing AP diameter of the spinal canal about 4 mm. Visualized brain parenchyma is unremarkable. Parotid and submandibular glands are symmetric. Epiglottis is normal in size. No adenopathy is visualized. Parapharyngeal fat is preserved. The visualized bilateral orbital contents are normal. Findings of dental caries and periodontal disease are demonstrated. CT/Sinus/Facial Bone IMPRESSION: No findings of acute or chronic sinusitis. Nasal septal deviation to the right. Left william bullosa. Narrowing of both ethmoidal infundibula. 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 Electronically Signed: Christopher Obrien MD at 6:45 EDT ,
== END | disposition home or self-care (01) ==
LOC: CT 17:00
PROVIDERS: PCP Student in an Organized Health Care Education/Training Program; Visit Provider Otolaryngology
DX: J32.9 Chronic sinusitis, unspecified (principal)
CPT/HCPCS: 70486

== ENCOUNTER 2022-05-08 21:04 | Emergency (ER) | payer MEDICAID, SELFPAY ==
[2022-05-08 21:04] VITALS: BP 138/97; PULSE 102; RESP 16; TEMP 37.5; O2SAT 97; BMI 27.6
--- NOTE | 2022-05-08 22:33 | EDS_ITS ---
HPI History of Present Illness Chief Complaint: General Illness Informant: patient Narrative Narrative: Patient presents not feeling well for the last 6 weeks but states of the past 2 days she has had significant headache and sore throat. She had a temperature up to 102.5. She does have mild cough. [facility] Medical History Anemia Anxiety Asthma Benign essential hypertension Chronic pain syndrome CPAP (continuous positive airway pressure) dependence Depression GI bleed Hirsutism History of gestational diabetes mellitus History of non-ST elevation myocardial infarction (NSTEMI) (1999) HLD (hyperlipidemia) Hypertension Hypertensive urgency Irregular heart beat Obesity Sleep apnea Type II diabetes mellitus Home Medications cetirizine 10 mg capsule 10 mg PO DAILY allergy 12/22/20 [History Last Taken Unknown] duloxetine 30 mg capsule,delayed release 30 mg PO DAILY depression 12/22/20 [History Last Taken Unknown] insulin lispro 100 unit/mL subcutaneous cartridge See Protocol subcut ACHS diabetes 12/22/20 [History Last Taken Unknown] oxycodone 15 mg tablet 15 mg PO TID PRN Pain/Inflammation 01/14/21 [History Last Taken Unknown] acetaminophen 500 mg tablet 1,000 mg PO Q6H PRN Pain 02/13/22 [History Last Taken Unknown] amlodipine 10 mg tablet 10 mg PO DAILY blood pressure 02/13/22 [History Last Taken Unknown] metoprolol tartrate 50 mg tablet 50 mg PO BID blood pressure 02/13/22 [History Last Taken Unknown] ondansetron HCl 4 mg tablet 4 mg PO Q8H PRN Nausea 02/13/22 [History Last Taken Unknown] insulin glargine 100 unit/mL (3 mL) subcutaneous pen (Lantus Solostar U-100 Insulin) 10 unit subcut QPM diabetes 02/14/22 [History Last Taken Unknown] lisinopril 40 mg tablet 40 mg PO DAILY blood pressure #90 tabs 02/16/22 [Rx Last Taken Unknown] pantoprazole 40 mg tablet,delayed release (Protonix) 40 mg PO BID #60 tabs 02/16/22 [Rx Last Taken Unknown] buspirone 5 mg tablet 1 tab PO BID 05/08/22 [History Last Taken Unknown] [id number] 45 mg-folic acid 800 mcg-vit K 120 mcg capsule (Bariatric Multivitamins) 2 cap PO DAILY 05/08/22 [History Last Taken Unknown] nirmatrelvir 300 mg (150 mg x 2)-ritonavir 100 mg tablet (EUA) (Paxlovid 300 mg () See Rx Instructions PO .COMPLEX #30 tabs 05/08/22 [Rx Last Taken Unknown] pravastatin 40 mg tablet 1 tab PO QHS cholesterol 05/08/22 [History Last Taken Unknown] Allergy/AdvReac Type Severity Reaction Status Date / Time Penicillins Allergy Hives Verified 05/08/22 21:06 metformin AdvReac Diarrhea Verified 05/08/22 21:06 venlafaxine [From Effexor] AdvReac Upset Verified 05/08/22 21:06 Stomach Family History Mother Heart disease Hypertension Diabetes Surgical History H/O gastric bypass History of cholecystectomy History of left heart catheterization (10/07/19) Social History Smoking Status: Never smoker second hand exposure: Yes substance use type: former substance user and crack/cocaine ROS ROS ED Constitutional Constitutional ED: Reports fever(s); Denies chills Eyes Eyes: Denies change in vision or discharge from eye(s) ENT ENT ED: Reports sore throat; Denies discharge from eye(s) or rhinorrhea Cardiovascular Cardiovascular: Denies chest pain or palpitations Respiratory/Chest Respiratory/Chest: Reports cough; Denies dyspnea Gastrointestinal Gastrointestinal: Denies abdominal pain, diarrhea, nausea or vomiting Genitourinary Genitourinary ED: Denies difficulty urinating or dysuria Musculoskeletal Musculoskeletal: Reports myalgias; Denies back pain or extremity pain Integumentary Denies Abrasions or rash Neurologic Neurologic: Reports headache(s); Denies weakness Allergic/Immunologic Allergic/Immunologic ED: Denies lip swelling or urticaria EXAM Physical Exam Const Vital Signs: 05/08/22 21:04 05/08/22 22:15 05/08/22 22:48 Temperature 99.5 F H Temperature Source Temporal Pulse Rate 102 H 88 Respiratory Rate 16 20 H Respiratory Effort Normal Non-Labored Respiratory Pattern Normal Blood Pressure 138/97 H Blood Pressure Mean 110 Pulse Ox 97 98 Oxygen Delivery Method Room Air Positive well nourished and well developed General Appearance ED: well developed HEENT Reports normocephalic and head/scalp atraumatic Eyes PERRL and EOMs intact bilaterally Neck supple Chest Wall inspection of chest normal and palpation of chest normal Resp normal respiratory effort and clear to auscultation bilaterally Cardio regular rate and regular rhythm GI normal to inspection, nondistended, normoactive bowel sounds Palpation: soft Extremity normal to inspection Neuro oriented x3 and no sensory deficits noted Sensorium / Orientation: alert Motor Exam: strength 5/5 throughout Psych mental status grossly normal Skin no rashes or lesions noted MDM MDM MDM Narrative Medical decision making narrative: Nursing staff obtained COVID test in triage. This returns positive. Test results discussed with the patient. Her oxygen saturation is 97% on room air at the time of my exam. I do not believe further work-up is needed. We did discuss Paxlovid. She does report a history of asthma and diabetes and would prefer to take this medication. I advised her that she must hold her pravastatin and decreased her dose of amlodipine in half while taking this medication. 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 Discharge Plan Triage Chief Complaint: General Illness ED Provider: Pham Riley Dx/Rx/DC Orders Clinical Impression: COVID-19 Instructions: Coronavirus Disease 2019 (COVID-19): Overview, Coronavirus Disease 2019 (COVID-19): Caring for Yourself or Others Prescriptions: New Paxlovid (EUA) 300 mg (150 mg x 2)-100 mg tablet See Rx Instructions .ROUTE .COMPLEX Qty: 30 0RF Rx Instructions: take TWO 150 mg tablets of nirmatrelvir with ONE 100 mg tablet of ritonavir twice daily for 5 days No Action insulin lispro 100 UNIT/ML cartridge See Protocol CO ACHS Protocol: 6. 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 pravastatin 40 mg tablet 1 tab PO QHS Label Comments: Take 1 tablet by mouth once daily. Bariatric Multivitamins 45 mg iron- 800 mcg-120 mcg Capsule 2 cap PO DAILY Primary Care Provider: Bebeto Charlton Referrals: Bebeto Charlton, [Primary Care Provider] - 1-2 Weeks Activity Restrictions/Additional Instructions: As discussed, please hold your pravastatin while you are taking this antiviral medicine. Cut your amlodipine dose in half while taking the antiviral medicine. Disposition Disposition: Home, Self Care Discharge Date/Time: 05/08/22 22:48
[2022-05-08 22:48] VITALS: PULSE 88; RESP 20; O2SAT 98
== END 2022-05-08 22:48 | disposition home or self-care (01) ==
PROVIDERS: Emergency Provider Emergency Medicine; PCP Student in an Organized Health Care Education/Training Program; Visit Provider Emergency Medicine
DX: U07.1 COVID-19 (principal); E11.9 Type 2 diabetes mellitus without complications; Z79.4 Long term (current) use of insulin; I25.2 Old myocardial infarction; I10 Essential (primary) hypertension; E78.5 Hyperlipidemia, unspecified; E66.9 Obesity, unspecified; F32.A Depression, unspecified; F41.9 Anxiety disorder, unspecified; Z68.27 Body mass index [BMI] 27.0-27.9, adult; Z79.899 Other long term (current) drug therapy
CPT/HCPCS: 87811; 99282

== ENCOUNTER 2022-10-18 14:57 | Emergency (ER) | payer MEDICAID, SELFPAY ==
[2022-10-18 14:58] VITALS: BP 161/83; PULSE 57; RESP 14; TEMP 36.5; O2SAT 100; BMI 23.1
[2022-10-18 15:43] VITALS: O2SAT 96
--- NOTE | 2022-10-18 16:00 | ED.VIS.DYS ---
HPI <JHONATHAN Luna - Last Filed: 10/18/22 22:04> History of Present Illness Chief Complaint: Shortness of Breath Narrative Narrative: Patient presents today with cold-like symptoms that she has had for several days. She states last week her children tested positive for flu A but she was never tested. She reports having a sore throat, nasal congestion, cough, headache, chills, and feels fatigued and weak. She states today she suddenly became fatigued, developed a headache, and felt like she was lightheaded and had a tingling sensation in her arms. She then laid down for 2 hours and states she felt a little bit better after the fact but still wanted to come in. PFSH <JHONATHAN Luna - Last Filed: 10/18/22 22:04> [facility] Medical History Anemia Anemia Anxiety Asthma Asthma Benign essential hypertension Chronic pain syndrome COVID-19 CPAP (continuous positive airway pressure) dependence Depression GI bleed Hirsutism History of gestational diabetes mellitus History of non-ST elevation myocardial infarction (NSTEMI) (1999) HLD (hyperlipidemia) Hypertensive urgency Obesity Obstructive sleep apnea Severe left ventricular hypertrophy Sleep apnea Type II diabetes mellitus Home Medications cetirizine 10 mg capsule 10 mg PO DAILY allergy 12/22/20 [History Last Taken Unknown] duloxetine 30 mg capsule,delayed release 30 mg PO DAILY depression 12/22/20 [History Last Taken Unknown] insulin lispro 100 unit/mL subcutaneous cartridge See Protocol subcut ACHS diabetes 12/22/20 [History Last Taken Unknown] acetaminophen 500 mg tablet 1,000 mg PO Q6H PRN Pain 02/13/22 [History Last Taken Unknown] amlodipine 10 mg tablet 10 mg PO DAILY blood pressure 02/13/22 [History Last Taken Unknown] ondansetron HCl 4 mg tablet 4 mg PO Q8H PRN Nausea 02/13/22 [History Last Taken Unknown] insulin glargine 100 unit/mL (3 mL) subcutaneous pen (Lantus Solostar U-100 Insulin) 10 unit subcut QPM diabetes 02/14/22 [History Last Taken Unknown] lisinopril 40 mg tablet 40 mg PO DAILY blood pressure #90 tabs 02/16/22 [Rx Last Taken Unknown] pantoprazole 40 mg tablet,delayed release (Protonix) 40 mg PO BID #60 tabs 02/16/22 [Rx Last Taken Unknown] buspirone 5 mg tablet 1 tab PO TID 05/08/22 [History Last Taken Unknown] [id number] 45 mg-folic acid 800 mcg-vit K 120 mcg capsule (Bariatric Multivitamins) 2 cap PO DAILY 05/08/22 [History Last Taken Unknown] pravastatin 40 mg tablet 1 tab PO QHS cholesterol 05/08/22 [History Last Taken Unknown] ferrous sulfate 142 mg (45 mg iron) tablet,extended release (Slow Fe) 142 mg PO BID 08/16/22 [History Last Taken Unknown] hydrochlorothiazide 25 mg tablet 12.5 mg PO DAILY 08/16/22 [History Last Taken Unknown] hydralazine 50 mg tablet 50 mg PO TID #90 tabs 09/06/22 [Rx Last Taken Unknown] metoprolol tartrate 50 mg tablet 25 mg PO BID blood pressure 09/06/22 [History Last Taken Unknown] fluticasone propionate 50 mcg/actuation nasal spray,suspension 2 spray intranasal DAILY 10/18/22 [History Last Taken Unknown] nitrofurantoin monohydrate/macrocrystals 100 mg capsule 100 mg PO DAILY 10/18/22 [History Last Taken Unknown] sennosides 8.6 mg-docusate sodium 50 mg tablet (Stimulant Laxative Plus) 1 tab PO DAILY 10/18/22 [History Last Taken Unknown] tizanidine 4 mg tablet 4 mg PO BID 10/18/22 [History Last Taken Unknown] Allergy/AdvReac Type Severity Reaction Status Date / Time Penicillins Allergy Hives Verified 10/18/22 14:57 metformin AdvReac Diarrhea Verified 10/18/22 14:57 venlafaxine [From Effexor] AdvReac Upset Verified 10/18/22 14:57 Stomach Family History Mother Heart disease Hypertension Diabetes Surgical History H/O gastric bypass History of cholecystectomy History of left heart catheterization (10/07/19) Social History Smoking Status: Never smoker second hand exposure: Yes substance use type: former substance user and crack/cocaine ROS <JHONATHAN Luna - Last Filed: 10/18/22 22:04> ROS ED Constitutional Constitutional ED: Reports chills and sweats; Denies fever(s) Eyes Eyes: Denies blurry vision, change in vision or diplopia ENT ENT ED: Reports nasal congestion and sore throat; Denies ear pain Cardiovascular Cardiovascular: Denies chest pain, palpitations or racing heartbeat Respiratory/Chest Respiratory/Chest: Reports cough and dyspnea on exertion; Denies shortness of breath at rest Gastrointestinal Gastrointestinal: Denies abdominal pain, diarrhea, nausea or vomiting Genitourinary Genitourinary ED: Denies dysuria, hematuria or urinary frequency Musculoskeletal Musculoskeletal: Denies back pain, myalgias or neck pain Integumentary Denies abscess, Abrasions or rash Neurologic Neurologic: Reports headache(s) and weakness; Denies paresthesias Psychiatric Psychiatric: Denies anxiety or depression EXAM <JHONATHAN Luna - Last Filed: 10/18/22 22:04> Physical Exam Const Vital Signs: 10/18/22 14:58 10/18/22 15:43 10/18/22 18:11 Temperature 97.7 F L Temperature Source Temporal Pulse Rate 57 L Pulse Rate [Lying] 48 L Pulse Rate [Sitting (for 1 minute prior to obtaining)] 51 L Pulse Rate [Standing (for 1 minute prior to obtaining)] 55 L Respiratory Rate 14 Respiratory Effort Normal Non-Labored Respiratory Depth Normal Respiratory Pattern Normal Blood Pressure 161/83 H Blood Pressure [Lying] 183/91 H Blood Pressure [Sitting (for 1 minute prior to obtaining)] 189/98 H Blood Pressure [Standing (for 1 minute prior to obtaining)] 191/94 H Blood Pressure Mean 109 Blood Pressure Mean [Lying] 121 Blood Pressure Mean [Sitting (for 1 minute prior to obtaining)] 128 Blood Pressure Mean [Standing (for 1 minute prior to obtaining)] 126 Pulse Ox 100 Oxygen Delivery Method Room Air Room Air 10/18/22 18:13 10/18/22 19:21 10/18/22 19:21 Temperature Temperature Source Pulse Rate 51 L 48 L Pulse Rate [Lying] Pulse Rate [Sitting (for 1 minute prior to obtaining)] Pulse Rate [Standing (for 1 minute prior to obtaining)] Respiratory Rate 16 16 Respiratory Effort Respiratory Depth Respiratory Pattern Blood Pressure 189/98 H 191/87 H 191/87 H Blood Pressure [Lying] Blood Pressure [Sitting (for 1 minute prior to obtaining)] Blood Pressure [Standing (for 1 minute prior to obtaining)] Blood Pressure Mean 128 121 121 Blood Pressure Mean [Lying] Blood Pressure Mean [Sitting (for 1 minute prior to obtaining)] Blood Pressure Mean [Standing (for 1 minute prior to obtaining)] Pulse Ox 100 100 Oxygen Delivery Method Room Air Room Air Orthostatics negative. Positive well nourished and well developed General Appearance ED: well developed and NAD HEENT Reports TM's clear and moist mucous membranes atraumatic; Negative for tenderness Tympanic Membrane ED: Yes TM's clear Throat: posterior oropharynx normal and uvula midline Eyes PERRL and EOMs intact bilaterally Neck no lymphadenopathy, supple and no meningeal signs Resp normal respiratory effort and clear to auscultation bilaterally Cardio regular rate, regular rhythm and no murmurs GI non-tender, non-distended and no masses Palpation: soft Back/Spine normal to inspection Extremity normal to inspection General Extremety ED: Negative for edema or tenderness General Extremity: Negative for edema Neuro oriented x3, CN's II-XII intact bilaterally and no sensory deficits noted Sensorium / Orientation: alert Speech: speech normal Gait (Neuro): normal gait Motor Exam: strength 5/5 throughout Psych mental status grossly normal Thought Process: normal thought process Skin no wounds and skin turgor normal General Skin Exam: Negative for jaundice Lesions: no lesions Rashes: no rashes <Dr. Juli Rocha, DO - Last Filed: 10/18/22 23:49> Physical Exam Const Vital Signs: 10/18/22 14:58 10/18/22 15:43 10/18/22 18:11 Temperature 97.7 F L Temperature Source Temporal Pulse Rate 57 L Pulse Rate [Lying] 48 L Pulse Rate [Sitting (for 1 minute prior to obtaining)] 51 L Pulse Rate [Standing (for 1 minute prior to obtaining)] 55 L Respiratory Rate 14 Respiratory Effort Normal Non-Labored Respiratory Depth Normal Respiratory Pattern Normal Blood Pressure 161/83 H Blood Pressure [Lying] 183/91 H Blood Pressure [Sitting (for 1 minute prior to obtaining)] 189/98 H Blood Pressure [Standing (for 1 minute prior to obtaining)] 191/94 H Blood Pressure Mean 109 Blood Pressure Mean [Lying] 121 Blood Pressure Mean [Sitting (for 1 minute prior to obtaining)] 128 Blood Pressure Mean [Standing (for 1 minute prior to obtaining)] 126 Pulse Ox 100 Oxygen Delivery Method Room Air Room Air 10/18/22 18:13 10/18/22 19:21 10/18/22 19:21 Temperature Temperature Source Pulse Rate 51 L 48 L Pulse Rate [Lying] Pulse Rate [Sitting (for 1 minute prior to obtaining)] Pulse Rate [Standing (for 1 minute prior to obtaining)] Respiratory Rate 16 16 Respiratory Effort Respiratory Depth Respiratory Pattern Blood Pressure 189/98 H 191/87 H 191/87 H Blood Pressure [Lying] Blood Pressure [Sitting (for 1 minute prior to obtaining)] Blood Pressure [Standing (for 1 minute prior to obtaining)] Blood Pressure Mean 128 121 121 Blood Pressure Mean [Lying] Blood Pressure Mean [Sitting (for 1 minute prior to obtaining)] Blood Pressure Mean [Standing (for 1 minute prior to obtaining)] Pulse Ox 100 100 Oxygen Delivery Method Room Air Room Air [facility] <JHONATHAN Luna - Last Filed: 10/18/22 22:04> [facility] Narrative Medical decision making narrative: Patient has been tested for influenza and COVID and was negative for both. However, both of her children were sick with influenza A last week so it is likely that she has had the flu as well. Labs and troponin were checked due to the tingling in her arms and overall weakness she was feeling. Troponin normal. She is not having any shortness of breath and is in no acute distress. Lung sounded clear. I have educated her on supportive care measures. I have given her return instructions. Her vital signs have remained stable here and she is afebrile. Patient's blood pressure is elevated here, however, she states that she usually takes her blood pressure medication at this time and needs to take it. She also states her blood pressure has been elevated lately so I discussed the importance with her following up with her PCP on this issue. Patient also states that she has been under a lot of stress lately and has not been getting as much rest as she should be. I discussed ways patient can reduce stress and advised her to follow-up with PCP on this issue. O2 sat has remained at 100% on RA. Patient has microcytic anemia and states she is not taking as much iron as she was told to. I advised her to begin taking the recommended amount of iron that her doctor advised her to take. Upon reexamination patient states that she is feeling good and would like to discharge home. I am comfortable with patient discharging home and patient is comfortable with plan. Lab Data Attestation: I reviewed the patient's lab results. Lab results narrative: Microcytic anemia. WBC 3.3. Decreased neutrophils elevated lymphocytes. Anion gap 2. Troponin 20. Labs: Laboratory Results - last 24 hr 10/18/22 10/18/22 18:00 18:00 WBC 3.3 L RBC 4.18 L Hgb 11.2 L Hct 35.9 L MCV 85.9 MCH 26.8 L MCHC 31.2 L RDW Std Deviation 49.3 H RDW Coeff of Moe 15.7 H Plt Count 290 MPV 9.5 Immature Gran % (Auto) 0.000 Neut % (Auto) 35.6 L Lymph % (Auto) 53.9 H Divide % (Auto) 7.8 Eos % (Auto) 1.2 Baso % (Auto) 1.5 H Absolute Neuts (auto) 1.2 L Absolute Lymphs (auto) 1.80 Nucleated RBC % 0 Sodium 138 Potassium 3.7 Chloride 109 H Carbon Dioxide 27.0 Anion Gap 2 L BUN 14 Creatinine 0.86 Estim Creat Clear Calc 72.77 Est GFR (MDRD) Af Amer 91 Est GFR (MDRD) Non-Af 75 BUN/Creatinine Ratio 16.3 Glucose 90 Calcium 8.6 Troponin I High Sens 20 Radiography Diagnostic Testing: Clinical Impression(s) from Imaging Studies Chest X-Ray 10/18/22 18:18 IMPRESSION: No radiographic evidence of acute cardiopulmonary disease. Electronically Signed: Lewis Klein MD at 18:35 EST , Chest x-ray reviewed and I agree with radiologist impressions. This has also been reviewed by attending ED physician. <Dr. Juli Rocha, DO - Last Filed: 10/18/22 23:49> [facility] Lab Data Labs: Laboratory Results - last 24 hr 10/18/22 10/18/22 18:00 18:00 WBC 3.3 L RBC 4.18 L Hgb 11.2 L Hct 35.9 L MCV 85.9 MCH 26.8 L MCHC 31.2 L RDW Std Deviation 49.3 H RDW Coeff of Moe 15.7 H Plt Count 290 MPV 9.5 Immature Gran % (Auto) 0.000 Neut % (Auto) 35.6 L Lymph % (Auto) 53.9 H Divide % (Auto) 7.8 Eos % (Auto) 1.2 Baso % (Auto) 1.5 H Absolute Neuts (auto) 1.2 L Absolute Lymphs (auto) 1.80 Nucleated RBC % 0 Sodium 138 Potassium 3.7 Chloride 109 H Carbon Dioxide 27.0 Anion Gap 2 L BUN 14 Creatinine 0.86 Estim Creat Clear Calc 72.77 Est GFR (MDRD) Af Amer 91 Est GFR (MDRD) Non-Af 75 BUN/Creatinine Ratio 16.3 Glucose 90 Calcium 8.6 Troponin I High Sens 20 Radiography Diagnostic Testing: Clinical Impression(s) from Imaging Studies Chest X-Ray 10/18/22 18:18 IMPRESSION: No radiographic evidence of acute cardiopulmonary disease. Electronically Signed: Lewis Klein MD at 18:35 EST , Treatment and Re-Evaluation Narrative: I have personally performed a face to face assessment of the patient and have reviewed the NAYELY Note. I performed a substantive portion of the visit including all aspects of the following. My serrano findings include: History is patient is evaluated for couple days of URI symptoms and then today had episode of tingling in her arms as well as lightheadedness. Patient's vital signs are significant for hypertension and some mild bradycardia. Patient is afebrile in the ER. COVID and flu test are negative. She has had a recent exposure to influenza with her children. Because of her vague symptoms and history of anemia CBC and BMP as well as troponin are also checked. She has a mild anemia of 11.2 but I do not think this explains her symptoms. Patient is not hypoxic. She has clear breath sounds. Chest x-ray to her by myself as well as radiology does not show any acute process. At this time I think it is safe for patient to be discharged home. Likely she does have a viral syndrome. Counseled on return precautions. Discharge Plan Triage Chief Complaint: Shortness of Breath ED Midlevel Provider: Anabelle Salter ED Provider: Juli Rocha Dx/Rx/DC Orders Clinical Impression: Viral URI, Microcytic anemia Instructions: ED URI, Viral, No Abx (Adult) Prescriptions: No Action Slow Fe 142 mg (45 mg iron) tablet extended release 142 mg PO BID hydrochlorothiazide 25 mg tablet 12.5 mg PO DAILY Label Comments: TAKE 1/2 (ONE-HALF) OF A TABLET BY MOUTH DAILY insulin lispro 100 UNIT/ML cartridge See Protocol [facility] Protocol: 6. Sliding Scale Insulin Custom Condition: mg/dl range Dose/Route: Number of Units Condition: 0-150 Dose/Route: 2 Condition: 150-200 Dose/Route: 3 Protocol Text: Custom Sliding Scale duloxetine 30 MG capsule,delayed release(DR/EC) 30 mg PO DAILY cetirizine 10 MG capsule 10 mg PO DAILY ondansetron HCl 4 mg Tablet 4 mg PO Q8H PRN (Reason: Nausea) acetaminophen 500 mg Tablet 1,000 mg PO Q6H PRN (Reason: Pain) amlodipine 10 mg tablet 10 mg PO DAILY insulin glargine [Lantus Solostar U-100 Insulin] 100 unit/mL (3 mL) Insulin Pen 10 unit SUBCUT QPM pantoprazole [Protonix] 40 mg tablet,delayed release (DR/EC) 40 mg PO BID Qty: 60 0RF lisinopril 40 mg tablet 40 mg PO DAILY Qty: 90 5RF Rx Instructions: Hold for SBP less than 130 mmHg buspirone 5 mg tablet 1 tab PO TID Label Comments: Take 1 tablet by mouth twice daily. pravastatin 40 mg tablet 1 tab PO QHS Label Comments: Take 1 tablet by mouth once daily. Bariatric Multivitamins 45 mg iron- 800 mcg-120 mcg Capsule 2 cap PO DAILY tizanidine 4 mg tablet 4 mg PO BID Label Comments: TAKE 1 TABLET BY MOUTH TWICE DAILY sennosides-docusate sodium [Stimulant Laxative Plus] 8.6-50 mg tablet 1 tab PO DAILY Label Comments: TAKE 1 TABLET BY MOUTH ONCE DAILY fluticasone propionate 50 mcg/actuation spray,suspension 2 spray INTRANASAL DAILY Label Comments: Use 2 Sprays in each nostril once daily. Rinse mouth after use. nitrofurantoin monohyd/m-cryst 100 mg capsule 100 mg PO DAILY Label Comments: TAKE 1 CAPSULE BY MOUTH ONCE DAILY metoprolol tartrate 50 mg tablet 25 mg PO BID hydralazine 50 mg tablet 50 mg PO TID Qty: 90 11RF Primary Care Provider: Bebeto Charlton Referrals: Bebeto Charlton, [Primary Care Provider] - 5-7 Days Activity Restrictions/Additional Instructions: Stay well-hydrated and return if symptoms worsen. Begin taking your recommended amount of bariatric multivitamins to help with iron deficiency. Please follow-up with PCP. Disposition Disposition: Home, Self Care Discharge Date/Time: 10/18/22 19:33
[2022-10-18 18:11] VITALS: BP 183/91; BP 189/98; BP 191/94; PULSE 48; PULSE 51; PULSE 55
[2022-10-18 18:13] VITALS: BP 189/98; PULSE 51; RESP 16; O2SAT 100
[2022-10-18 18:18] LABS: Absolute Neutrophil Count 1.2 X10^3/uL (2.0-7.7); Basophil# 0.05 X10^3/uL; Basophil% 1.5 % (0-1); Eosinophil# 0.04 X10^3/uL; Eosinophils% 1.2 % (0-5); Hematocrit 35.9 % (37-47); Hemoglobin 11.2 g/dL (12.0-15.0); Lymphocyte % 53.9 % (19-41); Mean Corp Hgb Conc 31.2 g/dL (32-36); Mean Corpuscular Hgb 26.8 pg (27.0-32.0); Mean Corpuscular Volume 85.9 fL (81-99); Mean Platelet Vol. 9.5 fl (6.2-12.0); Monocyte# 0.26 X10^3/uL; Monocyte% 7.8 % (0-10); NRBC Flagged by Analyzer 0 % (0-5); Neutrophil # 1.19 X10^3/uL (2.7-7.7); Neutrophil % 35.6 % (47-70); Platelet Count 290 K/mm3 (150-450); RBC Distribution Width CV 15.7 % (11.6-14.6); RBC Distribution Width SD 49.3 fl (35.1-43.9); Red Blood Count 4.18 M/mm3 (4.2-5.4); White Blood Count 3.3 K/mm3 (4.4-11.0)
--- NOTE | 2022-10-18 18:18 | RAD_ITS ---
EXAM: XR CHEST, 2 VIEWS CLINICAL INDICATION: SOB TECHNIQUE: Frontal and lateral views of the chest. This report was created using [employer] report generation technology. COMPARISON: 01/14/2021 FINDINGS: LUNGS AND PLEURAL SPACES: Unremarkable. No consolidation or edema. No pneumothorax. No effusion. HEART: Unremarkable. Cardiac silhouette not enlarged. MEDIASTINUM: Central airways and mediastinal contour are unremarkable. BONES/JOINTS: Unremarkable. SOFT TISSUES: Unremarkable. RAD/Chest PA and Lateral IMPRESSION: No radiographic evidence of acute cardiopulmonary disease. Electronically Signed: Lewis Klein MD at 18:35 EST ,
[2022-10-18 18:38] LABS: Anion Gap 2 (5-15); BUN 14 mg/dL (7-18); BUN/Creat Ratio 16.3 RATIO (10-20); Calcium,Total 8.6 mg/dL (8.5-10.1); Chloride 109 mmol/L (98-107); Creatinine, Serum 0.86 mg/dL (0.55-1.02); EST Glomerular Filtration Rate 75 mL/min (>60); Est Glom Filt Rate - Afr Amer 91 mL/min (>60); Estimated Creatinine Clearance 72.77 ml/min; Glucose 90 mg/dL (74-106); Potassium 3.7 mmol/L (3.5-5.1); Sodium Level 138 mmol/L (136-145); Troponin-I HS 20 pg/mL (3.0-54.0)
[2022-10-18 19:21] VITALS: BP 191/87; PULSE 48; RESP 16; O2SAT 100
== END 2022-10-18 19:33 | disposition home or self-care (01) ==
PROVIDERS: Physician Assistant; Emergency Provider Emergency Medicine; PCP Student in an Organized Health Care Education/Training Program; Visit Provider Emergency Medicine
DX: D50.9 Iron deficiency anemia, unspecified (principal); E11.9 Type 2 diabetes mellitus without complications; J06.9 Acute upper respiratory infection, unspecified; R06.02 Shortness of breath; I10 Essential (primary) hypertension; E78.5 Hyperlipidemia, unspecified; B97.89 Other viral agents as the cause of diseases classified elsewhere; Z20.822 Contact with and (suspected) exposure to COVID-19
CPT/HCPCS: 71046; 80048; 84484; 85025; 87428; 99284

== ENCOUNTER 2022-12-08 18:14 | Emergency (ER) | payer MEDICAID, SELFPAY ==
[2022-12-08] VITALS (11 sets, daily range): BP systolic 151–194; BP diastolic 94–99; PULSE 52–65; RESP 13–16; TEMP 36.9; O2SAT 98–100; BMI 25.2
--- NOTE | 2022-12-08 18:15 | EKG12_ITS ---
Test Reason : CP Blood Pressure : / mmHG Vent. Rate : 052 BPM Atrial Rate : 052 BPM P-R Int : 170 ms QRS Dur : 082 ms QT Int : 454 ms P-R-T Axes : 040 031 162 degrees QTc Int : 422 ms Sinus bradycardia Left ventricular hypertrophy with repolarization abnormality Abnormal ECG Confirmed by LEN CORTEZ, JACKIE ([id number]), newspaper managing editor ALTAF SIMPSON ([id number]) on 12/12/2022 9:14:45 AM Referred By: GEENA Confirmed By:JACKIE HARRINGTON MD
--- NOTE | 2022-12-08 19:24 | EDS_ITS ---
HPI History of Present Illness Chief Complaint: Chest Pain Informant: patient Onset/Context/Timing Onset: Today Activity at onset: sudden Timing: Intermittent Quality: Positive for Sharp Location: Left Chest Worsened By: Nothing Relieved By: Nothing Associated Symptoms: Positive for Nausea, Vomiting and Dyspnea; Negative for Diaphoresis, Cough, Fever, Lightheadedness, Acid Reflux or Palpitations Narrative Narrative: Patient presents with chest pain that began today. Patient states it began rather suddenly. Patient states it comes and goes. Patient describes it as sharp. Patient states it is over the left side of her chest. Patient states nothing makes it worse and nothing makes it better. Patient has had similar episodes in the past and has been discharged from the emergency department after her work-up. Patient admits to some nausea and vomiting tonight. Patient admits to some shortness of breath. Patient denies any cough, fever, or diaphoresis. Patient denies any lightheadedness or palpitations. CVD Risk Factors: Positive for Hypertension, Diabetes and Family History 1' </=55; Negative for Hypercholesterolemia or Smoking PE Risk Factors: Negative for Recent Travel/Surgery, Recent Immobilization, Prior DVT or PE, Cancer or OCP + Smoking + >/=35 PFSH PFSH Medical History Anemia Anemia Anxiety Asthma Asthma Benign essential hypertension Chronic pain syndrome COVID-19 CPAP (continuous positive airway pressure) dependence Depression GI bleed Hirsutism History of gestational diabetes mellitus History of non-ST elevation myocardial infarction (NSTEMI) (1999) HLD (hyperlipidemia) Hypertensive urgency Obesity Obstructive sleep apnea Severe left ventricular hypertrophy Sleep apnea Type II diabetes mellitus Home Medications cetirizine 10 mg capsule 10 mg PO DAILY allergy 12/22/20 [History Last Taken Unknown] duloxetine 30 mg capsule,delayed release 30 mg PO DAILY depression 12/22/20 [History Last Taken Unknown] insulin lispro 100 unit/mL subcutaneous cartridge See Protocol subcut ACHS diabetes 12/22/20 [History Last Taken Unknown] acetaminophen 500 mg tablet 1,000 mg PO Q6H PRN Pain 02/13/22 [History Last Taken Unknown] amlodipine 10 mg tablet 10 mg PO DAILY blood pressure 02/13/22 [History Last Taken Unknown] insulin glargine 100 unit/mL (3 mL) subcutaneous pen (Lantus Solostar U-100 Insulin) 10 unit subcut QPM diabetes 02/14/22 [History Last Taken Unknown] lisinopril 40 mg tablet 40 mg PO DAILY blood pressure #90 tabs 02/16/22 [Rx Last Taken Unknown] pantoprazole 40 mg tablet,delayed release (Protonix) 40 mg PO BID #60 tabs 02/16/22 [Rx Last Taken Unknown] buspirone 5 mg tablet 1 tab PO BID 05/08/22 [History Last Taken Unknown] yohanglj-lcmjzylq-mekp 45 mg-folic acid 800 mcg-vit K 120 mcg capsule (Bariatric Multivitamins) 2 cap PO DAILY 05/08/22 [History Last Taken Unknown] pravastatin 40 mg tablet 1 tab PO QHS cholesterol 05/08/22 [History Last Taken Unknown] ferrous sulfate 142 mg (45 mg iron) tablet,extended release (Slow Fe) 142 mg PO BID 08/16/22 [History Last Taken Unknown] hydrochlorothiazide 25 mg tablet 12.5 mg PO DAILY 08/16/22 [History Last Taken Unknown] metoprolol tartrate 50 mg tablet 75 mg PO BID blood pressure 09/06/22 [History Last Taken Unknown] fluticasone propionate 50 mcg/actuation nasal spray,suspension 2 spray intranasal DAILY 10/18/22 [History Last Taken Unknown] nitrofurantoin monohydrate/macrocrystals 100 mg capsule 100 mg PO BID 10/18/22 [History Last Taken Unknown] sennosides 8.6 mg-docusate sodium 50 mg tablet (Stimulant Laxative Plus) 1 tab PO DAILY 10/18/22 [History Last Taken Unknown] tizanidine 4 mg tablet 4 mg PO BID 10/18/22 [History Last Taken Unknown] Lactobacillus acidophilus and rhamnosus 15 billion cell capsule 1 cap PO DAILY 12/08/22 [History Last Taken Unknown] albuterol sulfate 90 mcg/actuation aerosol inhaler 2 puff inhalation Q4H PRN PRN sob 12/08/22 [History Last Taken Unknown] ascorbic acid (vitamin C) 500 mg tablet 500 mg PO BID 12/08/22 [History Last Taken Unknown] cholecalciferol (vitamin D3) 50 mcg (2,000 unit) tablet 50 mcg PO DAILY 12/08/22 [History Last Taken Unknown] diclofenac sodium 1 % topical gel 1 ea topical PRN PRN Pain 12/08/22 [History Last Taken Unknown] escitalopram oxalate 10 mg tablet 10 mg PO DAILY 12/08/22 [History Last Taken Unknown] hydralazine 50 mg tablet 50 mg PO BID 12/08/22 [History Last Taken Unknown] omeprazole 20 mg capsule,delayed release 40 mg PO DAILY 12/08/22 [History Last Taken Unknown] oxycodone 15 mg tablet 15 mg PO TID 12/08/22 [History Last Taken Unknown] Allergy/AdvReac Type Severity Reaction Status Date / Time Penicillins Allergy Hives Verified 12/08/22 18:15 metformin AdvReac Diarrhea Verified 12/08/22 18:15 venlafaxine [From Effexor] AdvReac Upset Verified 12/08/22 18:15 Stomach Family History Mother Heart disease Hypertension Diabetes Surgical History H/O gastric bypass History of cholecystectomy History of left heart catheterization (10/07/19) Social History Smoking Status: Never smoker second hand exposure: Yes substance use type: former substance user and crack/cocaine ROS ROS ED Constitutional Constitutional ED: Denies chills or fever(s) Eyes Eyes: Denies blurry vision or change in vision ENT ENT ED: Denies rhinorrhea or sore throat Cardiovascular Cardiovascular: Reports chest pain; Denies palpitations Respiratory/Chest Respiratory/Chest: Reports dyspnea; Denies cough Gastrointestinal Gastrointestinal: Reports nausea and vomiting; Denies abdominal pain Genitourinary Genitourinary ED: Reports urinary frequency; Denies dysuria or hematuria Musculoskeletal Musculoskeletal: Reports back pain; Denies neck pain Integumentary Denies abscess or rash Neurologic Neurologic: Reports headache(s); Denies weakness Allergic/Immunologic Allergic/Immunologic ED: Denies mouth swelling or urticaria EXAM Physical Exam Const Vital Signs: 12/08/22 18:16 12/08/22 18:24 12/08/22 19:20 Temperature 98.5 F Temperature Source Oral Pulse Rate 57 L Respiratory Rate 16 Respiratory Effort Normal Non-Labored Respiratory Pattern Normal Blood Pressure 194/97 H Blood Pressure Mean 129 Pulse Ox 100 98 Oxygen Delivery Method Room Air Room Air 12/08/22 19:14 12/08/22 19:51 12/08/22 20:00 Temperature Temperature Source Pulse Rate 55 L 54 L 52 L Respiratory Rate 14 15 Respiratory Effort Respiratory Pattern Blood Pressure 187/99 H 188/98 H Blood Pressure Mean 128 128 Pulse Ox 99 100 Oxygen Delivery Method Room Air Nasal Cannula 12/08/22 20:47 12/08/22 20:55 12/08/22 21:00 Temperature Temperature Source Pulse Rate 52 L 56 L 63 Respiratory Rate 15 13 Respiratory Effort Respiratory Pattern Blood Pressure 179/94 H 179/94 H 151/99 H Blood Pressure Mean 122 116 Pulse Ox 100 99 Oxygen Delivery Method Nasal Cannula Room Air 12/08/22 21:06 12/08/22 21:07 Temperature Temperature Source Pulse Rate 65 58 L Respiratory Rate 13 Respiratory Effort Respiratory Pattern Blood Pressure 151/99 H 151/99 H Blood Pressure Mean 116 Pulse Ox 99 Oxygen Delivery Method Room Air Positive well nourished and well developed General Appearance ED: well developed and NAD HEENT normocephalic and atraumatic Eyes PERRL and EOMs intact bilaterally Neck supple and no JVD Chest Wall palpation of chest normal Chest Narrative: There is mild tenderness over the anterior chest wall on the left. There is no bony crepitance or step-off. There is no subcutaneous emphysema noted. Resp normal respiratory effort and clear to auscultation bilaterally Effort and Inspection: Negative for respiratory distress Cardio regular rate and regular rhythm GI normal to inspection, nondistended, normoactive bowel sounds, soft to palpation, non-tender and non-distended Extremity normal to inspection General Extremety ED: Negative for edema or tenderness General Extremity: Negative for edema Neuro oriented x3, CN's II-XII intact bilaterally and no sensory deficits noted Sensorium / Orientation: awake and alert Motor Exam: strength 5/5 throughout Psych mental status grossly normal Heart Score History: Slightly/Non-Suspicious ECG: Nonspecific Repolarization Age: >45 - <65 years Risk Factors: >/= 3 Risk Factors or History of CAD Troponin: </= Normal Limit Score: 4 MDM MDM MDM Narrative Medical decision making narrative: Patient was given aspirin and sublingual nitroglycerin here. Differential diagnosis includes cardiac ischemia, pneumonia, anxiety, pneumothorax, and m usculoskeletal chest pain. Patient is PERC negative and has no PE risk factors. I do not feel PE is in the differential at this time. CBC will be obtained to assess for leukocytosis and anemia. EKG will be obtained to assess for cardiac ischemia and cardiac dysrhythmia. Basic metabolic profile will be obtained to assess for electrolyte abnormality and renal function. High-sensitivity troponi n will be obtained to assess for cardiac ischemia. 2-hour repeat high- sensitivity troponin will also be obtained to assess for ongoing cardiac ischemia. Lab Data Attestation: I reviewed the patient's lab results. Lab results narrative: CBC was reviewed. White blood cell count was slightly low at 3.9. Hemoglobin was 10.8 and hematocrit 35.6. Platelets were normal. Basic metabolic profile was reviewed. This was within normal limits. Initial high-sensitivity troponin was reviewed and was normal at 25. 2-hour repeat high-sensitivity troponin was reviewed and was also normal at 25. Labs: Laboratory Results - last 24 hr 12/08/22 12/08/22 12/08/22 18:20 18:20 21:30 WBC 3.9 L RBC 4.21 Hgb 10.8 L Hct 35.6 L MCV 84.6 MCH 25.7 L MCHC 30.3 L RDW Std Deviation 46.1 H RDW Coeff of Moe 15.1 H Plt Count 274 MPV 10.2 Immature Gran % (Auto) 0.300 Neut % (Auto) 38.5 L Lymph % (Auto) 48.5 H Rock % (Auto) 9.9 Eos % (Auto) 1.8 Baso % (Auto) 1.0 Absolute Neuts (auto) 1.5 L Absolute Lymphs (auto) 1.91 Nucleated RBC % 0 Sodium 142 Potassium 3.6 Chloride 107 Carbon Dioxide 29.0 Anion Gap 6 BUN 15 Creatinine 1.06 H Estim Creat Clear Calc 59.04 Est GFR (MDRD) Af Amer 71 Est GFR (MDRD) Non-Af 59 L BUN/Creatinine Ratio 14.2 Glucose 91 Calcium 8.6 Troponin I High Sens 25 25 Radiography Diagnostic Testing: Clinical Impression(s) from Imaging Studies Chest X-Ray 12/08/22 19:24 IMPRESSION: No radiographic evidence of acute cardiopulmonary disease. Electronically Signed: Denise Beck MD at 19:49 EST Reading Location ID and State: [id number] / Tel , Service support , Portable 1 view chest x-ray was obtained. On my independent interpretation, lung blanco are clear. There is normal cardiac silhouette. Bony thorax is normal. There is no acute process noted. Radiologist also interpreted the x- ray and agrees. EKG Initial EKG: Attestation: I personally reviewed and interpreted this EKG as follows: Interpretation: Sinus Bradycardia (52), Non-Specific ST Changes and - (There is left ventricular hypertrophy with strain pattern.) Comments: EKG was obtained. On my interpretation, it showed a sinus bradycardia with a rate of 52. AL interval, QRS interval, and QTc intervals were all normal. [place] was normal. There his left ventricular hypertrophy with strain pattern. Prior EKG tracings: available for review Prior: Unchanged (03/25/2021) Treatment and Re-Evaluation Narrative: Patient was advised of her findings. Patient was instructed to follow-up with her primary care physician in 5 to 7 days for reevaluation. Patient was instructed to return if worse in any way. Patient was instructed to take Tylenol or ibuprofen as needed for pain. Patient understood and was agreeable with the plan. All questions were answered. Discharge Plan Triage Chief Complaint: Chest Pain ED Provider: Nikita Guzmán Dx/Rx/DC Orders Clinical Impression: Chest pain of uncertain etiology, Benign essential hypertension, Type II diabetes mellitus Instructions: ED Chest Pain, Uncertain Cause Prescriptions: No Action Slow Fe 142 mg (45 mg iron) tablet extended release 142 mg PO BID hydrochlorothiazide 25 mg tablet 12.5 mg PO DAILY Label Comments: TAKE 1/2 (ONE-HALF) OF A TABLET BY MOUTH DAILY insulin lispro 100 UNIT/ML cartridge See Protocol [facility] Protocol: 6. Sliding Scale Insulin Custom Condition: mg/dl range Dose/Route: Number of Units Condition: 151-200 Dose/Route: 2 Condition: 201-250 Dose/Route: 4 Condition: 251-300 Dose/Route: 6 Condition: 301-350 Dose/Route: 8 Condition: 351-400 Dose/Route: 10 Protocol Text: Custom Sliding Scale duloxetine 30 MG capsule,delayed release(DR/EC) 30 mg PO DAILY cetirizine 10 MG capsule 10 mg PO DAILY acetaminophen 500 mg Tablet 1,000 mg PO Q6H PRN (Reason: Pain) amlodipine 10 mg tablet 10 mg PO DAILY insulin glargine [Lantus Solostar U-100 Insulin] 100 unit/mL (3 mL) Insulin Pen 10 unit SUBCUT QPM pantoprazole [Protonix] 40 mg tablet,delayed release (DR/EC) 40 mg PO BID Qty: 60 0RF lisinopril 40 mg tablet 40 mg PO DAILY Qty: 90 5RF Rx Instructions: Hold for SBP less than 130 mmHg buspirone 5 mg tablet 1 tab PO BID Label Comments: Take 1 tablet by mouth twice daily. pravastatin 40 mg tablet 1 tab PO QHS Label Comments: Take 1 tablet by mouth once daily. Bariatric Multivitamins 45 mg iron- 800 mcg-120 mcg Capsule 2 cap PO DAILY tizanidine 4 mg tablet 4 mg PO BID Label Comments: TAKE 1 TABLET BY MOUTH TWICE DAILY sennosides-docusate sodium [Stimulant Laxative Plus] 8.6-50 mg tablet 1 tab PO DAILY Label Comments: TAKE 1 TABLET BY MOUTH ONCE DAILY fluticasone propionate 50 mcg/actuation spray,suspension 2 spray INTRANASAL DAILY Label Comments: Use 2 Sprays in each nostril once daily. Rinse mouth after use. nitrofurantoin monohyd/m-cryst 100 mg capsule 100 mg PO BID Label Comments: TAKE 1 CAPSULE BY MOUTH ONCE DAILY oxycodone 15 mg tablet 15 mg PO TID ascorbic acid (vitamin C) 500 mg Tablet 500 mg PO BID omeprazole 20 mg Capsule,Delayed Release(Dr/Ec) 40 mg PO DAILY albuterol sulfate 90 mcg/actuation HFA aerosol inhaler 2 puff INHALATION Q4H PRN PRN (Reason: sob) escitalopram oxalate 10 mg tablet 10 mg PO DAILY diclofenac sodium [Voltaren] 1 % Gel 1 ea TOPICAL PRN PRN (Reason: Pain) cholecalciferol (vitamin D3) 50 mcg (2,000 unit) Tablet 50 mcg PO DAILY L. acidophilus-L. rhamnosus 15 billion cell Capsule 1 cap PO DAILY hydralazine 50 mg tablet 50 mg PO BID metoprolol tartrate 50 mg tablet 75 mg PO BID Primary Care Provider: Bebeto Charlton Referrals: Bebeto Charlton DO [Primary Care Provider] - 5-7 Days Disposition Disposition: Home, Self Care
--- NOTE | 2022-12-08 19:24 | RAD_ITS ---
INDICATION: chest pain EXAMINATION/TECHNIQUE: X-RAY - XR Chest 1 View COMPARISON: 10/18/2022. FINDINGS: LINES/DEVICES: None. LUNGS: No consolidation, edema or effusion. No pneumothorax. MEDIASTINUM AND CARDIOVASCULAR STRUCTURES: Cardiac silhouette not enlarged. Central airways and mediastinal contour are unremarkable. BONES AND SOFT TISSUES: Degenerative changes of the shoulders bilaterally. RAD/Chest 1 View (Portable) IMPRESSION: No radiographic evidence of acute cardiopulmonary disease. Electronically Signed: Denise Beck MD at 19:49 EST Reading Location ID and State: [id number] / Tel , Service support ,
[2022-12-08] MEDS: Aspirin 81 MG TAB.CHEW 324 MG PO (19:35)
[2022-12-08 19:37] LABS: Absolute Lymphocyte Count 1.91 X10^3/uL (0.83-4.51); Absolute Neutrophil Count 1.5 X10^3/uL (2.0-7.7); Basophil# 0.04 X10^3/uL; Eosinophil# 0.07 X10^3/uL; Eosinophils% 1.8 % (0-5); Hematocrit 35.6 % (37-47); Hemoglobin 10.8 g/dL (12.0-15.0); Lymphocyte # 1.91 X10^3/ul (0.83-4.51); Lymphocyte % 48.5 % (19-41); Mean Corp Hgb Conc 30.3 g/dL (32-36); Mean Corpuscular Hgb 25.7 pg (27.0-32.0); Mean Corpuscular Volume 84.6 fL (81-99); Mean Platelet Vol. 10.2 fl (6.2-12.0); Monocyte# 0.39 X10^3/uL; Monocyte% 9.9 % (0-10); NRBC Flagged by Analyzer 0 % (0-5); Neutrophil # 1.52 X10^3/uL (2.7-7.7); Neutrophil % 38.5 % (47-70); Platelet Count 274 K/mm3 (150-450); RBC Distribution Width CV 15.1 % (11.6-14.6); RBC Distribution Width SD 46.1 fl (35.1-43.9); Red Blood Count 4.21 M/mm3 (4.2-5.4); White Blood Count 3.9 K/mm3 (4.4-11.0)
[2022-12-08 19:59] LABS: Anion Gap 6 (5-15); BUN 15 mg/dL (7-18); BUN/Creat Ratio 14.2 RATIO (10-20); Calcium,Total 8.6 mg/dL (8.5-10.1); Chloride 107 mmol/L (98-107); Creatinine, Serum 1.06 mg/dL (0.55-1.02); EST Glomerular Filtration Rate 59 mL/min (>60); Est Glom Filt Rate - Afr Amer 71 mL/min (>60); Estimated Creatinine Clearance 59.04 ml/min; Glucose 91 mg/dL (74-106); Potassium 3.6 mmol/L (3.5-5.1); Sodium Level 142 mmol/L (136-145); Troponin-I HS (w/2H Reflex) 25 pg/mL (3.0-54.0)
[2022-12-08] MEDS: Nitroglycerin SL (ED/IMG/CATH) 0.4 MG TABLET SL ×2 (20:55→21:06)
[2022-12-08 21:33] LABS: Reflex Troponin-HS? (from REC) Y
[2022-12-08 21:58] LABS: Troponin-I HS 25 pg/mL (3.0-54.0)
== END 2022-12-08 22:39 | disposition home or self-care (01) ==
PROVIDERS: Emergency Provider Emergency Medicine; PCP Student in an Organized Health Care Education/Training Program; Visit Provider Emergency Medicine
DX: R07.9 Chest pain, unspecified (principal); E11.9 Type 2 diabetes mellitus without complications; Z79.4 Long term (current) use of insulin; I10 Essential (primary) hypertension; I25.2 Old myocardial infarction; Z79.899 Other long term (current) drug therapy; Z86.16 Personal history of COVID-19
CPT/HCPCS: 71045; 80048; 84484; 85025; 93005; 99285; A4216

== ENCOUNTER → 2023-02-22 | Outpatient (CLI) | payer MEDICAID, SELFPAY ==
--- NOTE | 2023-02-22 14:49 | VDLE_ITS ---
Reason For Study: Pain RIGHT LEFT GSV is normal. CFV is compressible, spontaneous, phasic, CFV is compressible, spontaneous, phasic, competent, and demonstrates normal competent and demonstrates normal augmentation. augmentation. FV is compressible, spontaneous, phasic, competent and demonstrates normal augmentation. POP V is compressible, spontaneous, phasic, competent and demonstrates normal augmentation. T/P Trunk is compressible. PTV is compressible. RT PerV is compressible. Procedure This is a venous duplex using B-mode, color flow and spectral Doppler. Exam performed in department. The exam was diagnostic. A preliminary report was called and/or faxed to Dr. Frank's office. VL/Venous Duplex US, Unilateral Interpretation Summary There is no evidence of right lower extremity deep vein thrombosis. Right great saphenous vein appears patent and compressible segmentally. Normal flow patterns left common f emoral vein Ordering Physician: Renny Frank Referring Physician: Renny Frank Performed By: Jaycob Salas RVT
[2023-02-22 16:36] LABS: Hematocrit 28.7 % (37-47); Hemoglobin 8.8 g/dL (12.0-15.0); Mean Corp Hgb Conc 30.7 g/dL (32-36); Mean Corpuscular Hgb 25.7 pg (27.0-32.0); Mean Corpuscular Volume 83.9 fL (81-99); Mean Platelet Vol. 9.1 fl (6.2-12.0); Platelet Count 465 K/mm3 (150-450); RBC Distribution Width CV 17.8 % (11.6-14.6); RBC Distribution Width SD 53.1 fl (35.1-43.9); Red Blood Count 3.42 M/mm3 (4.2-5.4); White Blood Count 4.7 K/mm3 (4.4-11.0)
[2023-02-22 17:02] LABS: Erythrocyte Sedimentation Rate 25 mm/hr (0-30)
== END | disposition home or self-care (01) ==
PROVIDERS: PCP Student in an Organized Health Care Education/Training Program; Referring Provider Orthopaedic Surgery Hand Surgery; Visit Provider Orthopaedic Surgery Hand Surgery
DX: M79.604 Pain in right leg (principal)
CPT/HCPCS: 36415; 85027; 85652; 93971

== ENCOUNTER 2023-05-29 16:00 | Outpatient (RCR) | payer MEDICAID, SELFPAY ==
--- NOTE | 2023-03-03 09:48 | HP.PTEVAL ---
Patient's Visit Information SUNIL ARAUJO is a 47 year old F referred to Physical Therapy by Dr. Renny Frank DO with a diagnosis of . Date of Evaluation: 03/03/23 Physical Therapist: Mae Hermosillo DPT - Visit Plan Frequency: 2-3x /Week Duration: 4 Weeks Plan: Right TKR 02/09/23- Focus on ROM, Strength, Edema Control, and Functional Mobility. HEP Given IE: quad set, SLR, supine heel slide, seated knee extension, seated heel slide - Subjective Right total knee replacement 02/09/[address] Frank- she went straight home- she did not have home health. She has been doing some exercises at home. She lives in a single story home with stairs to enter but she is able to get in without issues. Prior to surgery she was using a cane- she have bilateral THR and she needs a left knee. She is having some pain this morning. She reports its more stiff. The longer she is on it the more it swells. Worst: 8/10 Agg: movement, standing. Hard to find a comfortable position. Eases: ice, elevation, on the couch flat out. Best: 6/10. Pain is located in the knee itself- no pain that radiates to the calf or hip. Did have a doppler and prescribed antibiotic due to her having chills. She did have an x-ray and they told her the knee looks great. They did tell her she has a hematoma inside on the back of the leg. She does have some burning. Sleep: disturbed- couch. PMHx: THR, 3 c-sections, cryo surgery, carpal tunnel surgery. Meds: metroprolol, lisinopril, hydrolozine, HTC, buspar, panthalozine, asprin, dococyline, oxycodone, Tylenol. - Objective Posture: FH, RS- can correct with verbal cues but does not maintain. Gait: antalgic- decreased stance on the right LE with foot flat contact no AD. SLS: weight shifting-but is unabel to SLS without loss of balance. Palpation: tender along medial and lateral joint line. ROM: 15-70 degrees without over pressure (heel slide supine)- pain at end ranges Strength: Core: fair, Hip: 4/5 Knee: SLR:moderate juan, Extn: 12.7 Flexion: 11.2 lbs, Ankle: 5/5. Flex: HS: moderate Gastroc: moderate. Girth Patella: 41 cm, 6 above 44 cm - Balance/Special Test Scores TUG Test Time Seconds: 15.5 WOMAC Total Score: 79 WOMAC Percentatge: 17.7100 - Goals Goal 1:: Patient will be I with HEP and progression Goal Time Frame: 4-6 Weeks Goal 2:: Patient will ambulate >300 feet with a normal gait pattern and LRD Goal Time Frame: 4-6 Weeks Goal 3:: Patient will asc/desc 8 recip with 1 HR Goal Time Frame: 4-6 Weeks Goal 4:: Patient will report 80% improvement Goal Time Frame: 4-6 Weeks Goal 5:: Patient will demo 0-115 degrees of ROM in right knee Goal Time Frame: 4-6 Weeks - Rehabilitation Potential Physical Therapy Diagnosis: Patient presents s/p Right TKR- she has decreased LE ROM, LE and core strength/stabilization, flex and muscular endurance leading to abnormal gait and increased pain with ADL's. Rehabilitation Potential: Good - Anticipated Interventions Patient/Client Instruction: Educate patient on: Benefits of Fitness Program Therapeutic Exercise to Include: Strength training, Endurance training, Balance training, Coordination, Agility training, Body mechanics, Postural training, Flexibilty training, Gait and locomotor training, Neuromotor development, Passive ROM, Active ROM, Dynamic Lumbar Stabilization For the Purpose of:: To improve muscle performance and motor function TENS: Yes Other electric stimulation: Yes Cryotherapy (ice pack, ice massage): Yes Thermo therapy (hot pack): Yes Ultrasound (thermal/non thermal): No Thank you for the opportunity to evaluate your patient. For Medicare and Medicare HMO plans, please review the plan of care and approve it. It will need to be FAXED BACK to us at [phone] for Medicare purposes. For Medicare only, by signing this I certify the plan of care. Please let me know if there are questions or concerns regarding this plan of care. Physician Signature: Date:
--- NOTE | 2023-04-12 16:39 | HP.PTREVAL ---
Dr. Renny Frank, DO, It has been my pleasure to treat SUNIL ARAUJO over the last 10 visits for R TKA 02/09/23. Please see the progress note below for an update on the physical therapy plan of care! Subjective: Pt reports she just had manip. Very sore today Objective/Function: Pt able to achieve 107 degrees of flex today Plan Plan: Right TKR 02/09/23- Manipulation 04/12/23. Focus on ROM, Strength, Edema Control, and Functional Mobility Balance/Gait/Functional tests - Balance/Special Test Scores TUG Test Time Seconds: 15.5 Tug Test: <20 sec.=mostly independent WOMAC Total Score: 79 WOMAC Percentage: 17.7100 Goals Goal 1:: Patient will be I with HEP and progression Goal Time Frame: 4-6 Weeks Goal 2:: Patient will ambulate >300 feet with a normal gait pattern and LRD Goal Time Frame: 4-6 Weeks Goal 3:: Patient will asc/desc 8 recip with 1 HR Goal Time Frame: 4-6 Weeks Goal 4:: Patient will report 80% improvement Goal Time Frame: 4-6 Weeks Goal 5:: Patient will demo 0-115 degrees of ROM in right knee Goal Time Frame: 4-6 Weeks Anticipated Interventions Patient/Client Instruction: Educate patient on: Benefits of Fitness Program Therapeutic Exercise to Include: Strength training, Endurance training, Balance training, Coordination, Agility training, Body mechanics, Postural training, Flexibilty training, Gait and locomotor training, Neuromotor development, Passive ROM, Active ROM, Dynamic Lumbar Stabilization For the Purpose of:: To improve muscle performance and motor function TENS: Yes Other electric stimulation: Yes Cryotherapy (ice pack, ice massage): Yes Thermo therapy (hot pack): Yes Ultrasound (thermal/non thermal): No Please do not hesitate to contact me at [phone] by phone or if you have questions or concerns regarding this new plan of care! Sincerely, Jerman Castelan, PT, ATC
--- NOTE | 2023-05-29 16:45 | HP.PTREVAL ---
Re-Evaluation Intro: Dr. Renny Frank, DO, It has been my pleasure to treat SUNIL ARAUJO over the last 28 visits for R TKA 02/09/23. Please see the progress note below for an update on the physical therapy plan of care! Subjective Subjective: I dont have pain, I am just tight Objective Objective/Function: R knee is 75 improved Pt is able to ambulate greater than 340 feet Pt is able to negotiate 10 stairs without difficulty Pt is I with HEP R knee ROM: 0-5-93 degrees Plan Plan Plan: Discontinue to HEP Balance/Gait/Functional tests Balance/Special Test Scores TUG Test Time Seconds: 15.5 Tug Test: <20 sec.=mostly independent WOMAC Total Score: 34 WOMAC Percentage: 64.5900 Goals Goals Goal 1:: Patient will be I with HEP and progression Goal Time Frame: 4-6 Weeks Goal Progress: Goal Met Goal 2:: Patient will ambulate >300 feet with a normal gait pattern and LRD Goal Time Frame: 4-6 Weeks Goal Progress: Goal Met Goal 3:: Patient will asc/desc 8 recip with 1 HR Goal Time Frame: 4-6 Weeks Goal Progress: Goal Met Goal 4:: Patient will report 80% improvement Goal Time Frame: 4-6 Weeks Goal Progress: Progressing Goal 5:: Patient will demo 0-115 degrees of ROM in right knee Goal Time Frame: 4-6 Weeks Goal Progress: Progressing Anticipated Interventions Anticipated Interventions Patient/Client Instruction: Educate patient on: Benefits of Fitness Program Therapeutic Exercise to Include: Strength training, Endurance training, Balance training, Coordination, Agility training, Body mechanics, Postural training, Flexibilty training, Gait and locomotor training, Neuromotor development, Passive ROM, Active ROM and Dynamic Lumbar Stabilization For the Purpose of:: To improve muscle performance and motor function TENS: Yes Other electric stimulation: Yes Cryotherapy (ice pack, ice massage): Yes Thermo therapy (hot pack): Yes Ultrasound (thermal/non thermal): No Re-Evaluation Ending Re-evaluation ending: Please do not hesitate to contact me at [phone] by phone or if you have questions or concerns regarding this new plan of care! Sincerely, Jerman aCstelan, PT, ATC
--- NOTE | 2023-06-05 10:36 | HP.PTDCSUM ---
Discharge Summary D/C summary: It has been my pleasure to treat SUNIL ARAUJO referred by Dr. Renny Frank DO, with the diagnosis of R TKA 02/09/23 for a total of 28 visit(s). Discharge Date: Please see the following information for a summary of their discharge status. Subjective Subjective: I dont have pain, I am just tight Pain R knee pain: Pain Intensity (Out of 10): 0 Overall Improvement % Improvement: 75 Objective Objective/Function: R knee is 75 improved Pt is able to ambulate greater than 340 feet Pt is able to negotiate 10 stairs without difficulty Pt is I with HEP R knee ROM: 0-5-93 degrees Goals Goal 1:: Patient will be I with HEP and progression Goal Progress: Goal Met Goal 2:: Patient will ambulate >300 feet with a normal gait pattern and LRD Goal Progress: Goal Met Goal 3:: Patient will asc/desc 8 recip with 1 HR Goal Progress: Goal Met Goal 4:: Patient will report 80% improvement Goal Progress: Progressing Goal 5:: Patient will demo 0-115 degrees of ROM in right knee Goal Progress: Progressing Plan Plan: Discontinue to HEP D/C Information d/c sentence: If there are questions or concerns regarding this patient's physical therapy, please feel free to call me at [phone]. Thank you for the referral of this patient. Sincerely, Jerman Castelan, PT, ATC Balance/Gait/Functional tests Balance/Special Test Scores TUG Test Time Seconds: 15.5 Tug Test: <20 sec.=mostly independent WOMAC Total Score: 34 WOMAC Percentage: 64.5900
== END 2023-05-29 19:00 | disposition home or self-care (01) ==
LOC: PT 16:00
PROVIDERS: PCP Student in an Organized Health Care Education/Training Program; Referring Provider Orthopaedic Surgery Hand Surgery; Visit Provider Orthopaedic Surgery Hand Surgery
DX: Z47.1 Aftercare following joint replacement surgery (principal); Z96.651 Presence of right artificial knee joint; M17.11 Unilateral primary osteoarthritis, right knee
CPT/HCPCS: 97110; 97140; 97162; 97164

== ENCOUNTER 2023-10-15 16:42 | Emergency (ER) | payer MEDICAID, SELFPAY ==
[2023-10-15 16:43] VITALS: BP 111/73; PULSE 90; RESP 16; TEMP 36.4; O2SAT 100; BMI 22.3
[2023-10-15 17:10] VITALS: O2SAT 100
--- NOTE | 2023-10-15 17:12 | EKG12_ITS ---
Test Reason : SOB Blood Pressure : / mmHG Vent. Rate : 063 BPM Atrial Rate : 063 BPM P-R Int : 156 ms QRS Dur : 082 ms QT Int : 426 ms P-R-T Axes : 051 028 168 degrees QTc Int : 435 ms Normal sinus rhythm with sinus arrhythmia Left ventricular hypertrophy with repolarization abnormality ( Sokolow-Buitrago , Romhilt-Chau ) Abnormal ECG Confirmed by LEN CORTEZ, JACKIE ([id number]), map editor ANNABEL GUADALUPE ([id number]) on 10/16/2023 10:58:08 AM Referred By: Confirmed By:JACKIE HARRINGTON MD
--- NOTE | 2023-10-15 17:13 | ED.VIS.DYS ---
HPI History of Present Illness Chief Complaint: Shortness of Breath Narrative Narrative: 47-year-old female past medical history of anemia, presents with shortness of breath that began today. She denies any fevers or chills, no cough, but does endorse runny nose and mild nasal congestion. She also states that her bilateral ears are popping and she has history of bilateral otitis media. She states that it feels like she is underwater at times. She denies any chest pain, but states that when she is around secondhand smoke, she feels short of breath. She has history of asthma and has an inhaler, but does not like to use it. She presents mainly because she states she feels short of breath today. No leg swelling or other symptoms. [facility] Medical History Anemia Anemia Anxiety Asthma Asthma Benign essential hypertension Chronic pain syndrome Contact with and (suspected) exposure to other viral communicable diseases COVID-19 CPAP (continuous positive airway pressure) dependence Depression GI bleed Hirsutism History of gestational diabetes mellitus History of non-ST elevation myocardial infarction (NSTEMI) (1999) HLD (hyperlipidemia) Hypertensive urgency Obesity Obstructive sleep apnea Severe left ventricular hypertrophy Sleep apnea Type II diabetes mellitus Home Medications cetirizine 10 mg capsule 10 mg PO DAILY allergy 12/22/20 [History Last Taken Unknown] duloxetine 30 mg capsule,delayed release 30 mg PO DAILY depression 12/22/20 [History Last Taken Unknown] insulin lispro 100 unit/mL subcutaneous cartridge See Protocol subcut ACHS diabetes 12/22/20 [History Last Taken Unknown] acetaminophen 500 mg tablet 1,000 mg PO Q6H PRN Pain 02/13/22 [History Last Taken Unknown] insulin glargine 100 unit/mL (3 mL) subcutaneous pen (Lantus Solostar U-100 Insulin) 10 unit subcut QPM diabetes 02/14/22 [History Last Taken Unknown] pantoprazole 40 mg tablet,delayed release (Protonix) 40 mg PO BID #60 tabs 02/16/22 [Rx Last Taken Unknown] buspirone 5 mg tablet 1 tab PO BID 05/08/22 [History Last Taken Unknown] khxewzfh-qudiipkx-uhmh 45 mg-folic acid 800 mcg-vit K 120 mcg capsule (Bariatric Multivitamins) 2 cap PO DAILY 05/08/22 [History Last Taken Unknown] pravastatin 40 mg tablet 1 tab PO QHS cholesterol 05/08/22 [History Last Taken Unknown] ferrous sulfate 142 mg (45 mg iron) tablet,extended release (Slow Fe) 142 mg PO BID 08/16/22 [History Last Taken Unknown] fluticasone propionate 50 mcg/actuation nasal spray,suspension 2 spray intranasal DAILY 10/18/22 [History Last Taken Unknown] nitrofurantoin monohydrate/macrocrystals 100 mg capsule 100 mg PO BID 10/18/22 [History Last Taken Unknown] sennosides 8.6 mg-docusate sodium 50 mg tablet (Stimulant Laxative Plus) 1 tab PO DAILY 10/18/22 [History Last Taken Unknown] tizanidine 4 mg tablet 4 mg PO BID 10/18/22 [History Last Taken Unknown] Lactobacillus acidophilus and rhamnosus 15 billion cell capsule 1 cap PO DAILY 12/08/22 [History Last Taken Unknown] albuterol sulfate 90 mcg/actuation aerosol inhaler 2 puff inhalation Q4H PRN PRN sob 12/08/22 [History Last Taken Unknown] ascorbic acid (vitamin C) 500 mg tablet 500 mg PO BID 12/08/22 [History Last Taken Unknown] cholecalciferol (vitamin D3) 50 mcg (2,000 unit) tablet 50 mcg PO DAILY 12/08/22 [History Last Taken Unknown] diclofenac sodium 1 % topical gel 1 ea topical PRN PRN Pain 12/08/22 [History Last Taken Unknown] escitalopram oxalate 10 mg tablet 10 mg PO DAILY 12/08/22 [History Last Taken Unknown] omeprazole 20 mg capsule,delayed release 40 mg PO DAILY 12/08/22 [History Last Taken Unknown] oxycodone 15 mg tablet 15 mg PO TID 12/08/22 [History Last Taken Unknown] metoprolol tartrate 50 mg tablet 50 mg PO BID blood pressure 05/10/23 [History Last Taken Unknown] lisinopril 40 mg tablet 40 mg PO DAILY #1 TAB 05/15/23 [Rx Last Taken Unknown] amlodipine 10 mg tablet 10 mg PO DAILY #90 tabs 07/19/23 [Rx Last Taken Unknown] hydrochlorothiazide 25 mg tablet 25 mg PO DAILY 07/19/23 [History Last Taken Unknown] methylprednisolone 4 mg tablets in a dose pack (Medrol (Pravin)) See Rx Instructions PO PER PKG DIR #21 tabs 07/19/23 [Rx Last Taken Unknown] Allergy/AdvReac Type Severity Reaction Status Date / Time Penicillins Allergy Hives Verified 07/19/23 11:01 metformin AdvReac Diarrhea Verified 07/19/23 11:01 venlafaxine [From Effexor] AdvReac Upset Verified 07/19/23 11:01 Stomach Family History Mother Heart disease Hypertension Diabetes Surgical History H/O gastric bypass History of cholecystectomy History of left heart catheterization (10/07/19) Social History Smoking Status: Never smoker second hand exposure: Yes substance use type: former substance user and crack/cocaine ROS ROS ED ROS Narrative Constitutional: No fever, no chills. HEENT: No sore throat. No neck pain. No loss of vision. Mild nasal congestion and rhinorrhea starting today. Bilateral ear popping, states hearing feels as if she is underwater. Cardiovascular: No chest pain. No palpitations. No pedal edema. Respiratory: No cough, positive shortness of breath today. Abdominal: No abdominal pain. No nausea. No vomiting. Genitourinary: No dysuria. No hematuria. Musculoskeletal: No myalgias. No arthralgias. Neurologic: No headaches. No dizziness. No lightheadedness. Skin: No rash. No change in color. Psychiatric: No depression. No anxiety. EXAM Physical Exam Narrative Exam Narrative: Afebrile. Vital signs noted. HEENT: Normocephalic. Atraumatic. PERRL, EOMI. Neck soft and supple. No point tenderness or step off. No mastoid tenderness or erythema. Serous fluid behind bilateral TMs, no erythema of TMs. Cardiovascular: Regular rate and rhythm. No murmurs, rubs, or gallops appreciated. Respiratory: No tachypnea. Lungs clear to auscultation bilaterally. No wheezing or stridor. Gastrointestinal: Abdomen soft, nontender, with normoactive bowel sounds. No rebound or guarding. Neurological: Awake. Alert. Nonfocal, nonlateralizing. Skin: No rash. Normal color. No pallor. Musculoskeletal: No pedal edema. Full range of motion extremities. Const Vital Signs: 10/15/23 16:43 10/15/23 17:10 10/15/23 18:01 Temperature 97.6 F L Temperature Source Temporal Pulse Rate 90 61 Respiratory Rate 16 16 Respiratory Effort Normal Non-Labored Respiratory Depth Normal Respiratory Pattern Normal Blood Pressure 111/73 130/90 H Blood Pressure Mean 85 103 Pulse Ox 100 100 Oxygen Delivery Method Room Air Room Air Room Air MDM MDM MDM Narrative Medical decision making narrative: Patient's pulse ox is 100% on room air. I do not feel she requires a breathing treatment currently. Her shortness of breath may be from her chronic anemia. In order to rule out anemia requiring transfusion, CBC will be obtained. I will obtain an electrolyte panel as well. Chest x-ray in 2 views will be obtained to rule out pneumonia or pneumothorax although these are lower on the differential because the history and physical does not support this. She states she also has hypertension and when her blood pressure and heart rate go down she feels short of breath during the transition. She has normal heart rate currently. On her examination, TMs are without erythema but she may have fluid behind both TMs. No mastoid tenderness. I do feel she probably has more of a serous otitis media bilaterally given her description of hearing underwater. She can take [id number] decongestants and follow-up with her primary care provider. Chest x-ray in 2 views interpreted by myself independently shows no evidence of an acute pneumonia or pneumothorax. Her pulse ox remains 99 to 100% on room air without evidence of hypoxia. In review of her laboratory work from today she has a hemoglobin of 10.7, although anemic, I do not feel she requires blood transfusion and I do not feel this is the cause of her shortness of breath that was reported. Review of her BMP shows chloride 109 with a BUN of 26 and creatinine slightly elevated at 1.39. She told to drink plenty of fluids. I feel she can be discharged safely home with follow-up to her primary care provider. Return instructions were reviewed. Patient is agreeable for the plan. I do not feel she requires admission at this time. Disposition is discharged home in stable condition. History & Record Review Discussion w/independent historian: Patient Lab Data Attestation: I reviewed the patient's lab results. Labs: Laboratory Results - last 24 hr 10/15/23 17:50 WBC 4.4 RBC 4.51 Hgb 10.7 L Hct 37.0 MCV 82.0 MCH 23.7 L MCHC 28.9 L RDW Std Deviation 77.6 H RDW Coeff of Moe 27.2 H Plt Count 305 MPV 9.1 Immature Gran % (Auto) 0.000 Neut % (Auto) 56.8 Lymph % (Auto) 34.9 [place] % (Auto) 6.3 Eos % (Auto) 1.1 Baso % (Auto) 0.9 Absolute Neuts (auto) 2.5 Absolute Lymphs (auto) 1.54 Nucleated RBC % 0 Sodium 139 Potassium 4.0 Chloride 109 H Carbon Dioxide 28.0 Anion Gap 2 L BUN 26 H Creatinine 1.39 H Estim Creat Clear Calc 42.74 Est GFR (MDRD) Af Amer 52 L Est GFR (MDRD) Non-Af 43 L BUN/Creatinine Ratio 18.7 Glucose 97 Calcium 8.5 Radiography Diagnostic Testing: Clinical Impression(s) from Imaging Studies Chest X-Ray 10/15/23 17:30 IMPRESSION: Normal x-ray examination of the chest. Electronically Signed: Anastacio Long MD at 17:42 EST , Discharge Plan Triage Chief Complaint: Shortness of Breath ED Provider: Deshawn Catalan Dx/Rx/DC Orders Clinical Impression: Acute kidney injury, Shortness of breath, Acute serous otitis media, bilateral Instructions: Common Middle Ear Problems, ED Dyspnea, ED Earache Without Infection (Adult) Prescriptions: No Action Slow Fe 142 mg (45 mg iron) tablet extended release 142 mg PO BID methylprednisolone [Medrol (Pravin)] 4 mg tablets,dose pack See Rx Instructions PO PER PKG DIR Qty: 21 0RF Rx Instructions: PO PER PKG DIR insulin lispro 100 UNIT/ML cartridge See Protocol SC ACHS Protocol: 6. Sliding Scale Insulin Custom Condition: mg/dl range Dose/Route: Number of Units Condition: 151-200 Dose/Route: 2 Condition: 201-250 Dose/Route: 4 Condition: 251-300 Dose/Route: 6 Condition: 301-350 Dose/Route: 8 Condition: 351-400 Dose/Route: 10 Protocol Text: Custom Sliding Scale duloxetine 30 MG capsule,delayed release(DR/EC) 30 mg PO DAILY cetirizine 10 MG capsule 10 mg PO DAILY acetaminophen 500 mg Tablet 1,000 mg PO Q6H PRN (Reason: Pain) insulin glargine [Lantus Solostar U-100 Insulin] 100 unit/mL (3 mL) Insulin Pen 10 unit SUBCUT QPM pantoprazole [Protonix] 40 mg tablet,delayed release (DR/EC) 40 mg PO BID Qty: 60 0RF buspirone 5 mg tablet 1 tab PO BID Patient Comments: Take 1 tablet by mouth twice daily. pravastatin 40 mg tablet 1 tab PO QHS Patient Comments: Take 1 tablet by mouth once daily. Bariatric Multivitamins 45 mg iron- 800 mcg-120 mcg Capsule 2 cap PO DAILY tizanidine 4 mg tablet 4 mg PO BID Patient Comments: TAKE 1 TABLET BY MOUTH TWICE DAILY sennosides-docusate sodium [Stimulant Laxative Plus] 8.6-50 mg tablet 1 tab PO DAILY Patient Comments: TAKE 1 TABLET BY MOUTH ONCE DAILY fluticasone propionate 50 mcg/actuation spray,suspension 2 spray INTRANASAL DAILY Patient Comments: Use 2 Sprays in each nostril once daily. Rinse mouth after use. nitrofurantoin monohyd/m-cryst 100 mg capsule 100 mg PO BID Patient Comments: TAKE 1 CAPSULE BY MOUTH ONCE DAILY oxycodone 15 mg tablet 15 mg PO TID ascorbic acid (vitamin C) 500 mg Tablet 500 mg PO BID omeprazole 20 mg Capsule,Delayed Release(Dr/Ec) 40 mg PO DAILY albuterol sulfate 90 mcg/actuation HFA aerosol inhaler 2 puff INHALATION Q4H PRN PRN (Reason: sob) escitalopram oxalate 10 mg tablet 10 mg PO DAILY diclofenac sodium [Voltaren] 1 % Gel 1 ea TOPICAL PRN PRN (Reason: Pain) cholecalciferol (vitamin D3) 50 mcg (2,000 unit) Tablet 50 mcg PO DAILY L. acidophilus-L. rhamnosus 15 billion cell Capsule 1 cap PO DAILY metoprolol tartrate 50 mg tablet 50 mg PO BID lisinopril 40 mg tablet 40 mg PO DAILY Qty: 1 0RF amlodipine 10 mg tablet 10 mg PO DAILY Qty: 90 3RF hydrochlorothiazide 25 mg tablet 25 mg PO DAILY Primary Care Provider: Bebeto Charlton Referrals: Bebeto Charlton, DO [Primary Care Provider] - 1 Week if not improving Activity Restrictions/Additional Instructions: Drink plenty of oral fluids. Follow-up with your primary care provider. Disposition Disposition: Home, Self Care
--- NOTE | 2023-10-15 17:30 | RAD_ITS ---
STUDY: X-RAY CHEST REASON FOR EXAM: Female, 47 years old. Shortness of breath TECHNIQUE: PA and lateral views of the chest. COMPARISON: 12/08/2022 FINDINGS: The lungs are clear and expanded. There is no demonstrated pleural abnormality. Normal size heart. Normal mediastinum and amirah. Normal visualized pulmonary arteries. Normal visualized aortic arch and descending thoracic aorta. Normal visualized thoracic spine. Normal visualized ribs, clavicles, and shoulders. There is no demonstrated abnormality of the visualized soft tissue structures of the upper abdomen. RAD/Chest PA and Lateral IMPRESSION: Normal x-ray examination of the chest. Electronically Signed: Anastaico Long MD at 17:42 EST ,
[2023-10-15 17:59] LABS: Absolute Lymphocyte Count 1.54 X10^3/uL (0.83-4.51); Absolute Neutrophil Count 2.5 X10^3/uL (2.0-7.7); Basophil# 0.04 X10^3/uL; Basophil% 0.9 % (0-1); Eosinophil# 0.05 X10^3/uL; Eosinophils% 1.1 % (0-5); Hemoglobin 10.7 g/dL (12.0-15.0); Lymphocyte # 1.54 X10^3/ul (0.83-4.51); Lymphocyte % 34.9 % (19-41); Mean Corp Hgb Conc 28.9 g/dL (32-36); Mean Corpuscular Hgb 23.7 pg (27.0-32.0); Mean Platelet Vol. 9.1 fl (6.2-12.0); Monocyte# 0.28 X10^3/uL; Monocyte% 6.3 % (0-10); NRBC Flagged by Analyzer 0 % (0-5); Neutrophil % 56.8 % (47-70); POSITIVE MORPHOLOGY YES; Platelet Count 305 K/mm3 (150-450); RBC Distribution Width CV 27.2 % (11.6-14.6); RBC Distribution Width SD 77.6 fl (35.1-43.9); Red Blood Count 4.51 M/mm3 (4.2-5.4); White Blood Count 4.4 K/mm3 (4.4-11.0)
[2023-10-15 18:01] VITALS: BP 130/90; PULSE 61; RESP 16; O2SAT 100
[2023-10-15 18:10] LABS: Anion Gap 2 (5-15); BUN 26 mg/dL (7-18); BUN/Creat Ratio 18.7 RATIO (10-20); Calcium,Total 8.5 mg/dL (8.5-10.1); Chloride 109 mmol/L (98-107); Creatinine, Serum 1.39 mg/dL (0.55-1.02); EST Glomerular Filtration Rate 43 mL/min (>60); Est Glom Filt Rate - Afr Amer 52 mL/min (>60); Estimated Creatinine Clearance 42.74 ml/min; Glucose 97 mg/dL (74-106); Sodium Level 139 mmol/L (136-145)
[2023-10-15 18:11] LABS: Differential Indicated SCAN CRITERIA MET
[2023-10-15 18:24] LABS: Anisocytosis 2+; Differential Comment SCANNED
== END 2023-10-15 18:36 | disposition home or self-care (01) ==
PROVIDERS: Emergency Provider Emergency Medicine; PCP Student in an Organized Health Care Education/Training Program; Visit Provider Emergency Medicine
DX: N17.9 Acute kidney failure, unspecified (principal); E11.9 Type 2 diabetes mellitus without complications; R06.02 Shortness of breath; H65.03 Acute serous otitis media, bilateral; I25.2 Old myocardial infarction; G47.33 Obstructive sleep apnea (adult) (pediatric); Z86.16 Personal history of COVID-19
CPT/HCPCS: 71046; 80048; 85025; 93005; 99284; A4216

== ENCOUNTER 2023-10-31 11:00 | Emergency (ER) | payer MEDICAID, SELFPAY ==
[2023-10-31 11:00] VITALS: BP 156/81; PULSE 48; RESP 16; TEMP 36.4; O2SAT 100; BMI 22.3
--- NOTE | 2023-10-31 11:15 | CT_ITS ---
STUDY: CT BRAIN WITHOUT CONTRAST REASON FOR EXAM: Female, 47 years old. Head injury RADIATION DOSAGE (If Supplied By Facility): CTDIvol = ( 44.99 ) mGy, DLP = ( 1639.49 ) mGycm TECHNIQUE: Transaxial CT imaging of the brain was performed without administration of intravenous contrast material. Individualized dose optimization techniques were used for this CT. COMPARISON: Comparison is made with prior study dated April 26, 2020. FINDINGS: Normal soft tissue structures. Normal calvarium. Normal size ventricles and extra-axial spaces for the patient''s age. Normal white matter tracts of the cerebral hemispheres. Normal basal ganglia and thalami. Normal brainstem. Normal cerebellum. There is no intracranial hemorrhage. There are no findings of an acute ischemic infarction. Normal visualized paranasal sinuses. Nasal septal deviation to the right side of the midline. CT/Brain/Head without Contrast IMPRESSION: Normal unenhanced CT scan of the brain. Electronically Signed: Panchito Mcginnis MD at 12:15 EST ,
--- NOTE | 2023-10-31 11:22 | EX.ED.DYSGE1 ---
HPI <FRANCE Kuhn - Last Filed: 10/31/23 12:19> History of Present Illness Chief Complaint: Head Injury Narrative Narrative: Patient is a 47-year-old female with history of anemia, diabetes, hypertension, chronic pain and pain management, arthritis who presents to the emergency department after mechanical fall striking the back of her head yesterday. Patient denies any LOC however states she immediately had a headache to her forehead. Patient dates she meetly felt tired and nauseous. Patient states that she does have history of falling, she is fine falling over the last 12 years secondary to balance issues as well as arthritis. She denies any other injury. Patient is here because her headache is continued, she is concerned and would like checked out PFSH <FRANCE Kuhn - Last Filed: 10/31/23 12:19> [facility] Medical History Anemia Anemia Anxiety Asthma Asthma Benign essential hypertension Chronic pain syndrome Contact with and (suspected) exposure to other viral communicable diseases COVID-19 CPAP (continuous positive airway pressure) dependence Depression GI bleed Hirsutism History of gestational diabetes mellitus History of non-ST elevation myocardial infarction (NSTEMI) (1999) HLD (hyperlipidemia) Hypertensive urgency Obesity Obstructive sleep apnea Severe left ventricular hypertrophy Sleep apnea Type II diabetes mellitus Home Medications cetirizine 10 mg capsule 10 mg PO DAILY allergy 12/22/20 [History Last Taken Unknown] duloxetine 30 mg capsule,delayed release 30 mg PO DAILY depression 12/22/20 [History Last Taken Unknown] insulin lispro 100 unit/mL subcutaneous cartridge See Protocol subcut ACHS diabetes 12/22/20 [History Last Taken Unknown] acetaminophen 500 mg tablet 1,000 mg PO Q6H PRN Pain 02/13/22 [History Last Taken Unknown] insulin glargine 100 unit/mL (3 mL) subcutaneous pen (Lantus Solostar U-100 Insulin) 10 unit subcut QPM diabetes 02/14/22 [History Last Taken Unknown] pantoprazole 40 mg tablet,delayed release (Protonix) 40 mg PO BID #60 tabs 02/16/22 [Rx Last Taken Unknown] buspirone 5 mg tablet 1 tab PO BID 05/08/22 [History Last Taken Unknown] mtlenvqx-[id number]-[id number] 45 mg-folic acid 800 mcg-vit K 120 mcg capsule (Bariatric Multivitamins) 2 cap PO DAILY 05/08/22 [History Last Taken Unknown] pravastatin 40 mg tablet 1 tab PO QHS cholesterol 05/08/22 [History Last Taken Unknown] ferrous sulfate 142 mg (45 mg iron) tablet,extended release (Slow Fe) 142 mg PO BID 08/16/22 [History Last Taken Unknown] fluticasone propionate 50 mcg/actuation nasal spray,suspension 2 spray intranasal DAILY 10/18/22 [History Last Taken Unknown] nitrofurantoin monohydrate/macrocrystals 100 mg capsule 100 mg PO BID 10/18/22 [History Last Taken Unknown] sennosides 8.6 mg-docusate sodium 50 mg tablet (Stimulant Laxative Plus) 1 tab PO DAILY 10/18/22 [History Last Taken Unknown] tizanidine 4 mg tablet 4 mg PO BID 10/18/22 [History Last Taken Unknown] Lactobacillus acidophilus and rhamnosus 15 billion cell capsule 1 cap PO DAILY 12/08/22 [History Last Taken Unknown] albuterol sulfate 90 mcg/actuation aerosol inhaler 2 puff inhalation Q4H PRN PRN sob 12/08/22 [History Last Taken Unknown] ascorbic acid (vitamin C) 500 mg tablet 500 mg PO BID 12/08/22 [History Last Taken Unknown] cholecalciferol (vitamin D3) 50 mcg (2,000 unit) tablet 50 mcg PO DAILY 12/08/22 [History Last Taken Unknown] diclofenac sodium 1 % topical gel 1 ea topical PRN PRN Pain 12/08/22 [History Last Taken Unknown] escitalopram oxalate 10 mg tablet 10 mg PO DAILY 12/08/22 [History Last Taken Unknown] omeprazole 20 mg capsule,delayed release 40 mg PO DAILY 12/08/22 [History Last Taken Unknown] oxycodone 15 mg tablet 15 mg PO TID 12/08/22 [History Last Taken Unknown] metoprolol tartrate 50 mg tablet 50 mg PO BID blood pressure 05/10/23 [History Last Taken Unknown] lisinopril 40 mg tablet 40 mg PO DAILY #1 TAB 05/15/23 [Rx Last Taken Unknown] amlodipine 10 mg tablet 10 mg PO DAILY #90 tabs 07/19/23 [Rx Last Taken Unknown] hydrochlorothiazide 25 mg tablet 25 mg PO DAILY 07/19/23 [History Last Taken Unknown] methylprednisolone 4 mg tablets in a dose pack (Medrol (Pravin)) See Rx Instructions PO PER PKG DIR #21 tabs 07/19/23 [Rx Last Taken Unknown] Allergy/AdvReac Type Severity Reaction Status Date / Time Penicillins Allergy Hives Verified 07/19/23 11:01 metformin AdvReac Diarrhea Verified 07/19/23 11:01 venlafaxine [From Effexor] AdvReac Upset Verified 07/19/23 11:01 Stomach Family History Mother Heart disease Hypertension Diabetes Surgical History H/O gastric bypass History of cholecystectomy History of left heart catheterization (10/07/19) Social History Smoking Status: Never smoker second hand exposure: Yes substance use type: former substance user and crack/cocaine ROS <FRANCE Kuhn - Last Filed: 10/31/23 12:19> ROS ED ROS Narrative Constitutional: Negative for fever, chills, weight loss, weakness Eyes: Negative for vision loss, vision change, double vision ENT: Negative for any sore throat, ear pain, congestion Cardiovascular: Negative for any chest pain, tightness, palpitations Respiratory: Negative for any cough, sputum production, hemoptysis, dyspnea, dyspnea on exertion, orthopnea Gastrointestinal: Negative for any abdominal pain, vomiting, diarrhea, constipation, blood in stool, blood in vomit. Positive for nausea : Negative for any urinary frequency, dysuria, retention, blood in urine Muscle skeletal: Negative for any myalgias, arthralgias, neck pain, back pain Neurological: Negative for any syncope, paresthesias, dizziness. Positive for headache Skin: Negative for any rashes, lumps, itching, abrasions, lacerations Psychiatric: Negative for any depression, anxiety, stress, suicidal ideation, homicidal ideation Hematologic: Negative for any easy bruising, excessive bruising, easy bleeding Allergies: Negative for any eczema, hives, rash EXAM <FRANCE Kuhn - Last Filed: 10/31/23 12:19> Physical Exam Narrative Exam Narrative: Vital signs reviewed. HEET: Head normocephalic atraumatic, TMs clear bilaterally. Posterior pharynx is clear, moist mucous membranes. Nares clear bilaterally. Pupils are equal round reactive to light. Negative for any hematoma. Negative for any septal hematoma. Negative for any hemotympanum. Neck: Supple with no lymphadenopathy or tenderness. No signs of meningismus. Cardiac: Regular rate and rhythm no murmurs gallops or rubs, equal peripheral pulses bilaterally. Respiratory: Lungs clear to auscultation bilaterally. No chest tenderness. Abdomen: Soft, nontender, nondistended. No abdominal bruit or pulsatile masses. No hepatosplenomegaly Extremities: No peripheral edema, no signs of gross trauma or deformity. Active full range of motion of all extremities. Neuro: Cranial nerves II through XII intact, no focal neurological deficits. Skin: Clean dry and intact with no rash, purpura, petechiae, vesicles or pustules. Backs/flank: No CVA tenderness, no midline spinal tenderness, no deformity. Psych: Normal mood and affect. No SI, HI or acute psychosis. Const Vital Signs: 10/31/23 11:00 10/31/23 12:38 Temperature 97.6 F L Temperature Source Temporal Pulse Rate 48 L Respiratory Rate 16 Respiratory Effort Normal Respiratory Depth Normal Respiratory Pattern Normal Blood Pressure 156/81 H Blood Pressure Mean 106 Pulse Ox 100 Oxygen Delivery Method Room Air <Deshawn Catalan MD - Last Filed: 10/31/23 14:47> Physical Exam Const Vital Signs: 10/31/23 11:00 10/31/23 12:38 Temperature 97.6 F L Temperature Source Temporal Pulse Rate 48 L Respiratory Rate 16 Respiratory Effort Normal Respiratory Depth Normal Respiratory Pattern Normal Blood Pressure 156/81 H Blood Pressure Mean 106 Pulse Ox 100 Oxygen Delivery Method Room Air MDM <FRANCE Kuhn - Last Filed: 10/31/23 12:19> MDM Radiography Diagnostic Testing: Clinical Impression(s) from Imaging Studies Brain CT 10/31/23 11:15 IMPRESSION: Normal unenhanced CT scan of the brain. Electronically Signed: Panchito Mcginnis MD at 12:15 EST , Treatment and Re-Evaluation :: Patient appears generally well, patient appears nontoxic, vital signs are stable. Presenting to the emergency department with complaints of headache, nausea after a fall. Differential diagnose includes concussion, skull fracture, to cranial bleeding. Physical examination shows no neurological findings. Patient has no neck pain. Patient will receive a CT scan of the brain. All radiologic examinations were read, reviewed by the emergency department attending. From these reads, a plan of care will be put in place. Patient also given Tylenol for headache. CT scan of the brain was unremarkable. Patient was diagnosed with concussion syndrome. At this time, patient instructed to take her time, to change positions slowly. She will continue to take her medications daily. She will continue follow-up with ear nose and throat as previously discussed. Patient educated on concussion-like syndrome. All questions were answered, she was given strict return precaution. Stable for discharge <Deshawn Catalan MD - Last Filed: 10/31/23 14:47> [facility] Narrative Medical decision making narrative: Dr. Catalan: I have personally performed a face to face assessment of the patient and have reviewed the NAYELY Note. I performed a substantive portion of the visit including all aspects of the following. My serrano findings include: History is fall with injury to back of head yesterday, now with frontal headache. No blood thinners. Exam is GCS 15. ABCs intact. Able to raise arms above head without difficulty. Regular rate and rhythm. Lungs clear to auscultation bilaterally. Abdomen soft and nontender with normoactive bowel sounds. Neurological exam nonfocal, nonlateralizing. Awake, alert, oriented. Medical Decision Making: Concern is for skull fracture versus intracranial hemorrhage versus closed head injury/concussion. Check CT. Tylenol. Reassurance. Discharge. Follow-up primary care. Other additions or changes: [None] History & Record Review Discussion w/independent historian: Patient Additional record(s) reviewed:: Prior ED visit Radiography Diagnostic Testing: Clinical Impression(s) from Imaging Studies Brain CT 10/31/23 11:15 IMPRESSION: Normal unenhanced CT scan of the brain. Electronically Signed: Panchito Mcginnis MD at 12:15 EST , Discharge Plan Triage Chief Complaint: Head Injury ED Midlevel Provider: Reji Cabrera ED Provider: Deshawn Catalan Dx/Rx/DC Orders Clinical Impression: Concussion, Fall Instructions: After a Concussion, Concussion Dc Prescriptions: No Action Slow Fe 142 mg (45 mg iron) tablet extended release 142 mg PO BID methylprednisolone [Medrol (Pravin)] 4 mg tablets,dose pack See Rx Instructions PO PER PKG DIR Qty: 21 0RF Rx Instructions: PO PER PKG DIR insulin lispro 100 UNIT/ML cartridge See Protocol SC ACHS Protocol: 6. Sliding Scale Insulin Custom Condition: mg/dl range Dose/Route: Number of Units Condition: 151-200 Dose/Route: 2 Condition: 201-250 Dose/Route: 4 Condition: 251-300 Dose/Route: 6 Condition: 301-350 Dose/Route: 8 Condition: 351-400 Dose/Route: 10 Protocol Text: Custom Sliding Scale duloxetine 30 MG capsule,delayed release(DR/EC) 30 mg PO DAILY cetirizine 10 MG capsule 10 mg PO DAILY acetaminophen 500 mg Tablet 1,000 mg PO Q6H PRN (Reason: Pain) insulin glargine [Lantus Solostar U-100 Insulin] 100 unit/mL (3 mL) Insulin Pen 10 unit SUBCUT QPM pantoprazole [Protonix] 40 mg tablet,delayed release (DR/EC) 40 mg PO BID Qty: 60 0RF buspirone 5 mg tablet 1 tab PO BID Patient Comments: Take 1 tablet by mouth twice daily. pravastatin 40 mg tablet 1 tab PO QHS Patient Comments: Take 1 tablet by mouth once daily. Bariatric Multivitamins 45 mg iron- 800 mcg-120 mcg Capsule 2 cap PO DAILY tizanidine 4 mg tablet 4 mg PO BID Patient Comments: TAKE 1 TABLET BY MOUTH TWICE DAILY sennosides-docusate sodium [Stimulant Laxative Plus] 8.6-50 mg tablet 1 tab PO DAILY Patient Comments: TAKE 1 TABLET BY MOUTH ONCE DAILY fluticasone propionate 50 mcg/actuation spray,suspension 2 spray INTRANASAL DAILY Patient Comments: Use 2 Sprays in each nostril once daily. Rinse mouth after use. nitrofurantoin monohyd/m-cryst 100 mg capsule 100 mg PO BID Patient Comments: TAKE 1 CAPSULE BY MOUTH ONCE DAILY oxycodone 15 mg tablet 15 mg PO TID ascorbic acid (vitamin C) 500 mg Tablet 500 mg PO BID omeprazole 20 mg Capsule,Delayed Release(Dr/Ec) 40 mg PO DAILY albuterol sulfate 90 mcg/actuation HFA aerosol inhaler 2 puff INHALATION Q4H PRN PRN (Reason: sob) escitalopram oxalate 10 mg tablet 10 mg PO DAILY diclofenac sodium [Voltaren] 1 % Gel 1 ea TOPICAL PRN PRN (Reason: Pain) cholecalciferol (vitamin D3) 50 mcg (2,000 unit) Tablet 50 mcg PO DAILY L. acidophilus-L. rhamnosus 15 billion cell Capsule 1 cap PO DAILY metoprolol tartrate 50 mg tablet 50 mg PO BID lisinopril 40 mg tablet 40 mg PO DAILY Qty: 1 0RF amlodipine 10 mg tablet 10 mg PO DAILY Qty: 90 3RF hydrochlorothiazide 25 mg tablet 25 mg PO DAILY Primary Care Provider: Bebeto Charlton Referrals: Bebeto Charlton DO [Primary Care Provider] - Activity Restrictions/Additional Instructions: Please follow-up Disposition Disposition: Home, Self Care Discharge Date/Time: 10/31/23 12:39
[2023-10-31] MEDS: Acetaminophen 500 MG Tablet 1000 MG PO (11:33)
== END 2023-10-31 12:39 | disposition home or self-care (01) ==
LOC: ED 11:42
PROVIDERS: Emergency Provider Emergency Medicine; PCP Student in an Organized Health Care Education/Training Program; Visit Provider Emergency Medicine
DX: S06.0X0A Concussion without loss of consciousness, initial encounter (principal); E11.9 Type 2 diabetes mellitus without complications; I25.2 Old myocardial infarction; G47.33 Obstructive sleep apnea (adult) (pediatric); W19.XXXA Unspecified fall, initial encounter; Z86.16 Personal history of COVID-19
CPT/HCPCS: 70450; 99282

== ENCOUNTER 2024-09-19 15:51 | Emergency (ER) | payer MEDICAID, SELFPAY ==
[2024-09-19 15:52] VITALS: BP 197/98; PULSE 66; RESP 16; TEMP 36.2; O2SAT 100; BMI 22.6
[2024-09-19] MEDS: cloNIDine HCl 0.1 MG Tablet PO (16:13)
[2024-09-19 16:52] LABS: Absolute Lymphocyte Count 1.24 X10^3/uL (0.83-4.51); Absolute Neutrophil Count 1.8 X10^3/uL (2.0-7.7); Basophil# 0.04 X10^3/uL; Basophil% 1.1 % (0-1); Eosinophil# 0.02 X10^3/uL; Eosinophils% 0.6 % (0-5); Hematocrit 33.6 % (37-47); Hemoglobin 10.2 g/dL (12.0-15.0); Lymphocyte # 1.24 X10^3/ul (0.83-4.51); Lymphocyte % 35.6 % (19-41); Mean Corp Hgb Conc 30.4 g/dL (32-36); Mean Corpuscular Hgb 23.7 pg (27.0-32.0); Mean Platelet Vol. 9.8 fl (6.2-12.0); Monocyte# 0.34 X10^3/uL; Monocyte% 9.8 % (0-10); NRBC Flagged by Analyzer 1.1 % (0-5); Neutrophil # 1.83 X10^3/uL (2.7-7.7); Neutrophil % 52.6 % (47-70); Platelet Count 343 K/mm3 (150-450); RBC Distribution Width CV 17.5 % (11.6-14.6); RBC Distribution Width SD 49.1 fl (35.1-43.9); Red Blood Count 4.31 M/mm3 (4.2-5.4); White Blood Count 3.5 K/mm3 (4.4-11.0)
[2024-09-19 16:54] LABS: Anion Gap 4 (5-15); BUN 14 mg/dL (7-18); Calcium,Total 8.7 mg/dL (8.5-10.1); Chloride 109 mmol/L (98-107); Creatinine, Serum 0.93 mg/dL (0.55-1.02); EST Glomerular Filtration Rate 68 mL/min (>60); Est Glom Filt Rate - Afr Amer 82 mL/min (>60); Estimated Creatinine Clearance 63.19 ml/min; Glucose 97 mg/dL (74-106); Sodium Level 139 mmol/L (136-145); Troponin-I HS (w/2H Reflex) 37 pg/mL (3.0-54.0)
[2024-09-19 17:52] VITALS: PULSE 59; RESP 18; O2SAT 98
[2024-09-19] MEDS: Potassium Chloride Oral Tablet 20 MEQ 60 MEQ PO (18:02)
[2024-09-19 18:28] LABS: Reflex Troponin-HS? (from REC) Y
[2024-09-19 18:53] VITALS: BP 157/92
[2024-09-19 19:04] LABS: Troponin-I HS 34 pg/mL (3.0-54.0)
[2024-09-19 19:16] VITALS: O2SAT 99
== END 2024-09-19 21:00 | disposition home or self-care (01) ==
PROVIDERS: Emergency Provider Emergency Medicine; PCP Student in an Organized Health Care Education/Training Program; Referring Provider Emergency Medicine; Visit Provider Emergency Medicine
DX: I10 Essential (primary) hypertension (principal); E11.9 Type 2 diabetes mellitus without complications; R07.9 Chest pain, unspecified; G47.33 Obstructive sleep apnea (adult) (pediatric); I25.2 Old myocardial infarction
CPT/HCPCS: 71046; 80048; 83880; 84484; 85025; 93005; 99284; A4216

== ENCOUNTER → 2024-09-23 | Outpatient (CLI) | payer MEDICAID, SELFPAY ==
[2024-09-29 10:07] LABS: Dopamine, Pl <30 pg/mL (0-48); Epinephrine, Pl 22 pg/mL (0-62); Norepinephrine, Pl 416 pg/mL (0-874); Renin, Plasma 1.039 ng/mL/hr (0.167-5.380)
== END | disposition home or self-care (01) ==
LOC: LAB 15:30
PROVIDERS: PCP Student in an Organized Health Care Education/Training Program; Referring Provider Physician Assistant Medical; Visit Provider Physician Assistant Medical
DX: I10 Essential (primary) hypertension (principal)
CPT/HCPCS: 36415; 82384; 84244

== ENCOUNTER 2025-02-07 09:45 | Emergency (ER) | payer OTHER, MEDICAID, SELFPAY ==
[2025-02-07 09:47] VITALS: BP 158/108; PULSE 61; RESP 18; TEMP 36.6; O2SAT 100; BMI 24.0
[2025-02-07 09:53] VITALS: O2SAT 100
--- NOTE | 2025-02-07 10:38 | EX.ED.GENINJ ---
HPI History of Present Illness Chief Complaint: Fall Narrative Narrative: Patient is a 49-year-old female presenting today after a fall. 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 Patient had bilateral hip replacement, right knee replacement. Patient needs her left knee replaced as well. Patient has abrasions to the left knee. Patient stated that she went to lift up her foot to go over the step, she showed me pictures of a step at work. Patient had a spinning rotation and patient landed in a hyperflexed position on the left knee. Patient has mild swelling to the left hip. However patient is able to walk after this. Patient has mild pain to left ankle left foot. Patient has mild to moderate swelling to left knee. Patient states she laid on her back somewhat, patient has no pain to her back. She did not hit her head. No head injury, no blood thinners. Patient's main area of pain is left knee. This is under Worker's Comp. evaluation. [facility] Medical History Contact with and (suspected) exposure to other viral communicable diseases Anemia Severe left ventricular hypertrophy Obstructive sleep apnea COVID-19 Sleep apnea Depression Anxiety GI bleed CPAP (continuous positive airway pressure) dependence Anemia Asthma History of non-ST elevation myocardial infarction (NSTEMI) (1999) HLD (hyperlipidemia) Hirsutism Chronic pain syndrome Hypertensive urgency Type II diabetes mellitus History of gestational diabetes mellitus Obesity Benign essential hypertension Asthma Home Medications ?Medication ?Instructions ?Recorded ?Last Taken ?Type cetirizine 10 mg capsule 10 mg PO DAILY allergy 12/22/20 Unknown History duloxetine 30 mg capsule,delayed 30 mg PO DAILY depression 12/22/20 Unknown History release acetaminophen 500 mg tablet 1,000 mg PO Q6H PRN Pain 02/13/22 Unknown History pantoprazole 40 mg tablet,delayed 40 mg PO BID #60 tabs 02/16/22 Unknown Rx release (Protonix) buspirone 5 mg tablet 1 tab PO BID 05/08/22 Unknown History ingvtrpy-hpuenyrp-uzqg 45 mg-folic 2 cap PO DAILY 05/08/22 Unknown History acid 800 mcg-vit K 120 mcg capsule (Bariatric Multivitamins) pravastatin 40 mg tablet 1 tab PO QHS cholesterol 05/08/22 Unknown History ferrous sulfate 142 mg (45 mg 142 mg PO BID 08/16/22 Unknown History iron) tablet,extended release (Slow Fe) sennosides 8.6 mg-docusate sodium 1 tab PO DAILY 10/18/22 Unknown History 50 mg tablet (Stimulant Laxative Plus) tizanidine 4 mg tablet 4 mg PO BID 10/18/22 Unknown History Lactobacillus acidophilus and 1 cap PO DAILY 12/08/22 Unknown History rhamnosus 15 billion cell capsule albuterol sulfate 90 mcg/actuation 2 puff inhalation Q4H PRN PRN sob 12/08/22 Unknown History aerosol inhaler ascorbic acid (vitamin C) 500 mg 500 mg PO BID 12/08/22 Unknown History tablet cholecalciferol (vitamin D3) 50 50 mcg PO DAILY 12/08/22 Unknown History mcg (2,000 unit) tablet diclofenac sodium 1 % topical gel 1 ea topical PRN PRN Pain 12/08/22 Unknown History escitalopram oxalate 10 mg tablet 10 mg PO DAILY 12/08/22 Unknown History omeprazole 20 mg capsule,delayed 40 mg PO DAILY 12/08/22 Unknown History release oxycodone 15 mg tablet 15 mg PO TID 12/08/22 Unknown History metoprolol tartrate 50 mg tablet 50 mg PO BID blood pressure 05/10/23 Unknown History amlodipine 10 mg tablet 10 mg PO DAILY #90 tabs 07/19/23 Unknown Rx hydrochlorothiazide 50 mg tablet 50 mg PO QDAY 10/02/24 Unknown History fluticasone propionate 50 2 spray intranasal DAILY PRN 12/02/24 Unknown History mcg/actuation nasal spray,suspension lisinopril 20 mg tablet 20 mg PO BID 12/02/24 Unknown History doxazosin 4 mg tablet 4 mg PO QDAY #30 tabs 02/05/25 Unknown Rx Allergy/AdvReac Type Severity Reaction Status Date / Time Penicillins Allergy Hives Verified 02/07/25 09:53 metformin AdvReac Diarrhea Verified 02/07/25 09:53 venlafaxine (From Effexor) AdvReac Upset Verified 02/07/25 09:53 Stomach Family History Mother Heart disease Hypertension Diabetes Surgical History History of cholecystectomy H/O gastric bypass History of left heart catheterization (10/07/19) Social History Smoking Status: Never smoker second hand exposure: Yes substance use type: former substance user and crack/cocaine ROS ROS ED ROS Narrative REVIEW OF SYSTEMS: Unless otherwise stated in this report the patient's positive and negative responses for review of systems for constitutional, eyes, ENT, cardiovascular, respiratory, gastrointestinal, neurological, , musculoskeletal, and integument systems and related systems to the presenting problem are either stated in the history of present illness or were not pertinent or were negative for the symptoms and/or complaints related to the presenting medical problem. EXAM Physical Exam Narrative Exam Narrative: Vital signs reviewed and patient is not hypoxic. General: The patient appears well and in no apparent distress. Patient is resting comfortably on cart. Not toxic, lethargic, or listless. Skin: Warm, dry, no pallor noted. There is no rash noted. Head: Normocephalic, atraumatic; no scalp hematoma. No midline or paracervical tenderness to palpation. Full range of motion of cervical spine no difficulty Eye: Normal conjunctiva, no drainage, EOMI. PERRL. Ears, Nose, Mouth, and Throat: oral mucosa is moist. Nares patent. Mouth without vesicles. Cardiovascular: Regular Rate and Rhythm, no murmurs, gallops, or rubs Respiratory: Patient is in no distress, no accessory muscle use, lungs are clear to auscultation, no wheezing, rales or rhonchi Back: non-tender, no CVA tenderness bilaterally to percussion. NO CTLS midline or paraspinal tenderness to palpation. GI: Soft, no tenderness to palpation, no masses appreciated. No rebound, guarding, or rigidity noted. Musculoskeletal: The patient has full range of motion of all extremities and joints with no difficulty except with mild pain with active flexion extension of the left knee. Patient has no pain with internal/external rotation of left hip. Patient can flex and extend her left hip with minimal pain. Patient has mild to moderate swelling over the left patella, superficial abrasions noted. Patient left Achilles tendon is intact. Patient has negative anterior posterior drawer sign to the left knee, and left ankle. No grimace or any pain with inversion eversion of the left ankle. After examining her left lower extremity, patient easily can get out of bed, stand up and patient's back was evaluated with no pain as well.. Patient has no motor, no sensory deficits. Neurological: A&O x4, normal speech, no focal neurological deficits. Psychiatric: Cooperative Const Vital Signs: 02/07/25 09:47 02/07/25 09:53 02/07/25 11:47 Temperature 98 F Temperature Source Oral Pulse Rate 61 77 Respiratory Rate 18 16 Respiratory Effort Normal Respiratory Depth Normal Respiratory Pattern Normal Blood Pressure 158/108 H 174/89 H Blood Pressure Mean 124 117 Pulse Ox 100 100 99 Oxygen Delivery Method Room Air Room Air 02/07/25 12:46 Temperature 98.0 F Temperature Source Pulse Rate 77 Respiratory Rate 16 Respiratory Effort Respiratory Depth Respiratory Pattern Blood Pressure 174/89 H Blood Pressure Mean 117 Pulse Ox 99 Oxygen Delivery Method MDM MDM MDM Narrative Medical decision making narrative: Patient seen and examined: Left leg pain, most of the pain is to left knee. Left knee x-ray to be done. Patient has full range of motion of left hip, ankle and foot with minimal if any pain. Superficial abrasion left knee Differential diagnosis includes but is not limited to: Left knee contusion, left knee sprain, left knee meniscal tear, no knee joint effusion, left leg pain, contusion, Relevant laboratory interpretation: None Radiological studies: Patient left knee x-ray shows no acute fracture, no dislocation, no acute abnormality. Soft tissue swelling. Reevaluation: Patient was upset because she did not get a left hip x-ray. Patient asked me for her left hip x-ray, there is no clinical indication. Patient has full range of motion of left hip with minimal pain. She has minimal swelling to the left hip or the left greater trochanter. Patient was able to get out of bed well, stand up, patient walked into the ER. Patient was upset and demanding left hip x-ray to nursing staff and to radiology staff. I explained to the patient there is no acute indication for left hip x-ray, left ankle x-ray. She is walking fine, and full of motion of left hip and left ankle/foot with minimal pain. Patient was upset because she had a previous Worker's Comp. injury and was upset because she got billed for x-rays oriented on after the ER bill. Patient told me with show RN is a witness that is fine, I have your name and I will send you the bill for additional test on my left hip. Patient was initially pleasant to take care of and was happy adjusting the left knee x-ray. Patient was on the phone with multiple different people, and then aggravated the rest of her ER stay once I would not do a left hip x-ray and it is not clinically indicated. Patient will follow-up with Worker's Comp. currently. Patient was told she can follow-up with your PCP for additional testing needed. Social barriers to healthcare: There are no food insecurities, there is no issue with transportation, there are no insurance barriers Disposition: Patient is disposition. Patient is able to walk out of the ER without much difficulty. Patient did not require crutches or wheelchair. Patient will follow-up with occupational clinic. Education on ice, alternating Tylenol and anti-inflammatories and weightbearing as tolerated. Worker's Comp. paperwork was filled out. Radiography Diagnostic Testing: Clinical Impression(s) from Imaging Studies Knee X-Ray 02/07/25 11:15 IMPRESSION: Severe tricompartmental degenerative changes. Reading Location: [facility] Discharge Plan Triage Chief Complaint: Fall ED Provider: Lucien Shah Dx/Rx/DC Orders Clinical Impression: Contusion of knee, left, Left knee sprain, Contusion of hip, left, Ankle pain, left, Abrasion of knee, left Instructions: Self-Care for Strains and Sprains, Bruises (Contusions), ED Soft Tissue Contusion, ED Hip Contusion, ED Knee Sprain, ED Fall Prevention, ED RICE Prescriptions: No Action Slow Fe 142 mg (45 mg iron) tablet extended release 142 mg PO BID lisinopril 20 mg tablet 20 mg PO BID duloxetine 30 MG capsule,delayed release(DR/EC) 30 mg PO DAILY cetirizine 10 MG capsule 10 mg PO DAILY acetaminophen 500 mg Tablet 1,000 mg PO Q6H PRN (Reason: Pain) pantoprazole [Protonix] 40 mg tablet,delayed release (DR/EC) 40 mg PO BID Qty: 60 0RF buspirone 5 mg tablet 1 tab PO BID Patient Comments: Take 1 tablet by mouth twice daily. pravastatin 40 mg tablet 1 tab PO QHS Patient Comments: Take 1 tablet by mouth once daily. Bariatric Multivitamins 45 mg iron- 800 mcg-120 mcg Capsule 2 cap PO DAILY tizanidine 4 mg tablet 4 mg PO BID Patient Comments: TAKE 1 TABLET BY MOUTH TWICE DAILY sennosides-docusate sodium [Stimulant Laxative Plus] 8.6-50 mg tablet 1 tab PO DAILY Patient Comments: TAKE 1 TABLET BY MOUTH ONCE DAILY fluticasone propionate 50 mcg/actuation spray,suspension 2 spray INTRANASAL DAILY PRN Patient Comments: Use 2 Sprays in each nostril once daily. Rinse mouth after use. oxycodone 15 mg tablet 15 mg PO TID ascorbic acid (vitamin C) 500 mg Tablet 500 mg PO BID omeprazole 20 mg Capsule,Delayed Release(Dr/Ec) 40 mg PO DAILY albuterol sulfate 90 mcg/actuation HFA aerosol inhaler 2 puff INHALATION Q4H PRN PRN (Reason: sob) escitalopram oxalate 10 mg tablet 10 mg PO DAILY diclofenac sodium [Voltaren] 1 % Gel 1 ea TOPICAL PRN PRN (Reason: Pain) cholecalciferol (vitamin D3) 50 mcg (2,000 unit) Tablet 50 mcg PO DAILY L. acidophilus-L. rhamnosus 15 billion cell Capsule 1 cap PO DAILY metoprolol tartrate 50 mg tablet 50 mg PO BID amlodipine 10 mg tablet 10 mg PO DAILY Qty: 90 3RF hydrochlorothiazide 50 mg tablet 50 mg PO QDAY doxazosin 4 mg tablet 4 mg PO QDAY Qty: 30 11RF Stand Alone Forms: Work / School Excuse Primary Care Provider: Bebeto Charlton Referrals: Bebeto Charlton DO [Primary Care Provider] - [facility] [Non-Staff] - Activity Restrictions/Additional Instructions: Use ice 20 minutes on, 20 minutes off. Do not use heat for the next 5 to 7 days. Use topical antibiotic ointment 3-4 times a day to the left knee to help with abrasion healing. Follow-up with occupational health clinic. Alternate Tylenol and either Motrin, Advil, ibuprofen every 4 hours to help with pain. Maximum dose of Tylenol per day is 3000 mg, maximal dose of Motrin, Advil, ibuprofen is 2400mg. Print Language: Syriac Disposition Disposition: Home, Self Care Discharge Date/Time: 02/07/25 12:47
[2025-02-07] MEDS: Acetaminophen 325 MG Tablet 650 MG PO (10:43)
--- NOTE | 2025-02-07 11:15 | RAD_ITS ---
PROCEDURE: KNEE 4 OR MORE VIEWS 02/07/2025 REASON FOR EXAM: KNEE PAIN TECHNIQUE: 4 view(s) of the right knee COMPARISON: 11/24/2021 FINDINGS: No acute fracture or dislocation.Severe tricompartmental degenerative changes are present with loss of joint space and marginal spurring. Disease is extensive at the patellofemoral articulation. Significant disease is also seen in the medial compartment. There is a small suprapatellar effusion. RAD/Knee 4 or More Views IMPRESSION: Severe tricompartmental degenerative changes. Reading Location: [facility]
[2025-02-07 11:47] VITALS: BP 174/89; PULSE 77; RESP 16; O2SAT 99
[2025-02-07 12:46] VITALS: BP 174/89; PULSE 77; RESP 16; TEMP 36.7; O2SAT 99
== END 2025-02-07 12:47 | disposition home or self-care (01) ==
PROVIDERS: Emergency Provider Emergency Medicine; PCP Student in an Organized Health Care Education/Training Program; Visit Provider Emergency Medicine
DX: S80.02XA Contusion of left knee, initial encounter (principal); E11.9 Type 2 diabetes mellitus without complications; S83.92XA Sprain of unspecified site of left knee, initial encounter; S70.02XA Contusion of left hip, initial encounter; M25.572 Pain in left ankle and joints of left foot; S80.212A Abrasion, left knee, initial encounter; G47.33 Obstructive sleep apnea (adult) (pediatric); I25.2 Old myocardial infarction; Z96.643 Presence of artificial hip joint, bilateral; Z86.16 Personal history of COVID-19; W19.XXXA Unspecified fall, initial encounter; Z96.652 Presence of left artificial knee joint
CPT/HCPCS: 73564; 99282

== ENCOUNTER 2025-04-26 18:57 | Emergency (ER) | payer MEDICAID, SELFPAY ==
[2025-04-26 18:58] VITALS: BP 163/114; PULSE 70; RESP 19; TEMP 36.5; O2SAT 98; BMI 23.1
[2025-04-26 19:30] LABS: Absolute Lymphocyte Count 2.06 X10^3/uL (0.83-4.51); Absolute Neutrophil Count 1.4 X10^3/uL (2.0-7.7); Basophil# 0.07 X10^3/uL; Basophil% 1.7 % (0-1); Eosinophil# 0.15 X10^3/uL; Eosinophils% 3.7 % (0-5); Hematocrit 35.5 % (37-47); Hemoglobin 10.8 g/dL (12.0-15.0); Lymphocyte # 2.06 X10^3/ul (0.83-4.51); Lymphocyte % 50.6 % (19-41); Mean Corp Hgb Conc 30.4 g/dL (32-36); Mean Corpuscular Hgb 24.3 pg (27.0-32.0); Mean Corpuscular Volume 79.8 fL (81-99); Mean Platelet Vol. 8.9 fl (6.2-12.0); Monocyte# 0.36 X10^3/uL; Monocyte% 8.8 % (0-10); NRBC Flagged by Analyzer 0 % (0-5); Neutrophil # 1.43 X10^3/uL (2.7-7.7); Neutrophil % 35.2 % (47-70); POSITIVE MORPHOLOGY YES; Platelet Count 414 K/mm3 (150-450); RBC Distribution Width SD 60.7 fl (35.1-43.9); Red Blood Count 4.45 M/mm3 (4.2-5.4); White Blood Count 4.1 K/mm3 (4.4-11.0)
[2025-04-26 19:41] LABS: Differential Indicated SCAN CRITERIA MET
[2025-04-26 19:42] LABS: Platelet Estimate ADEQUATE (ADEQ)
[2025-04-26 19:46] LABS: Anisocytosis 2+; Hypochromasia 2+
[2025-04-26 19:53] LABS: Lipase 18 U/L (13-75)
[2025-04-26 19:54] LABS: ALB/GLOB Ratio 1.2 RATIO (0.9-2.4); AST(SGOT) 25 U/L (<=31); Alanine Aminotransfer ALT/SGPT 24 U/L (<=34); Albumin, Serum 3.8 g/dL (3.5-5.0); Alkaline Phosphatase 106 U/L (35-104); Anion Gap 10 (5-15); BUN 19 mg/dL (4-19); BUN/Creat Ratio 19.7 RATIO (10-20); Calcium,Total 8.7 mg/dL (7.6-11.0); Carbon Dioxide 23.3 mmol/L (21.0-32.0); Chloride 107 mmol/L (98-108); Creatinine, Serum 0.96 mg/dL (0.70-1.20); EST Glomerular Filtration Rate 72 (>60); Estimated Creatinine Clearance 60.54 ml/min (50-250); Globulin 3.2 g/dL (2.2-4.2); Glucose 80 mg/dL (70-99); Protein, Total 6.9 g/dL (5.9-8.4); Sodium Level 140 mmol/L (133-145); Total Bilirubin < 0.15 mg/dL (0.00-1.30)
--- NOTE | 2025-04-26 20:22 | ED.VIS.FEGU ---
HPI HPI - Female History of Present Illness Chief Complaint: Vag Bleeding Detail of Chief Complaint: Vaginal bleeding status post hysterectomy and hernia repair. Informant: patient Bleeding Issue: Positive for Vaginal bleeding Onset: Weeks Context: Gradual Onset Timing: Intermittent Current Severity: Spotting and Mild Associated Symptoms Associated Symptoms: Negative for Dysuria, Frequency, Urgency or Hematuria Narrative Narrative: 49-year-old female status post laparoscopic hysterectomy by Dr. Brea Orozco with a hernia repair by Dr. [place] Hayes at [facility] about 3 weeks ago. Patient states she is doing well. She was hospitalized for several days after the surgery. States she has had vaginal bleeding. No significant pain. Said she has been very active. Has been doing laundry and going up and down steps lifting small things. Is not really having significant pain. Denies any dysuria. No fever. Prior similar symptoms: Yes Recent Illness/Hospitalization: Yes [facility] Medical History Contact with and (suspected) exposure to other viral communicable diseases Anemia Severe left ventricular hypertrophy Obstructive sleep apnea COVID-19 Sleep apnea Depression Anxiety GI bleed CPAP (continuous positive airway pressure) dependence Anemia Asthma History of non-ST elevation myocardial infarction (NSTEMI) (1999) HLD (hyperlipidemia) Hirsutism Chronic pain syndrome Hypertensive urgency Type II diabetes mellitus History of gestational diabetes mellitus Obesity Benign essential hypertension Asthma Home Medications ?Medication ?Instructions ?Recorded ?Last Taken ?Type cetirizine 10 mg capsule 10 mg PO DAILY allergy 12/22/20 Unknown History duloxetine 30 mg capsule,delayed 30 mg PO DAILY depression 12/22/20 Unknown History release acetaminophen 500 mg tablet 1,000 mg PO Q6H PRN Pain 02/13/22 Unknown History pantoprazole 40 mg tablet,delayed 40 mg PO BID #60 tabs 02/16/22 Unknown Rx release (Protonix) buspirone 5 mg tablet 1 tab PO BID 05/08/22 Unknown History ghzfuxxa-uuywkrge-jpyj 45 mg-folic 2 cap PO DAILY 05/08/22 Unknown History acid 800 mcg-vit K 120 mcg capsule (Bariatric Multivitamins) pravastatin 40 mg tablet 1 tab PO QHS cholesterol 05/08/22 Unknown History ferrous sulfate 142 mg (45 mg 142 mg PO BID 08/16/22 Unknown History iron) tablet,extended release (Slow Fe) sennosides 8.6 mg-docusate sodium 1 tab PO DAILY 10/18/22 Unknown History 50 mg tablet (Stimulant Laxative Plus) tizanidine 4 mg tablet 4 mg PO BID 10/18/22 Unknown History Lactobacillus acidophilus and 1 cap PO DAILY 12/08/22 Unknown History rhamnosus 15 billion cell capsule albuterol sulfate 90 mcg/actuation 2 puff inhalation Q4H PRN PRN sob 12/08/22 Unknown History aerosol inhaler ascorbic acid (vitamin C) 500 mg 500 mg PO BID 12/08/22 Unknown History tablet cholecalciferol (vitamin D3) 50 50 mcg PO DAILY 12/08/22 Unknown History mcg (2,000 unit) tablet diclofenac sodium 1 % topical gel 1 ea topical PRN PRN Pain 12/08/22 Unknown History escitalopram oxalate 10 mg tablet 10 mg PO DAILY 12/08/22 Unknown History omeprazole 20 mg capsule,delayed 40 mg PO DAILY 12/08/22 Unknown History release oxycodone 15 mg tablet 15 mg PO TID 12/08/22 Unknown History metoprolol tartrate 50 mg tablet 50 mg PO BID blood pressure 05/10/23 Unknown History amlodipine 10 mg tablet 10 mg PO DAILY #90 tabs 07/19/23 Unknown Rx hydrochlorothiazide 50 mg tablet 50 mg PO QDAY 10/02/24 Unknown History fluticasone propionate 50 2 spray intranasal DAILY PRN 12/02/24 Unknown History mcg/actuation nasal spray,suspension lisinopril 20 mg tablet 20 mg PO BID 12/02/24 Unknown History doxazosin 4 mg tablet 4 mg PO QDAY #30 tabs 02/05/25 Unknown Rx Allergy/AdvReac Type Severity Reaction Status Date / Time Penicillins Allergy Hives Verified 04/26/25 18:58 metformin AdvReac Diarrhea Verified 04/26/25 18:58 venlafaxine (From Effexor) AdvReac Upset Verified 04/26/25 18:58 Stomach Family History Mother Heart disease Hypertension Diabetes Surgical History History of cholecystectomy H/O gastric bypass History of left heart catheterization (10/07/19) Social History Smoking Status: Never smoker second hand exposure: Yes substance use type: former substance user and crack/cocaine ROS ROS ED ROS Narrative Denies recent illness. Vaginal bleeding after hysterectomy. Mild. Constitutional Constitutional ED: Denies chills or fever(s) Eyes Eyes: Denies blurry vision ENT ENT ED: Denies ear pain Cardiovascular Cardiovascular: Denies chest pain Respiratory/Chest Respiratory/Chest: Denies cough Gastrointestinal Gastrointestinal: Denies abdominal pain Genitourinary Genitourinary ED: Denies dysuria Musculoskeletal Musculoskeletal: Denies arthralgias Integumentary Denies abscess Neurologic Neurologic: Denies headache(s) Psychiatric Psychiatric: Denies anxiety Endocrine Endocrinology: Denies heat intolerance Hematologic/Lymphatic Hematologic/Lymphatic: Denies easy bleeding, easy bruising or lymphadenopathy Allergic/Immunologic Allergic/Immunologic ED: Denies mouth swelling, tongue swelling or urticaria EXAM Physical Exam Narrative Exam Narrative: Well-appearing 49-year-old female. Vital signs stable afebrile. H EENT exam pupils round react light. Moist mucous membranes. Lungs clear to auscultation. Heart regular rhythm rate about 70 no murmur. Chest wall ribs nontender. Back nontender. Abdomen soft nondistended normal bowel sounds peritoneal signs. Well-healed prior vertical scar. Well-healing laparoscopic incisions dry and clean. Sutures in place. Abdomen is nontender nondistended. There is no peritoneal signs. No obstruction. Moving all 4 extremities. Nontender no edema. She is awake alert. Acting appropriate. Normal strength. Very benign exam. Const Vital Signs: 04/26/25 18:58 Temperature 97.7 F L Temperature Source Temporal Pulse Rate 70 Respiratory Rate 19 H Blood Pressure 163/114 H Blood Pressure Mean 130 Pulse Ox 98 Oxygen Delivery Method Room Air Positive well nourished and well developed; Negative for cachectic, contractures or unkempt General Appearance ED: well developed and NAD; Negative for unkempt, cachectic, contractures or pallor Nutritional Appearance: Negative for cachectic HEENT Reports moist mucous membranes Eyes PERRL and EOMs intact bilaterally Neck no lymphadenopathy, supple and no JVD Chest Wall inspection of chest normal and palpation of chest normal Resp normal respiratory effort and clear to auscultation bilaterally Cardio regular rate, regular rhythm, S1 normal heart sound, no murmurs and no JVD GI normal to inspection, nondistended, normoactive bowel sounds, soft to palpation, non-tender, non-distended and no masses GI Narrative: Well-healing laparoscopic incisions. Dry and clean. Prior scar. Auscultation: normoactive bowel sounds Palpation: Negative for tender, guarding, rigid or mass Back/Spine no CVA tenderness General Back: Negative for CVA tenderness Cervical Spine: Negative for cervical spine tenderness Thoracic Spine / Upper Back: Negative for thoracic spinal tenderness Lumbar Spine / Lower Back: Negative for lumbar spinal tenderness Sacrum: Negative for other Extremity normal to inspection and full ROM General Extremety ED: Negative for edema or tenderness General Extremity: Negative for edema Neuro oriented x3 and CN's II-XII intact bilaterally Sensorium / Orientation: alert, oriented to person, oriented to place and oriented to time Psych mental status grossly normal Appearance: Negative for unkempt Skin no rashes or lesions noted and no wounds General Skin Exam: Negative for jaundice or pallor Rashes: No rashes noted Trauma: Negative for other MDM MDM MDM Narrative Medical decision making narrative: 49-year-old status post hysterectomy with vaginal bleeding. Exam benign. Pelvic will be done to evaluate the hysterectomy cuff. Her labs are unremarkable. Pelvic exam done female nurse in the room. Speculum exam there is a hysterectomy cuff. No dehiscence. Small amount of bleeding oozing venous on her right-hand side of it. No heavy bleeding. No clots. No pooling of blood. Patient be discharged home. I did speak to Dr. 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 Brea Orozco. She will follow-up with their office this week. Lab Data Attestation: I reviewed the patient's lab results. Lab results narrative: CBC shows white count of 4.1. H&H 10.35. Platelets 414. Electrolytes show sodium 140. Gap 10. Normal BUN and creatinine. Glucose 80. Liver enzymes normal. Lipase normal. UA shows 0-5 red cells. 5-10 white cells. 3+ bacteria. No nitrates. Labs: Laboratory Results - last 24 hr 04/26/25 04/26/25 19:20 20:30 WBC 4.1 L RBC 4.45 Hgb 10.8 L Hct 35.5 L MCV 79.8 L MCH 24.3 L MCHC 30.4 L RDW Std Deviation 60.7 H RDW Coeff of Moe 21.0 H Plt Count 414 MPV 8.9 Immature Gran % (Auto) 0.000 Neut % (Auto) 35.2 L Lymph % (Auto) 50.6 H Stan[place] % (Auto) 8.8 Eos % (Auto) 3.7 Baso % (Auto) 1.7 H Absolute Neuts (auto) 1.4 L Absolute Lymphs (auto) 2.06 Nucleated RBC % 0 Platelet Estimate ADEQUATE Hypochromasia 2+ Anisocytosis 2+ Sodium 140 Potassium 4.0 Chloride 107 Carbon Dioxide 23.3 Anion Gap 10 BUN 19 Creatinine 0.96 Estim Creat Clear Calc 60.54 Est GFR (MDRD) Non-Af 72 BUN/Creatinine Ratio 19.7 Glucose 80 Calcium 8.7 Total Bilirubin < 0.15 AST 25 ALT 24 Alkaline Phosphatase 106 H Total Protein 6.9 Albumin 3.8 Globulin 3.2 Albumin/Globulin Ratio 1.2 Lipase 18 Urine Color Yellow Urine Clarity Cloudy Urine pH 6.0 Ur Specific [place] 1.025 Urine Protein 30 H Urine Glucose (UA) Normal Urine Ketones Negative Urine Occult Blood 250 H Urine Nitrite Negative Urine Bilirubin Negative Urine Urobilinogen 1 H Ur Leukocyte Esterase 25 H Urine RBC 0-5 SEEN Urine WBC 5-10 SEEN Ur Squamous Epith Cells 0-5 SEEN Urine Bacteria 3+ Urine Mucus 1+ Discharge Plan Triage Chief Complaint: Vag Bleeding ED Provider: Kwabena Lopes Dx/Rx/DC Orders Clinical Impression: Post-op bleeding, Status post hysterectomy, History of diabetes mellitus Instructions: ED Post Op Wound Check, Bleeding Prescriptions: No Action Slow Fe 142 mg (45 mg iron) tablet extended release 142 mg PO BID lisinopril 20 mg tablet 20 mg PO BID duloxetine 30 MG capsule,delayed release(DR/EC) 30 mg PO DAILY cetirizine 10 MG capsule 10 mg PO DAILY acetaminophen 500 mg Tablet 1,000 mg PO Q6H PRN (Reason: Pain) pantoprazole [Protonix] 40 mg tablet,delayed release (DR/EC) 40 mg PO BID Qty: 60 0RF buspirone 5 mg tablet 1 tab PO BID Patient Comments: Take 1 tablet by mouth twice daily. pravastatin 40 mg tablet 1 tab PO QHS Patient Comments: Take 1 tablet by mouth once daily. Bariatric Multivitamins 45 mg iron- 800 mcg-120 mcg Capsule 2 cap PO DAILY tizanidine 4 mg tablet 4 mg PO BID Patient Comments: TAKE 1 TABLET BY MOUTH TWICE DAILY sennosides-docusate sodium [Stimulant Laxative Plus] 8.6-50 mg tablet 1 tab PO DAILY Patient Comments: TAKE 1 TABLET BY MOUTH ONCE DAILY fluticasone propionate 50 mcg/actuation spray,suspension 2 spray INTRANASAL DAILY PRN Patient Comments: Use 2 Sprays in each nostril once daily. Rinse mouth after use. oxycodone 15 mg tablet 15 mg PO TID ascorbic acid (vitamin C) 500 mg Tablet 500 mg PO BID omeprazole 20 mg Capsule,Delayed Release(Dr/Ec) 40 mg PO DAILY albuterol sulfate 90 mcg/actuation HFA aerosol inhaler 2 puff INHALATION Q4H PRN PRN (Reason: sob) escitalopram oxalate 10 mg tablet 10 mg PO DAILY diclofenac sodium [Voltaren] 1 % Gel 1 ea TOPICAL PRN PRN (Reason: Pain) cholecalciferol (vitamin D3) 50 mcg (2,000 unit) Tablet 50 mcg PO DAILY L. acidophilus-L. rhamnosus 15 billion cell Capsule 1 cap PO DAILY metoprolol tartrate 50 mg tablet 50 mg PO BID amlodipine 10 mg tablet 10 mg PO DAILY Qty: 90 3RF hydrochlorothiazide 50 mg tablet 50 mg PO QDAY doxazosin 4 mg tablet 4 mg PO QDAY Qty: 30 11RF Primary Care Provider: Bebeto Charlton Referrals: Bebeto Charlton DO [Primary Care Provider] - Brea Orozco MD [Med Staff - Active Staff] - As soon as possible Activity Restrictions/Additional Instructions: All your tests look good. There is a small amount of bleeding from the wound site. Take it easy. No heavy lifting. Light activity. Call and follow-up with Dr. Orozco. She can reexamine the area. If need be she can cauterize any areas of bleeding. Print Language: Urdu Disposition Disposition: Home, Self Care
[2025-04-26 20:52] LABS: Color, Urine Yellow (Yellow); Glucose, Dipstick Normal (Normal); Ketone-Dipstick Negative (Negative); Leukocyte Esterase-Dipstick 25 /ul (Negative); Nitrite-Dipstick Negative (Negative); Occult Blood-Urine 250 /ul (Negative); Protein-Dipstick 30 mg/dl (Negative); Specific Gravity, Urine 1.025 (1.002-1.030); Urine Bilirubin Dipstick Negative (Negative); Urine Clarity Cloudy (Clear); Urine Urobilinogen 1 mg/dl (Normal)
[2025-04-26 20:58] VITALS: BP 186/104; PULSE 55
[2025-04-26 20:59] LABS: Bacteria 3+ /hpf (None Seen); Mucous, Urine 1+ /hpf (<or=2+); Red Blood Cells-Urine 0-5 SEEN /hpf (0-5); Squamous Epithelial Cells - UA 0-5 SEEN /hpf (5-10); White Blood Cells 5-10 SEEN /hpf (0-5)
[2025-04-26 21:26] VITALS: BP 186/104; PULSE 55; RESP 16; TEMP 36.5; O2SAT 98
== END 2025-04-26 21:32 | disposition home or self-care (01) ==
PROVIDERS: Emergency Provider Emergency Medicine; PCP Student in an Organized Health Care Education/Training Program; Visit Provider Emergency Medicine
DX: N99.820 Postprocedural hemorrhage of a genitourinary system organ or structure following a genitourinary system procedure (principal); E11.9 Type 2 diabetes mellitus without complications; N93.9 Abnormal uterine and vaginal bleeding, unspecified; I10 Essential (primary) hypertension; Z90.710 Acquired absence of both cervix and uterus; Z79.899 Other long term (current) drug therapy; Z86.16 Personal history of COVID-19
CPT/HCPCS: 80053; 81001; 83690; 85025; 99283; A4216

== ENCOUNTER 2025-08-25 11:39 | Emergency (ER) | payer MEDICAID, SELFPAY ==
[2025-08-25 11:41] VITALS: BP 200/89; PULSE 54; RESP 16; TEMP 36.6; O2SAT 99; BMI 22.8
--- NOTE | 2025-08-25 11:43 | EKG12_ITS ---
Test Reason : CP Blood Pressure : */* mmHG Vent. Rate : 57 BPM Atrial Rate : 57 BPM P-R Int : 168 ms QRS Dur : 82 ms QT Int : 472 ms P-R-T Axes : 39 35 177 degrees QTcB Int : 459 ms Sinus bradycardia Left ventricular hypertrophy with repolarization abnormality ( Sokolow-Buitrago ) Abnormal ECG Confirmed by LEN CORTEZ, JACKIE ([id number]), city editor ANNABEL GUADALUPE ([id number]) on 08/27/2025 7:27:21 AM Referred By: Confirmed By: JACKIE HARRINGTON MD
[2025-08-25 11:57] LABS: Hematocrit 39.8 % (37-47); Hemoglobin 12.7 g/dL (12.0-15.0); Immature Granulocytes Count 0.010 X10^3/uL (0.0-0.0); Mean Corp Hgb Conc 31.9 g/dL (32-36); Mean Corpuscular Volume 88.8 fL (81-99); Mean Platelet Vol. 9.4 fl (6.2-12.0); NRBC Flagged by Analyzer 0 % (0-5); Platelet Count 257 K/mm3 (150-450); RBC Distribution Width CV 15.0 % (11.6-14.6); RBC Distribution Width SD 48.8 fl (35.1-43.9); Red Blood Count 4.48 M/mm3 (4.2-5.4); White Blood Count 3.1 K/mm3 (4.4-11.0)
--- NOTE | 2025-08-25 12:15 | RAD_ITS ---
PROCEDURE: CHEST 1 VIEW (PORTABLE) 08/25/2025 REASON FOR EXAM: CHEST PAIN TECHNIQUE: Frontal view of the chest. COMPARISON: None FINDINGS: Hardware: EKG electrodes are seen. Heart: The heart size is normal. Lungs: The lungs are clear. Bones: Degenerative changes are identified within the thoracic spine. RAD/Chest 1 View (Portable) IMPRESSION: No Acute Findings. Reading Location: [facility]-
[2025-08-25 12:30] VITALS: BP 175/99; PULSE 56; RESP 13; O2SAT 96
[2025-08-25 12:56] LABS: Anion Gap 8 (5-15); BUN 16 mg/dL (4-19); BUN/Creat Ratio 20.4 RATIO (10-20); Calcium,Total 8.8 mg/dL (7.6-11.0); Carbon Dioxide 24.9 mmol/L (21.0-32.0); Chloride 106 mmol/L (98-108); Estimated Creatinine Clearance 73.57 ml/min (50-250); Glucose 85 mg/dL (70-99); Potassium 4.2 mmol/L (3.3-5.1); Troponin T High Sensitivity 11 ng/L (<=14)
--- NOTE | 2025-08-25 13:06 | CT_ITS ---
PROCEDURE: BRAIN/HEAD WITHOUT CONTRAST 08/25/2025 REASON FOR EXAM: JUAREZ, HTN TECHNIQUE: Procedure Code: CTBR Modality: CT Procedure: BRAIN/HEAD WITHOUT CONTRAST Coronal and Sagittal reconstruction series were provided. One or more dose reduction techniques were used (e.g., Automated exposure control, adjustment of the mA and/or kV according to patient size, use of iterative reconstruction technique. FINDINGS: Mild global parenchymal atrophy. No evidence of acute hemorrhage or infarction. No extra-axial blood or fluid collections. Rightward deviation of the bony nasal septum. The paranasal sinuses are clear. The mastoid air cells are well aerated. The calvarial vault and skull base are intact. CT/Brain/Head without Contrast IMPRESSION: No acute intracranial abnormality. Reading Location: [id number]
--- NOTE | 2025-08-25 13:08 | ED.VIS.CHEST ---
HPI History of Present Illness Chief Complaint: Chest Pain Narrative Narrative: Chief complaint and HPI: 49-year-old female with past medical history of CAD with NSTEMI, DM2, HTN, HLD presents for evaluation of hypertension and chest tightness. Patient states she has been stressed lately and forgot to take several doses of her antihypertensive medication. She states this was approximately 2 weeks ago and since then she has remained intermittently hypertensive. She states yesterday she developed chest tightness that quickly resolved. States today she developed a gradual headache with chest tightness and mild shortness of breath. She states she checked her blood pressure and it was elevated which is why she presents to the emergency department. She follows regularly with Dr. Sanchez. Review of systems: See HPI Medications: As listed on the chart Allergies: As listed on the chart PFSH: Per chart Vital signs: As listed on the chart. Reviewed. Physical exam: Gen: A&O x3, NAD Head: Normocephalic, atraumatic Eyes: No sclera icterus, conjunctiva clear, PERRL, EOMI ENT: Moist mucous membranes Neck: Trachea midline, No JVD CV: RRR, no murmurs, no peripheral edema Resp: Lungs CTA BL, no w/r/c GI: Abd soft, non-distended, non-tender, no r/r/g Musc: Full ROM, no deformity Skin: Warm, dry Neuro: Alert, oriented, grossly intact, sensation intact Psych: Cooperative, appropriate mood and affect [facility] Medical History Contact with and (suspected) exposure to other viral communicable diseases Anemia Severe left ventricular hypertrophy Obstructive sleep apnea COVID-19 Sleep apnea Depression Anxiety GI bleed CPAP (continuous positive airway pressure) dependence Anemia Asthma History of non-ST elevation myocardial infarction (NSTEMI) (1999) HLD (hyperlipidemia) Hirsutism Chronic pain syndrome Hypertensive urgency Type II diabetes mellitus History of gestational diabetes mellitus Obesity Benign essential hypertension Asthma Home Medications ?Medication ?Instructions ?Recorded ?Last Taken ?Type cetirizine 10 mg capsule 10 mg PO DAILY allergy 12/22/20 Unknown History duloxetine 30 mg capsule,delayed 30 mg PO DAILY depression 12/22/20 Unknown History release acetaminophen 500 mg tablet 1,000 mg PO Q6H PRN Pain 02/13/22 Unknown History [id number] 45 mg-folic 2 cap PO DAILY 05/08/22 Unknown History acid 800 mcg-vit K 120 mcg capsule (Bariatric Multivitamins) ferrous sulfate 142 mg (45 mg 142 mg PO BID 08/16/22 Unknown History iron) tablet,extended release (Slow Fe) tizanidine 4 mg tablet 4 mg PO BID 10/18/22 Unknown History Lactobacillus acidophilus and 1 cap PO DAILY 12/08/22 Unknown History rhamnosus 15 billion cell capsule albuterol sulfate 90 mcg/actuation 2 puff inhalation Q4H PRN PRN sob 12/08/22 Unknown History aerosol inhaler ascorbic acid (vitamin C) 500 mg 500 mg PO BID 12/08/22 Unknown History tablet cholecalciferol (vitamin D3) 50 50 mcg PO DAILY 12/08/22 Unknown History mcg (2,000 unit) tablet diclofenac sodium 1 % topical gel 1 ea topical PRN PRN Pain 12/08/22 Unknown History oxycodone 15 mg tablet 15 mg PO TID 12/08/22 Unknown History metoprolol tartrate 50 mg tablet 50 mg PO BID blood pressure 05/10/23 Unknown History amlodipine 10 mg tablet 10 mg PO DAILY #90 tabs 07/19/23 Unknown Rx fluticasone propionate 50 2 spray intranasal DAILY PRN 12/02/24 Unknown History mcg/actuation nasal spray,suspension lisinopril 20 mg tablet 20 mg PO BID 12/02/24 Unknown History doxazosin 4 mg tablet 4 mg PO QDAY #30 tabs 02/05/25 Unknown Rx dulaglutide 1.5 mg/0.5 mL 1.5 mg subcut QWEEK 08/25/25 Unknown History subcutaneous pen injector (Trulicity) furosemide 20 mg tablet 20 mg PO DAILY 08/25/25 Unknown History mometasone 110 mcg/actuation(30 1 inh inhalation DAILY 08/25/25 Unknown History doses) breath activated powder inhaler (Asmanex Twisthaler) pantoprazole 20 mg tablet,delayed 20 mg PO DAILY 08/25/25 Unknown History release prednisone 20 mg tablet 40 mg PO DAILY 08/25/25 Unknown History Allergy/AdvReac Type Severity Reaction Status Date / Time Penicillins Allergy Hives Verified 08/25/25 11:40 metformin AdvReac Diarrhea Verified 08/25/25 11:40 venlafaxine (From Effexor) AdvReac Upset Verified 08/25/25 11:40 Stomach Family History Mother Heart disease Hypertension Diabetes Surgical History History of cholecystectomy H/O gastric bypass History of left heart catheterization (10/07/19) Social History Smoking Status: Never smoker second hand exposure: Yes substance use type: former substance user and crack/cocaine EXAM Physical Exam Const Vital Signs: 08/25/25 11:41 08/25/25 12:23 08/25/25 12:25 Temperature 97.8 F Temperature Source Oral Pulse Rate 54 L Respiratory Rate 16 Respiratory Effort Normal Non-Labored Blood Pressure 200/89 H Blood Pressure Mean 126 Pulse Ox 99 Oxygen Delivery Method Room Air Room Air 08/25/25 12:30 08/25/25 13:10 08/25/25 14:00 Temperature Temperature Source Pulse Rate 56 L 47 L 67 Respiratory Rate 13 12 13 Respiratory Effort Blood Pressure 175/99 H 177/99 H 127/81 H Blood Pressure Mean 119 125 93 Pulse Ox 96 100 100 Oxygen Delivery Method Room Air MDM MDM MDM Narrative Medical decision making narrative: 49-year-old female with past medical history of CAD with NSTEMI, DM2, HTN, HLD presents for evaluation of hypertension and chest tightness. Patient states she has been stressed lately and forgot to take several doses of her antihypertensive medication. She states this was approximately 2 weeks ago and since then she has remained intermittently hypertensive. She states yesterday she developed chest tightness that quickly resolved. States today she developed a gradual headache with chest tightness and mild shortness of breath. She states she checked her blood pressure and it was elevated. On chart review, her last cardiac catheterization was 09/2019 in which her EF was 65% without any stenosis. Her last stress test was in January 2021 that was unremarkable except for mild to moderate cardiomyopathy. Her last echocardiogram was January 2021 which her EF was 70%. On chart review, patient was hypertensive on arrival with SBP in the 200s. She is now 170 without intervention. Will give hydralazine. Cardiac workup ordered. Aspirin ordered. Differential diagnosis includes but is not limited to hypertension urgency, hypertensive emergency, suspect less likely intracranial abnormality, CHF, PE, electrolyte abnormality, ACS. CBC with baseline leukopenia. No anemia. Platelets unremarkable. Coagulation panel unremarkable. D-dimer elevated at 0.74 cannot rule out PE. CT chest ordered. BMP unremarkable. BNP unremarkable. Troponin x [address] of the brain is negative for any acute intracranial abnormality. CTA of the chest negative for PE. No acute abnormality. On reevaluation, patient's blood pressure has improved. Her headache has resolved. She still endorses some intermittent chest tightness. Her heart score is a 4 which places her at moderate risk category. However she did recently have an unremarkable stress test in 2020. Given her heart history and that she follows with cardiology, Dr. Sanchez was consulted and patient was discussed. Okay with discharge home and follow-up outpatient. Recommend increasing lisinopril to twice daily from daily. Patient was updated of all the results and confirmed understand the plan. Return precautions explained. Prescription written for increase in lisinopril. EKG: Interpreted by me/EM physician: EKG shows sinus bradycardia with left ventricular hypertrophy. Heart rate 57. Diagnostic: Interpreted by me/EM physician: Chest x-ray without pneumonia, effusion, cardiomegaly, pneumothorax. Radiology in agreement. Impression: 1. Hypertension urgency 2. Chest pain Lab Data Labs: Laboratory Results - last 24 hr 08/25/25 08/25/25 11:47 14:00 WBC 3.1 L RBC 4.48 Hgb 12.7 Hct 39.8 MCV 88.8 MCH 28.3 MCHC 31.9 L RDW Std Deviation 48.8 H RDW Coeff of Moe 15.0 H Plt Count 257 MPV 9.4 Immature Gran % (Auto) 0.300 Neut % (Auto) 51.1 Lymph % (Auto) 36.2 [place] % (Auto) 10.4 H Eos % (Auto) 1.0 Baso % (Auto) 1.0 Absolute Neuts (auto) 1.6 L Absolute Lymphs (auto) 1.12 Nucleated RBC % 0 PT 13.2 INR 1.0 APTT 26.6 D-Dimer Quant (PE/DVT) 0.74 H* Sodium 139 Potassium 4.2 Chloride 106 Carbon Dioxide 24.9 Anion Gap 8 BUN 16 Creatinine 0.79 Estim Creat Clear Calc 73.57 Est GFR (MDRD) Non-Af 92 BUN/Creatinine Ratio 20.4 H Glucose 85 Calcium 8.8 Troponin T High Sens 11 Troponin T Hi Sens 2 Hr 11 NT pro BNP II 343 Radiography Diagnostic Testing: Clinical Impression(s) from Imaging Studies Chest X-Ray 08/25/25 12:15 IMPRESSION: No Acute Findings. Reading Location: [facility]- Brain CT 08/25/25 13:06 IMPRESSION: No acute intracranial abnormality. Reading Location: [address] Chest CTA 08/25/25 13:49 IMPRESSION: No evidence of pulmonary embolism. No acute abnormality is seen. Reading Location: [facility]- Discharge Plan Triage Chief Complaint: Chest Pain ED Provider: Christ Cordova Dx/Rx/DC Orders Prescriptions: No Action Slow Fe 142 mg (45 mg iron) tablet extended release 142 mg PO BID lisinopril 20 mg tablet 20 mg PO BID duloxetine 30 MG capsule,delayed release(DR/EC) 30 mg PO DAILY cetirizine 10 MG capsule 10 mg PO DAILY acetaminophen 500 mg Tablet 1,000 mg PO Q6H PRN (Reason: Pain) Bariatric Multivitamins 45 mg iron- 800 mcg-120 mcg Capsule 2 cap PO DAILY tizanidine 4 mg tablet 4 mg PO BID Patient Comments: TAKE 1 TABLET BY MOUTH TWICE DAILY fluticasone propionate 50 mcg/actuation spray,suspension 2 spray INTRANASAL DAILY PRN Patient Comments: Use 2 Sprays in each nostril once daily. Rinse mouth after use. oxycodone 15 mg tablet 15 mg PO TID ascorbic acid (vitamin C) 500 mg Tablet 500 mg PO BID albuterol sulfate 90 mcg/actuation HFA aerosol inhaler 2 puff INHALATION Q4H PRN PRN (Reason: sob) diclofenac sodium [Voltaren] 1 % Gel 1 ea TOPICAL PRN PRN (Reason: Pain) cholecalciferol (vitamin D3) 50 mcg (2,000 unit) Tablet 50 mcg PO DAILY L. acidophilus-L. rhamnosus 15 billion cell Capsule 1 cap PO DAILY prednisone 20 mg tablet 40 mg PO DAILY pantoprazole 20 mg tablet,delayed release (DR/EC) 20 mg PO DAILY furosemide 20 mg tablet 20 mg PO DAILY Asmanex Twisthaler 110 mcg/ actuation (30) aerosol powdr breath activated 1 inh inhalation DAILY Trulicity 1.5 mg/0.5 mL pen injector 1.5 mg subcut QWEEK metoprolol tartrate 50 mg tablet 50 mg PO BID amlodipine 10 mg tablet 10 mg PO DAILY Qty: 90 3RF doxazosin 4 mg tablet 4 mg PO QDAY Qty: 30 11RF Primary Care Provider: Bebeto Charlton Referrals: Bebeto Charlton, DO [Primary Care Provider, Medical] Print Language: Stateless
[2025-08-25 13:10] VITALS: BP 177/99; PULSE 47; RESP 12; O2SAT 100
[2025-08-25 13:34] LABS: Prothrombin Time (Protime)PT. 13.2 SECONDS (11.7-14.9)
[2025-08-25 13:35] LABS: Partial Thromboplast Time 26.6 Seconds (24.1-36.2)
[2025-08-25 13:47] LABS: Pro- Brain NATRIURETIC PEPTIDE 343 pg/mL (<=900)
[2025-08-25 13:49] LABS: D-Dimer Quantitative (DVT/PE) 0.74 FEU/ug/m (0.27-0.49)
--- NOTE | 2025-08-25 13:49 | CT_ITS ---
PROCEDURE: CTA CHEST W/WO CONTRAST 08/25/2025 REASON FOR EXAM: PE Shortness of breath. TECHNIQUE: Procedure Code: [id number] Modality: CT Procedure: CTA CHEST W/WO CONTRAST Multiplanar Sagittal and Coronal images were obtained. 3D post processing was performed CONTRAST: Isovue-300 VOLUME: 100 mL One or more dose reduction techniques were used (e.g., Automated exposure control, adjustment of the mA and/or kV according to patient size, use of iterative reconstruction technique). RADIATION DOSE SUMMARY: CTDlvol: 6.8 mGy DLP: 177.01 mGycm COMPARISON: Prior chest radiograph done earlier in the day. FINDINGS: Hardware: EKG electrodes are seen. Lymph nodes: No significant lymph nodes are seen. Heart: The heart is nonenlarged. Coronary artery calcification. Thoracic Aorta: No thoracic aortic aneurysm or dissection. Pulmonary Vessels: Pulmonary vessels are well opacified. No evidence of pulmonary embolism. Lungs and Airways: Lungs are clear. No pulmonary infiltration or mass lesion is seen. Pleura: No pleural effusion. Upper Abdomen: Unremarkable. Status post cholecystectomy. Bones: Degenerative changes of the thoracic spine. CT/CTA Chest W/WO Contrast IMPRESSION: No evidence of pulmonary embolism. No acute abnormality is seen. Reading Location: [place] [id number]
[2025-08-25 14:00] VITALS: BP 127/81; PULSE 67; RESP 13; O2SAT 100
[2025-08-25 14:38] LABS: Troponin T High Sens 2 HR 11 ng/L (<=14)
[2025-08-25] MEDS: 0.9% Normal Saline (1000mL) 1,000 ML 999 ML IV (14:41)
[2025-08-25 15:00] VITALS: BP 158/93; PULSE 57; RESP 10; O2SAT 100
[2025-08-25 16:00] VITALS: BP 158/93; PULSE 86; RESP 18; TEMP 37; O2SAT 98
== END 2025-08-25 16:28 | disposition home or self-care (01) ==
PROVIDERS: Emergency Provider Surgery; PCP Student in an Organized Health Care Education/Training Program; Visit Provider Surgery
DX: I16.0 Hypertensive urgency (principal); E11.9 Type 2 diabetes mellitus without complications; I25.10 Atherosclerotic heart disease of native coronary artery without angina pectoris; I10 Essential (primary) hypertension; I25.2 Old myocardial infarction; R07.9 Chest pain, unspecified; E78.5 Hyperlipidemia, unspecified; Z79.51 Long term (current) use of inhaled steroids; Z79.899 Other long term (current) drug therapy
CPT/HCPCS: 70450; 71045; 71275; 80048; 83880; 84484; 85025; 85379; 85610; 85730; 93005; 96361; 96374; 96375; 96376; 99284; Q9967; A4216; J2405

== ENCOUNTER → 2025-09-29 | Outpatient (CLI) | payer MEDICAID, SELFPAY ==
--- NOTE | 2025-09-29 08:47 | ECHOCS_ITS ---
Reason For Study Reason For Study: Severe LVH, HTN, Near Syncope Procedure This was a 2D Doppler, Color Flow transthoracic echocardiogram. Myocardial strain analysis was performed in this exam to aid in the assessment of cardiac function. Contrast injection was performed. Exam performed in department. Left Ventricle Normal LV size. Mild eccentric left ventricular hypertrophy. The global longitudinal strain = -16.4% (abnormal). The left ventricular ejection fraction is 65 %. No regional wall motion abnormalities noted. Right Ventricle Normal RV size. Normal systolic function. Atria Normal left atrium. Normal right atrium. Mitral Valve There is moderate mitral annular calcification. Mild (1+) eccentric mitral valve insufficiency. Tricuspid Valve Normal tricuspid valve. Aortic Valve Trisinus/trileaflet aortic valve. Mild focal aortic valve calcification. Pulmonic Valve Normal pulmonic valve. Great Vessels Normal aortic root. The pulmonary artery is normal size. Normal inferior vena cava. Pericardium/Pleural No pericardial effusion. Medication 22 gauge I.V. with prn adaptor inserted into right arm. Diluted definity 2ml given slow IV push to enhance endocardial definition. MMode/2D Measurements & Calculations LVIDd: 4.9 cm IVSd: 1.0 cm LVOT diam: 1.6 cm LVIDs: 3.0 cm LVPWd: 1.4 cm RVDd: 3.2 cm FS: 38.0 % LVOT area: 2.0 cm2 LAV(MOD-bp): 42.2 ml LVAd ap4: 31.6 cm2 SV(MOD-sp4): 62.6 ml LAV(MOD-bp) Indexed: 25.9 ml/m2 LVLd ap4: 8.3 cm SI(MOD-sp4): 38.4 ml/m2 LAV(MOD-sp2): 43.1 ml EDV(MOD-sp4): 97.5 ml LAV(MOD-sp4): 38.6 ml EDV(sp4-el): 101.5 ml LVAs ap4: 17.0 cm2 LVLs ap4: 6.8 cm ESV(MOD-sp4): 35.0 ml ESV(sp4-el): 36.3 ml EF(MOD-sp4): 64.1 % EF(sp4-el): 64.3 % SV(sp4-el): 65.2 ml Aortic Valve Planimetry: 0.93 cm2 LA A4 area: 14.6 cm2 LA dimension(2D): 3.5 cm RA A4 area: 10.8 cm2 Time Measurements MV dec time: 0.31 sec Doppler Measurements & Calculations MV E max jarad: 109.6 cm/sec Lat Peak E' Jarad: 6.1 cm/sec Med Peak E' Jarad: 5.1 cm/sec MV A max jarad: 96.5 cm/sec E/E' lat: 17.9 E/E' med: 21.5 MV E/A: 1.1 MV V2 max: 130.4 cm/sec MV P1/2t max jarad: 130.7 cm/sec Ao V2 max: 182.3 cm/sec MV max P.8 mmHg MV P1/2t: 108.1 msec Ao max P.3 mmHg MV V2 mean: 70.4 cm/sec MV dec slope: 354.1 cm/sec2 Ao V2 mean: 123.5 cm/sec MV mean P.4 mmHg MVA(P1/2t): 2.0 cm2 Ao mean P.1 mmHg MV V2 VTI: 47.8 cm Ao V2 VTI: 40.6 cm MVA(VTI): 1.3 cm2 AV (velocity ratio): 0.74 ASHLEY(I,D): 1.5 cm2 ASHLEY(V,D): 1.2 cm2 LV V1 max: 110.1 cm/sec SV(LVOT): 60.1 ml PA V2 max: 117.3 cm/sec LV V1 max P.9 mmHg PA V2 mean: 82.3 cm/sec LV V1 mean P.9 mmHg LV V1 mean: 79.8 cm/sec LV V1 VTI: 30.1 cm ECHO/Echo Complete W/ Contrast Interpretation Summary Normal LV size. Mild eccentric left ventricular hypertrophy. The global longitudinal strain = -16.4% (abnormal). The left ventricular ejection fraction is 65 %. Mild focal aortic valve calcification. Contrast injection was performed. Ordering Physician: Yunier Perkins Referring Physician: Yunier Perkins Performed By: Christ Saunders RCS
== END | disposition home or self-care (01) ==
LOC: CVS 08:46
PROVIDERS: PCP Student in an Organized Health Care Education/Training Program; Referring Provider Student in an Organized Health Care Education/Training Program; Visit Provider Student in an Organized Health Care Education/Training Program
DX: I51.7 Cardiomegaly (principal)
CPT/HCPCS: 93306; Q9957; A4216; C8929

== ENCOUNTER → 2025-09-30 | Outpatient (CLI) | payer MEDICAID, SELFPAY | END | disposition home or self-care (01) | LOC: PSN 07:44 | PROVIDERS: PCP Student in an Organized Health Care Education/Training Program; Referring Provider Student in an Organized Health Care Education/Training Program; Visit Provider Student in an Organized Health Care Education/Training Program | DX: R55 Syncope and collapse (principal) | CPT/HCPCS: 93225; 93226 ==

== ENCOUNTER → 2025-10-01 | Outpatient (CLI) | payer MEDICAID, SELFPAY ==
--- NOTE | 2025-10-01 07:49 | RDU_ITS ---
Reason For Study Reason For Study: HTN Right Renal Artery Left Renal Artery Right renal artery ostium 56.2/24.1 Left renal artery ostium 71.4/24.2 RSV/EDV. PSV/EDV. Right renal artery proximal 57.4/26.6 Left renal artery proximal PSV/EDV PSV/EDV. 41.9/16.9 . Right renal artery mid 72.2/25.4 PSV/EDV. Left renal artery mid 79.0/32.7 PSV/EDV . Right renal artery distal 48.4/13.8 Left renal artery distal 60.0/24.6 PSV/EDV. PSV/EDV. Right RAR 1.16. Possible LRA duplicator noted. Right Renal Parenchyma Left renal artery 2 ostium 83.8/30.3 Upper Pole Medula 34.2/14.5 PSV/EDV. PSV/EDV. Right upper pole medulla EDR 0.40 . Left renal artery 2 mid 57.0/22.2 Right upper pole medulla R.I. 0.58 . PSV/EDV . Upper Anurag Cortx 19.2/8.1 PSV/EDV. Left RAR 1.35. Right upper pole cortex EDR 0.40 . Left Renal Parenchyma Right upper pole cortex R.I. 0.58 . Left upper pole medulla 20.5/8.7 Right lower Pole medulla 30.8/9.9 PSV/EDV . PSV/EDV . Left upper pole medulla EDR 0.40 . Right lower pole medulla EDR 0.30 . Left upper pole medulla R.I. 0.57 . Right lower pole medulla R.I. 0.68 . UP Cortex 14.4/4.8 PSV/EDV. Lower Pole Cortex 14.9/5.6 PSV/EDV. Left upper pole cortex EDR 0.30 . Right lower pole cortex EDR 0.40 . Left upper pole cortex R.I. 0.67 . Right lower pole cortex R.I. 0.62 . Left lower Pole medulla 29.3/13.0 Right Renal Hilar PSV/EDV . Right Hilar avg 85.6/33.1 PSV/EDV. Left lower pole medulla EDR 0.40 . Right hilar acceleration time 10 m/sec. Left lower pole medulla R.I. 0.56 . Right Renal Dimensions Lower Pole Cortx 17.6/7.7 PSV/EDV. Right kidney size 9.56 cm . Left lower pole cortex EDR 0.40 . Right cortical dimension 1.97 cm . Left lower pole cortex R.I. 0.56 . Left Renal Hilar LT Hilar avg 69.9/24.6 PSV/EDV . Left hilar acceleration time 50 m/sec. Left Renal Dimensions Left kidney size 9.71 cm . Left cortical dimension 2.34 cm . Aorta Proximal abdominal aorta 1.80 x 1.98 cm . Proximal abdominal aorta peak systolic velocity is 53.5 cm/sec . Distal abdominal aorta 1.79 x 1.64 cm . Distal abdominal aorta peak systolic velocity is 62.3 cm/sec . VL/Renal Artery Duplex Ultrasound Interpretation Summary Right renal artery patent with normal velocities and no evidence of stenosis. Right renal vein patent. Right kidney normal in size. Left renal artery patent with normal velocities and no evidence of stenosis. Left renal vein patent. Left kidney normal in size. Ordering Physician: Yunier Perkins Referring Physician: Bebeto Charlton Performed By: Jaycob Salas RVT and Student
== END | disposition home or self-care (01) ==
LOC: CVS 07:48
PROVIDERS: PCP Student in an Organized Health Care Education/Training Program; Referring Provider Student in an Organized Health Care Education/Training Program; Visit Provider Student in an Organized Health Care Education/Training Program
DX: R09.89 Other specified symptoms and signs involving the circulatory and respiratory systems (principal); E11.9 Type 2 diabetes mellitus without complications; I10 Essential (primary) hypertension; I51.7 Cardiomegaly; E78.5 Hyperlipidemia, unspecified
CPT/HCPCS: 93975

== ENCOUNTER 2025-10-10 16:28 | Emergency (ER) | payer MEDICAID, SELFPAY ==
[2025-10-10 16:29] VITALS: BP 139/87; PULSE 88; RESP 18; TEMP 36.3; O2SAT 100; BMI 22.1
--- NOTE | 2025-10-10 16:46 | EKG12_ITS ---
Test Reason : FALL Blood Pressure : */* mmHG Vent. Rate : 61 BPM Atrial Rate : 61 BPM P-R Int : 166 ms QRS Dur : 84 ms QT Int : 432 ms P-R-T Axes : 42 20 156 degrees QTcB Int : 434 ms Normal sinus rhythm with sinus arrhythmia Left ventricular hypertrophy with repolarization abnormality ( R in aVL , Sokolow-Buitrago , [place] product ) Abnormal ECG Confirmed by Jose Márqeuz ([id number]), medical editor ANNABEL GUADALUPE ([id number]) on 10/13/2025 8:36:49 AM Referred By: Confirmed By: Jose Márquez
--- NOTE | 2025-10-10 16:47 | EDS_ITS ---
HPI History of Present Illness Chief Complaint: Syncope Detail of Chief Complaint: Sacral episode Informant: patient Onset/Context/Timing Onset: Today and Hours Context: Sudden Onset Timing: Intermittent and Lasts (2 minutes) Quality: Patient states she was standing for an hour. She felt warm and nauseous ma Location: [facility] Current Severity: Gone Maximum Severity: Severe Worsened by: Nothing per patient Relieved by: Nothing Associated Symptoms Associated Symptoms: Vagal like symptoms prior to syncope Narrative Narrative: Patient is a 49-year-old woman. She has history of hyperlipidemia, type 2 diabetes, essential benign hypertension, who presents with syncope. She states this is the third time she has passed out this month. She is passed out last month as well. She denies headache, visual, ocular auditory symptoms. Denies ringing or ears. She denies trouble speech or swallowing. She denies chest pain, pressure, tightness or heaviness. She denies pain with breathing. She denies shortness of breath or dyspnea on exertion. She denies orthopnea or PND. She denies abdominal pain, did have nausea without vomiting. She states after this episode she did have a loose stool. The stool was not black or maroon in color. She denies dysuria, frequency, urgency or hematuria. She denies leg pain, swelling or discoloration. She has no history of VTE. Prior similar symptoms: Yes Recent Illness/Hospitalization: No [facility] Medical History Contact with and (suspected) exposure to other viral communicable diseases Anemia Severe left ventricular hypertrophy Obstructive sleep apnea COVID-19 Sleep apnea Depression Anxiety GI bleed CPAP (continuous positive airway pressure) dependence Anemia Asthma History of non-ST elevation myocardial infarction (NSTEMI) (1999) HLD (hyperlipidemia) Hirsutism Chronic pain syndrome Hypertensive urgency Type II diabetes mellitus History of gestational diabetes mellitus Obesity Benign essential hypertension Asthma Home Medications Medication Instructions Recorded Last Taken Type cetirizine 10 mg capsule 10 mg PO DAILY allergy 12/22 Unknown History [id number] 45 mg-folic 2 cap PO DAILY 04/14 05/04 Unknown History acid 800 mcg-vit K 120 mcg capsule (Bariatric Multivitamins) ferrous sulfate 142 mg (45 mg 142 mg PO BID 08/16/22 U nknown History iron) tablet,extended release (Slow Fe) tizanidine 4 mg tablet 4 mg PO BID 10/18/22 Unknown History albuterol sulfate 90 mcg/actuation 2 puff inhalation Q 4H PRN PRN sob 12/08/22 Unknown History aerosol inhaler cholecalciferol (vitamin D3) 50 50 mcg PO DAILY Unknown History mcg (2,000 unit) tablet diclofenac sodium 1 % topical gel 1 ea topical PRN PRN Pain 12/08/22 Unknown History oxycodone 15 mg tablet 15 mg PO TID 12/08/22 Unknow n History fluticasone propionate 50 2 spray intranasal DAILY PRN 12/02/24 Unknown History mcg/actuation nasal spray,suspension lisinopril 20 mg tablet 20 mg PO BID 12/02/24 Unknow n History doxazosin 4 mg tablet 4 mg PO QDAY #30 tabs Unknown Rx dulaglutide 1.5 mg/0.5 mL 1.5 mg subcut QWEEK 08/25/25 Unknown History subcutaneous pen injector (Trulicity) furosemide 40 mg tablet (Lasix) 40 mg PO DAILY 30 days #30 tabs 08/25/25 Unknown Rx mometasone 110 mcg/actuation(30 1 inh inhalation DAILY 08/25/25 Unknown History doses) breath activated powder inhaler (Asmanex Twisthaler) pantoprazole 20 mg tablet,delayed 20 mg PO DAILY 08/25 Unknown History release amlodipine 10 mg tablet 10 mg PO .COMPLEX #90 tabs 1 11/26/24 Unknown Rx metoprolol tartrate 50 mg tablet 25 mg PO BID blood pr essure 09/26/25 Unknown History benzonatate 100 mg capsule 100 mg PO TID PRN PRN cough 10/10/25 Unknown History doxycycline monohydrate 100 mg 100 mg PO BID 10/10/25 Unknown History tablet duloxetine 30 mg capsule,delayed mg PO 10/10/25 Unknow n History release duloxetine 60 mg capsule,delayed 60 mg PO DAILY Unknown History release gabapentin 400 mg capsule 400 mg PO QHS 10/10/25 Unkno wn History Allergy/AdvReac Type Severity Reaction Status Date / Time Penicillins Allergy Hives Verified 10/10/25 16:30 metformin AdvReac Diarrhea Verified 10/10/25 16:30 venlafaxine (From Effexor) AdvReac Upset Verified 10/10/25 16:30 Stomach Family History Mother Heart disease Hypertension Diabetes Surgical History History of cholecystectomy H/O gastric bypass History of left heart catheterization (10/07/19) Social History Smoking Status: Never smoker second hand exposure: Yes substance use type: former substance user and crack/cocaine ROS ROS ED Constitutional Constitutional ED: Denies chills, fever(s), subjective or sweats Eyes Eyes: Reports other Details: Vision went black ; Denies blurry vision, change in vision or diplopia ENT ENT ED: Denies ear pain, rhinorrhea or sore throat Cardiovascular Cardiovascular: Denies chest pain, orthopnea, palpitations or paroxysmal nocturnal dyspnea Respiratory/Chest Respiratory/Chest: Denies cough, dyspnea, dyspnea on exertion, orthopnea or paroxysmal nocturnal dyspnea Gastrointestinal Gastrointestinal: Reports diarrhea and nausea; Denies abdominal pain, constipation, melena or vomiting Genitourinary Genitourinary ED: Denies dysuria, hematuria or urinary frequency Musculoskeletal Musculoskeletal: Denies arthralgias or myalgias Integumentary Denies rash Psychiatric Psychiatric: Denies anxiety or depression Endocrine Endocrinology: Denies cold intolerance, heat intolerance, polydipsia or polyuria Hematologic/Lymphatic Hematologic/Lymphatic: Reports systems reviewed and no addt'l complaints, except as documented EXAM Physical Exam Const Vital Signs: 10/10/25 16:29 10/10/25 16:42 10/10/25 17:52 Temperature 97.3 F L Temperature Source Temporal Pulse Rate 88 Pulse Rate [Lying] 69 Pulse Rate [Sitting (for 1 minute prior to obtaining)] 68 Pulse Rate [Standing (for 1 minute prior to obtaining)] 77 Respiratory Rate 18 Respiratory Effort Normal Respiratory Pattern Normal Blood Pressure 139/87 H Blood Pressure [Lying] 129/86 H Blood Pressure [Sitting (for 1 minute prior to obtaining)] 134/90 H Blood Pressure [Standing (for 1 minute prior to obtaining)] 113/92 H Blood Pressure Mean 104 Blood Pressure Mean [Lying] 100 Blood Pressure Mean [Sitting (for 1 minute prior to obtaining)] 104 Blood Pressure Mean [Standing (for 1 minute prior to obtaining)] 99 Pulse Ox 100 Oxygen Delivery Method Room Air Positive well nourished and well developed General Appearance ED: well developed and NAD; Negative for pallor HEENT Reports moist mucous membranes HEENT Narrative: Head is atraumatic no cephalic. Patient does have awake on. Ears normal. TMs normal. Posterior pharynx is normal. Nares patent without discharge. Eyes PERRL and EOMs intact bilaterally General Eye ED: Negative for pale conjunctiva or scleral icterus Neck no lymphadenopathy, supple and no JVD Resp normal respiratory effort and clear to auscultation bilaterally Cardio regular rate, regular rhythm, S1 normal heart sound, S2 normal heart sound and no murmurs GI normal to inspection, nondistended, normoactive bowel sounds, non-tender, non- distended and no masses; Negative for hepatosplenomegaly GI Narrative: No palpable pulsatile mass. Back/Spine no CVA tenderness Extremity normal to inspection General Extremety ED: Negative for edema or tenderness General Extremity: Negative for edema Neuro CN's II-XII intact bilaterally and no sensory deficits noted Neuro Narrative: There is no dysmetria. There is no clonus Babinski sign noted bilaterally. Sensorium / Orientation: alert Motor Exam: strength 5/5 throughout Psych mental status grossly normal Skin no rashes or lesions noted, no wounds and skin turgor normal General Skin Exam: Negative for jaundice or pallor MDM MDM MDM Narrative Medical decision making narrative: Patient with syncopal sewed. Suspect this is vasovagal. Since this is her third episode of this month and had several last month we will obtain EKG and appropriate blood work to assess for anemia, electrolyte abnormality and review prior records. If workup is negative will refer to cardiology for table tilt test. Lab Data Attestation: I reviewed the patient's lab results. Lab results narrative: Basic metabolic panel was elevated BUN/creatinine of 22 1.25. Creatinine on October 15, 2023 was elevated at 1.39. Her creatinine since that time was normal prior to today. She CBC is unchanged from prior. H&H is normal. Labs: Laboratory Results - last 24 hr 10/10/25 16:40 WBC 4.2 L RBC 4.33 Hgb 12.6 Hct 39.6 MCV 91.5 MCH 29.1 MCHC 31.8 L RDW Std Deviation 50.8 H RDW Coeff of Moe 15.0 H Plt Count 205 MPV 10.1 Sodium 141 Potassium 3.3 Chloride 105 Carbon Dioxide 23.9 Anion Gap 12 BUN 22 H Creatinine 1.25 H Estim Creat Clear Calc 46.50 L Est GFR (MDRD) Non-Af 53 L BUN/Creatinine Ratio 17.4 Glucose 89 Calcium 8.6 EKG Initial EKG: Attestation: I personally reviewed and interpreted this EKG as follows: Interpretation: Sinus Rhythm (Rate is 61. There is evidence of LVH with repolarization changes. NE interval is under sick 6 ms. Cures duration 84 ms. QT duration 432 ms. [place] is normal.) Treatment and Re-Evaluation :: Patient had a echocardiogram performed September 29, 2025. LV was normal size. There is mild eccentric left ventricular hypertrophy noted. Estimated ejection fraction was 65%. There is mild focal aortic valve calcification. Contrast injection was performed. Patient had global longitudinal strain at equal - 16.4%, this is abnormal. Patient was concerned because no imaging was obtained. Patient was informed based on the [place] CT head rule and Rogers rule imaging of her head is not indicated. After I explained this to her and she understood and was accepting that she did not have a CAT scan of her head Comments:: Patient states she does see Dr. Sanchez. Since she has had frequent syncopal episodes will have her follow-up with Dr. Sanchez for table tilt test. Discharge Plan Triage Chief Complaint: Syncope ED Provider: Gm Richter Dx/Rx/DC Orders Clinical Impression: Syncope, vasovagal, Benign essential hypertension, HLD (hyperlipidemia), Type II diabetes mellitus Instructions: ED Fainting, Vagal Reaction Prescriptions: No Action Slow Fe 142 mg (45 mg iron) tablet extended release 142 mg PO BID lisinopril 20 mg tablet 20 mg PO BID cetirizine 10 MG capsule 10 mg PO DAILY Bariatric Multivitamins 45 mg iron- 800 mcg-120 mcg Capsule 2 cap PO DAILY tizanidine 4 mg tablet 4 mg PO BID Patient Comments: TAKE 1 TABLET BY MOUTH TWICE DAILY fluticasone propionate 50 mcg/actuation spray,suspension 2 spray INTRANASAL DAILY PRN Patient Comments: Use 2 Sprays in each nostril once daily. Rinse mouth after use. oxycodone 15 mg tablet 15 mg PO TID albuterol sulfate 90 mcg/actuation HFA aerosol inhaler 2 puff INHALATION Q4H PRN PRN (Reason: sob) diclofenac sodium [Voltaren] 1 % Gel 1 ea TOPICAL PRN PRN (Reason: Pain) cholecalciferol (vitamin D3) 50 mcg (2,000 unit) Tablet 50 mcg PO DAILY gabapentin 400 mg capsule 400 mg PO QHS doxycycline monohydrate 100 mg tablet 100 mg PO BID benzonatate 100 mg capsule 100 mg PO TID PRN PRN (Reason: cough) duloxetine 30 mg capsule,delayed release(DR/EC) PO duloxetine 60 mg capsule,delayed release(DR/EC) 60 mg PO DAILY pantoprazole 20 mg tablet,delayed release (DR/EC) 20 mg PO DAILY Asmanex Twisthaler 110 mcg/ actuation (30) aerosol powdr breath activated 1 inh inhalation DAILY Trulicity 1.5 mg/0.5 mL pen injector 1.5 mg subcut QWEEK furosemide [Lasix] 40 mg tablet 40 mg PO DAILY 30 Days Qty: 30 0RF doxazosin 4 mg tablet 4 mg PO QDAY Qty: 30 11RF amlodipine 10 mg tablet 10 mg PO .COMPLEX Qty: 90 3RF Rx Instructions: 10 mg orally at bedtime; metoprolol tartrate 50 mg tablet 25 mg PO BID Primary Care Provider: Bebeto Charlton Referrals: Louie Sanchez MD [Med Staff - Active Staff, Cardiology] - 3-5 Days Bebeto Charlton DO [Primary Care Provider, Medical] Activity Restrictions/Additional Instructions: Contact Dr. Sanchez's office. Let his staff know that you were referred because of frequent syncopal episodes. You need evaluated for possible table tilt test. Print Language: Luxembourger Disposition Disposition: Home, Self Care
[2025-10-10 17:23] LABS: Anion Gap 12 (5-15); BUN 22 mg/dL (4-19); BUN/Creat Ratio 17.4 RATIO (10-20); Calcium,Total 8.6 mg/dL (7.6-11.0); Carbon Dioxide 23.9 mmol/L (21.0-32.0); Chloride 105 mmol/L (98-108); Estimated Creatinine Clearance 46.50 ml/min (50-250); Glucose 89 mg/dL (70-99); Potassium 3.3 mmol/L (3.3-5.1)
[2025-10-10 17:31] LABS: Hematocrit 39.6 % (37-47); Hemoglobin 12.6 g/dL (12.0-15.0); Mean Corp Hgb Conc 31.8 g/dL (32-36); Mean Corpuscular Volume 91.5 fL (81-99); Mean Platelet Vol. 10.1 fl (6.2-12.0); Platelet Count 205 K/mm3 (150-450); RBC Distribution Width CV 15.0 % (11.6-14.6); RBC Distribution Width SD 50.8 fl (35.1-43.9); Red Blood Count 4.33 M/mm3 (4.2-5.4); White Blood Count 4.2 K/mm3 (4.4-11.0)
[2025-10-10 17:52] VITALS: BP 113/92; BP 129/86; BP 134/90; PULSE 68; PULSE 69; PULSE 77
[2025-10-10 18:43] VITALS: BP 139/113; PULSE 58; RESP 18; O2SAT 98
[2025-10-10 19:10] VITALS: BP 146/88; PULSE 68; RESP 14; TEMP 36.4; O2SAT 98
== END 2025-10-10 19:11 | disposition home or self-care (01) ==
PROVIDERS: Emergency Provider Emergency Medicine; PCP Student in an Organized Health Care Education/Training Program; Visit Provider Emergency Medicine
DX: R55 Syncope and collapse (principal); E11.9 Type 2 diabetes mellitus without complications; I10 Essential (primary) hypertension; E78.5 Hyperlipidemia, unspecified; G47.33 Obstructive sleep apnea (adult) (pediatric); I25.2 Old myocardial infarction; Z86.16 Personal history of COVID-19
CPT/HCPCS: 80048; 85027; 93005; 99285; A4216

== ENCOUNTER → 2025-10-21 | Outpatient (CLI) | payer MEDICAID, SELFPAY | END | disposition home or self-care (01) | LOC: CVS 11:42 | PROVIDERS: PCP Student in an Organized Health Care Education/Training Program; Referring Provider Student in an Organized Health Care Education/Training Program; Visit Provider Student in an Organized Health Care Education/Training Program | DX: I10 Essential (primary) hypertension (principal) | CPT/HCPCS: 93788 ==